=== PATIENT | male | born 2000 | race Two or more races ===

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

== ENCOUNTER 2021-06-29 07:10 | Outpatient (REF) | payer MEDICAID, SELFPAY ==
--- NOTE | 2021-06-29 | ECG_ITS ---
Test Reason : HIGH RISK MEDICATION Blood Pressure : / mmHG Vent. Rate : 093 BPM Atrial Rate : 093 BPM P-R Int : 152 ms QRS Dur : 072 ms QT Int : 348 ms P-R-T Axes : 058 029 003 degrees QTc Int : 432 ms Normal sinus rhythm Normal ECG No previous ECGs available Referred By: Dannie Blas Electronically Signed By:JOY TALAMANTES
[2021-06-29 07:55] LABS: MANUAL DIFF FLAG NO
[2021-06-29 08:35] LABS: Basophils Percent Auto 0.3 % (0-2); Eosinophils Percent Auto 0.5 % (0-4); Hematocrit 44.2 % (42.0-52.0); Hemoglobin 14.6 g/dl (14.0-18.0); Imm Gran Abs Auto 0.01 X10*3/uL (0.00-0.03); Imm Gran Pct Auto 0.3 % (0.0-0.4); Lymphocytes Absolute Auto 1.2 X10*3/uL (1.2-4.9); Lymphocytes Percent Auto 30.6 % (20-40); Mean Corpuscular Hemoglobin 30.6 pg (27.0-33.0); Mean Corpuscular Volume 92.7 fL (80.0-98.0); Mean Platelet Volume 10.6 fL (9.4-12.4); Monocytes Absolute Auto 0.3 X10*3/uL (0.1-1.2); Monocytes Percent Auto 8.2 % (2-11); Neutrophils Absolute Auto 2.3 x10*3/uL (2.0-8.3); Neutrophils Percent Auto 60.1 % (45-73); Platelet Count 185 X10*3/uL (160-400); Red Blood Count 4.77 X10*6/uL (4.60-5.80); Red Cell Distribution Width 12.4 % (11.0-16.0); White Blood Count 3.9 X10*3/uL (4.8-10.8)
[2021-06-29 08:45] LABS: Estimated Average Glucose 97 mg/dL
[2021-06-29 08:59] LABS: Alanine Aminotransferase 101 U/L (0-40); Albumin Level 4.2 g/dL (3.5-5.0); Alkaline Phosphatase 96 U/L (39-117); Anion Gap 13 (12-20); Aspartate Amino Transferase 42 U/L (5-37); Bilirubin Total 0.8 mg/dL (0.0-1.0); Blood Urea Nitrogen 11 mg/dL (9-16); Carbon Dioxide 26 mmol/L (22-29); Chloride 106 mmol/L (96-108); Cholesterol 164 mg/dL; Estimated Glomerular Filt Rate > 60; Glucose Random 84 mg/dL (60-115); HDL Cholesterol 40 mg/dL; LDL Cholesterol Calculated 109 mg/dl; Potassium 4.5 mmol/L (3.3-5.1); Sodium 140 mmol/L (135-145); Total Protein 7.5 g/dL (6.5-8.0); Triglycerides 75 mg/dL
[2021-07-01 02:51] LABS: Prolactin 52.9 ng/mL (2.0-18.0)
== END 2021-06-29 07:11 | disposition home or self-care (01) ==
LOC: HO.LAB 07:10
PROVIDERS: PCP Pediatrics; Visit Provider Psychiatry & Neurology Child & Adolescent Psychiatry
DX: F84.0 Autistic disorder (principal); F73 Profound intellectual disabilities; Z79.899 Other long term (current) drug therapy
CPT/HCPCS: 36415; 80053; 80061; 83036; 84146; 85025; 93005

== ENCOUNTER 2022-03-10 11:02 | Outpatient (REF) | payer MEDICAID, SELFPAY ==
--- NOTE | ~2022-03-10 | XR_ITS ---
EXAMINATION: XR NASAL BONES CLINICAL INFORMATION: Ankle swelling. COMPARISON: Facial bone CT scan dated 02/13/2016. TECHNIQUE: 3 views of the nasal bones were obtained. FINDINGS: A longitudinal linear lucency is seen along the mid aspect of the nasal bones extending from the anterior margin posteriorly. The superior ridge is intact. The nasal septum is midline without abnormality. The bony orbits are intact. The paranasal sinuses are clear. Mild overlying soft tissue swelling is seen. No radiopaque foreign body. XR/XR nasal bones min 3V IMPRESSION: Nasal bone longitudinal linear lucency appears represent a prominent feature similar to the 2016 CT scan. A definitive acute fracture is not seen.
== END 2022-03-10 11:03 | disposition home or self-care (01) ==
LOC: HO.XRAY 11:02
PROVIDERS: PCP Nurse Practitioner Family; Visit Provider Nurse Practitioner
DX: R22.0 Localized swelling, mass and lump, head (principal); Z91.52 Personal history of nonsuicidal self-harm
CPT/HCPCS: 70160

== ENCOUNTER 2022-03-17 07:52 | Outpatient (REF) | payer MEDICAID, SELFPAY ==
[2022-03-17 09:10] LABS: Alanine Aminotransferase 52 U/L (0-40); Albumin Level 4.2 g/dL (3.5-5.0); Alkaline Phosphatase 95 U/L (39-117); Aspartate Amino Transferase 28 U/L (5-37); Bilirubin Direct 0.2 mg/dL (0.0-0.5); Bilirubin Total 0.6 mg/dL (0.0-1.0); Total Protein 7.3 g/dL (6.5-8.0)
== END 2022-03-17 07:53 | disposition home or self-care (01) ==
LOC: HO.LAB 07:52
PROVIDERS: PCP General Practice; Visit Provider General Practice
DX: Z79.899 Other long term (current) drug therapy (principal)
CPT/HCPCS: 36415; 80076

== ENCOUNTER 2022-07-03 13:28 | Emergency (ER) | payer MEDICAID, SELFPAY ==
--- NOTE | ~2022-07-03 | XR_ITS ---
EXAMINATION: XR HAND, LEFT CLINICAL INFORMATION: Injury. Abrasion. COMPARISON: None available. TECHNIQUE: PA, lateral, and oblique views of the left hand. FINDINGS: Exam is limited due to patient positioning. The bones and soft tissues are normal. No fracture. Alignment is anatomic. Joint spaces are maintained. Soft tissues are normal. XR/XR hand LT 2V IMPRESSION: Limited exam due to patient positioning. No fracture or dislocation.
[2022-07-03 13:36] VITALS: BP 124/71; PULSE 79; RESP 16; O2SAT 96
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
== END 2022-07-03 14:48 | disposition home or self-care (01) ==
PROVIDERS: Emergency Provider Emergency Medicine
DX: S00.81XA Abrasion of other part of head, initial encounter (principal); M79.642 Pain in left hand; R51.9 Headache, unspecified; M54.2 Cervicalgia; X58.XXXA Exposure to other specified factors, initial encounter; Y93.9 Activity, unspecified; Y92.9 Unspecified place or not applicable; Y99.9 Unspecified external cause status; Z79.899 Other long term (current) drug therapy
CPT/HCPCS: 73120; 99283; 99284

== ENCOUNTER 2022-07-27 10:45 | Outpatient (REF) | payer MEDICAID, SELFPAY ==
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
== END 2022-07-27 10:46 | disposition home or self-care (01) ==
LOC: HO.CT 10:45
PROVIDERS: Visit Provider Internal Medicine
DX: S09.90XD Unspecified injury of head, subsequent encounter (principal)
CPT/HCPCS: 70450

== ENCOUNTER 2022-11-02 10:14 | Outpatient (REF) | payer MEDICAID, SELFPAY ==
[2022-11-02 11:22] LABS: MANUAL DIFF FLAG NO
[2022-11-02 11:48] LABS: Basophils Percent Auto 0.5 % (0-2); Eosinophils Percent Auto 0.5 % (0-4); Hematocrit 46.1 % (42.0-52.0); Hemoglobin 15.2 g/dl (14.0-18.0); Imm Gran Abs Auto 0.01 X10*3/uL (0.00-0.03); Imm Gran Pct Auto 0.2 % (0.0-0.4); Lymphocytes Absolute Auto 1.3 X10*3/uL (1.2-4.9); Lymphocytes Percent Auto 29.6 % (20-40); Mean Corpuscular Hemoglobin 30.8 pg (27.0-33.0); Mean Corpuscular Volume 93.5 fL (80.0-98.0); Mean Platelet Volume 11.4 fL (9.4-12.4); Monocytes Absolute Auto 0.3 X10*3/uL (0.1-1.2); Monocytes Percent Auto 7.7 % (2-11); Neutrophils Absolute Auto 2.7 x10*3/uL (2.0-8.3); Neutrophils Percent Auto 61.5 % (45-73); Platelet Count 174 X10*3/uL (160-400); Red Blood Count 4.93 X10*6/uL (4.60-5.80); Red Cell Distribution Width 12.2 % (11.0-16.0); White Blood Count 4.4 X10*3/uL (4.8-10.8)
[2022-11-02 12:30] LABS: Alanine Aminotransferase 50 U/L (0-40); Albumin Level 4.2 g/dL (3.5-5.0); Alkaline Phosphatase 97 U/L (39-117); Anion Gap 16 (12-20); Aspartate Amino Transferase 28 U/L (5-37); Bilirubin Total 0.5 mg/dL (0.0-1.0); Blood Urea Nitrogen 13 mg/dL (9-16); Calcium 9.3 mg/dL (8.4-10.2); Carbon Dioxide 22 mmol/L (22-29); Chloride 107 mmol/L (96-108); Cholesterol 160 mg/dL; Estimated Glomerular Filt Rate > 60; Glucose Random 75 mg/dL (60-115); HDL Cholesterol 39 mg/dL; LDL Cholesterol Calculated 93 mg/dl; Potassium 4.3 mmol/L (3.3-5.1); Sodium 141 mmol/L (135-145); Total Protein 7.9 g/dL (6.5-8.0); Triglycerides 140 mg/dL
[2022-11-02 12:39] LABS: HBS Num1 0.44 mIU/mL (0-7.99); HBc Num1 0.08 S/CO (0.00-0.79); HBsAGNum1 0.41 S/CO (0.00-0.99); HIV AB/AG Nonreactive (Nonreactive); Hepatitis A Antibody IgM 0.26 Index (0-0.79); Hepatitis B Core Antibody Nonreactive (Nonreactive); Hepatitis B Surface Antigen Negative (Negative); ~HepC Num1 0.07 S/CO (0.00-0.79); ~Hepatitis A Antibody IgM Nonreactive (Nonreactive); ~Hepatitis B Surface Antibody NONREACTIVE (Nonreactive); ~Hepatitis C Antibody Nonreactive (Nonreactive)
[2022-11-02 12:40] LABS: Syphilis Screen Nonreactive (Nonreactive)
== END 2022-11-02 10:15 | disposition home or self-care (01) ==
LOC: HO.HHCL 10:14
PROVIDERS: Visit Provider Registered Nurse
DX: Z00.00 Encounter for general adult medical examination without abnormal findings (principal); K59.00 Constipation, unspecified
CPT/HCPCS: 36415; 80053; 80061; 85025; 86704; 86706; 86709; 86780; 86803; 87340; 87389

== ENCOUNTER 2023-01-02 09:55 | Outpatient (REF) | payer MEDICAID, SELFPAY ==
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
[2023-01-02 12:54] LABS: Alanine Aminotransferase 48 U/L (0-40); Albumin Level 4.1 g/dL (3.5-5.0); Alkaline Phosphatase 93 U/L (39-117); Aspartate Amino Transferase 29 U/L (5-37); Bilirubin Direct 0.3 mg/dL (0.0-0.5); Bilirubin Total 0.9 mg/dL (0.0-1.0); Total Protein 7.5 g/dL (6.5-8.0)
== END 2023-01-02 09:56 | disposition home or self-care (01) ==
LOC: HO.HHCL 09:55
PROVIDERS: Visit Provider Registered Nurse
DX: S09.93XA Unspecified injury of face, initial encounter (principal); R74.8 Abnormal levels of other serum enzymes
CPT/HCPCS: 36415; 70150; 80076

== ENCOUNTER 2024-01-08 11:46 | Outpatient (REF) | payer SELFPAY ==
[2024-01-08 13:26] LABS: MANUAL DIFF FLAG NO
[2024-01-08 13:34] LABS: Basophils Percent Auto 0.5 % (0-2); Hematocrit 38.6 % (42.0-52.0); Hemoglobin 13.2 g/dl (14.0-18.0); Imm Gran Abs Auto 0.01 X10*3/uL (0.00-0.03); Imm Gran Pct Auto 0.2 % (0.0-0.4); Lymphocytes Absolute Auto 1.1 X10*3/uL (1.2-4.9); Lymphocytes Percent Auto 27.1 % (20-40); Mean Corpuscular HGB Conc 34.2 g/dl (31.0-36.0); Mean Corpuscular Hemoglobin 31.2 pg (27.0-33.0); Mean Corpuscular Volume 91.3 fL (80.0-98.0); Mean Platelet Volume 10.8 fL (9.4-12.4); Monocytes Absolute Auto 0.4 X10*3/uL (0.1-1.2); Monocytes Percent Auto 9.6 % (2-11); Neutrophils Absolute Auto 2.5 x10*3/uL (2.0-8.3); Neutrophils Percent Auto 61.6 % (45-73); Platelet Count 188 X10*3/uL (160-400); Red Blood Count 4.23 X10*6/uL (4.60-5.80); Red Cell Distribution Width 12.3 % (11.0-16.0); White Blood Count 4.1 X10*3/uL (4.8-10.8)
[2024-01-08 13:55] LABS: Alanine Aminotransferase 41 U/L (0-40); Alkaline Phosphatase 99 U/L (39-117); Anion Gap 9 (12-20); Aspartate Amino Transferase 24 U/L (5-37); Bilirubin Total 0.5 mg/dL (0.0-1.0); Blood Urea Nitrogen 16 mg/dL (9-16); Carbon Dioxide 26 mmol/L (22-29); Chloride 108 mmol/L (96-108); Cholesterol 150 mg/dL (<200); Estimated Glomerular Filt Rate > 60; Glucose Random 108 mg/dL (60-115); HDL Cholesterol 41 mg/dL (>40); LDL Cholesterol Calculated 90 mg/dL (<100); Sodium 139 mmol/L (135-145); Total Protein 7.3 g/dL (6.5-8.0); Triglycerides 98 mg/dL (<150)
== END 2024-01-08 11:47 | disposition home or self-care (01) ==
LOC: HO.HHCL 11:46
PROVIDERS: Visit Provider Registered Nurse
DX: Z00.00 Encounter for general adult medical examination without abnormal findings (principal)
CPT/HCPCS: 36415; 80053; 80061; 85025

== ENCOUNTER 2024-02-09 14:56 | Outpatient (REF) | payer MEDICAID, SELFPAY ==
[2024-02-09 16:07] LABS: Appearance Urine Turbid; Color Urine Yellow; Glucose Urine UA Negative (Negative); Leukocyte Esterase Urine Negative (Negative); Nitrite Urine Negative (Negative); Urine Blood Negative (Negative); Urine Ketones Negative (Negative); Urine Protein Negative (Neg-Trace)
[2024-02-09 16:18] LABS: Bacteria Urine None Seen (None Seen); Hyaline Casts Urine 0-2 /LPF (0-2); Other Crystals Urine Present; RBC Urine 0-2 /HPF (0-2); Squamous Epithelial Cell Urine 0-2 /HPF (0-2); WBC Urine 0-5 /HPF (0-5)
[2024-02-09 16:19] LABS: MANUAL DIFF FLAG NO
[2024-02-09 16:26] LABS: Basophils Percent Auto 0.4 % (0-2); Eosinophils Percent Auto 0.4 % (0-4); Hematocrit 38.8 % (42.0-52.0); Hemoglobin 13.6 g/dl (14.0-18.0); Imm Gran Abs Auto 0.02 X10*3/uL (0.00-0.03); Imm Gran Pct Auto 0.4 % (0.0-0.4); Lymphocytes Absolute Auto 1.2 X10*3/uL (1.2-4.9); Lymphocytes Percent Auto 25.5 % (20-40); Mean Corpuscular HGB Conc 35.1 g/dl (31.0-36.0); Mean Corpuscular Hemoglobin 31.5 pg (27.0-33.0); Mean Corpuscular Volume 89.8 fL (80.0-98.0); Mean Platelet Volume 10.2 fL (9.4-12.4); Monocytes Absolute Auto 0.4 X10*3/uL (0.1-1.2); Monocytes Percent Auto 9.1 % (2-11); Neutrophils Percent Auto 64.2 % (45-73); Platelet Count 212 X10*3/uL (160-400); Red Blood Count 4.32 X10*6/uL (4.60-5.80); White Blood Count 4.7 X10*3/uL (4.8-10.8)
[2024-02-09 17:09] LABS: Iron 60 mcg/dL (45-160); Percent Iron Saturation 26 % (15-50); Total Iron Binding Capacity 232 mcg/dL (228-428); Unsaturated Iron Binding 172 ug/dL
[2024-02-09 17:24] LABS: Ferritin 173 ng/mL (20-250); TSH reflex Free T4 1.01 uIU/mL (0.32-4.0)
[2024-02-09 17:43] LABS: Folate > 20.0 ng/mL (> or = 4.0); Vitamin B12 1208 pg/mL (200-900)
== END 2024-02-09 14:57 | disposition home or self-care (01) ==
LOC: HO.HHCL 14:56
PROVIDERS: Visit Provider Internal Medicine
DX: G47.10 Hypersomnia, unspecified (principal)
CPT/HCPCS: 36415; 81001; 82306; 82607; 82728; 82746; 83540; 84443; 85025

== ENCOUNTER 2024-02-16 12:10 | Outpatient (REF) | payer MEDICAID, SELFPAY | END 2024-02-16 12:11 | disposition home or self-care (01) | LOC: HO.HHCL 12:10 | PROVIDERS: Visit Provider Nurse Practitioner Family | DX: Z13.89 Encounter for screening for other disorder (principal) ==

== ENCOUNTER 2024-03-21 13:52 | Outpatient (REF) | payer MEDICAID, SELFPAY ==
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
== END 2024-03-21 13:53 | disposition home or self-care (01) ==
LOC: HO.HHCX 13:52
PROVIDERS: Visit Provider Family Medicine
DX: R22.31 Localized swelling, mass and lump, right upper limb (principal)
CPT/HCPCS: 73130

== ENCOUNTER 2024-03-25 19:02 | Inpatient (IN) | payer MEDICAID, SELFPAY ==
--- NOTE | ~2024-03-25 | XR_ITS ---
EXAMINATION: XR HAND/WRIST, RIGHT CLINICAL INFORMATION: Right hand osteo? COMPARISON: Hand radiograph March 21, 2024 TECHNIQUE: PA, lateral, and oblique views of the right hand and wrist. FINDINGS: Significant soft tissue swelling along the lateral aspect of the hand, particularly along the first digit, second lesion, and thenar eminence. No radiopaque foreign bodies. No cortical destructive changes to suggest osteomyelitis. No acute fractures or dislocations. XR/XR hand wrist RT IMPRESSION: No cortical erosive changes to suggest osteomyelitis. Hand swelling noted. Electronically signed by: Ivan Bentley DO 03/25/2024 08:43 PM EST
[2024-03-25 19:26] VITALS: BP 100/48; PULSE 91; RESP 16; TEMP 37; O2SAT 99; BMI 25.7
--- NOTE | 2024-03-25 19:30 | ED.GENADULT ---
HPI - General Adult General Chief complaint: Skin/Abscess/Foreign Body Stated complaint: Hand inj Time Seen by Provider: 03/25/24 22:09 Source: other (intermediate caretakers) Mode of arrival: ambulatory Limitations: other (Developmental delay) History of Present Illness ED Provider: Dr. Deandra Prince HPI narrative: Patient comes to the emergency room accompanied by his caretakers from the shelter. According to the caretakers, patient is known to cause self-harm, constant deep punches himself or other things. Patient has chronic calluses in his knuckles due to punching. However, about a week ago patient developed cellulitis in his ride hand on the dorsum. Patient was treated with cephalexin. However, patient hand keeps getting more swollen, red. Patient is unable to give any history. Related Data Home Medications ?Medication ?Instructions ?Recorded ?Confirmed bacitracin 500 unit/gram topical 1 appl topical BID 03/25/24 03/26/24 ointment clonazepam 1 mg tablet 1 mg PO BID PRN Anxiety 03/25/24 03/25/24 clonazepam 1 mg tablet 1 mg PO DAILY 03/25/24 03/25/24 fluoxetine 40 mg capsule 60 mg PO BEDTIME 03/25/24 03/26/24 paliperidone 9 mg tablet,extended 9 mg PO DAILY 03/25/24 03/25/24 release 24 hr risperidone 2 mg tablet 2 mg PO DAILY 03/25/24 03/25/24 risperidone 3 mg tablet 3 mg PO BEDTIME 03/25/24 03/25/24 trazodone 100 mg tablet 50 mg PO BEDTIME 03/25/24 03/25/24 trazodone 100 mg tablet 100 mg PO BEDTIME 03/25/24 03/25/24 acetaminophen 500 mg tablet 1,000 mg PO Q6H PRN Fever>100 03/26/24 03/26/24 cephalexin 250 mg/5 mL oral 250 mg PO DAILY@0800,1600,2000 03/26/24 03/26/24 suspension docusate sodium 100 mg tablet 100 mg PO DAILY 03/26/24 03/26/24 ibuprofen 200 mg tablet 200 mg PO DAILY PRN Body Aches 03/26/24 03/26/24 loratadine 10 mg tablet 10 mg PO Q6H PRN allergies 03/26/24 03/26/24 multivitamin-iron 9 mg-folic acid 1 tab PO DAILY 03/26/24 03/26/24 400 mcg-calcium and minerals tablet polyethylene glycol 3350 17 17 g PO DAILY 03/26/24 03/26/24 gram/dose oral powder (Miralax) Allergies Allergy/AdvReac Type Severity Reaction Status Date / Time lactose [LACTOSE] Allergy Intermediate GI SYMPTOMS Verified 03/25/24 19:29 Review of Systems Review of Systems: Yes Unobtainable due to mental condition [facility] Past Medical History Medical History Autism Social History Social History (System 01/09/24 @ 13:23 by Ivania Pastrana CNA) Household Members: Other Household Members Other:: shelter Housing: Other Housing Other:: shelter Do you presently have visiting nurse or other home services: Yes Alcohol intake: never Patient Tobacco Use Status: Never used Tobacco Use of substances other than those prescribed or required for medical reasons: Unable to respond Advance Directives: No Advance Directives Information Provided: No Do you have a plan to hurt others: Vague Recently lost weight without trying: No Nutrition Risks: No Nutritional Risk Poor oral hygiene: No Physical Exam ED Vital Signs: Vital Signs - 24 hr 03/25/24 19:26 03/25/24 21:53 Temperature 98.6 F 97.4 F Pulse Rate 91 107 H Respiratory Rate 16 16 Blood Pressure 100/48 L 118/71 Pulse Oximetry 99 100 Oxygen Delivery Method Room Air Room Air BMI result Body Mass Index 25.7 Const Other: Appearance: Alert. No acute distress Eyes: Pupils equal, round and reactive to light. ENT: Pharynx normal. Neck: Normal inspection. Neck supple. No lymph nodes noted. No crepitus CVS: Normal heart rate and rhythm. Pulses normal. Normal S1 and S2 Respiratory: No respiratory distress. Breath sounds normal. No Wheezing. No rales Abdomen: Soft and nontender. No rigidity. No distention. Skin: Skin warm and dry. Normal skin color. Normal skin turgor. See extremity below Extremities: No lower extremity edema. No Lacerations. No Rash. On the right hand, patient has an abscess over the distal aspect of the 2nd metacarpal in the dorsum of the hand. See pictures below. Neuro: Oriented X 3. No motor deficit. No sensory deficit. Moving all extremities. No slurred speech. CN 2 through 12 grossly intact Psych: calm, cooperative, normal affect Course Course Course Narrative: RME: 23-year-old male presents to ED right index finger worsening cellulitic infection now swelling, fluctuance, and in flexion position. Patient has been on antibiotics for a week and felt p.o. outpatient antibiotic pain patient states to the ED for referral. Labs x-ray ordered. Medications Administered Generic Name Dose Route Start Last Admin Trade Name Freq PRN Reason Stop Dose Admin Clonazepam 1 mg 03/26/24 09:00 03/26/24 11:13 Clonazepam 1 Mg Tablet PO 1 mg DAILY MONIQUE Administration Piperacillin Sod/Tazobactam 50 mls @ 100 mls/hr 03/26/24 05:00 03/26/24 11:16 Sod 3.375 gm/ Sodium Chloride IV 100 mls/hr Q6H MONIQUE Administration Paliperidone 9 mg 03/26/24 09:00 03/26/24 11:24 Paliperidone Er 9 Mg Tab.Er.24 PO 9 mg DAILY MONIQUE Administration Risperidone 2 mg 03/26/24 10:30 03/26/24 11:13 Risperidone 2 Mg Tablet PO 2 mg DAILY MONIQUE Administration Sodium Chloride 3 ml 03/26/24 00:00 03/26/24 07:57 0.9 % Sodium Chloride Flush 3 Ml Syringe IVFLUSH 3 ml QSHIFT MONIQUE Administration Discontinued Medications Generic Name Dose Route Start Last Admin Trade Name Freq PRN Reason Stop Dose Admin Fluoxetine HCl 60 mg 03/26/24 09:00 03/26/24 10:25 Fluoxetine Hcl 20 Mg Capsule PO Not Given DAILY MONIQUE Sodium Chloride 1,000 mls @ 999 mls/hr 03/25/24 22:17 03/26/24 00:07 Ns IVCONT 03/25/24 23:17 Infused .Q1H1M ONE Infusion Vancomycin HCl 1,500 mg/ 500 mls @ 333.333 mls/hr 03/25/24 22:17 03/26/24 01:41 Sodium Chloride IV 03/25/24 23:46 Infused ONCE ONE Infusion Piperacillin Sod/Tazobactam 50 mls @ 100 mls/hr 03/25/24 22:17 03/26/24 00:08 Sod 3.375 gm/ Sodium Chloride IV 03/25/24 22:46 Infused ONCE ONE Infusion Vancomycin HCl 750 mg/ Sodium 265 mls @ 265 mls/hr 03/26/24 06:00 03/26/24 06:32 Chloride IV 03/26/24 06:59 Infused ONCE ONE Infusion Medical Decision Making Medical Decision Making [facility] Narrative: My interpretation of labs: Patient's white blood cell count within normal limits, lactic normal, CRP and ESR slightly elevated. Patient failed outpatient treatment with antibiotics and keeps getting worse. Patient will need hand surgery consult. X-ray does not show any cortical bone abnormality to suggest osteomyelitis, no fracture visualized We attempted to get a CT scan with IV contrast to rule out tenosynovitis. However, patient is unable to lay still for the imaging. I discussed the patient with Dr. Ramesh from hand surgery, patient to be NPO after midnight, he will need to go to the OR tomorrow. Caretakers have been informed Discussed the patient with Dr. 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 03/26/24 05:31 03/26/24 05:31 Labs: Lab Results 03/25/24 03/25/24 Range/Units 20:24 20:25 WBC 6.4 (4.8-10.8) X10*3/uL RBC 4.06 L (4.60-5.80) X10*6/uL Hgb 12.6 L (14.0-18.0) g/dl Hct 36.2 L (42.0-52.0) % MCV 89.2 (80.0-98.0) fL MCH 31.0 (27.0-33.0) pg MCHC 34.8 (31.0-36.0) g/dl RDW 11.6 (11.0-16.0) % Plt Count 231 (160-400) X10*3/uL MPV 9.8 (9.4-12.4) fL Immature Gran % (Auto) 0.3 (0.0-0.4) % Neut % (Auto) 74.8 H (45-73) % Lymph % (Auto) 15.4 L (20-40) % Cobb % (Auto) 7.4 (2-11) % Eos % (Auto) 1.6 (0-4) % Baso % (Auto) 0.5 (0-2) % Lymph # (Auto) 1.0 L (1.2-4.9) X10*3/uL Cobb # (Auto) 0.5 (0.1-1.2) X10*3/uL Eos # (Auto) 0.1 (0.0-0.4) X10*3/uL Baso # (Auto) 0.0 (0.0-0.2) X10*3/uL Abs Immat Gran (auto) 0.02 (0.00-0.03) X10*3/uL Absolute Neuts (auto) 4.8 (2.0-8.3) x10*3/uL Absolute Nucleated RBC 0.000 (0.0-0.012) X10*3/uL Nucleated RBC % (auto) 0.0 (0.0-0.2) /100WBC ESR 64 H (0-15) MM/HR Sodium 136 (135-145) mmol/L Potassium 3.8 (3.3-5.1) mmol/L Chloride 102 (96-108) mmol/L Carbon Dioxide 27 (22-29) mmol/L Anion Gap 11 L (12-20) BUN 13 (9-16) mg/dL Creatinine 0.66 (0.5-1.4) mg/dL Estim Creat Clear Calc 123.1 Estimated GFR > 60 Random Glucose 100 (60-115) mg/dL Lactic Acid 0.8 (0.5-2.0) mmol/L Calcium 9.0 (8.4-10.2) mg/dL Total Bilirubin 0.4 (0.0-1.0) mg/dL AST 26 (5-37) U/L ALT 43 H (0-40) U/L Alkaline Phosphatase 104 (39-117) U/L C-Reactive Protein 6.11 H (< or = 0.50) mg/dL Total Protein 7.8 (6.5-8.0) g/dL Albumin 3.8 (3.5-5.0) g/dL Independent Interpretation I performed an independent interpretation of an: Plain X-Ray Radiology Impression Discussion of test interpretation with radiology: I have reviewed the radiologist's reading. Radiologist Impression: Significant soft tissue swelling along the lateral aspect of the hand, particularly along the first digit, second lesion, and thenar eminence. No radiopaque foreign bodies. No cortical destructive changes to suggest osteomyelitis. No acute fractures or dislocations. XR/XR hand wrist RT IMPRESSION: No cortical erosive changes to suggest osteomyelitis. Hand swelling noted. Independent Historian Clinical information obtained from an independent historian. History obtained from or confirmed by: Other (intermediate caretakers) Critical Care Time Critical Care Time Critical Care Time: Yes Total Critical Care Time: 60 Attestation: I have personally provided critical care time. Time includes review of lab data, radiology results, discussion with consultants, and monitoring for potential decompensation. Intervention performed as documented. Discharge Plan Discharge Clinical Impression: Abscess of skin or subcutaneous tissue Patient Disposition: Admitted As Inpatient Interventions: Admission Worksheet (ED) Last Done: 03/26/24 07:49 Discharge Date/Time: 03/26/24 08:41
[2024-03-25 20:30] LABS: MANUAL DIFF FLAG NO
[2024-03-25 20:38] LABS: Basophils Percent Auto 0.5 % (0-2); Eosinophils Absolute Auto 0.1 X10*3/uL (0.0-0.4); Eosinophils Percent Auto 1.6 % (0-4); Hematocrit 36.2 % (42.0-52.0); Hemoglobin 12.6 g/dl (14.0-18.0); Imm Gran Abs Auto 0.02 X10*3/uL (0.00-0.03); Imm Gran Pct Auto 0.3 % (0.0-0.4); Lymphocytes Percent Auto 15.4 % (20-40); Mean Corpuscular HGB Conc 34.8 g/dl (31.0-36.0); Mean Corpuscular Volume 89.2 fL (80.0-98.0); Mean Platelet Volume 9.8 fL (9.4-12.4); Monocytes Absolute Auto 0.5 X10*3/uL (0.1-1.2); Monocytes Percent Auto 7.4 % (2-11); Neutrophils Absolute Auto 4.8 x10*3/uL (2.0-8.3); Neutrophils Percent Auto 74.8 % (45-73); Platelet Count 231 X10*3/uL (160-400); Red Blood Count 4.06 X10*6/uL (4.60-5.80); Red Cell Distribution Width 11.6 % (11.0-16.0); White Blood Count 6.4 X10*3/uL (4.8-10.8)
[2024-03-25 21:02] LABS: Alanine Aminotransferase 43 U/L (0-40); Albumin Level 3.8 g/dL (3.5-5.0); Alkaline Phosphatase 104 U/L (39-117); Anion Gap 11 (12-20); Aspartate Amino Transferase 26 U/L (5-37); Bilirubin Total 0.4 mg/dL (0.0-1.0); Blood Urea Nitrogen 13 mg/dL (9-16); C Reactive Protein 6.11 mg/dL (< or = 0.50); Carbon Dioxide 27 mmol/L (22-29); Chloride 102 mmol/L (96-108); Creatinine Clr Calc Pharmacy 123.1; Estimated Glomerular Filt Rate > 60; Glucose Random 100 mg/dL (60-115); Potassium 3.8 mmol/L (3.3-5.1); Sodium 136 mmol/L (135-145); Total Protein 7.8 g/dL (6.5-8.0)
[2024-03-25 21:07] LABS: Lactic Acid 0.8 mmol/L (0.5-2.0)
[2024-03-25 21:40] LABS: Erythrocyte Sedimentation Rate 64 MM/HR (0-15)
[2024-03-25 21:53] VITALS: BP 118/71; PULSE 107; RESP 16; TEMP 36.3; O2SAT 100
[2024-03-25] MEDS: Piperacillin Sodium/Tazobactam 3.375 GM in 0.9 % Sodium Chloride 50 ML IV (22:46)
[2024-03-25] MEDS: 0.9 % Sodium Chloride 1,000 ML 999 ML IVCONT (22:46)
--- NOTE | 2024-03-25 22:59 | PC.NURSE ---
pt has SECURITY INTERN at bedside. calm, redirectable, nonverbal. occasionally yells out loudly, SECURITY INTERN states this is baseline behavior. lying in bed with fluids + IV ABX running. pt unable to tolerate CT of hand. MD aware. plan for MD to determine need for CT. VSS
--- NOTE | 2024-03-25 23:45 | P.HPHOSP_ITS ---
History of Present Illness Date of Service: 03/25/24 Chief Complaint: right index finger cellulitis and absces 24-year-old male with developmental delay and self-injurious behaviors, including hitting himself. He is nonverbal and resides in a shelter, accompanied by two staff members. He was brought in for evaluation of swelling and redness of the right index finger, caused by a self-induced injury approximately one week ago. Despite being started on Keflex four days ago, there has been no improvement?see attached picture. X-ray shows no changes suggestive of osteomyelitis (OM). ESR and CRP are elevated. He has been started on Zosyn and Vancomycin. Orthopedics is planning incision and drainage (I&D) in the OR tomorrow morning. Review of Systems 2 Review of Systems: Yes Unobtainable due to mental status [facility] Medical History Autism Social History Household Members: Other Household Members Other:: alf Housing: Other Housing Other:: shelter Are you a primary animal care supervisor to a significant other at home: No Do you presently have visiting nurse or other home services: No Alcohol intake: never Comment: shelter staff at bedside Patient Tobacco Use Status: Never used Tobacco Meds Allergies Allergy/AdvReac Type Severity Reaction Status Date / Time lactose [LACTOSE] Allergy Intermediate GI SYMPTOMS Verified 03/25/24 19:29 Active Medications: Current Medications Vancomycin HCl 1,500 mg/ (Sodium Chloride) 500 mls @ 333.333 mls/hr IV ONCE ONE Stop: 03/25/24 23:46 Home Medications ?Medication ?Instructions ?Recorded ?Confirmed ?Last Taken ?Type bacitracin 500 unit/gram topical 1 appl topical BID 03/25/24 03/26/24 Unknown History ointment clonazepam 1 mg tablet 1 mg PO BID PRN Anxiety 03/25/24 03/25/24 Unknown History clonazepam 1 mg tablet 1 mg PO DAILY 03/25/24 03/25/24 Unknown History fluoxetine 40 mg capsule 60 mg PO BEDTIME 03/25/24 03/26/24 Unknown History paliperidone 9 mg tablet,extended 9 mg PO DAILY 03/25/24 03/25/24 Unknown History release 24 hr risperidone 2 mg tablet 2 mg PO DAILY 03/25/24 03/25/24 Unknown History risperidone 3 mg tablet 3 mg PO BEDTIME 03/25/24 03/25/24 Unknown History trazodone 100 mg tablet 50 mg PO BEDTIME 03/25/24 03/25/24 Unknown History trazodone 100 mg tablet 100 mg PO BEDTIME 03/25/24 03/25/24 Unknown History acetaminophen 500 mg tablet 1,000 mg PO Q6H PRN Fever>100 03/26/24 03/26/24 Unknown History cephalexin 250 mg/5 mL oral 250 mg PO DAILY@0800,1600,2000 03/26/24 03/26/24 Unknown History suspension docusate sodium 100 mg tablet 100 mg PO DAILY 03/26/24 03/26/24 Unknown History ibuprofen 200 mg tablet 200 mg PO DAILY PRN Body Aches 03/26/24 03/26/24 Unknown History loratadine 10 mg tablet 10 mg PO Q6H PRN allergies 03/26/24 03/26/24 Unknown History multivitamin-iron 9 mg-folic acid 1 tab PO DAILY 03/26/24 03/26/24 Unknown History 400 mcg-calcium and minerals tablet polyethylene glycol 3350 17 17 g PO DAILY 03/26/24 03/26/24 Unknown History gram/dose oral powder (Miralax) Physical Exam 2 Vital Signs and Narrative: Vital Signs: Last Vital Signs Temp 97.4 F 03/25/24 21:53 Pulse 107 H 03/25/24 21:53 Resp 16 03/25/24 21:53 BP 118/71 03/25/24 21:53 Pulse Ox 100 03/25/24 21:53 O2 Del Method Room Air 03/25/24 21:53 BMI result Body Mass Index 25.7 Const: Other: General: No distress, HEENT: he wearing a protective helmet to prevent self injury Resp: CTA bilateral CVS: S1,S2,RRR GI: +BS, NT, no distention Skin: No rash Ext: swollen and redness of right index finger-- Neuro: motor grossly intact Psych: appropriate affect Results Labs 03/27/24 06:13 03/31/24 06:36 Labs: Laboratory Results - last 24 hr 03/25/24 03/25/24 20:24 20:25 MCV 89.2 MCH 31.0 MCHC 34.8 RDW 11.6 Plt Count 231 MPV 9.8 Immature Gran % (Auto) 0.3 Neut % (Auto) 74.8 H Lymph % (Auto) 15.4 L Morris % (Auto) 7.4 Eos % (Auto) 1.6 Baso % (Auto) 0.5 Lymph # (Auto) 1.0 L Morris # (Auto) 0.5 Eos # (Auto) 0.1 Baso # (Auto) 0.0 Abs Immat Gran (auto) 0.02 Absolute Neuts (auto) 4.8 Absolute Nucleated RBC 0.000 Nucleated RBC % (auto) 0.0 ESR 64 H Anion Gap 11 L Estim Creat Clear Calc 123.1 Estimated GFR > 60 Random Glucose 100 Lactic Acid 0.8 Calcium 9.0 Total Bilirubin 0.4 AST 26 ALT 43 H Alkaline Phosphatase 104 C-Reactive Protein 6.11 H Total Protein 7.8 Albumin 3.8 Imaging Radiologist's Impressions: Impressions Hand/Wrist X-Ray 03/25/24 19:43 IMPRESSION: No cortical erosive changes to suggest osteomyelitis. Hand swelling noted. Electronically signed by: Ivan Bentley DO 03/25/2024 08:43 PM EST Assessment and Plan (1) Abscess of skin or subcutaneous tissue: Status: Acute Plan 24-year-old male with developmental delay, non-verbal, and self-injurious behavior (hitting himself) here with right index cellulitis and abscess R index finger abscess/cellulitis Continue Vanco and Zosyn. Oxycodone for pain. Ortho consult for I&D. NPO. Psych/mood disorder Resume meds once verified. DVT prophylaxis Low risk. Encourage early ambulation. At least 2 midnights admit for IV antibiotics for abscess of finger and need for intervention. Quality Stroke Does the patient have a stroke diagnosis?: No VTE Prior VTE?: No VTE Risk Level:: Medical - low VTE Device Contraindication: Treatment Not Indicated VTE Drug Contraindication: Treatment Not Indicated
[2024-03-26] VITALS (11 sets, daily range): BP systolic 102–126; BP diastolic 55–69; PULSE 73–102; RESP 16; TEMP 36.1–37.2; O2SAT 96–100; BMI 26.3
[2024-03-26] MEDS: vancomycin HCL 1,500 MG in 0.9 % Sodium Chloride 500 ML 333.33 MG IV (00:04)
[2024-03-26] MEDS: 0.9 % Sodium Chloride Flush 3 ML SYRINGE IVFLUSH ×3 (00:07→16:55)
--- NOTE | 2024-03-26 02:25 | PC.NURSE ---
pt pulled out #22 IV in left wrist. brief found to be soiled with urine. pt cleaned, new #20 to right antecubital. pt succesfully redirected, now lying back in bed at this time. FORESTRY AID remains at bedside
[2024-03-26] MEDS: Piperacillin Sodium/Tazobactam 3.375 GM in 0.9 % Sodium Chloride 50 ML IV ×4 (05:31→22:52)
[2024-03-26] MEDS: vancomycin HCL 750 MG in 0.9 % Sodium Chloride 250 ML 265 MG IV (05:31)
[2024-03-26 05:35] LABS: Basophils Percent Auto 0.1 % (0-2); Eosinophils Absolute Auto 0.1 X10*3/uL (0.0-0.4); Eosinophils Percent Auto 1.2 % (0-4); Hematocrit 36.8 % (42.0-52.0); Hemoglobin 12.9 g/dl (14.0-18.0); Imm Gran Abs Auto 0.02 X10*3/uL (0.00-0.03); Imm Gran Pct Auto 0.3 % (0.0-0.4); Lymphocytes Absolute Auto 1.2 X10*3/uL (1.2-4.9); Lymphocytes Percent Auto 18.1 % (20-40); MANUAL DIFF FLAG NO; Mean Corpuscular HGB Conc 35.1 g/dl (31.0-36.0); Mean Corpuscular Hemoglobin 31.5 pg (27.0-33.0); Mean Platelet Volume 9.6 fL (9.4-12.4); Monocytes Absolute Auto 0.9 X10*3/uL (0.1-1.2); Monocytes Percent Auto 12.7 % (2-11); Neutrophils Absolute Auto 4.6 x10*3/uL (2.0-8.3); Neutrophils Percent Auto 67.6 % (45-73); Platelet Count 212 X10*3/uL (160-400); Red Blood Count 4.09 X10*6/uL (4.60-5.80); Red Cell Distribution Width 11.6 % (11.0-16.0); White Blood Count 6.8 X10*3/uL (4.8-10.8)
[2024-03-26 05:50] LABS: Alanine Aminotransferase 30 U/L (0-40); Albumin Level 3.2 g/dL (3.5-5.0); Alkaline Phosphatase 90 U/L (39-117); Anion Gap 11 (12-20); Aspartate Amino Transferase 22 U/L (5-37); Bilirubin Total 0.3 mg/dL (0.0-1.0); Blood Urea Nitrogen 9 mg/dL (9-16); Calcium 8.1 mg/dL (8.4-10.2); Carbon Dioxide 25 mmol/L (22-29); Chloride 109 mmol/L (96-108); Estimated Glomerular Filt Rate > 60; Glucose Random 101 mg/dL (60-115); Sodium 141 mmol/L (135-145); Total Protein 6.5 g/dL (6.5-8.0)
--- NOTE | 2024-03-26 09:48 | PHA.MEDREC ---
Addendum entered by James Miranda RPh 03/26/24 10:26: MED REC CHECKED BY [facility] Original Note: Pharmacy Consult ? Medication Reconciliation Pharmacy reviewed med rec done by nursing. Got list from Longterm. Confirmed med rec with that, added PRN meds: Miralax, Docusate, Ibuprofen, Loratadine, Tylenol and a Therems-M tablet to med rec since those were on the list from Home. Spoke with sammie to see when the patient picked up the Cephalexin and they confirmed the paitnet picked up the Cephalexin 250mg/5mL solution and states he is doing 5ml @0800,1600&2000.
[2024-03-26] MEDS: risperiDONE 2 MG TABLET PO (11:13)
[2024-03-26] MEDS: clonazePAM 1 MG TABLET PO (11:13)
[2024-03-26] MEDS: Paliperidone ER 9 MG TAB.ER.24 PO (11:24)
--- NOTE | 2024-03-26 11:48 | MHC.CM.PN ---
CM SPOKE TO THE [facility] STAFF MEMBER AT BEDSIDE HE CONFIRMED PT IS A ONE TO ONE FOR ALL CARE HE AMBULATES WITHOUT A DEVICE PER RECORDS, HIS PCP IS AT [facility] SAI CALLED ALL NUMBERS ON FILE IN AN ATTEMPT TO REACH PTS GUARDIAN, [facility] CALLED BACK AND INFORMED T/W THAT PTS GUARDIAN IS RAHUL ([phone]) A VM MESSAGE WAS LEFT FOR RAHUL REQUESTING A RETURN CALL AND COPY OF GUARDIANSHIP BE FAXED STAFF WILL TRANSPORT AT [place]
--- NOTE | 2024-03-26 12:56 | P.PNIM_ITS ---
Subjective Subjective Date of Service: 03/27/24 Interval History: Seen and evaluated swollen finger and hand non verbal no reported other issues Review of Systems Review of Systems: Yes all other systems are reviewed and are negative Physical Exam 2 Vital Signs: Vital Signs: Last Vital Signs Temp 97 F 03/26/24 08:55 Pulse 86 03/26/24 08:55 Resp 16 03/26/24 08:55 BP 104/58 L 03/26/24 08:55 Pulse Ox 97 03/26/24 08:55 O2 Del Method Room Air 03/26/24 08:55 BMI result Body Mass Index 26.3 Const: Other: General: No distress, HEENT: he wearing a protective helmet to prevent self injury Resp: CTA bilateral CVS: S1,S2,RRR GI: +BS, NT, no distention Skin: No rash Ext: swollen and redness of right index finger-- Neuro: motor grossly intact Psych: appropriate affect Objective Data Active Medications Acetaminophen (Acetaminophen 325 Mg Tablet) 650 mg PO Q6H PRN PRN Reason: Pain, Mild 1-3,fever,headache Calcium Carbonate (Calcium Carbonate 750 Mg Tab.Chew) 750 mg PO Q4H PRN PRN Reason: Heartburn Clonazepam (Clonazepam 1 Mg Tablet) 1 mg PO BID PRN PRN Reason: Anxiety Clonazepam (Clonazepam 1 Mg Tablet) 1 mg PO DAILY [facility] Last Admin: 03/26/24 11:13 Dose: 1 mg Documented By: ALIE Fluoxetine HCl (Fluoxetine Hcl 20 Mg Capsule) 60 mg PO BEDTIME MONIQUE Piperacillin Sod/Tazobactam (Sod 3.375 gm/ Sodium Chloride) 50 mls @ 100 mls/hr IV Q6H [facility] Last Infusion: 03/26/24 12:10 Dose: Infused Documented By: JAZIEL Vancomycin HCl 1,000 mg/ (Sodium Chloride) 270 mls @ 270 mls/hr IV Q8H [facility] Magnesium Hydroxide (Milk Of Magnesia 30 Ml Oral.Susp) 30 ml PO DAILY PRN PRN Reason: Constipation Melatonin (Melatonin 3 Mg Tablet) 6 mg PO BEDTIME PRN PRN Reason: Insomnia Oxycodone HCl (Oxycodone Hcl Immed Release 5 Mg Tablet) 5 mg PO Q6H PRN PRN Reason: Pain, Severe (Pain Scale 7-10) Paliperidone (Paliperidone Er 9 Mg Tab.Er.24) 9 mg PO DAILY [facility] Last Admin: 03/26/24 11:24 Dose: 9 mg Documented By: ALIE Pharmacy Consult (Consult Rx Vancomycin Dosing) 1 each MISCELLANE DAILY PRN PRN Reason: Consult order Risperidone (Risperidone 2 Mg Tablet) 2 mg PO DAILY [facility] Last Admin: 03/26/24 11:13 Dose: 2 mg Documented By: ALIE Risperidone (Risperidone 3 Mg Tablet) 3 mg PO BEDTIME [facility] Sodium Chloride (0.9 % Sodium Chloride Flush 3 Ml Syringe) 3 ml IVFLUSH QSHIFT [facility] Last Admin: 03/26/24 07:57 Dose: 3 ml Documented By: KARON Trazodone HCl (Trazodone Hcl 50 Mg Tablet) 50 mg PO BEDTIME [facility] Trazodone HCl (Trazodone Hcl 100 Mg Tablet) 100 mg PO BEDTIME [facility] Labs 03/27/24 06:13 03/27/24 06:13 Labs: Laboratory Results - last 24 hr 03/25/24 03/25/24 03/26/24 20:24 20:25 05:31 MCV 89.2 90.0 MCH 31.0 31.5 MCHC 34.8 35.1 RDW 11.6 11.6 Plt Count 231 212 MPV 9.8 9.6 Immature Gran % (Auto) 0.3 0.3 Neut % (Auto) 74.8 H 67.6 Lymph % (Auto) 15.4 L 18.1 L [place] % (Auto) 7.4 12.7 H Eos % (Auto) 1.6 1.2 Baso % (Auto) 0.5 0.1 Lymph # (Auto) 1.0 L 1.2 [place] # (Auto) 0.5 0.9 Eos # (Auto) 0.1 0.1 Baso # (Auto) 0.0 0.0 Abs Immat Gran (auto) 0.02 0.02 Absolute Neuts (auto) 4.8 4.6 Absolute Nucleated RBC 0.000 0.000 Nucleated RBC % (auto) 0.0 0.0 ESR 64 H Anion Gap 11 L 11 L Estim Creat Clear Calc 123.1 131.0 Estimated GFR > 60 > 60 Random Glucose 100 101 Lactic Acid 0.8 Calcium 9.0 8.1 L D Total Bilirubin 0.4 0.3 AST 26 22 ALT 43 H 30 Alkaline Phosphatase 104 90 C-Reactive Protein 6.11 H Total Protein 7.8 6.5 Albumin 3.8 3.2 L Assessment and Plan (1) Abscess of skin or subcutaneous tissue: Status: Acute Plan 24-year-old male with developmental delay, non-verbal, and self-injurious behavior (hitting himself) here with right index cellulitis and abscess Rt index finger abscess/cellulitis Continue Vanco and Zosyn. Oxycodone for pain. Ortho consult for I&D today NPO. follow Vancomycin trough Psych/mood disorder Resume meds once verified. DVT prophylaxis Low risk. Encourage early ambulation. will need overnight hospital stay for IV antibiotics for abscess of finger and need for intervention. Quality Stroke Does the patient have a stroke diagnosis?: No VTE Prior VTE?: No VTE Risk Level:: Medical - low VTE Device Contraindication: Treatment Not Indicated VTE Drug Contraindication: Treatment Not Indicated
[2024-03-26] MEDS: Lactated Ringers 1,000 ML 80 ML IVCONT ×2 (13:41→21:05)
--- NOTE | 2024-03-26 14:16 | P.CONAN_ITS ---
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 If so, by whom?: No Are you DNR?: No Advance Directives: No Advance Directives Information Provided: No Do you have a plan to hurt others: Vague Recently lost weight without trying: No Nutrition Risks: No Nutritional Risk Poor oral hygiene: Yes Meds Allergies Allergy/AdvReac Type Severity Reaction Status Date / Time lactose [LACTOSE] Allergy Intermediate GI SYMPTOMS Verified 03/25/24 19:29 Active Medications: Current Medications Acetaminophen (Acetaminophen 325 Mg Tablet) 650 mg PO Q6H PRN PRN Reason: Pain, Mild 1-3,fever,headache Calcium Carbonate (Calcium Carbonate 750 Mg Tab.Chew) 750 mg PO Q4H PRN PRN Reason: Heartburn Clonazepam (Clonazepam 1 Mg Tablet) 1 mg PO BID PRN PRN Reason: Anxiety Clonazepam (Clonazepam 1 Mg Tablet) 1 mg PO DAILY [facility] Last Admin: 03/26/24 11:13 Dose: 1 mg Docusate Sodium (Docusate Sodium 100 Mg Capsule) 100 mg PO DAILY [facility] Fluoxetine HCl (Fluoxetine Hcl 20 Mg Capsule) 60 mg PO BEDTIME [facility] Piperacillin Sod/Tazobactam (Sod 3.375 gm/ Sodium Chloride) 50 mls @ 100 mls/hr IV Q6H [facility] Last Infusion: 03/26/24 12:10 Dose: Infused Vancomycin HCl 1,000 mg/ (Sodium Chloride) 270 mls @ 270 mls/hr IV Q8H [facility] Lactated Ringer's (Lr) 1,000 mls @ 80 mls/hr IVCONT .[id number] [facility] Last Admin: 03/26/24 13:41 Dose: 80 mls/hr Ketorolac Tromethamine (Ketorolac Tromethamine 15 Mg/Ml Vial) 15 mg IVPUSH Q6H PRN PRN Reason: Pain, Moderate(Pain Scale 4-6) Stop: 03/31/24 12:57 Loratadine (Loratadine 10 Mg Tablet) 10 mg PO DAILY PRN PRN Reason: allergies Magnesium Hydroxide (Milk Of Magnesia 30 Ml Oral.Susp) 30 ml PO DAILY PRN PRN Reason: Constipation Melatonin (Melatonin 3 Mg Tablet) 6 mg PO BEDTIME PRN PRN Reason: Insomnia Multivitamins/Vitamin C (Multivitamin Tablet) 1 tab PO DAILY [facility] Oxycodone HCl (Oxycodone Hcl Immed Release 5 Mg Tablet) 5 mg PO Q6H PRN PRN Reason: Pain, Severe (Pain Scale 7-10) Paliperidone (Paliperidone Er 9 Mg Tab.Er.24) 9 mg PO DAILY [facility] Last Admin: 03/26/24 11:24 Dose: 9 mg Pharmacy Consult (Consult Rx Vancomycin Dosing) 1 each MISCELLANE DAILY PRN PRN Reason: Consult order Polyethylene Glycol (Polyethylene Glycol 3350 17 Gm Powd.Pack) 17 gm PO DAILY [facility] Risperidone (Risperidone 2 Mg Tablet) 2 mg PO DAILY [facility] Last Admin: 03/26/24 11:13 Dose: 2 mg Risperidone (Risperidone 3 Mg Tablet) 3 mg PO BEDTIME [facility] Sodium Chloride (0.9 % Sodium Chloride Flush 3 Ml Syringe) 3 ml IVFLUSH QSHIFT [facility] Last Admin: 03/26/24 07:57 Dose: 3 ml Trazodone HCl (Trazodone Hcl 50 Mg Tablet) 50 mg PO BEDTIME [facility] Trazodone HCl (Trazodone Hcl 100 Mg Tablet) 100 mg PO BEDTIME [facility] Home Medications ?Medication ?Instructions ?Recorded ?Confirmed ?Last Taken ?Type bacitracin 500 unit/gram topical 1 appl topical BID 03/25/24 03/26/24 Unknown History ointment clonazepam 1 mg tablet 1 mg PO BID PRN Anxiety 03/25/24 03/25/24 Unknown History clonazepam 1 mg tablet 1 mg PO DAILY 03/25/24 03/25/24 Unknown History fluoxetine 40 mg capsule 60 mg PO BEDTIME 03/25/24 03/26/24 Unknown History paliperidone 9 mg tablet,extended 9 mg PO DAILY 03/25/24 03/25/24 Unknown History release 24 hr risperidone 2 mg tablet 2 mg PO DAILY 03/25/24 03/25/24 Unknown History risperidone 3 mg tablet 3 mg PO BEDTIME 03/25/24 03/25/24 Unknown History trazodone 100 mg tablet 50 mg PO BEDTIME 03/25/24 03/25/24 Unknown History trazodone 100 mg tablet 100 mg PO BEDTIME 03/25/24 03/25/24 Unknown History acetaminophen 500 mg tablet 1,000 mg PO Q6H PRN Fever>100 03/26/24 03/26/24 Unknown History cephalexin 250 mg/5 mL oral 250 mg PO DAILY@0800,1600,2000 03/26/24 03/26/24 Unknown History suspension docusate sodium 100 mg tablet 100 mg PO DAILY 03/26/24 03/26/24 Unknown History ibuprofen 200 mg tablet 200 mg PO DAILY PRN Body Aches 03/26/24 03/26/24 Unknown History loratadine 10 mg tablet 10 mg PO Q6H PRN allergies 03/26/24 03/26/24 Unknown History multivitamin-iron 9 mg-folic acid 1 tab PO DAILY 03/26/24 03/26/24 Unknown History 400 mcg-calcium and minerals tablet polyethylene glycol 3350 17 17 g PO DAILY 03/26/24 03/26/24 Unknown History gram/dose oral powder (Miralax) Exam Height,Weight and Vital Signs: Height 5 ft Weight 61.2 kg Last Vital Signs Temp 98.6 F 03/26/24 13:14 Pulse 80 03/26/24 13:14 Resp 16 03/26/24 13:14 BP 105/61 03/26/24 13:14 Pulse Ox 99 03/26/24 13:14 O2 Del Method Room Air 03/26/24 13:14 Pertinent Lab Results Pertinent Lab Results: Laboratory Tests 03/25/24 03/25/24 03/26/24 20:24 20:25 05:31 WBC 6.4 6.8 RBC 4.06 L 4.09 L Hgb 12.6 L 12.9 L Hct 36.2 L 36.8 L MCV 89.2 90.0 MCH 31.0 31.5 MCHC 34.8 35.1 RDW 11.6 11.6 Plt Count 231 212 MPV 9.8 9.6 Immature Gran % (Auto) 0.3 0.3 Neut % (Auto) 74.8 H 67.6 Lymph % (Auto) 15.4 L 18.1 L [place] % (Auto) 7.4 12.7 H Eos % (Auto) 1.6 1.2 Baso % (Auto) 0.5 0.1 Lymph # (Auto) 1.0 L 1.2 [place] # (Auto) 0.5 0.9 Eos # (Auto) 0.1 0.1 Baso # (Auto) 0.0 0.0 Abs Immat Gran (auto) 0.02 0.02 Absolute Neuts (auto) 4.8 4.6 Absolute Nucleated RBC 0.000 0.000 Nucleated RBC % (auto) 0.0 0.0 ESR 64 H Sodium 136 141 Potassium 3.8 4.0 Chloride 102 109 H Carbon Dioxide 27 25 Anion Gap 11 L 11 L BUN 13 9 Creatinine 0.66 0.62 Estim Creat Clear Calc 123.1 131.0 Estimated GFR > 60 > 60 Random Glucose 100 101 Lactic Acid 0.8 Calcium 9.0 8.1 L D Total Bilirubin 0.4 0.3 AST 26 22 ALT 43 H 30 Alkaline Phosphatase 104 90 C-Reactive Protein 6.11 H Total Protein 7.8 6.5 Albumin 3.8 3.2 L Airway Mallampati Class: II TM Dist: >3cm Neck ROM: Full Assessment and Plan Assessment Anesthesia Assessment: Anesthesia Plan Discussed and Chart Reviewed Final Anesthetic Review Family History of Problems with Anesthesia: No History of Problems with Anesthesia: No NPO: Yes ASA Class: II and Emergency Final Preanesthetic Review: No Changes in Pt Med Stat, Meds/Allgs Chart Reviewed, Consent Obtained/Reviewed, Anes Risks/Benef Reviewed and DNR Form (If Appl.) Patient Risk: Low Procedure Risk: Low Anesthetic Plan Anesthetic Plan: GA Disposition: Standard PACU
--- NOTE | 2024-03-26 14:57 | P.CONOP_ITS ---
History of Present Illness HPI Consult date: 03/26/24 Chief complaint: Cellulitis and abscess of right inedex finger Narrative: Patient is a 24-year-old young man with intellectual disabilities who is nonverbal and in a home. He has a history of self-harming behavior and has had a wound on the dorsal aspect of his right 2nd MCP joint for at least several weeks. His typical caregiver was evidently away for a week and when he came back he noticed that he now had a large abscess or bullae on the dorsal aspect of the 2nd MCP joint. He was brought into the emergency department last night and placed on IV antibiotics. [facility] Past Medical History Medical History Autism Social History Social History (System 01/09/24 @ 13:23 by Ivania Pastrana CNA) Household Members: Other Household Members Other:: senior living Housing: Other Housing Other:: care home Are you a primary daytime caregiver to a significant other at home: No Do you presently have visiting nurse or other home services: No Alcohol intake: never Patient Tobacco Use Status: Never used Tobacco Use of substances other than those prescribed or required for medical reasons: No Have you been hit, kicked, punched, or otherwise hurt by someone within the past year? If so, by whom?: No Are you DNR?: No Advance Directives: No Advance Directives Information Provided: No Do you have a plan to hurt others: Vague Recently lost weight without trying: No Nutrition Risks: No Nutritional Risk Poor oral hygiene: Yes Meds Allergies Allergy/AdvReac Type Severity Reaction Status Date / Time lactose [LACTOSE] Allergy Intermediate GI SYMPTOMS Verified 03/25/24 19:29 Active Medications: Current Medications Acetaminophen (Acetaminophen 325 Mg Tablet) 650 mg PO Q6H PRN PRN Reason: Pain, Mild 1-3,fever,headache Calcium Carbonate (Calcium Carbonate 750 Mg Tab.Chew) 750 mg PO Q4H PRN PRN Reason: Heartburn Clonazepam (Clonazepam 1 Mg Tablet) 1 mg PO BID PRN PRN Reason: Anxiety Clonazepam (Clonazepam 1 Mg Tablet) 1 mg PO DAILY [facility] Last Admin: 03/26/24 11:13 Dose: 1 mg Docusate Sodium (Docusate Sodium 100 Mg Capsule) 100 mg PO DAILY [facility] Fentanyl (Fentanyl Citrate/Pf 100 Mcg/2 Ml Vial) 50 mcg IVPUSH Q5M PRN PRN Reason: Pain, Moderate to Severe (Pain Scale 4-10) Stop: 03/26/24 20:16 Fluoxetine HCl (Fluoxetine Hcl 20 Mg Capsule) 60 mg PO BEDTIME [facility] Piperacillin Sod/Tazobactam (Sod 3.375 gm/ Sodium Chloride) 50 mls @ 100 mls/hr IV Q6H [facility] Last Infusion: 03/26/24 12:10 Dose: Infused Vancomycin HCl 1,000 mg/ (Sodium Chloride) 270 mls @ 270 mls/hr IV Q8H [facility] Lactated Ringer's (Lr) 1,000 mls @ 80 mls/hr IVCONT .[id number] [facility] Last Admin: 03/26/24 13:41 Dose: 80 mls/hr Ketorolac Tromethamine (Ketorolac Tromethamine 15 Mg/Ml Vial) 15 mg IVPUSH Q6H PRN PRN Reason: Pain, Moderate(Pain Scale 4-6) Stop: 03/31/24 12:57 Loratadine (Loratadine 10 Mg Tablet) 10 mg PO DAILY PRN PRN Reason: allergies Magnesium Hydroxide (Milk Of Magnesia 30 Ml Oral.Susp) 30 ml PO DAILY PRN PRN Reason: Constipation Melatonin (Melatonin 3 Mg Tablet) 6 mg PO BEDTIME PRN PRN Reason: Insomnia Multivitamins/Vitamin C (Multivitamin Tablet) 1 tab PO DAILY [facility] Naloxone HCl (Naloxone Hcl 0.4 Mg/Ml Vial) 0.04 mg IVPUSH Q5M PRN PRN Reason: Excessive sedation or RR < 8 Ondansetron HCl (Ondansetron Hcl 4 Mg/2 Ml Vial) 4 mg IVPUSH ONCE PRN PRN Reason: Nausea and Vomiting Stop: 03/26/24 20:17 Oxycodone HCl (Oxycodone Hcl Immed Release 5 Mg Tablet) 5 mg PO Q6H PRN PRN Reason: Pain, Severe (Pain Scale 7-10) Paliperidone (Paliperidone Er 9 Mg Tab.Er.24) 9 mg PO DAILY [facility] Last Admin: 03/26/24 11:24 Dose: 9 mg Pharmacy Consult (Consult Rx Vancomycin Dosing) 1 each MISCELLANE DAILY PRN PRN Reason: Consult order Polyethylene Glycol (Polyethylene Glycol 3350 17 Gm Powd.Pack) 17 gm PO DAILY [facility] Risperidone (Risperidone 2 Mg Tablet) 2 mg PO DAILY [facility] Last Admin: 03/26/24 11:13 Dose: 2 mg Risperidone (Risperidone 3 Mg Tablet) 3 mg PO BEDTIME [facility] Sodium Chloride (0.9 % Sodium Chloride Flush 3 Ml Syringe) 3 ml IVFLUSH QSHIFT [facility] Last Admin: 03/26/24 07:57 Dose: 3 ml Trazodone HCl (Trazodone Hcl 50 Mg Tablet) 50 mg PO BEDTIME [facility] Trazodone HCl (Trazodone Hcl 100 Mg Tablet) 100 mg PO BEDTIME [facility] Home Medications ?Medication ?Instructions ?Recorded ?Confirmed ?Last Taken ?Type bacitracin 500 unit/gram topical 1 appl topical BID 03/25/24 03/26/24 Unknown History ointment clonazepam 1 mg tablet 1 mg PO BID PRN Anxiety 03/25/24 03/25/24 Unknown History clonazepam 1 mg tablet 1 mg PO DAILY 03/25/24 03/25/24 Unknown History fluoxetine 40 mg capsule 60 mg PO BEDTIME 03/25/24 03/26/24 Unknown History paliperidone 9 mg tablet,extended 9 mg PO DAILY 03/25/24 03/25/24 Unknown History release 24 hr risperidone 2 mg tablet 2 mg PO DAILY 03/25/24 03/25/24 Unknown History risperidone 3 mg tablet 3 mg PO BEDTIME 03/25/24 03/25/24 Unknown History trazodone 100 mg tablet 50 mg PO BEDTIME 03/25/24 03/25/24 Unknown History trazodone 100 mg tablet 100 mg PO BEDTIME 03/25/24 03/25/24 Unknown History acetaminophen 500 mg tablet 1,000 mg PO Q6H PRN Fever>100 03/26/24 03/26/24 Unknown History cephalexin 250 mg/5 mL oral 250 mg PO DAILY@0800,1600,2000 03/26/24 03/26/24 Unknown History suspension docusate sodium 100 mg tablet 100 mg PO DAILY 03/26/24 03/26/24 Unknown History ibuprofen 200 mg tablet 200 mg PO DAILY PRN Body Aches 03/26/24 03/26/24 Unknown History loratadine 10 mg tablet 10 mg PO Q6H PRN allergies 03/26/24 03/26/24 Unknown History multivitamin-iron 9 mg-folic acid 1 tab PO DAILY 03/26/24 03/26/24 Unknown History 400 mcg-calcium and minerals tablet polyethylene glycol 3350 17 17 g PO DAILY 03/26/24 03/26/24 Unknown History gram/dose oral powder (Miralax) Physical Exam 2 Vital Signs: Vital Signs: Last Vital Signs Temp 98.6 F 03/26/24 13:14 Pulse 80 03/26/24 13:14 Resp 16 03/26/24 13:14 BP 105/61 03/26/24 13:14 Pulse Ox 99 03/26/24 13:14 O2 Del Method Room Air 03/26/24 13:14 BMI result Body Mass Index 26.3 Extrem: Other: The patient was alert and in his bed. He has head gear in place. His caregiver is at his bedside trying to keep him from pulling out his IV or picking at his wounds. Again he is nonverbal Regarding the right hand he has a large dark purple bulla over the dorsal aspect of his right 2nd MCP joint. It measures approximately 2.5 cm x 3 cm by perhaps 8-10 mm in thickness and is draining creamy blood-tinged purulence. There is an old scab over the center of it, which his caregiver says had been there for several weeks. He has a similar looking scab over the left 2nd MCP joint, but without the abscess. Evidently this is from striking things like the table or other things when he tries to communicate that he does not like food or other things. He also has some mild swelling extending down to the PIP joint. Radiographs: Three views of the right hand from last night were reviewed by me today. They show no fractures or dislocations. I see no evidence of osteomyelitis about the 2nd MCP joint. No evidence of foreign body. Results Labs 03/26/24 05:31 03/26/24 05:31 Labs: Abnormal lab results 03/25/24 03/26/24 Range/Units 20:24 05:31 RBC 4.06 L 4.09 L (4.60-5.80) X10*6/uL Hgb 12.6 L 12.9 L (14.0-18.0) g/dl Hct 36.2 L 36.8 L (42.0-52.0) % Neut % (Auto) 74.8 H (45-73) % Lymph % (Auto) 15.4 L 18.1 L (20-40) % [place] % (Auto) 12.7 H (2-11) % Lymph # (Auto) 1.0 L (1.2-4.9) X10*3/uL ESR 64 H (0-15) MM/HR Chloride 109 H (96-108) mmol/L Anion Gap 11 L 11 L (12-20) Calcium 8.1 L D (8.4-10.2) mg/dL ALT 43 H (0-40) U/L C-Reactive Protein 6.11 H (< or = 0.50) mg/dL Albumin 3.2 L (3.5-5.0) g/dL H & H 03/25/24 03/26/24 Range/Units 20:24 05:31 Hgb 12.6 L 12.9 L (14.0-18.0) g/dl Hct 36.2 L 36.8 L (42.0-52.0) % All other labs normal. Assessment and Plan (1) Infection of right hand: Status: Acute Plan Assessment and plan: 1. 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 Again this patient has intellectual disabilities that a rather severe, he is nonverbal, and has frequent self-harming behaviors including frequently striking the 2nd MCP joints bilaterally. I am recommending an I&D. Permission was obtained from the appropriate person on the phone while in preop hold after risks and benefits were appropriately discussed. The plan is to take him in the operating room for an I&D of his right hand today. He will then be admitted back to [facility]. He will need 24/10 supervision Procedures Date of Service Date of Service: 03/26/24
--- NOTE | 2024-03-26 15:04 | W.PM.OPN ---
Operative Note Operative Note Date of Service: 03/26/24 Narrative: Operative Note Narrative: Preop diagnosis: 1. Right dorsal 2nd MCP joint infection Postop diagnosis: Same Procedure: 1. Right hand I&D Surgeon: Lucia Ramesh MD Professor Of Business Administration: None Anesthesia: General Anesthesia Findings: Bloody purulence in superficial blister with an approximately 1 cm diameter full-thickness defect through the skin leading to an abscess cavity just superficial to the 2nd MCP joint and extensor tendons. I did not find a clear defect into the joint, but it is possible that this infection may have extended down into the joint. Implants: None Tourniquet time: 0 minutes EBL: 5.0 ml Specimen: Cultures taken of purulence Drains: 1 strip of quarter-inch iodoform gauze Complications: None Disposition: Brought to the recovery room in stable condition Plan: Admit to floor for IV antibiotics. Patient will need 24/10 supervision to assure that he does not remove his IV or his bandage. As it is late in the day, we will perform the 1st dressing change and remove the iodoform gauze on the morning of 03/28/2024 Daily dressing changes thereafter Again, care needs to be taken to assure that this patient can not and does not remove the dressing and stick his is dirty fingers in the wound. Check cultures to adjust antibiotics. Note, patient placed in bilateral bulky hand dressings that make it difficult to use his thumbs to either pick at the bandage or try to take his IV out. If they should prove very frustrating to the patient causing more problems, then they can be removed. Please note that on the left hand there is a superficial dressing about the thumb that can be removed, but there is a deeper dressing that is his operative dressing about the 2nd MCP joint that must be left in place until we remove it on 03/28/2022. Thank you I spoke with Dr. Tracy, the hospitalist on-call. Again the dressing about the thumb on the left hand can be removed if it is felt not to be helpful. On the right hand, only the outer dressing around the thumb may be removed if deemed necessary by the hospitalist. The underlying operative dressing will be removed by the orthopedic team on 03/28/2022. Indications: The patient is a 24 year old young man with severe intellectual disabilities and with a right dorsal 2nd MCP joint infection that is related to an underlying chronic wound which is secondary to repetitive self-harming. . The risks and benefits of operative treatment, including but not limited to risk of damage to blood vessels, nerves, tendons, infection, recurrence, persistent pain or numbness, incomplete resolution of preoperative symptoms, or need for further surgery were discussed with his guardian on the phone in preop hold and they wished to proceed with surgery. Procedure: Once consent was obtained patient was brought back to the operating suite and placed in the operating table in a supine position. Antibiotics were already on schedule on the floor. Anesthesia was administered by the anesthesia team. A tourniquet was applied to the proximal aspect of the right upper extremity and the limb was prepped and draped in a standard surgical fashion. The tourniquet was not inflated The patient had a roughly 3 cm diameter thin bulla over the dorsal aspect of his right 2nd MCP joint. Cultures were taken of the fluid, and the bulla was excised. Interestingly, the 1 cm diameter scab came off with this blister revealing a 1 cm diameter full-thickness defect in the skin over the dorsal aspect of the 2nd MCP joint within that is a fairly large abscess cavity that measured 3-4 cm in diameter cultures were then taken of this deeper fluid and tissue. This abscess cavity was then debrided and copiously irrigated. The skin defect was sharply debrided of devitalized tissue using a 15. Blade and iris scissors. I gently explored the depth of this abscess cavity. I do not see an obvious rent in the extensor mechanism or the joint capsule. However, it is hard to know for sure whether this abscess cavity did extend into the MCP joint. I would however, have felt that the patient would likely have been more uncomfortable if he had joint sepsis, and I did see him in preop hold moving the hand and finger around. After again copiously irrigating the wound, hemostasis was obtained with a brief period of local pressure. I did loosely pack the abscess cavity with some quarter-inch iodoform gauze. I also loosely closed the 1 cm full-thickness defect with 2 4-0 Prolene sutures, leaving a tail of the iodoform gauze for easy removal. A sterile dressing was then applied. Out of concern for the patient trying to remove the IV in his left arm, or trying to remove this dressing in manipulate the wound, I placed bulky dressings around both hands including both thumbs. These were done loosely, with an overlying layer of [place] to try to make it difficult for him to remove. The fingers are exposed so that they can be used for pulse ox, etc. The patient appears to have tolerated the procedure well and with no complications. All digits were well vascularized conclusion of the case.
--- NOTE | 2024-03-26 16:59 | HE.PHANOTE ---
RE VANCO DOSING/TROUGH CHANGE. PT WAS IN OR AND MISSED 03/26 1500 DOSE. DOSE WAS RETIMED FOR 1700 AND TROUGH WAS PUT IN FOR 03/27 @1100.
[2024-03-26] MEDS: vancomycin HCL 1,000 MG in 0.9 % Sodium Chloride 250 ML 270 MG IV ×2 (17:28→23:48)
[2024-03-26] MEDS: traZODone HCL 50 MG TABLET PO (21:05)
[2024-03-26] MEDS: FLUoxetine HCl 20 MG CAPSULE 60 MG PO (21:05)
[2024-03-26] MEDS: risperiDONE 3 MG TABLET PO (21:05)
[2024-03-26] MEDS: traZODone HCL 100 MG TABLET PO (21:05)
[2024-03-26] MEDS: oxyCODONE HCl Immed Release 5 MG TABLET PO (23:31)
[2024-03-27] MEDS: Piperacillin Sodium/Tazobactam 3.375 GM in 0.9 % Sodium Chloride 50 ML IV ×4 (06:13→23:29)
[2024-03-27 06:15] VITALS: BP 97/56; PULSE 111; RESP 18; TEMP 36.9; O2SAT 93
[2024-03-27 06:40] LABS: MANUAL DIFF FLAG NO
[2024-03-27 06:44] LABS: Basophils Percent Auto 0.2 % (0-2); Hematocrit 37.2 % (42.0-52.0); Hemoglobin 12.8 g/dl (14.0-18.0); Imm Gran Abs Auto 0.02 X10*3/uL (0.00-0.03); Imm Gran Pct Auto 0.3 % (0.0-0.4); Lymphocytes Absolute Auto 1.1 X10*3/uL (1.2-4.9); Lymphocytes Percent Auto 16.9 % (20-40); Mean Corpuscular HGB Conc 34.4 g/dl (31.0-36.0); Mean Corpuscular Hemoglobin 31.1 pg (27.0-33.0); Mean Corpuscular Volume 90.5 fL (80.0-98.0); Mean Platelet Volume 9.7 fL (9.4-12.4); Monocytes Absolute Auto 0.5 X10*3/uL (0.1-1.2); Monocytes Percent Auto 7.5 % (2-11); Neutrophils Absolute Auto 4.7 x10*3/uL (2.0-8.3); Neutrophils Percent Auto 75.1 % (45-73); Platelet Count 280 X10*3/uL (160-400); Red Blood Count 4.11 X10*6/uL (4.60-5.80); Red Cell Distribution Width 11.9 % (11.0-16.0); White Blood Count 6.3 X10*3/uL (4.8-10.8)
[2024-03-27 07:00] LABS: Anion Gap 12 (12-20); Blood Urea Nitrogen 8 mg/dL (9-16); Calcium 8.8 mg/dL (8.4-10.2); Carbon Dioxide 25 mmol/L (22-29); Chloride 107 mmol/L (96-108); Creatinine Clr Calc Pharmacy 155.3; Estimated Glomerular Filt Rate > 60; Glucose Random 93 mg/dL (60-115); Potassium 3.8 mmol/L (3.3-5.1); Sodium 140 mmol/L (135-145)
--- NOTE | 2024-03-27 07:12 | PM.PNORT ---
Subjective Subjective Date of Service: 03/27/24 Interval history: 24-year-old male postop day 1 status post I and D of right hand Patient resting comfortably in bed this morning No acute events overnight No signs of pain, patient was nonverbal and can not communicate if he is in significant discomfort No other acute concerns at this time Physical Exam Vital Signs: Vital Signs: Last Vital Signs Temp 98.5 F 03/27/24 06:15 Pulse 111 H 03/27/24 06:15 Resp 18 03/27/24 06:15 BP 97/56 L 03/27/24 06:15 Pulse Ox 93 03/27/24 06:15 O2 Del Method Room Air 03/27/24 06:15 BMI result Body Mass Index 26.3 Extrem: Other: Dressing on right hand clean, dry, intact No discomfort with gentle palpation or axial loading of the digits of the right hand Distal sensation intact Capillary refill brisk Procedures Date of Service Date of Service: 03/27/24 Progress Note: A&P Assessment and plan (1) Abscess of skin or subcutaneous tissue: Status: Acute (2) Infection of right hand: Status: Acute Plan 1. Abscess of dorsum of right hand status post I and D DOS 03/26/2024 Patient appears to be recovering well postoperatively Patient is educated about the typical recovery course Dressing remains in place and drain left in today per Dr. Ramesh plan Plan to change dressing and pull drains tomorrow Continue IV antibiotics per Medicine Continue pain management Continue with all other recommendations per Medicine Time Spent With Patient Time: Total time managing care of this patient today ____ minutes. Quality Stroke Does the patient have a stroke diagnosis?: No VTE Prior VTE?: No VTE Risk Level:: Medical - low VTE Device Contraindication: Treatment Not Indicated VTE Drug Contraindication: Treatment Not Indicated
[2024-03-27 07:29] VITALS: BP 134/85; PULSE 68; RESP 16; TEMP 36.3; O2SAT 94
[2024-03-27 09:27] VITALS: BP 118/53; PULSE 90; O2SAT 94
[2024-03-27] MEDS: Docusate Sodium 100 MG CAPSULE PO (09:47)
[2024-03-27] MEDS: Paliperidone ER 9 MG TAB.ER.24 PO (09:47)
[2024-03-27] MEDS: clonazePAM 1 MG TABLET PO (09:47)
[2024-03-27] MEDS: risperiDONE 2 MG TABLET PO (09:47)
[2024-03-27] MEDS: polyethylene glycoL 3350 17 GM POWD.PACK PO (09:47)
[2024-03-27] MEDS: Multivitamin TABLET 1 TAB PO (09:47)
[2024-03-27 11:29] LABS: Vancomycin Random 5.8 mcg/mL (15-20)
--- NOTE | 2024-03-27 11:38 | HE.PHANOTE ---
RE: vanco Trough on 03/27 came back at 5.8; increased to 1500mg Q8H with predicted trough of 13.8mg/L, AUC of 594mg/L. Next level to be drawn 03/28 @1000
--- NOTE | 2024-03-27 12:06 | HO.PM.IMPN ---
Subjective Subjective Date of Service: 03/27/24 Interval History: Seen and evaluated POD1 Hand wrapped and less swollen non verbal, slept well after adjusting the dressing no reported other issues Review of Systems Review of Systems: Yes all other systems are reviewed and are negative Physical Exam Vital Signs: Vital Signs: Last Vital Signs Temp 97.3 F 03/27/24 07:29 Pulse 90 03/27/24 09:27 Resp 16 03/27/24 07:29 BP 118/53 L 03/27/24 09:27 Pulse Ox 94 03/27/24 09:27 O2 Del Method Room Air 03/27/24 09:27 BMI result Body Mass Index 26.3 Const: Other: General: No distress, Resp: CTA bilateral CVS: S1,S2,RRR GI: +BS, NT, no distention Skin: No rash Ext: Right hand wrapped in dressing with no drainage or bleeding noted Neuro: motor grossly intact Psych: appropriate affect Objective Data Active Medications Acetaminophen (Acetaminophen 325 Mg Tablet) 650 mg PO Q6H PRN PRN Reason: Pain, Mild 1-3,fever,headache Calcium Carbonate (Calcium Carbonate 750 Mg Tab.Chew) 750 mg PO Q4H PRN PRN Reason: Heartburn Clonazepam (Clonazepam 1 Mg Tablet) 1 mg PO BID PRN PRN Reason: Anxiety Clonazepam (Clonazepam 1 Mg Tablet) 1 mg PO DAILY [facility] Last Admin: 03/27/24 09:47 Dose: 1 mg Documented By: DEMARCO Docusate Sodium (Docusate Sodium 100 Mg Capsule) 100 mg PO DAILY [facility] Last Admin: 03/27/24 09:47 Dose: 100 mg Documented By: DEMARCO Fluoxetine HCl (Fluoxetine Hcl 20 Mg Capsule) 60 mg PO BEDTIME [facility] Last Admin: 03/26/24 21:05 Dose: 60 mg Documented By: IQRA Piperacillin Sod/Tazobactam (Sod 3.375 gm/ Sodium Chloride) 50 mls @ 100 mls/hr IV Q6H [facility] Last Infusion: 03/27/24 11:04 Dose: Infused Documented By: DEMARCO Vancomycin HCl 1,500 mg/ (Sodium Chloride) 500 mls @ 333.333 mls/hr IV Q8H [facility] Ketorolac Tromethamine (Ketorolac Tromethamine 15 Mg/Ml Vial) 15 mg IVPUSH Q6H PRN PRN Reason: Pain, Moderate(Pain Scale 4-6) Stop: 03/31/24 12:57 Loratadine (Loratadine 10 Mg Tablet) 10 mg PO DAILY PRN PRN Reason: allergies Magnesium Hydroxide (Milk Of Magnesia 30 Ml Oral.Susp) 30 ml PO DAILY PRN PRN Reason: Constipation Melatonin (Melatonin 3 Mg Tablet) 6 mg PO BEDTIME PRN PRN Reason: Insomnia Multivitamins/Vitamin C (Multivitamin Tablet) 1 tab PO DAILY [facility] Last Admin: 03/27/24 09:47 Dose: 1 tab Documented By: DEMARCO Naloxone HCl (Naloxone Hcl 0.4 Mg/Ml Vial) 0.04 mg IVPUSH Q5M PRN PRN Reason: Excessive sedation or RR < 8 Oxycodone HCl (Oxycodone Hcl Immed Release 5 Mg Tablet) 5 mg PO Q6H PRN PRN Reason: Pain, Severe (Pain Scale 7-10) Last Admin: 03/26/24 23:31 Dose: 5 mg Documented By: IQRA Paliperidone (Paliperidone Er 9 Mg Tab.Er.24) 9 mg PO DAILY [facility] Last Admin: 03/27/24 09:47 Dose: 9 mg Documented By: DEMARCO Pharmacy Consult (Consult Rx Vancomycin Dosing) 1 each MISCELLANE DAILY PRN PRN Reason: Consult order Polyethylene Glycol (Polyethylene Glycol 3350 17 Gm Powd.Pack) 17 gm PO DAILY [facility] Last Admin: 03/27/24 09:47 Dose: 17 gm Documented By: DEMARCO Risperidone (Risperidone 2 Mg Tablet) 2 mg PO DAILY [facility] Last Admin: 03/27/24 09:47 Dose: 2 mg Documented By: DEMARCO Risperidone (Risperidone 3 Mg Tablet) 3 mg PO BEDTIME [facility] Last Admin: 03/26/24 21:05 Dose: 3 mg Documented By: IQRA Sodium Chloride (0.9 % Sodium Chloride Flush 3 Ml Syringe) 3 ml IVFLUSH QSHIFT [facility] Last Admin: 03/27/24 09:35 Dose: Not Given Documented By: DEMARCO Non-Admin Reason: Previously Administered Trazodone HCl (Trazodone Hcl 50 Mg Tablet) 50 mg PO BEDTIME [facility] Last Admin: 03/26/24 21:05 Dose: 50 mg Documented By: IQRA Trazodone HCl (Trazodone Hcl 100 Mg Tablet) 100 mg PO BEDTIME [facility] Last Admin: 03/26/24 21:05 Dose: 100 mg Documented By: IQRA Labs 03/27/24 06:13 03/27/24 06:13 Labs: Laboratory Results - last 24 hr 03/27/24 03/27/24 06:13 10:54 MCV 90.5 MCH 31.1 MCHC 34.4 RDW 11.9 Plt Count 280 D MPV 9.7 Immature Gran % (Auto) 0.3 Neut % (Auto) 75.1 H Lymph % (Auto) 16.9 L Major % (Auto) 7.5 Eos % (Auto) 0.0 Baso % (Auto) 0.2 Lymph # (Auto) 1.1 L Major # (Auto) 0.5 Eos # (Auto) 0.0 Baso # (Auto) 0.0 Abs Immat Gran (auto) 0.02 Absolute Neuts (auto) 4.7 Absolute Nucleated RBC 0.000 Nucleated RBC % (auto) 0.0 Anion Gap 12 Estim Creat Clear Calc 155.3 Estimated GFR > 60 Random Glucose 93 Calcium 8.8 D Random Vancomycin 5.8 L Microbiology Microbiology Results: Microbiology 03/25/24 20:30 Blood Culture - Preliminary Blood - Venous No growth after 24 hours. 03/25/24 20:25 Blood Culture - Preliminary Blood - Venous No growth after 24 hours. Assessment and Plan (1) Infection of right hand: Status: Acute (2) Abscess of skin or subcutaneous tissue: Status: Acute Plan 24-year-old male with developmental delay, non-verbal, and self-injurious behavior (hitting himself) here with right index cellulitis and abscess Rt index finger abscess/cellulitis POD1 Ortho rec changing dressing tomorrow Continue Vanco and Zosyn. Oxycodone for pain tolerating diet follow Vancomycin trough Psych/mood disorder Resume meds once verified. DVT prophylaxis Low risk. Encourage early ambulation. will need overnight hospital stay for IV antibiotics for abscess of finger and need for intervention. Quality Stroke Does the patient have a stroke diagnosis?: No VTE Prior VTE?: No VTE Risk Level:: Medical - low VTE Device Contraindication: Treatment Not Indicated VTE Drug Contraindication: Treatment Not Indicated
[2024-03-27] MEDS: vancomycin HCL 1,500 MG in 0.9 % Sodium Chloride 500 ML 333.33 MG IV ×2 (12:08→20:16)
[2024-03-27 14:16] VITALS: O2SAT 96
[2024-03-27 15:17] VITALS: BP 99/58; PULSE 69; RESP 15; TEMP 37; O2SAT 94
[2024-03-27 19:54] VITALS: BP 105/58; PULSE 82; RESP 18; TEMP 37; O2SAT 98
[2024-03-27] MEDS: traZODone HCL 100 MG TABLET PO (20:07)
[2024-03-27] MEDS: FLUoxetine HCl 20 MG CAPSULE 60 MG PO (20:07)
[2024-03-27] MEDS: traZODone HCL 50 MG TABLET PO (20:07)
[2024-03-27] MEDS: risperiDONE 3 MG TABLET PO (20:08)
[2024-03-28] MEDS: oxyCODONE HCl Immed Release 5 MG TABLET PO ×3 (00:03→22:06)
[2024-03-28] MEDS: Melatonin 3 MG TABLET 6 MG PO (00:03)
[2024-03-28 03:00] VITALS: BP 110/53; PULSE 78; RESP 16; TEMP 36.6; O2SAT 94
[2024-03-28] MEDS: vancomycin HCL 1,500 MG in 0.9 % Sodium Chloride 500 ML 333.33 MG IV (04:02)
[2024-03-28] MEDS: Piperacillin Sodium/Tazobactam 3.375 GM in 0.9 % Sodium Chloride 50 ML IV ×4 (05:36→22:09)
[2024-03-28 07:26] VITALS: BP 105/56; PULSE 98; RESP 16; TEMP 36.9; O2SAT 94
--- NOTE | 2024-03-28 07:47 | PM.PNORT ---
Subjective Subjective Date of Service: 03/28/24 Interval history: 24-year-old male postop day 2 status post I and D of right hand Patient resting comfortably in bed this morning No acute events overnight No signs of pain, patient was nonverbal and can not communicate if he is in significant discomfort No other acute concerns at this time Physical Exam Vital Signs: Vital Signs: Last Vital Signs Temp 98.5 F 03/28/24 07:26 Pulse 98 03/28/24 07:26 Resp 16 03/28/24 07:26 BP 105/56 L 03/28/24 07:26 Pulse Ox 94 03/28/24 07:26 O2 Del Method Room Air 03/28/24 07:26 BMI result Body Mass Index 26.3 Extrem: Other: Dressing on right hand clean, dry, intact Once dressing is removed, there is some evidence of mild surrounding cellulitis versus hyperemia, appears improved from prior to surgery Sutures in place No purulent drainage at this time, some mild serosanguineous drainage noted when drains are removed No signs of discomfort with gentle palpation or axial loading of the digits of the right hand Distal sensation intact Capillary refill brisk Procedures Date of Service Date of Service: 03/28/24 Progress Note: A&P Assessment and plan (1) Abscess of skin or subcutaneous tissue: Status: Acute (2) Infection of right hand: Status: Acute Plan 1. Abscess of dorsum of right hand status post I and D DOS 03/26/2024 Patient appears to be recovering well postoperatively Patient is educated about the typical recovery course Dressing changed today, drains pulled Continue IV antibiotics per Medicine Continue pain management Continue with all other recommendations per Medicine Time Spent With Patient Time: Total time managing care of this patient today ____ minutes. Quality Stroke Does the patient have a stroke diagnosis?: No VTE Prior VTE?: No VTE Risk Level:: Medical - low VTE Device Contraindication: Treatment Not Indicated VTE Drug Contraindication: Treatment Not Indicated
[2024-03-28] MEDS: clonazePAM 1 MG TABLET PO ×2 (08:05→15:55)
[2024-03-28] MEDS: polyethylene glycoL 3350 17 GM POWD.PACK PO (08:05)
[2024-03-28] MEDS: risperiDONE 2 MG TABLET PO (08:06)
[2024-03-28] MEDS: Paliperidone ER 9 MG TAB.ER.24 PO (08:06)
[2024-03-28] MEDS: Multivitamin TABLET 1 TAB PO (08:06)
[2024-03-28] MEDS: Docusate Sodium 100 MG CAPSULE PO (08:06)
[2024-03-28] MEDS: 0.9 % Sodium Chloride Flush 3 ML SYRINGE IVFLUSH ×2 (08:06→15:58)
--- NOTE | 2024-03-28 11:41 | HO.POSTANES ---
Post Anesthesia Evaluation Post Anesthesia Evaluation Date of Service: 03/28/24 Vital Signs: Vital Signs Temp Pulse Resp BP Pulse Ox O2 Del Method 03/28/24 07:26 98.5 F 98 16 105/56 L 94 Room Air 03/28/24 03:00 97.9 F 78 16 110/53 L 94 Room Air Anesthesia: General LMA Mental Status: Awake Pain Control: Satisfactory Hydration: Adequate Anesthesia-Related Issues: No Anes. Related Issues Comments: Patient is non-verbal but resting comfortably in bed.
--- NOTE | 2024-03-28 11:48 | MHC.CM.PN ---
SERVICE NET NURSE PRESENTED FOR UPDATES HE IS AWARE PT MAY BE MEDICALLY CLEARED TO DC IN THE NEXT DAY OR SO HE PROVIDED HIS DIRECT CONTACT INFORMATION: AUDREY ISSA [phone] DCP: RETURN TO NURSING HOME VIS STAFF
[2024-03-28 11:56] LABS: Estimated Glomerular Filt Rate > 60
[2024-03-28 12:03] LABS: Vancomycin Random 41.6 mcg/mL (15-20)
--- NOTE | 2024-03-28 12:20 | HE.PHANOTE ---
RE: VANCO DOSING Trough came back as 41.6 mg/L, renal has worsened greatly (sCr 1.34). Dose is held indefinitely, another trough is scheduled for 03/29/24 @0600.
[2024-03-28] MEDS: Lactated Ringers 1,000 ML 100 ML IVCONT ×2 (12:34→22:43)
[2024-03-28 14:00] VITALS: O2SAT 100
--- NOTE | 2024-03-28 15:21 | P.PNIM_ITS ---
Subjective Subjective Date of Service: 03/28/24 Interval History: Seen and examined this morning Follow-up for right hand infection Per caregiver at the bedside no overnight events Patient nonverbal at baseline, unable to obtain review of systems Physical Exam 2 Vital Signs: Vital Signs: Last Vital Signs Temp 98.5 F 03/28/24 07:26 Pulse 98 03/28/24 07:26 Resp 16 03/28/24 07:26 BP 105/56 L 03/28/24 07:26 Pulse Ox 94 03/28/24 07:26 O2 Del Method Room Air 03/28/24 07:26 BMI result Body Mass Index 26.3 Const: Other: lying in bed; appears comfortable Unable to assess orientation-per caregiver at bedside, patient at baseline Resp: Effort & Inspection: normal respiratory effort, no respiratory distress and no use of accessory muscles Auscultation: clear to auscultation bilaterally Cardio: Rate: regular rate GI: Inspection: No distended Extrem: Other: right hand in c/d/i dressing; fingers warm Objective Data Active Medications Acetaminophen (Acetaminophen 325 Mg Tablet) 650 mg PO Q6H PRN PRN Reason: Pain, Mild 1-3,fever,headache Calcium Carbonate (Calcium Carbonate 750 Mg Tab.Chew) 750 mg PO Q4H PRN PRN Reason: Heartburn Clonazepam (Clonazepam 1 Mg Tablet) 1 mg PO BID PRN PRN Reason: Anxiety Clonazepam (Clonazepam 1 Mg Tablet) 1 mg PO DAILY [facility] Last Admin: 03/28/24 08:05 Dose: 1 mg Documented By: NASIR Docusate Sodium (Docusate Sodium 100 Mg Capsule) 100 mg PO DAILY [facility] Last Admin: 03/28/24 08:06 Dose: 100 mg Documented By: NASIR Fluoxetine HCl (Fluoxetine Hcl 20 Mg Capsule) 60 mg PO BEDTIME [facility] Last Admin: 03/27/24 20:07 Dose: 60 mg Documented By: PASTOR Piperacillin Sod/Tazobactam (Sod 3.375 gm/ Sodium Chloride) 50 mls @ 100 mls/hr IV Q6H [facility] Last Infusion: 03/28/24 11:01 Dose: Infused Documented By: NASIR Vancomycin HCl 1,500 mg/ (Sodium Chloride) 500 mls @ 333.333 mls/hr IV Q8H [facility] Last Admin: 03/28/24 12:28 Dose: Not Given Documented By: NASIR Non-Admin Reason: vanco trough crit Lactated Ringer's (Lr) 1,000 mls @ 100 mls/hr IVCONT .Q10H [facility] Last Admin: 03/28/24 12:34 Dose: 100 mls/hr Documented By: NASIR Ketorolac Tromethamine (Ketorolac Tromethamine 15 Mg/Ml Vial) 15 mg IVPUSH Q6H PRN PRN Reason: Pain, Moderate(Pain Scale 4-6) Stop: 03/31/24 12:57 Loratadine (Loratadine 10 Mg Tablet) 10 mg PO DAILY PRN PRN Reason: allergies Magnesium Hydroxide (Milk Of Magnesia 30 Ml Oral.Susp) 30 ml PO DAILY PRN PRN Reason: Constipation Melatonin (Melatonin 3 Mg Tablet) 6 mg PO BEDTIME PRN PRN Reason: Insomnia Last Admin: 03/28/24 00:03 Dose: 6 mg Documented By: PASTOR Multivitamins/Vitamin C (Multivitamin Tablet) 1 tab PO DAILY [facility] Last Admin: 03/28/24 08:06 Dose: 1 tab Documented By: NASIR Naloxone HCl (Naloxone Hcl 0.4 Mg/Ml Vial) 0.04 mg IVPUSH Q5M PRN PRN Reason: Excessive sedation or RR < 8 Oxycodone HCl (Oxycodone Hcl Immed Release 5 Mg Tablet) 5 mg PO Q6H PRN PRN Reason: Pain, Severe (Pain Scale 7-10) Last Admin: 03/28/24 08:05 Dose: 5 mg Documented By: NASIR Paliperidone (Paliperidone Er 9 Mg Tab.Er.24) 9 mg PO DAILY [facility] Last Admin: 03/28/24 08:06 Dose: 9 mg Documented By: NASIR Pharmacy Consult (Consult Rx Vancomycin Dosing) 1 each MISCELLANE DAILY PRN PRN Reason: Consult order Polyethylene Glycol (Polyethylene Glycol 3350 17 Gm Powd.Pack) 17 gm PO DAILY [facility] Last Admin: 03/28/24 08:05 Dose: 17 gm Documented By: NASIR Risperidone (Risperidone 2 Mg Tablet) 2 mg PO DAILY [facility] Last Admin: 03/28/24 08:06 Dose: 2 mg Documented By: NASIR Risperidone (Risperidone 3 Mg Tablet) 3 mg PO BEDTIME [facility] Last Admin: 03/27/24 20:08 Dose: 3 mg Documented By: PASTOR Sodium Chloride (0.9 % Sodium Chloride Flush 3 Ml Syringe) 3 ml IVFLUSH QSHIFT [facility] Last Admin: 03/28/24 08:06 Dose: 3 ml Documented By: NASIR Trazodone HCl (Trazodone Hcl 50 Mg Tablet) 50 mg PO BEDTIME [facility] Last Admin: 03/27/24 20:07 Dose: 50 mg Documented By: PASTOR Trazodone HCl (Trazodone Hcl 100 Mg Tablet) 100 mg PO BEDTIME [facility] Last Admin: 03/27/24 20:07 Dose: 100 mg Documented By: PASTOR Labs 03/27/24 06:13 03/28/24 10:55 Labs: Laboratory Results - last 24 hr 03/28/24 10:55 Estim Creat Clear Calc 66.0 Estimated GFR > 60 Random Vancomycin 41.6 H* Microbiology Microbiology Results: Microbiology 03/26/24 15:37 Direct Acid Fast Bacilli Smear - Final Hand Right 03/26/24 15:37 Direct Acid Fast Bacilli Smear - Final Hand Right 03/25/24 20:30 Blood Culture - Preliminary Blood - Venous No growth after 48 hours. 03/25/24 20:25 Blood Culture - Preliminary Blood - Venous No growth after 48 hours. Assessment and Plan (1) Infection of right hand: Status: Acute Plan This is a 24-year-old male with developmental delay, non-verbal, and self- injurious behavior (hitting himself) here with cellulitis of right index finger with abscess Rt index finger abscess/cellulitis s/p I&D in [place] 03/26 Continue Zosyn, hold vanco (trough high)-pharmacy to monitor ongoing vanco trough and dosing Blood cultures negative to date; wound cultures being added on at outside lab Oxycodone for pain tolerating diet follow Vancomycin trough RICHA Likely ATN due to vancomycin IV fluid Avoid nephrotoxic medications Follow renal function, if renal function worsens consider Nephrology consult Psych/mood disorder Continue home medications DVT prophylaxis Low risk. Encourage early ambulation- has been ambulating in the hallway will need ongoing inpatient hospital stay for IV antibiotics for abscess of finger and need for intervention. Quality Stroke Does the patient have a stroke diagnosis?: No VTE Prior VTE?: No VTE Risk Level:: Medical - low VTE Device Contraindication: Treatment Not Indicated VTE Drug Contraindication: Treatment Not Indicated
[2024-03-28 15:35] VITALS: BP 115/60; PULSE 103; RESP 18; TEMP 36.5; O2SAT 100
[2024-03-28 19:15] VITALS: BP 139/75; PULSE 82; RESP 18; TEMP 36.2; O2SAT 96
[2024-03-28] MEDS: traZODone HCL 100 MG TABLET PO (19:39)
[2024-03-28] MEDS: FLUoxetine HCl 20 MG CAPSULE 60 MG PO (19:39)
[2024-03-28] MEDS: risperiDONE 3 MG TABLET PO (19:39)
[2024-03-28] MEDS: traZODone HCL 50 MG TABLET PO (19:39)
[2024-03-29 04:00] VITALS: BP 114/79; PULSE 88; RESP 16; TEMP 37.4; O2SAT 97
[2024-03-29] MEDS: Acetaminophen 325 MG TABLET 650 MG PO (04:08)
[2024-03-29] MEDS: clonazePAM 1 MG TABLET PO ×2 (04:08→08:44)
[2024-03-29] MEDS: Piperacillin Sodium/Tazobactam 3.375 GM in 0.9 % Sodium Chloride 50 ML IV ×3 (05:04→16:42)
[2024-03-29 06:38] LABS: Anion Gap 12 (12-20); Blood Urea Nitrogen 17 mg/dL (9-16); Calcium 8.3 mg/dL (8.4-10.2); Carbon Dioxide 27 mmol/L (22-29); Chloride 106 mmol/L (96-108); Estimated Glomerular Filt Rate > 60; Glucose Random 106 mg/dL (60-115); Potassium 3.5 mmol/L (3.3-5.1); Sodium 141 mmol/L (135-145); Vancomycin Random 11.3 mcg/mL (15-20)
[2024-03-29 07:34] VITALS: BP 99/55; PULSE 72; RESP 16; TEMP 36.9; O2SAT 96
[2024-03-29] MEDS: vancomycin HCL 750 MG in 0.9 % Sodium Chloride 250 ML 265 MG IV ×2 (07:41→19:51)
[2024-03-29] MEDS: Lactated Ringers 1,000 ML 100 ML IVCONT ×2 (07:46→18:01)
[2024-03-29] MEDS: Multivitamin TABLET 1 TAB PO (08:44)
[2024-03-29] MEDS: Paliperidone ER 9 MG TAB.ER.24 PO (08:44)
[2024-03-29] MEDS: polyethylene glycoL 3350 17 GM POWD.PACK PO (08:44)
[2024-03-29] MEDS: risperiDONE 2 MG TABLET PO (08:45)
[2024-03-29] MEDS: Docusate Sodium 100 MG CAPSULE PO ×2 (08:45→19:53)
[2024-03-29] MEDS: oxyCODONE HCl Immed Release 5 MG TABLET PO (12:06)
[2024-03-29 14:00] VITALS: O2SAT 98
--- NOTE | 2024-03-29 14:38 | HO.PM.IMPN ---
Subjective Subjective Date of Service: 03/29/24 Interval History: Seen and examined this morning Follow-up for right finger infection no overnight events; per staff, pain well controlled nonverbal - unable to obtain ROS Physical Exam Vital Signs: Vital Signs: Last Vital Signs Temp 98.4 F 03/29/24 07:34 Pulse 72 03/29/24 07:34 Resp 16 03/29/24 07:34 BP 99/55 L 03/29/24 07:34 Pulse Ox 98 03/29/24 14:00 O2 Del Method Room Air 03/29/24 14:00 BMI result Body Mass Index 26.3 Const: Other: lying in bed; appears comfortable Unable to assess orientation-per caregiver at bedside, patient at baseline Resp: Effort & Inspection: normal respiratory effort, no respiratory distress and no use of accessory muscles Auscultation: clear to auscultation bilaterally Cardio: Rate: regular rate GI: Inspection: No distended Extrem: Other: right hand in c/d/i dressing; fingers warm Objective Data Active Medications Acetaminophen (Acetaminophen 325 Mg Tablet) 650 mg PO Q6H PRN PRN Reason: Pain, Mild 1-3,fever,headache Last Admin: 03/29/24 04:08 Dose: 650 mg Documented By: PASTOR Calcium Carbonate (Calcium Carbonate 750 Mg Tab.Chew) 750 mg PO Q4H PRN PRN Reason: Heartburn Clonazepam (Clonazepam 1 Mg Tablet) 1 mg PO BID PRN PRN Reason: Anxiety Last Admin: 03/29/24 04:08 Dose: 1 mg Documented By: PASTOR Clonazepam (Clonazepam 1 Mg Tablet) 1 mg PO DAILY [facility] Last Admin: 03/29/24 08:44 Dose: 1 mg Documented By: THERESA Docusate Sodium (Docusate Sodium 100 Mg Capsule) 100 mg PO DAILY [facility] Last Admin: 03/29/24 08:45 Dose: 100 mg Documented By: THERESA Fluoxetine HCl (Fluoxetine Hcl 20 Mg Capsule) 60 mg PO BEDTIME [facility] Last Admin: 03/28/24 19:39 Dose: 60 mg Documented By: PASTOR Piperacillin Sod/Tazobactam (Sod 3.375 gm/ Sodium Chloride) 50 mls @ 100 mls/hr IV Q6H [facility] Last Infusion: 03/29/24 11:41 Dose: Infused Documented By: THERESA Lactated Ringer's (Lr) 1,000 mls @ 100 mls/hr IVCONT .Q10H [facility] Last Admin: 03/29/24 07:46 Dose: 100 mls/hr Documented By: THERESA Vancomycin HCl 750 mg/ Sodium (Chloride) 265 mls @ 265 mls/hr IV Q12H [facility] Last Infusion: 03/29/24 09:02 Dose: Infused Documented By: THERESA Loratadine (Loratadine 10 Mg Tablet) 10 mg PO DAILY PRN PRN Reason: allergies Magnesium Hydroxide (Milk Of Magnesia 30 Ml Oral.Susp) 30 ml PO DAILY PRN PRN Reason: Constipation Melatonin (Melatonin 3 Mg Tablet) 6 mg PO BEDTIME PRN PRN Reason: Insomnia Last Admin: 03/28/24 00:03 Dose: 6 mg Documented By: PASTOR Multivitamins/Vitamin C (Multivitamin Tablet) 1 tab PO DAILY [facility] Last Admin: 03/29/24 08:44 Dose: 1 tab Documented By: THERESA Naloxone HCl (Naloxone Hcl 0.4 Mg/Ml Vial) 0.04 mg IVPUSH Q5M PRN PRN Reason: Excessive sedation or RR < 8 Oxycodone HCl (Oxycodone Hcl Immed Release 5 Mg Tablet) 5 mg PO Q8H PRN PRN Reason: Pain, Severe (Pain Scale 7-10) Last Admin: 03/29/24 12:06 Dose: 5 mg Documented By: NORMA Paliperidone (Paliperidone Er 9 Mg Tab.Er.24) 9 mg PO DAILY [facility] Last Admin: 03/29/24 08:44 Dose: 9 mg Documented By: THERESA Pharmacy Consult (Consult Rx Vancomycin Dosing) 1 each MISCELLANE DAILY PRN PRN Reason: Consult order Polyethylene Glycol (Polyethylene Glycol 3350 17 Gm Powd.Pack) 17 gm PO DAILY [facility] Last Admin: 03/29/24 08:44 Dose: 17 gm Documented By: THERESA Risperidone (Risperidone 2 Mg Tablet) 2 mg PO DAILY [facility] Last Admin: 03/29/24 08:45 Dose: 2 mg Documented By: THERESA Risperidone (Risperidone 3 Mg Tablet) 3 mg PO BEDTIME [facility] Last Admin: 03/28/24 19:39 Dose: 3 mg Documented By: PSATOR Sodium Chloride (0.9 % Sodium Chloride Flush 3 Ml Syringe) 3 ml IVFLUSH QSHIFT [facility] Last Admin: 03/29/24 08:29 Dose: Not Given Documented By: THERESA Non-Admin Reason: IV Running Trazodone HCl (Trazodone Hcl 50 Mg Tablet) 50 mg PO BEDTIME [facility] Last Admin: 03/28/24 19:39 Dose: 50 mg Documented By: PASTOR Trazodone HCl (Trazodone Hcl 100 Mg Tablet) 100 mg PO BEDTIME [facility] Last Admin: 03/28/24 19:39 Dose: 100 mg Documented By: PASTOR Labs 03/27/24 06:13 03/29/24 06:00 Labs: Laboratory Results - last 24 hr 03/29/24 06:00 Anion Gap 12 Estim Creat Clear Calc 61.0 Estimated GFR > 60 Random Glucose 106 Calcium 8.3 L Random Vancomycin 11.3 L Microbiology Microbiology Results: Microbiology 03/26/24 15:37 Direct Acid Fast Bacilli Smear - Final Hand Right 03/26/24 15:37 Direct Acid Fast Bacilli Smear - Final Hand Right Assessment and Plan (1) Infection of right hand: Status: Acute Plan This is a 24-year-old male with developmental delay, non-verbal, and self-injurious behavior (hitting himself) here with cellulitis of right index finger with abscess Rt index finger abscess/cellulitis s/p I&D in [place] 03/26 Continue Zosyn, vanco -pharmacy to monitor ongoing vanco trough and dosing Blood cultures negative to date; wound cultures being added on at outside lab -pending Oxycodone for pain tolerating diet follow Vancomycin trough ortho following -dressing changes per ortho rec RICHA Likely ATN due to vancomycin IV fluid Avoid nephrotoxic medications Follow renal function, if renal function worsens consider Nephrology consult Psych/mood disorder Continue home medications d/w pharmacy - will dose adjust invega per their rec based on current renal function DVT prophylaxis Low risk. Encourage early ambulation- has been ambulating in the hallway jasmin Dockery [phone] will need ongoing inpatient hospital stay for IV antibiotics for abscess of finger and monitoring of renal function Quality Stroke Does the patient have a stroke diagnosis?: No VTE Prior VTE?: No VTE Risk Level:: Medical - low VTE Device Contraindication: Treatment Not Indicated VTE Drug Contraindication: Treatment Not Indicated
[2024-03-29 15:16] VITALS: BP 115/76; PULSE 95; RESP 18; TEMP 37.1; O2SAT 96
[2024-03-29 19:30] VITALS: BP 120/74; PULSE 76; RESP 20; TEMP 37.7; O2SAT 96
[2024-03-29] MEDS: FLUoxetine HCl 20 MG CAPSULE 60 MG PO (19:53)
[2024-03-29] MEDS: traZODone HCL 50 MG TABLET PO (19:55)
[2024-03-29] MEDS: risperiDONE 3 MG TABLET PO (19:55)
[2024-03-29] MEDS: traZODone HCL 100 MG TABLET PO (19:55)
[2024-03-30] MEDS: Piperacillin Sodium/Tazobactam 3.375 GM in 0.9 % Sodium Chloride 50 ML IV ×5 (01:18→21:58)
[2024-03-30 04:00] VITALS: BP 103/59; PULSE 84; RESP 16; TEMP 36.9; O2SAT 96
[2024-03-30] MEDS: Lactated Ringers 1,000 ML 100 ML IVCONT (05:54)
[2024-03-30 06:49] LABS: Anion Gap 10 (12-20); Blood Urea Nitrogen 15 mg/dL (9-16); Calcium 8.7 mg/dL (8.4-10.2); Carbon Dioxide 27 mmol/L (22-29); Chloride 107 mmol/L (96-108); Creatinine Clr Calc Pharmacy 62.7; Estimated Glomerular Filt Rate > 60; Glucose Random 109 mg/dL (60-115); Potassium 4.3 mmol/L (3.3-5.1); Sodium 140 mmol/L (135-145)
[2024-03-30 06:51] LABS: Vancomycin Random 16.3 mcg/mL (15-20)
--- NOTE | 2024-03-30 06:59 | HE.PHANOTE ---
RE VANCO DOSING SCR MOVED SLIGHTLY FROM 1.45 YESTERDAY TO 1.41 TODAY. CRCL TODAY IS 62.7, VANCO TROUGH NOW AT 16.3. INSIGHT SHOWS EXPECTED TROUGH OF 13.2. WILL CONTINUE ON SAME DOSE AND RECHECK LEVELS TOMORROW TO ENSURE SAFETY AND EFFICACY.
[2024-03-30 07:30] VITALS: BP 95/55; PULSE 65; RESP 16; TEMP 36.6; O2SAT 96
[2024-03-30] MEDS: vancomycin HCL 750 MG in 0.9 % Sodium Chloride 250 ML 265 MG IV ×2 (08:53→19:58)
[2024-03-30] MEDS: 0.9 % Sodium Chloride Flush 3 ML SYRINGE IVFLUSH ×3 (08:54→20:01)
[2024-03-30] MEDS: Multivitamin TABLET 1 TAB PO (08:55)
[2024-03-30] MEDS: Paliperidone ER 6 MG TAB.ER.24 PO (08:55)
[2024-03-30] MEDS: Docusate Sodium 100 MG CAPSULE PO ×2 (08:55→19:58)
[2024-03-30] MEDS: polyethylene glycoL 3350 17 GM POWD.PACK PO (08:55)
[2024-03-30] MEDS: risperiDONE 2 MG TABLET PO (08:55)
[2024-03-30] MEDS: clonazePAM 1 MG TABLET PO ×2 (08:55→19:57)
[2024-03-30] MEDS: Loratadine 10 MG TABLET PO (08:55)
[2024-03-30] MEDS: Acetaminophen 325 MG TABLET 650 MG PO (08:55)
--- NOTE | 2024-03-30 13:39 | PC.NURSE ---
telephone directory distributor driver- Mian Bernal [phone]
--- NOTE | 2024-03-30 14:09 | P.PNIM_ITS ---
Subjective Subjective Date of Service: 03/30/24 Interval History: seen and examined this morning follow up for infection of right index finger patient sleepy, at baseline as per caretakers from residential. wakes up to take meds, then goes back to sleep; appears comfortable nonverbal - unable to obtain ROS Physical Exam 2 Vital Signs: Vital Signs: Last Vital Signs Temp 97.9 F 03/30/24 07:30 Pulse 65 03/30/24 07:30 Resp 16 03/30/24 07:30 BP 95/55 L 03/30/24 07:30 Pulse Ox 96 03/30/24 07:30 O2 Del Method Room Air 03/30/24 07:30 BMI result Body Mass Index 26.3 Const: Other: lying in bed; appears comfortable Unable to assess orientation-per caregiver at bedside, patient at baseline Resp: Effort & Inspection: normal respiratory effort, no respiratory distress and no use of accessory muscles Auscultation: clear to auscultation bilaterally Cardio: Rate: regular rate GI: Inspection: No distended Extrem: Other: right hand in c/d/i dressing; fingers warm Objective Data Active Medications Acetaminophen (Acetaminophen 325 Mg Tablet) 650 mg PO Q6H PRN PRN Reason: Pain, Mild 1-3,fever,headache Last Admin: 03/30/24 08:55 Dose: 650 mg Documented By: ANGELINA Calcium Carbonate (Calcium Carbonate 750 Mg Tab.Chew) 750 mg PO Q4H PRN PRN Reason: Heartburn Clonazepam (Clonazepam 1 Mg Tablet) 1 mg PO BID PRN PRN Reason: Anxiety Last Admin: 03/29/24 04:08 Dose: 1 mg Documented By: PASTOR Clonazepam (Clonazepam 1 Mg Tablet) 1 mg PO DAILY [facility] Last Admin: 03/30/24 08:55 Dose: 1 mg Documented By: ANGELINA Docusate Sodium (Docusate Sodium 100 Mg Capsule) 100 mg PO BID [facility] Last Admin: 03/30/24 08:55 Dose: 100 mg Documented By: ANGELINA Fluoxetine HCl (Fluoxetine Hcl 20 Mg Capsule) 60 mg PO BEDTIME [facility] Last Admin: 03/29/24 19:53 Dose: 60 mg Documented By: MARTY Piperacillin Sod/Tazobactam (Sod 3.375 gm/ Sodium Chloride) 50 mls @ 100 mls/hr IV Q6H [facility] Last Infusion: 03/30/24 10:46 Dose: Infused Documented By: ANGELINA Vancomycin HCl 750 mg/ Sodium (Chloride) 265 mls @ 265 mls/hr IV Q12H [facility] Last Infusion: 03/30/24 09:55 Dose: Infused Documented By: ANGELINA Loratadine (Loratadine 10 Mg Tablet) 10 mg PO DAILY PRN PRN Reason: allergies Last Admin: 03/30/24 08:55 Dose: 10 mg Documented By: ANGELINA Magnesium Hydroxide (Milk Of Magnesia 30 Ml Oral.Susp) 30 ml PO DAILY PRN PRN Reason: Constipation Melatonin (Melatonin 3 Mg Tablet) 6 mg PO BEDTIME PRN PRN Reason: Insomnia Last Admin: 03/28/24 00:03 Dose: 6 mg Documented By: PASTOR Multivitamins/Vitamin C (Multivitamin Tablet) 1 tab PO DAILY [facility] Last Admin: 03/30/24 08:55 Dose: 1 tab Documented By: ANGELINA Naloxone HCl (Naloxone Hcl 0.4 Mg/Ml Vial) 0.04 mg IVPUSH Q5M PRN PRN Reason: Excessive sedation or RR < 8 Oxycodone HCl (Oxycodone Hcl Immed Release 5 Mg Tablet) 5 mg PO Q8H PRN PRN Reason: Pain, Severe (Pain Scale 7-10) Last Admin: 03/29/24 12:06 Dose: 5 mg Documented By: NORMA Paliperidone (Paliperidone Er 6 Mg Tab.Er.24) 6 mg PO DAILY [facility] Last Admin: 03/30/24 08:55 Dose: 6 mg Documented By: ANGELINA Pharmacy Consult (Consult Rx Vancomycin Dosing) 1 each MISCELLANE DAILY PRN PRN Reason: Consult order Polyethylene Glycol (Polyethylene Glycol 3350 17 Gm Powd.Pack) 17 gm PO DAILY [facility] Last Admin: 03/30/24 08:55 Dose: 17 gm Documented By: ANGELINA Risperidone (Risperidone 2 Mg Tablet) 2 mg PO DAILY [facility] Last Admin: 03/30/24 08:55 Dose: 2 mg Documented By: ANGELINA Risperidone (Risperidone 3 Mg Tablet) 3 mg PO BEDTIME [facility] Last Admin: 03/29/24 19:55 Dose: 3 mg Documented By: MARTY Sodium Chloride (0.9 % Sodium Chloride Flush 3 Ml Syringe) 3 ml IVFLUSH QSHIFT [facility] Last Admin: 03/30/24 08:54 Dose: 3 ml Documented By: ANGELINA Trazodone HCl (Trazodone Hcl 50 Mg Tablet) 50 mg PO BEDTIME [facility] Last Admin: 03/29/24 19:55 Dose: 50 mg Documented By: MARTY Trazodone HCl (Trazodone Hcl 100 Mg Tablet) 100 mg PO BEDTIME [facility] Last Admin: 03/29/24 19:55 Dose: 100 mg Documented By: MARTY Labs 03/27/24 06:13 03/30/24 05:55 Labs: Laboratory Results - last 24 hr 03/30/24 05:55 Hold Purple Top SEE NOTE Anion Gap 10 L Estim Creat Clear Calc 62.7 Estimated GFR > 60 Random Glucose 109 Calcium 8.7 Random Vancomycin 16.3 Assessment and Plan (1) Infection of right hand: Status: Acute Plan This is a 24-year-old male with developmental delay, non-verbal, and self- injurious behavior (hitting himself) here with cellulitis of right index finger with abscess Rt index finger abscess/cellulitis s/p I&D in [place] 03/26 Continue Zosyn, vanco -pharmacy to monitor ongoing vanco trough and dosing Blood cultures negative to date; wound cultures not obtained Oxycodone for pain tolerating diet follow Vancomycin trough ortho following -dressing changes per ortho rec ID consult for d/c antibiotic recs RICHA Likely ATN due to vancomycin IV fluid Avoid nephrotoxic medications Follow renal function,has plateaued follow BMP Psych/mood disorder Continue home medications d/w pharmacy - will dose adjust invega per their rec based on current renal function DVT prophylaxis Low risk. Encourage early ambulation- has been ambulating in the [facility] jasmin Dockery [phone] will need ongoing inpatient hospital stay for IV antibiotics for abscess of finger and monitoring of renal function Quality Stroke Does the patient have a stroke diagnosis?: No VTE Prior VTE?: No VTE Risk Level:: Medical - low VTE Device Contraindication: Treatment Not Indicated VTE Drug Contraindication: Treatment Not Indicated
[2024-03-30 15:26] VITALS: BP 109/67; PULSE 82; RESP 16; TEMP 36.9; O2SAT 97
[2024-03-30 19:33] VITALS: BP 112/69; PULSE 72; RESP 18; TEMP 37.1; O2SAT 98
[2024-03-30] MEDS: FLUoxetine HCl 20 MG CAPSULE 60 MG PO (19:56)
[2024-03-30] MEDS: risperiDONE 3 MG TABLET PO (19:57)
[2024-03-30] MEDS: traZODone HCL 50 MG TABLET PO (19:57)
[2024-03-30] MEDS: traZODone HCL 100 MG TABLET PO (19:58)
[2024-03-31 04:00] VITALS: BP 95/52; PULSE 110; RESP 18; TEMP 36.5; O2SAT 97
[2024-03-31] MEDS: Piperacillin Sodium/Tazobactam 3.375 GM in 0.9 % Sodium Chloride 50 ML IV ×2 (06:22→11:09)
[2024-03-31 06:57] LABS: Anion Gap 13 (12-20); Blood Urea Nitrogen 11 mg/dL (9-16); Calcium 8.9 mg/dL (8.4-10.2); Carbon Dioxide 24 mmol/L (22-29); Chloride 107 mmol/L (96-108); Creatinine Clr Calc Pharmacy 80.4; Estimated Glomerular Filt Rate > 60; Glucose Random 102 mg/dL (60-115); Potassium 3.9 mmol/L (3.3-5.1); Sodium 140 mmol/L (135-145)
--- NOTE | 2024-03-31 07:05 | HE.PHANOTE ---
RE VANCO DOSING RENAL FUNCTION IMPROVING, TROUGH DECREASING. WILL INCREASE DOSE BUT CONTINUE DAILY MONITORING OF RENAL FUNCTION AND VANCO LEVELS. NEXT LEVEL 04/01 @0600.
[2024-03-31 07:26] VITALS: BP 92/50; PULSE 82; RESP 16; TEMP 36.8; O2SAT 97
[2024-03-31] MEDS: vancomycin HCL 1,000 MG in 0.9 % Sodium Chloride 250 ML 270 MG IV (08:23)
[2024-03-31] MEDS: Multivitamin TABLET 1 TAB PO (08:32)
[2024-03-31] MEDS: Paliperidone ER 6 MG TAB.ER.24 PO (08:32)
[2024-03-31] MEDS: clonazePAM 1 MG TABLET PO ×2 (08:33→22:56)
[2024-03-31] MEDS: risperiDONE 2 MG TABLET PO (08:33)
[2024-03-31] MEDS: 0.9 % Sodium Chloride Flush 3 ML SYRINGE IVFLUSH ×2 (08:33→17:21)
[2024-03-31] MEDS: Docusate Sodium 100 MG CAPSULE PO (08:33)
[2024-03-31] MEDS: polyethylene glycoL 3350 17 GM POWD.PACK PO (08:33)
--- NOTE | 2024-03-31 13:45 | HO.PM.IMPN ---
Subjective Subjective Date of Service: 03/31/24 Interval History: seen and examined this morning Follow-up for finger infection No overnight events Patient awake, alert, sitting up. Nonverbal, unable to obtain full review of systems Physical Exam Vital Signs: Vital Signs: Last Vital Signs Temp 98.3 F 03/31/24 07:26 Pulse 82 03/31/24 07:26 Resp 16 03/31/24 07:26 BP 92/50 L 03/31/24 07:26 Pulse Ox 97 03/31/24 07:26 O2 Del Method Room Air 03/31/24 07:26 BMI result Body Mass Index 26.3 Const: Other: lying in bed; appears comfortable Unable to assess orientation-per caregiver at bedside, patient at baseline Resp: Effort & Inspection: normal respiratory effort, no respiratory distress and no use of accessory muscles Auscultation: clear to auscultation bilaterally Cardio: Rate: regular rate GI: Inspection: No distended Extrem: Other: right hand in c/d/i dressing; fingers warm Objective Data Active Medications Acetaminophen (Acetaminophen 325 Mg Tablet) 650 mg PO Q6H PRN PRN Reason: Pain, Mild 1-3,fever,headache Last Admin: 03/30/24 08:55 Dose: 650 mg Documented By: RIRI-ABIOLA Calcium Carbonate (Calcium Carbonate 750 Mg Tab.Chew) 750 mg PO Q4H PRN PRN Reason: Heartburn Clonazepam (Clonazepam 1 Mg Tablet) 1 mg PO BID PRN PRN Reason: Anxiety Last Admin: 03/30/24 19:57 Dose: 1 mg Documented By: MARTY Clonazepam (Clonazepam 1 Mg Tablet) 1 mg PO DAILY [facility] Last Admin: 03/31/24 08:33 Dose: 1 mg Documented By: JUAN Docusate Sodium (Docusate Sodium 100 Mg Capsule) 100 mg PO BID [facility] Last Admin: 03/31/24 08:33 Dose: 100 mg Documented By: JUAN Fluoxetine HCl (Fluoxetine Hcl 20 Mg Capsule) 60 mg PO BEDTIME [facility] Last Admin: 03/30/24 19:56 Dose: 60 mg Documented By: MARTY Piperacillin Sod/Tazobactam (Sod 3.375 gm/ Sodium Chloride) 50 mls @ 100 mls/hr IV Q6H [facility] Last Infusion: 03/31/24 11:39 Dose: Infused Documented By: JUAN Vancomycin HCl 1,000 mg/ (Sodium Chloride) 270 mls @ 270 mls/hr IV Q12H [facility] Last Infusion: 03/31/24 09:23 Dose: Infused Documented By: JUAN Loratadine (Loratadine 10 Mg Tablet) 10 mg PO DAILY PRN PRN Reason: allergies Last Admin: 03/30/24 08:55 Dose: 10 mg Documented By: RIRI-RIVLA Magnesium Hydroxide (Milk Of Magnesia 30 Ml Oral.Susp) 30 ml PO DAILY PRN PRN Reason: Constipation Melatonin (Melatonin 3 Mg Tablet) 6 mg PO BEDTIME PRN PRN Reason: Insomnia Last Admin: 03/28/24 00:03 Dose: 6 mg Documented By: PASTOR Multivitamins/Vitamin C (Multivitamin Tablet) 1 tab PO DAILY [facility] Last Admin: 03/31/24 08:32 Dose: 1 tab Documented By: JUAN Naloxone HCl (Naloxone Hcl 0.4 Mg/Ml Vial) 0.04 mg IVPUSH Q5M PRN PRN Reason: Excessive sedation or RR < 8 Oxycodone HCl (Oxycodone Hcl Immed Release 5 Mg Tablet) 5 mg PO Q8H PRN PRN Reason: Pain, Severe (Pain Scale 7-10) Last Admin: 03/29/24 12:06 Dose: 5 mg Documented By: NORMA Paliperidone (Paliperidone Er 6 Mg Tab.Er.24) 6 mg PO DAILY [facility] Last Admin: 03/31/24 08:32 Dose: 6 mg Documented By: JUAN Pharmacy Consult (Consult Rx Vancomycin Dosing) 1 each MISCELLANE DAILY PRN PRN Reason: Consult order Polyethylene Glycol (Polyethylene Glycol 3350 17 Gm Powd.Pack) 17 gm PO DAILY [facility] Last Admin: 03/31/24 08:33 Dose: 17 gm Documented By: JUAN Risperidone (Risperidone 2 Mg Tablet) 2 mg PO DAILY [facility] Last Admin: 03/31/24 08:33 Dose: 2 mg Documented By: JUAN Risperidone (Risperidone 3 Mg Tablet) 3 mg PO BEDTIME [facility] Last Admin: 03/30/24 19:57 Dose: 3 mg Documented By: MARTY Sodium Chloride (0.9 % Sodium Chloride Flush 3 Ml Syringe) 3 ml IVFLUSH QSHIFT [facility] Last Admin: 03/31/24 08:33 Dose: 3 ml Documented By: JUAN Trazodone HCl (Trazodone Hcl 50 Mg Tablet) 50 mg PO BEDTIME [facility] Last Admin: 03/30/24 19:57 Dose: 50 mg Documented By: MARTY Trazodone HCl (Trazodone Hcl 100 Mg Tablet) 100 mg PO BEDTIME [facility] Last Admin: 03/30/24 19:58 Dose: 100 mg Documented By: MARTY Labs 03/27/24 06:13 03/31/24 06:36 Labs: Laboratory Results - last 24 hr 03/31/24 06:36 Hold Purple Top SEE NOTE Anion Gap 13 Estim Creat Clear Calc 80.4 Estimated GFR > 60 Random Glucose 102 Calcium 8.9 Random Vancomycin 14.0 L Microbiology Microbiology Results: Microbiology 03/25/24 20:30 Blood Culture - Final Blood - Venous No growth after 5 days. 03/25/24 20:25 Blood Culture - Final Blood - Venous No growth after 5 days. Assessment and Plan (1) Infection of right hand: Status: Acute Plan This is a 24-year-old male with developmental delay, non-verbal, and self-injurious behavior (hitting himself) here with cellulitis of right index finger with abscess Rt index finger abscess/cellulitis s/p I&D in [place] 03/26 initially treated with IV Zosyn, vanco Blood cultures negative to date; wound cultures not obtained seen by ID rec 30 days po doxy on d/c; with transition to doxy Oxycodone for pain tolerating diet ortho following -dressing changes per ortho rec RICHA Likely ATN due to vancomycin renal function improving Psych/mood disorder Continue home medications d/w pharmacy - will dose adjust invega per their rec based on current renal function DVT prophylaxis Low risk. Encourage early ambulation- has been ambulating in the [facility] jasmin Dockery [phone] will need ongoing inpatient hospital stay for IV antibiotics for abscess of finger and monitoring of renal function Quality Stroke Does the patient have a stroke diagnosis?: No VTE Prior VTE?: No VTE Risk Level:: Medical - low VTE Device Contraindication: Treatment Not Indicated VTE Drug Contraindication: Treatment Not Indicated
[2024-03-31 15:08] VITALS: BP 103/63; PULSE 102; RESP 18; TEMP 36.6; O2SAT 96
--- NOTE | 2024-03-31 17:51 | PM.DS ---
DS: Providers Provider Date of Service: 04/01/24 <aDmion Francisco MD - Last Filed: 04/01/24 16:28> Date of admission: 03/25/24 23:54 <RAHEL Hoffman - Last Filed: 04/04/24 12:28> Date of discharge: 04/01/24 <Damion Francisco MD - Last Filed: 04/01/24 16:28> Primary care physician: Lolly Shepherd MD <RAHEL Hoffman - Last Filed: 04/04/24 12:28> Consults: 03/29/24 15:59 Consult to Infectious Diseases Routine Consulting Provider: [facility] [place] [facility] Reason for consultation: R index finger infection possible joint involvement; no cultures available Has provider been notified: No <RAHEL Hoffman - Last Filed: 04/04/24 12:28> DS: Diagnosis Discharge Diagnosis (1) Infection of right hand: Status: Acute <RAHEL Hoffman - Last Filed: 04/04/24 12:28> DS: Summary Hospital Course Hospital Course: From H&P on the day of admission 24-year-old male with developmental delay and self-injurious behaviors, including hitting himself. He is nonverbal and resides in a assisted, accompanied by two staff members. He was brought in for evaluation of swelling and redness of the right index finger, caused by a self-induced injury approximately one week ago. Despite being started on Keflex four days ago, there has been no improvement?see attached picture. X-ray shows no changes suggestive of osteomyelitis (OM). ESR and CRP are elevated. He has been started on Zosyn and Vancomycin. Orthopedics is planning incision and drainage (I&D) in the OR tomorrow morning. Rt index finger abscess/cellulitis seen by orthopedic surgery and underwent I&D in OR 03/26 initially treated with IV Zosyn, vanco. Blood cultures negative to date; wound cultures not obtained. seen by ID rec 30 days po doxy on d/c upon discharge. pain well controlled with Oxycodone. dressing changes per orthopedic surgery, see details on discharge instuctions. We will need outpatient follow-up with Orthopedic surgery in 1 week. RICHA Likely ATN due to vancomycin. renal function improved with IVF. Psych/mood disorder Continue home medications. invega dose adjusted due to RICHA per their rec based on current renal function. Likely resume to baseline dose on discharge with improved renal function. Did not have any behavioral issues during hospital stay. <RAHEL Hoffman - Last Filed: 04/04/24 12:28> Time Attestation Discharge Coordination Time (in mins): 40 <RAHEL Hoffman - Last Filed: 04/04/24 12:28> Quality: Safe Use of Opioids Does Pt have an Active Cancer Diagnosis on the Problem List?: No <RAHEL Hoffman - Last Filed: 04/04/24 12:28> Quality: Stroke Does the patient have a stroke diagnosis?: No <RAHEL Hoffman - Last Filed: 04/04/24 12:28> Physical Exam Vital Signs: Vital Signs: Last Vital Signs Temp 97.8 F 03/31/24 15:08 Pulse 102 H 03/31/24 15:08 Resp 18 03/31/24 15:08 BP 103/63 03/31/24 15:08 Pulse Ox 96 03/31/24 15:08 O2 Del Method Room Air 03/31/24 15:08 BMI result Body Mass Index 26.3 <RAHEL Hoffman - Last Filed: 04/04/24 12:28> Vital Signs: Selected Entries 04/01/24 08:00 04/01/24 09:10 04/01/24 09:10 Pulse Rate 73 Respiratory Rate 17 Blood Pressure 111/72 111/72 Pulse Oximetry 96 Oxygen Delivery Me thod Room Air <Damion Francisco MD - Last Filed: 04/01/24 16:28> DS: Data Data Completed and Pending Labs on day of discharge: Laboratory Results - last 24 hr 03/31/24 06:36 Hold Purple Top SEE NOTE Sodium 140 Potassium 3.9 Chloride 107 Carbon Dioxide 24 Anion Gap 13 BUN 11 Creatinine 1.10 Estim Creat Clear Calc 80.4 Estimated GFR > 60 Random Glucose 102 Calcium 8.9 Random Vancomycin 14.0 L <RAHEL Hoffman - Last Filed: 04/04/24 12:28> Discharge Plan Discharge Anticipated Discharge Date/Time: 04/01/24 13:55 <RAHEL Hoffman - Last Filed: 04/04/24 12:28> Patient Disposition: Home Health Service <RAHEL Hoffman - Last Filed: 04/04/24 12:28> Discharge Diagnosis: infection of right index finger <RAHEL Hoffman - Last Filed: 04/04/24 12:28> infection of right index finger <Damion Francisco MD - Last Filed: 04/01/24 16:28> Referrals: [facility]ns [Other] - 1 Week service net assisted [Other] - 1 Week Willy Landeros PA [Physician Labeling Machine Operator] - 1 Week (04/04/24 [facility] [place] Orthopedics Willy Landeros PA) Physician,Sera Rubin [Physician] - 1 Week <RAHEL Hoffman - Last Filed: 04/04/24 12:28> Discharge Medications: New doxycycline monohydrate 100 mg tablet 100 mg PO BID 30 Days Qty: 60 0RF Continued fluoxetine 40 mg capsule 60 mg PO BEDTIME clonazepam 1 mg tablet 1 mg PO DAILY clonazepam 1 mg tablet 1 mg PO BID PRN (Reason: Anxiety) bacitracin 500 unit/gram ointment 1 appl topical BID risperidone 3 mg tablet 3 mg PO BEDTIME risperidone 2 mg tablet 2 mg PO DAILY trazodone 100 mg tablet 100 mg PO BEDTIME trazodone 100 mg tablet 50 mg PO BEDTIME paliperidone 9 mg tablet extended release 24 hr 9 mg PO DAILY acetaminophen 500 mg Tablet 1,000 mg PO Q6H PRN (Reason: Fever>100) ibuprofen 200 mg Tablet 200 mg PO DAILY PRN (Reason: Body Aches) polyethylene glycol 3350 [Miralax] 17 gram/dose Powder 17 g PO DAILY docusate sodium 100 mg Tablet 100 mg PO DAILY loratadine 10 mg Tablet 10 mg PO Q6H PRN (Reason: allergies) [id number] 9 mg iron-400 mcg Tablet 1 tab PO DAILY Discontinued cephalexin 250 mg/5 mL suspension for reconstitution 250 mg PO DAILY@0800,1600,2000 <RAHEL Hoffman - Last Filed: 04/04/24 12:28> Discharge Orders: Discharge Order (Routine); Ordered 04/01/24 Ordered By: Damion Francisco <RAHEL Hoffman - Last Filed: 04/04/24 12:28> Activity on Discharge: As tolerated <RAHEL Hoffman - Last Filed: 04/04/24 12:28> As tolerated <Damion Francisco MD - Last Filed: 04/01/24 16:28> Stand Alone Forms: Patient Portal Discharge page <RAHEL Hoffman Last Filed: 04/04/24 12:28> Print Language: Other <RAHEL Hoffman - Last Filed: 04/04/24 12:28> Activity Restrictions/Additional Instructions: Every other day dressing changes with abx ointment, gauze, kerlix, Flakito bandage/coban Change daily and as needed due to saturation or displaced dressing <RAHEL Hoffman Last Filed: 04/04/24 12:28> Care Plan Goals: see below <RAHEL Hoffman Last Filed: 04/04/24 12:28> Health Concerns: infection of right index finger <RAHEL Hoffman - Last Filed: 04/04/24 12:28> Plan of Treatment: every other day dressing changes as per instructions above complete 30 days of oral doxycycline outpatient follow up with orthopedic surgery in one week (This ) <RAHEL Hoffman - Last Filed: 04/04/24 12:28> Assessment: see discharge summary <RAHEL Hoffman Last Filed: 04/04/24 12:28> Discharge Date/Time: 04/01/24 19:30 <RAHEL Hoffman - Last Filed: 04/04/24 12:28>
[2024-03-31 19:20] VITALS: BP 106/55; PULSE 74; RESP 18; TEMP 36.6; O2SAT 96
[2024-03-31] MEDS: traZODone HCL 50 MG TABLET PO (20:46)
[2024-03-31] MEDS: traZODone HCL 100 MG TABLET PO (20:46)
[2024-03-31] MEDS: risperiDONE 3 MG TABLET PO (20:46)
[2024-03-31] MEDS: Doxycycline Monohydrate 100 MG CAPSULE PO (20:46)
[2024-03-31] MEDS: FLUoxetine HCl 20 MG CAPSULE 60 MG PO (20:46)
--- NOTE | 2024-04-01 00:18 | W.PM.IDCN ---
History of Present Illness Data of Consult Service Date: 03/31/24 Requesting physician: Lana Arnold Primary Care Provider: Lolly Shepherd MD [facility] Reason for consult: abscess right index finger He presents from [facility] on [facility] with right index finger infection concern with swelling and redness. He normally bangs knuckles as behaviour and has calluses. Under the callus was apparently an abscess. Cultures negative so far. He had been given Keflex for a week. Review of Systems Review of Systems: Yes Unobtainable due to mental status PMFSH Past Medical History Medical History Autism Family History Family history: reviewed and not pertinent Social History Social History Household Members: Other Household Members Other:: [facility] Housing: Other Housing Other:: [facility] Are you a primary rn wound care to a significant other at home: No Do you presently have visiting nurse or other home services: No Alcohol intake: never Comment: [facility] staff at bedside Patient Tobacco Use Status: Never used Tobacco Meds Allergies Allergy/AdvReac Type Severity Reaction Status Date / Time lactose [LACTOSE] Allergy Intermediate GI SYMPTOMS Verified 03/25/24 19:29 Active Medications: Current Medications Acetaminophen (Acetaminophen 325 Mg Tablet) 650 mg PO Q6H PRN PRN Reason: Pain, Mild 1-3,fever,headache Last Admin: 03/30/24 08:55 Dose: 650 mg Calcium Carbonate (Calcium Carbonate 750 Mg Tab.Chew) 750 mg PO Q4H PRN PRN Reason: Heartburn Clonazepam (Clonazepam 1 Mg Tablet) 1 mg PO BID PRN PRN Reason: Anxiety Last Admin: 03/31/24 22:56 Dose: 1 mg Clonazepam (Clonazepam 1 Mg Tablet) 1 mg PO DAILY MONIQUE Last Admin: 03/31/24 08:33 Dose: 1 mg Docusate Sodium (Docusate Sodium 100 Mg Capsule) 100 mg PO BID MONIQUE Last Admin: 03/31/24 20:48 Dose: Not Given Doxycycline Monohydrate (Doxycycline Monohydrate 100 Mg Capsule) 100 mg PO Q12H MONIQUE Last Admin: 03/31/24 20:46 Dose: 100 mg Fluoxetine HCl (Fluoxetine Hcl 20 Mg Capsule) 60 mg PO BEDTIME MONIQUE Last Admin: 03/31/24 20:46 Dose: 60 mg Loratadine (Loratadine 10 Mg Tablet) 10 mg PO DAILY PRN PRN Reason: allergies Last Admin: 03/30/24 08:55 Dose: 10 mg Magnesium Hydroxide (Milk Of Magnesia 30 Ml Oral.Susp) 30 ml PO DAILY PRN PRN Reason: Constipation Melatonin (Melatonin 3 Mg Tablet) 6 mg PO BEDTIME PRN PRN Reason: Insomnia Last Admin: 03/28/24 00:03 Dose: 6 mg Multivitamins/Vitamin C (Multivitamin Tablet) 1 tab PO DAILY [facility] Last Admin: 03/31/24 08:32 Dose: 1 tab Naloxone HCl (Naloxone Hcl 0.4 Mg/Ml Vial) 0.04 mg IVPUSH Q5M PRN PRN Reason: Excessive sedation or RR < 8 Oxycodone HCl (Oxycodone Hcl Immed Release 5 Mg Tablet) 5 mg PO Q8H PRN PRN Reason: Pain, Severe (Pain Scale 7-10) Last Admin: 03/29/24 12:06 Dose: 5 mg Paliperidone (Paliperidone Er 6 Mg Tab.Er.24) 6 mg PO DAILY [facility] Last Admin: 03/31/24 08:32 Dose: 6 mg Polyethylene Glycol (Polyethylene Glycol 3350 17 Gm Powd.Pack) 17 gm PO DAILY [facility] Last Admin: 03/31/24 08:33 Dose: 17 gm Risperidone (Risperidone 2 Mg Tablet) 2 mg PO DAILY [facility] Last Admin: 03/31/24 08:33 Dose: 2 mg Risperidone (Risperidone 3 Mg Tablet) 3 mg PO BEDTIME [facility] Last Admin: 03/31/24 20:46 Dose: 3 mg Sodium Chloride (0.9 % Sodium Chloride Flush 3 Ml Syringe) [facility] Last Admin: 04/01/24 00:12 Dose: Not Given Trazodone HCl (Trazodone Hcl 50 Mg Tablet) 50 mg PO BEDTIME [facility] Last Admin: 03/31/24 20:46 Dose: 50 mg Trazodone HCl (Trazodone Hcl 100 Mg Tablet) 100 mg PO BEDTIME [facility] Last Admin: 03/31/24 20:46 Dose: 100 mg Home Medications ?Medication ?Instructions ?Recorded ?Confirmed ?Last Taken ?Type bacitracin 500 unit/gram topical 1 appl topical BID 03/25/24 03/26/24 Unknown History ointment clonazepam 1 mg tablet 1 mg PO BID PRN Anxiety 03/25/24 03/25/24 Unknown History clonazepam 1 mg tablet 1 mg PO DAILY 03/25/24 03/25/24 Unknown History fluoxetine 40 mg capsule 60 mg PO BEDTIME 03/25/24 03/26/24 Unknown History paliperidone 9 mg tablet,extended 9 mg PO DAILY 03/25/24 03/25/24 Unknown History release 24 hr risperidone 2 mg tablet 2 mg PO DAILY 03/25/24 03/25/24 Unknown History risperidone 3 mg tablet 3 mg PO BEDTIME 03/25/24 03/25/24 Unknown History trazodone 100 mg tablet 50 mg PO BEDTIME 03/25/24 03/25/24 Unknown History trazodone 100 mg tablet 100 mg PO BEDTIME 03/25/24 03/25/24 Unknown History acetaminophen 500 mg tablet 1,000 mg PO Q6H PRN Fever>100 03/26/24 03/26/24 Unknown History cephalexin 250 mg/5 mL oral 250 mg PO DAILY@0800,1600,2000 03/26/24 03/26/24 Unknown History suspension docusate sodium 100 mg tablet 100 mg PO DAILY 03/26/24 03/26/24 Unknown History ibuprofen 200 mg tablet 200 mg PO DAILY PRN Body Aches 03/26/24 03/26/24 Unknown History loratadine 10 mg tablet 10 mg PO Q6H PRN allergies 03/26/24 03/26/24 Unknown History multivitamin-iron 9 mg-folic acid 1 tab PO DAILY 03/26/24 03/26/24 Unknown History 400 mcg-calcium and minerals tablet polyethylene glycol 3350 17 17 g PO DAILY 03/26/24 03/26/24 Unknown History gram/dose oral powder (Miralax) Physical Exam Vital Signs: Vital Signs: Last Vital Signs Temp 97.9 F 03/31/24 19:20 Pulse 74 03/31/24 19:20 Resp 18 03/31/24 19:20 BP 106/55 L 03/31/24 19:20 Pulse Ox 96 03/31/24 19:20 O2 Del Method Room Air 03/31/24 19:20 BMI result Body Mass Index 26.3 Const: General: cooperative HEENT: Head: Yes normal to inspection Face and sinus: Yes normal facial exam Mouth: Normal oral and palatal mucosa present Teeth and gingiva: dentition normal Eyes: General: appearance normal, both eyes and all related structures Pupils: Equal, round and reactive pupils present Resp: Effort & Inspection: normal respiratory effort Cardio: Rate: regular rate Rhythm: regular rhythm GI: Palpation (GI): Soft to palpation and nontender : General: Yes no CVA tenderness Back/Spine/Pelvis: Back: no CVA tenderness Skin: General skin exam: no rashes or lesions noted Neuro: General: moves all extremities Cranial nerves: Yes Equal, round and reactive pupils present Extrem: General: Yes normal to inspection Psych: Other: not verbal Results Labs 03/27/24 06:13 03/31/24 06:36 Labs: BMP 03/31/24 06:36 Sodium 140 Potassium 3.9 Chloride 107 Carbon Dioxide 24 BUN 11 Creatinine 1.10 Calcium 8.9 Microbiology Microbiology Results: Microbiology 03/25/24 20:30 Blood - Venous Blood Culture - Final No growth after 5 days. 03/25/24 20:25 Blood - Venous Blood Culture - Final No growth after 5 days. 03/26/24 15:37 Hand Right Direct Acid Fast Bacilli Smear - Final 03/26/24 15:37 Hand Right Direct Acid Fast Bacilli Smear - Final Assessment and Plan (1) Infection of right hand: Status: Acute Plan Patient not willing candidate for IV antibiotics. Would switch to po Doxycycline for a month help cover possible deep infection (has seen Hand).
[2024-04-01 04:00] VITALS: BP 116/58; PULSE 76; RESP 14; TEMP 36.2; O2SAT 96
--- NOTE | 2024-04-01 06:38 | PC.NURSE ---
Late entry: Pt pulled out IV in the beginning of shift w/ [facility] staff at bedside & camera in room.MD Gómez was notified of the situation. Pt had MONIQUE IV Doxy due but was switch to PO Doxy instead. Pt scheduled to be discharge 04/01 with PO Doxy. MD Gómez okay to not put new IV in pt. Will continue to monitor.
[2024-04-01 08:00] VITALS: BP 87/54; PULSE 73; RESP 17; TEMP 36.7; O2SAT 96
[2024-04-01] MEDS: Docusate Sodium 100 MG CAPSULE PO (08:22)
[2024-04-01] MEDS: Paliperidone ER 6 MG TAB.ER.24 PO (08:22)
[2024-04-01] MEDS: Multivitamin TABLET 1 TAB PO (08:22)
[2024-04-01] MEDS: Doxycycline Monohydrate 100 MG CAPSULE PO (08:22)
[2024-04-01] MEDS: polyethylene glycoL 3350 17 GM POWD.PACK PO (08:22)
[2024-04-01] MEDS: clonazePAM 1 MG TABLET PO ×2 (08:22→16:48)
[2024-04-01] MEDS: risperiDONE 2 MG TABLET PO (08:22)
[2024-04-01 09:10] VITALS: BP 111/72
--- NOTE | 2024-04-01 14:40 | MHC.CM.PN ---
pt to return to service [facility] at 6 today hvns will start / or 04/05 and director manuel reilly [phone] whomis an rn will fill in as needed [facility] nurse asked that extra supplies be sent with pt to last for the weekend,message left for jasmin marti dc
[2024-04-01 15:39] VITALS: BP 113/64; PULSE 83; RESP 16; TEMP 36.4; O2SAT 98
--- NOTE | 2024-04-01 16:26 | W.MHC.F2F ---
Service Date Service Date: 04/01/24 Encounter Date of encounter: 04/01/24 Reasons for Services Signs and symptoms assessed: right hand wound Reason for jail: wound care Homebound: Leaving the home is medically contraindicated at this time without the asist of a device and/or another person due th the listed conditions above and below. Reason homebound: unable to drive and other (developmentally delayed) Homebound supporting statement: homebound due to developmental delay residing in [facility] and needs help with most ADL, he is non-verbal and Certification: Based on the above findings, I certify that this patient is confined to the home and needs intermittent jail care, physical therapy and/or speech therapy, or continues to need occupational therapy. The patient is under my care, and I have initiated the establishment of the plan of care. The patient will be followed by a physician who will periodically review the plan of care. Time Spent With Patient Time: Total time managing care of this patient today ____ minutes.
== END 2024-04-01 19:30 | disposition home health service (06) | DRG 383 ==
LOC: HO.ED 22:57 → HO.EDOVER 03-26 00:57 → HO.S3 03-26 07:43
PROVIDERS: Orthopaedic Surgery; Physician Assistant; Student in an Organized Health Care Education/Training Program; Admitting Provider Internal Medicine; Emergency Provider Emergency Medicine; PCP Internal Medicine; Visit Provider Internal Medicine
PROC: 0HBFXZZ Excision of Right Hand Skin, External Approach (ICD-10-PCS; CPT 26075; principal; 2024-03-26 13:50)
DX: L02.511 Cutaneous abscess of right hand (principal); N17.0 Acute kidney failure with tubular necrosis; T36.8X5A Adverse effect of other systemic antibiotics, initial encounter; F39 Unspecified mood [affective] disorder; F84.0 Autistic disorder; L03.113 Cellulitis of right upper limb; Z91.52 Personal history of nonsuicidal self-harm; Z79.899 Other long term (current) drug therapy
CPT/HCPCS: 26075; 36415; 73110; 73130; 80048; 80053; 80202; 82565; 83605; 85025; 85652; 86140; 87040; 87116; 87206; 99221; 99285; J1100; J2003; J2250; J2405; J2543; J2704; J3010; J3370; J3371; J7120

== ENCOUNTER → 2024-03-25 23:54 | Outpatient (BNV) | payer MEDICAID, SELFPAY | PROVIDERS: Admitting Provider Internal Medicine; Emergency Provider Emergency Medicine; Visit Provider Orthopaedic Surgery | DX: L02.91 Cutaneous abscess, unspecified (principal); L08.9 Local infection of the skin and subcutaneous tissue, unspecified | CPT/HCPCS: 11042; 26075; 99024; 99212; 99222 ==

== ENCOUNTER → 2024-03-25 23:54 | Outpatient (BNV) | payer MEDICAID, SELFPAY | PROVIDERS: Admitting Provider Internal Medicine; Emergency Provider Emergency Medicine; Visit Provider Student in an Organized Health Care Education/Training Program | DX: L08.9 Local infection of the skin and subcutaneous tissue, unspecified (principal) | CPT/HCPCS: 99232; 99233 ==

== ENCOUNTER → 2024-03-25 23:54 | Outpatient (BNV) | payer MEDICAID, SELFPAY | PROVIDERS: Admitting Provider Internal Medicine; Emergency Provider Emergency Medicine; PCP Internal Medicine; Visit Provider Internal Medicine | DX: L08.9 Local infection of the skin and subcutaneous tissue, unspecified (principal) | CPT/HCPCS: 99222 ==

== ENCOUNTER 2024-04-12 10:37 | Outpatient (AMB) | payer MEDICAID, SELFPAY ==
--- NOTE | 2024-04-12 10:46 | MHC.OFFVIS ---
Vital Signs 04/12/24 10:51 Height 5 ft 3 in Weight 113 lb BMI 20.0 Intake Visit Reasons: PO-I and D of right hand, DOS 03/26/2024 AR Intake Note: Robin is a 24 year old male who presents today with staff from the facility he stays at for a post operative visit s/p I&D of right hand DOS: 03/26/2024 w/ Dr Ramesh. Patient is non verbal. Allergies lactose [LACTOSE] Allergy (Intermediate, Verified 04/12/24 10:50) GI SYMPTOMS HPI HPI PO-I and D of right hand, DOS 03/26/2024 AR: Details: Patient is a 24-year-old male who presents postoperative evaluation status post I and D of right hand, DOS 03/26/[address] Ramesh. Patient is nonverbal and unable to give an assessment of how he is feeling, but the staff from the [facility]'s [facility] does state that they feel he is doing well, and they have no concerns. [facility] Medical History Autism Social History Household Members: Other Household Members Other:: retirement Housing: Other Housing Other:: [facility] Are you a primary personal care home administrator to a significant other at home: No Do you presently have visiting nurse or other home services: No Alcohol intake: never Comment: [facility] staff at bedside Patient Tobacco Use Status: Never used Tobacco Review of Systems Const All systems reviewed & are unremarkable except as noted in HPI and below Physical Exam Vital Signs: BMI result Body Mass Index 20.0 Last Vital Signs Temp 98.5 F 03/28/24 07:26 Pulse 98 03/28/24 07:26 Resp 16 03/28/24 07:26 BP 105/56 L 03/28/24 07:26 Pulse Ox 94 03/28/24 07:26 O2 Del Method Room Air 03/28/24 07:26 BMI result Body Mass Index 26.3 Extrem Other: There appears to be some hyperemia surrounding the incision site on the dorsal aspect of the patient's right hand at the level of the 2nd MCP joint Sutures in place Wound appears closed, no active drainage No signs of discomfort with gentle palpation or axial loading of the digits of the right hand Distal sensation intact Capillary refill brisk Assessment & Plan Assessment & Plan (1) Abscess of skin or subcutaneous tissue: Code(s): L02.91 - Cutaneous abscess, unspecified Category: Medical (2) Infection of right hand: Code(s): L08.9 - Local infection of the skin and subcutaneous tissue, unspecified Category: Medical Plan 1. Abscess of right hand status post I and D DOS 03/26/2024 Patient appears to be recovering well postoperatively Patient is educated about the typical recovery course At this time, the patient and the [facility] staff that work with him are informed that he appears to be doing well, and there are minimal concerns for any ongoing infection However, patient and [facility] staff are informed he does need to finish the course of antibiotics prescribed him in the hospital Patient was staff are amenable to this plan Due to the patient's self-injurious nature, is advised that she keeps a light, nonstick dressing over the area Patient will follow-up in 1 week, sooner with any acute concerns Coding Level of Care Code Global (28225) Diagnoses Abscess of skin or subcutaneous tissue L02.91 Infection of right hand L08.9
== END 2024-04-12 11:16 | disposition home or self-care (01) ==
PROVIDERS: PCP Internal Medicine
DX: L02.91 Cutaneous abscess, unspecified (principal); L08.9 Local infection of the skin and subcutaneous tissue, unspecified
CPT/HCPCS: 99024

== ENCOUNTER → 2024-04-12 10:37 | Outpatient (BNVA) | payer MEDICAID, SELFPAY | PROVIDERS: PCP Internal Medicine | DX: Z47.89 Encounter for other orthopedic aftercare (principal); L08.9 Local infection of the skin and subcutaneous tissue, unspecified; Z87.2 Personal history of diseases of the skin and subcutaneous tissue | CPT/HCPCS: 99212 ==

== ENCOUNTER 2024-04-17 10:27 | Outpatient (AMB) | payer MEDICAID, SELFPAY ==
--- NOTE | 2024-04-17 10:30 | A.OFFVIS_ITS ---
Intake Visit Reasons: PO-I and D of right hand, DOS 03/26/2024 AR Intake Note: Robin is a 24 year old male who presents today with staff from the facility for a post operative visit s/p I&D of right hand DOS: 03/26/2024 w/ Dr Ramesh. The staff reports he is doing okay and states that he isn't complaining of any pain. Allergies lactose [LACTOSE] Allergy (Intermediate, Verified 04/17/24 10:32) GI SYMPTOMS HPI HPI PO-I and D of right hand, DOS 03/26/2024 AR: Details: Patient is a 24-year-old male who presents postoperative evaluation status post I and D of right hand, DOS 03/26/[address] Ramesh. Patient is nonverbal and unable to give an assessment of how he is feeling, but the staff from the patient's long-term does state that they feel he is doing well, and they have no concerns. [facility] Medical History Autism Social History Household Members: Other Household Members Other:: custodial Housing: Other Housing Other:: long-term Are you a primary director of medicare to a significant other at home: No Do you presently have visiting nurse or other home services: No Alcohol intake: never Comment: long-term staff at bedside Patient Tobacco Use Status: Never used Tobacco Review of Systems Const All systems reviewed & are unremarkable except as noted in HPI and below Physical Exam Vital Signs: Last Vital Signs Temp 98.5 F 03/28/24 07:26 Pulse 98 03/28/24 07:26 Resp 16 03/28/24 07:26 BP 105/56 L 03/28/24 07:26 Pulse Ox 94 03/28/24 07:26 O2 Del Method Room Air 03/28/24 07:26 BMI result Body Mass Index 26.3 Extrem Other: There appears to be some resolving hyperemia surrounding the incision site on the dorsal aspect of the patient's right hand at the level of the 2nd MCP joint Wound appears closed, no active drainage No signs of discomfort with gentle palpation or axial loading of the digits of the right hand Distal sensation intact Capillary refill brisk Assessment & Plan Assessment & Plan (1) Abscess of skin or subcutaneous tissue: Code(s): L02.91 - Cutaneous abscess, unspecified Category: Medical (2) Infection of right hand: Code(s): L08.9 - Local infection of the skin and subcutaneous tissue, unspecified Category: Medical Plan 1. Abscess of right hand status post I and D DOS 03/26/2024 Patient appears to be recovering well postoperatively Patient is educated about the typical recovery course At this time, the patient and the long-term staff that work with him are informed that he appears to be doing well, and there are minimal concerns for any ongoing infection However, patient and long-term staff are informed he does need to finish the course of antibiotics prescribed him in the hospital Patient was staff are amenable to this plan Due to the patient's self-injurious nature, is advised that she keeps a light, nonstick dressing over the area Patient will follow-up in 2 week, sooner with any acute concerns Coding Level of Care Code Global (78804) Diagnoses Abscess of skin or subcutaneous tissue L02.91 Infection of right hand L08.9
== END 2024-04-17 10:57 | disposition home or self-care (01) ==
PROVIDERS: PCP Internal Medicine
DX: L02.91 Cutaneous abscess, unspecified (principal); L08.9 Local infection of the skin and subcutaneous tissue, unspecified
CPT/HCPCS: 99024

== ENCOUNTER → 2024-04-17 10:27 | Outpatient (BNVA) | payer MEDICAID, SELFPAY | PROVIDERS: PCP Internal Medicine | DX: L08.9 Local infection of the skin and subcutaneous tissue, unspecified; Z48.817 Encounter for surgical aftercare following surgery on the skin and subcutaneous tissue; Z98.890 Other specified postprocedural states | CPT/HCPCS: 99212 ==

== ENCOUNTER 2024-04-29 10:51 | Outpatient (AMB) | payer MEDICAID, SELFPAY ==
--- NOTE | 2024-04-29 10:58 | A.OFFVIS_ITS ---
Vital Signs 04/29/24 10:58 Height 5 ft 3 in Weight 113 lb BMI 20.0 Intake Visit Reasons: PO-I and D of right hand, DOS 03/26/2024 AR Intake Note: Robin is a 24 year old male who presents today with his senior caregiver for a post operative visit s/p I&D of right hand DOS: 03/26/2024 w/ Dr Ramesh wound check. Allergies lactose [LACTOSE] Allergy (Intermediate, Verified 04/29/24 11:01) GI SYMPTOMS HPI HPI PO-I and D of right hand, DOS 03/26/2024 AR: Details: Robin is a 24 year old male who presents today with his senior caregiver for a post operative visit s/p I&D of right hand DOS: 03/26/2024 w/ Dr Ramesh wound check. Patient's caregivers state that he has been taking his antibiotics as prescribed, and then they have no concerns for his wound for for any recurrent infection. No other acute complaints or at this time. [facility] Medical History Autism Social History (Reviewed 04/29/24 @ 11:01 by Pascale Valdez [facility]) Household Members: Other Household Members Other:: alf Housing: Other Housing Other:: halfway Are you a primary senior caregiver to a significant other at home: No Do you presently have visiting nurse or other home services: No Alcohol intake: never Comment: [facility] staff at bedside Patient Tobacco Use Status: Never used Tobacco Review of Systems Const All systems reviewed & are unremarkable except as noted in HPI and below Physical Exam Vital Signs: BMI result Body Mass Index 20.0 Last Vital Signs Temp 98.5 F 03/28/24 07:26 Pulse 98 03/28/24 07:26 Resp 16 03/28/24 07:26 BP 105/56 L 03/28/24 07:26 Pulse Ox 94 03/28/24 07:26 O2 Del Method Room Air 03/28/24 07:26 BMI result Body Mass Index 26.3 Extrem Other: Resolved hyperemia surrounding the incision site on the dorsal aspect of the patient's right hand at the level of the 2nd MCP joint Wound closed, no active drainage No signs of discomfort with gentle palpation or axial loading of the digits of the right hand Distal sensation intact Capillary refill brisk Assessment & Plan Assessment & Plan (1) Abscess of skin or subcutaneous tissue: Code(s): L02.91 - Cutaneous abscess, unspecified Category: Medical (2) Infection of right hand: Code(s): L08.9 - Local infection of the skin and subcutaneous tissue, unspecified Category: Medical Plan 1. Abscess of right hand status post I and D DOS 03/26/2024 Patient appears to be recovering well postoperatively Patient is educated about the typical recovery course At this time, the patient and the halfway staff that work with him are informed that he appears to be doing well, and there are no concerns for any ongoing infection However, patient and halfway staff are informed he does need to finish the course of antibiotics prescribed him in the hospital Patient was staff are amenable to this plan Patient will follow-up as needed with any acute concerns Coding Level of Care Code Global (87930) Diagnoses Abscess of skin or subcutaneous tissue L02.91 Infection of right hand L08.9
--- OUTSIDE RECORDS SUMMARY | 2024-04-29 15:45 | XMS_ITS | Data Portability ---
Author Organization [place] - [facility], FORMER[facility] NAM[facility] Address [address] [place] [address] Care Team Providers Care Fire Marshal Name Role Phone JUDDWHITNEY Primary Care Provider [phone] Assessment Encounter Date Assessment Date Assessment LastModified by Organization Details LastModified Time 02/26/2020 02/26/2020 Overview/History : Pt is a 20yo M with reported PMH sig for Autism, being non-verbal and self injury behavior. [facility] was unable to provid records of PMH to this provider and [facility] staff was not sure of pt's full medical history. They were also unable to provide a clear HPI for why visit was requested. They did report pt has some blisters to his thumbs that his school was concerned were cordero. Exam: Pt is Alert, non-verbal, responsive to provider, VSS, suspect false high reading on temp as infrared thermometer was used and pt was wearing a full padded helmet to protect head from self injury. Resp reg and unlabored on RA, lungs CTA bilat. Pt noted to have several small abrasions to both hands in various stages of healing, also noted to have a friction type burn/blister to the left thumb. Pt noted to wrap hands into his shirt and then violently jerk whole body. No erythema noted, no s/s of infection noted. Scattered abrasions noted to all body mckeon on exam. DDx considered, but not limited to: Abrasions: likely gievn appearance and reports of self injury, with pt being witness to have violent jerking movements during visit. Fiction cordero: likely given presentation of the blisters to the left thumb. Pt observed wrapping his hands tightly into his shirt and then jerking violently. Cellulitis: no erythema, edema or warmth noted, infection unlikely. Work up/Results: no further work up indicated at this time. Plan/Discussion: Pt is currently on oral antibiotics according to medication sheet given to this provider along with topical antibiotic ointment. Advised to continue with these treatements and to follow up with PCP as needed. Patients PCP contacted and updated on patient status. Patient verbalized understanding of discharge instructions and when to follow up with PCP/911/ED as needed. Patient in agreement with current plan and treatment. gloria Not available 02/26/2020 15:29:20 Plan of Treatment Reminders Order Date Submit Date Provider Last Modified By Organization Details Last Modified Time Details Appointments None record ed. Lab None record ed. Referral None record ed. Procedures None record ed. Surgeries None record ed. Imaging None record ed. Medication Orders None record ed. Patient TargetsNo targets recorded. Patient Instructions Encounter Date Encounter Id Patient Instructions Last Modified By Organization Details Last Modified Time 02/26/2020 [id number] Thank you for yo ur visit with [facility] today. You were seen today for treatment of a wound. Please seek immediate medical attention if you develop increased pain, redness, or swelling of your wound. Also, you should be evaluated if the wound becomes warm to the touch, or if there is a cloudy, yellow-brown discharge from the wound. There is always the possibility of a hidden tendon injury or foreign object in the wound. If you have problems moving your arm or leg, or if you see red streaks up the arm or leg, seek immediate medical attention. If you develop any new or worsening symptoms and need after hours care, please go to nearest ER and/or call 911. If you have additional concerns or develop a change in your condition between 8am-10pm, please call [facility] at [phone] to help navigate your care. gloria Not available 02/26/2020 15:02:31 Reason for Referral None Reported. Medical Equipment None Reported. Allergies Allergen ID Allergen Name Allergen Category Reaction Reaction Severity Criticality Documentation Date Start Date Code Code System Note Provider Name and Address Organization Details Recorded Time 608407 lactose food,medi cation Not available Not available Not available 02/26/2020 6211 RxNorm NIK MARES NP [address] [place], [address] , [place] [facility] 0 15:05:24 Medications Name Sig Start Date Stop Date Status Note LastModified by Organization Details LastModified Time bacitracin 500 unit/gram topical ointment APPLY TO THE AFFECTED AREA(S) THREE TIMES DAILY FOR 5 TO 7 DAYS 02/25 completed Not Available Not Available Not Available lorazepam 0.5 mg tablet TAKE 1 TABLET BY MOUTH 30 MINUTES PRIOR TO PROCEDURE , IF STILL ANXIOUS TAKE 1 MORE TAB 02/25 completed Not Available Not Available Not Available cephalexin 500 mg capsule TK ONE C PO BID active Not Available Not Available No t Available ibuprofen 200 mg tablet TAKE 1 TABLET BY MOUTH EVERY 6 HOURS NEEDED FOR FEVER MORE THAN 100F active Not Available Not Available No t Available mupirocin 2 % topical ointment APPLY TOPICALLY TO AFFECTED AREA BID FOR 7 DAYS active Not Available Not Available No t Available risperidone 1 mg tablet TAKE 1 TABLET BY MOUTH EVERY MORNING AND 1/2 TABLET AT NIGHT active Not Available Not Available No t Available risperidone 0.5 mg tablet TAKE 1 TABLET BY MOUTH TWICE DAILY active Not Available Not Available No t Available Siltussin-D M 10 mg-100 mg/5 mL oral syrup GIVE 5ml BY MOUTH EVERY 6 HOURS NEEDED FOR COUGH active Not Available Not Available No t Available Pain Relief Extra Strength (acetaminop hen) 500 mg tablet TAKE 2 TABLETS BY MOUTH EVERY 6 TO 8 HOURS NEEDED FOR PAIN OR FOR FEVER MORE THAN 100F active Not Available Not Available No t Available Tussin DM Cough and Chest 5 mg-100 mg/5 mL oral liquid TAKE 10 ML BY MOUTH EVERY 4 HOURS NEEDED FOR COUGH active Not Available Not Available No t Available Vitals Date Recorded Respiratory rate Heart rate Body temperature Systolic blood pressure Diastolic blood pressure Provider Name and Address Organization Details Last Updated DateTime 0 20 /min 88 /min 100.2 [degF] 104 mm[Hg] 60 mm[Hg] Not Available [facility] 0 14:58:45 Social History Question Answer Notes LastModified by Organizat ion Details LastModified Time Tobacco Smoking Status Never Smoker NIK MARES NP [address], [place], [address], [place] [facility] 02/26/2020 15:06:24 Do You Have An Advance Directive? No Information not available 02/26/2020 What Is Your Code Status? Full Code Information not available 02/26/2020 Excessive Alcohol Or Drug Use No Information not available 02/26/2020 Sex: Unknown Functional Status None recorded. Mental Status None recorded. Family History Nothing Reported Notes:pt resides at [facility] , [facility] Medical History No medical history recorded. Past Encounters Encounter ID Performer Location Encounter Start Date Encounter Closed Date Diagnosis/Indication Diagnosis SNOMED-CT Code Diagnosis ICD10 Code Diagnosis Note [id number] NIK MARES NP [facility] [place] [facility] [address] [place] [address] 02/26/2020 14:51:50 02/26/2020 17:47:50 Abrasion of skin of hand 125918651 S60.511A Abrasion 409568823 T14.8 XXA Health Concerns Section Related Observation LastModified by Organization Detai ls LastModified Time None Recorded Concern Status LastModified by Organization Details LastModified Time None Recorded Advance Directives Directive N: Payers Encounter Date Sequence Insurance Name Policy Number Policy Ybarra Covered Member ID Ybarra Member ID Guarantor Name 02/26/2020 1 [place]: [facility] [id number] [facility] Notes Date Note Type Note Provider Name and Address Organization Details Recorded Time 02/26/2020 text/html Pt is non-verbal and unable to provide history, [facility] did not know pt's PMH and had difficulty providing an HPI to this provide. When provider asked for patient's chart with list of diagiosises provider was told that all of the information was on the paper given, which only listed patient's active medications and allergies. Unknown when blisters on his hand first appeared. Pt's school noticed them yesterday and was concerned that they were cordero. [facility] home states they are r/t to self injuy behavior and would like the areas evaluated. NIK MARES NP [address], [place], [address], [place] - [facility] 02/26/2020 15:29:27
== END 2024-04-29 11:13 | disposition home or self-care (01) ==
PROVIDERS: PCP Internal Medicine
DX: L02.91 Cutaneous abscess, unspecified (principal); L08.9 Local infection of the skin and subcutaneous tissue, unspecified
CPT/HCPCS: 99024

== ENCOUNTER → 2024-04-29 10:51 | Outpatient (BNVA) | payer MEDICAID, SELFPAY | PROVIDERS: PCP Internal Medicine | DX: Z09 Encounter for follow-up examination after completed treatment for conditions other than malignant neoplasm (principal); Z98.890 Other specified postprocedural states | CPT/HCPCS: 99212 ==

== ENCOUNTER 2024-05-07 15:49 | Emergency (ER) | payer MEDICAID, SELFPAY ==
[2024-05-07 16:57] VITALS: BP 126/73; PULSE 105; RESP 16; O2SAT 96; BMI 26.6
--- NOTE | 2024-05-07 17:14 | ED.GENADULT ---
HPI - General Adult General Chief complaint: General Medical Stated complaint: ?fx nose Time Seen by Provider: 05/07/24 20:14 Source: other (taker off) Mode of arrival: ambulatory Limitations: altered mental status History of Present Illness ED Provider: HPI narrative: Patient history of self injury developmental delay was at daycare where staff noticed slight swelling of the nose no nosebleed no fall according to halfway staff patient is behaving normal Related Data Home Medications ?Medication ?Instructions ?Recorded ?Confirmed bacitracin 500 unit/gram topical 1 appl topical BID 03/25/24 03/26/24 ointment clonazepam 1 mg tablet 1 mg PO BID PRN Anxiety 03/25/24 03/25/24 clonazepam 1 mg tablet 1 mg PO DAILY 03/25/24 03/25/24 fluoxetine 40 mg capsule 60 mg PO BEDTIME 03/25/24 03/26/24 paliperidone 9 mg tablet,extended 9 mg PO DAILY 03/25/24 03/25/24 release 24 hr risperidone 2 mg tablet 2 mg PO DAILY 03/25/24 03/25/24 risperidone 3 mg tablet 3 mg PO BEDTIME 03/25/24 03/25/24 trazodone 100 mg tablet 50 mg PO BEDTIME 03/25/24 03/25/24 trazodone 100 mg tablet 100 mg PO BEDTIME 03/25/24 03/25/24 acetaminophen 500 mg tablet 1,000 mg PO Q6H PRN Fever>100 03/26/24 03/26/24 docusate sodium 100 mg tablet 100 mg PO DAILY 03/26/24 03/26/24 ibuprofen 200 mg tablet 200 mg PO DAILY PRN Body Aches 03/26/24 03/26/24 loratadine 10 mg tablet 10 mg PO Q6H PRN allergies 03/26/24 03/26/24 multivitamin-iron 9 mg-folic acid 1 tab PO DAILY 03/26/24 03/26/24 400 mcg-calcium and minerals tablet polyethylene glycol 3350 17 17 g PO DAILY 03/26/24 03/26/24 gram/dose oral powder (Miralax) Previous Rx's ?Medication ?Instructions ?Recorded doxycycline monohydrate 100 mg 100 mg PO BID 30 days #60 tabs 03/31/24 tablet Allergies Allergy/AdvReac Type Severity Reaction Status Date / Time lactose [LACTOSE] Allergy Intermediate GI SYMPTOMS Verified 05/07/24 17:00 Review of Systems Review of Systems: Yes all other systems are reviewed and are negative [facility] Past Medical History Medical History Autism Social History Social History Household Members: Other Household Members Other:: assisted Housing: Other Housing Other:: halfway Are you a primary health care attorney to a significant other at home: No Do you presently have visiting nurse or other home services: No Alcohol intake: never Comment: halfway staff at bedside Patient Tobacco Use Status: Never used Tobacco Advance Directives: No Advance Directives Information Provided: No Physical Exam ED Vital Signs: Vital Signs - 24 hr 05/07/24 16:57 Pulse Rate 105 H Respiratory Rate 16 Blood Pressure 126/73 Pulse Oximetry 96 Oxygen Delivery Method Room Air BMI result Body Mass Index 26.6 Appearance: Alert. Mentally challenged No acute distress. ENT: Pharynx normal. Oral Mucosa moist no ecchymosis no nasal discharge no bleeding from the nose no signs of injury tympanic membrane intact and normal Neck: Normal inspection. Neck supple. CVS: Normal heart rate and rhythm. Pulses normal. Respiratory: No respiratory distress. Equal air entry bilateral, no wheezing/rales/rhonchi Skin: Skin warm and dry. Normal skin color. Normal skin turgor. Extremities: No lower extremity edema. Course Course Course Narrative: This is a Rapid Medical Examination (RME) performed by Nabila De La Paz PA-C in triage. Full HPI, ROS, assessment and treatment plan per primary provider in the Main ED. 24-year-old nonverbal male w/ hx of self injurous behaviours here w/ halfway staff for eval of facial trauma. staff received call from adult daycare center as patient was noted to have a nasal deformity. Unknown injury however patient is known to punch himself in the face. no thinners. + noted nasal deformity. no septal hematoma. Plan: CT head/facial bones Informed by radiology that patient will not sit still for scans - will wait until he is brought back to ED bed. Medical Decision Making Medical Decision Making MDM Narrative: Patient's without any signs of injury to the nose sent here for rule out nasal fracture patient has refused any x-ray or imaging was very irritable no indication for any imaging at this time seems like patient's nose shape is from by according to staff the also agreed it was not new staff at daycare member thought maybe patient has hit his face Discharge Plan Discharge Clinical Impression: Nose abnormality Patient Disposition: Home, Self-Care Instructions: Normal Exam (ED) Additional Instructions: No evidence of nose fracture on clinical exam No evidence of facial injury on clinical exam Patient does not need any imaging Report if any nosebleed or increased swelling Prescriptions: No Action fluoxetine 40 mg capsule 60 mg PO BEDTIME clonazepam 1 mg tablet 1 mg PO DAILY clonazepam 1 mg tablet 1 mg PO BID PRN (Reason: Anxiety) bacitracin 500 unit/gram ointment 1 appl topical BID risperidone 3 mg tablet 3 mg PO BEDTIME risperidone 2 mg tablet 2 mg PO DAILY trazodone 100 mg tablet 100 mg PO BEDTIME trazodone 100 mg tablet 50 mg PO BEDTIME paliperidone 9 mg tablet extended release 24 hr 9 mg PO DAILY acetaminophen 500 mg Tablet 1,000 mg PO Q6H PRN (Reason: Fever>100) ibuprofen 200 mg Tablet 200 mg PO DAILY PRN (Reason: Body Aches) polyethylene glycol 3350 [Miralax] 17 gram/dose Powder 17 g PO DAILY docusate sodium 100 mg Tablet 100 mg PO DAILY loratadine 10 mg Tablet 10 mg PO Q6H PRN (Reason: allergies) gezmnlue-isuu-PR-calcium-mins 9 mg iron-400 mcg Tablet 1 tab PO DAILY doxycycline monohydrate 100 mg tablet 100 mg PO BID 30 Days Qty: 60 0RF Interventions: ED Discharge Assessment Last Done: 05/07/24 20:45 Discharge Date/Time: 05/07/24 20:46 Print Language: Czech
--- NOTE | 2024-05-07 20:11 | MHC.EDTECH ---
Unable to take patient vitals at this time, patient confused/uncooperative
[2024-05-07 20:43] VITALS: BP 00/00; PULSE 80; RESP 16; TEMP -17.7; TEMP 0; O2SAT 99
[2024-05-07 20:45] VITALS: BP 00/00; PULSE 80; RESP 16; TEMP -17.7; TEMP 0; O2SAT 99
== END 2024-05-07 20:46 | disposition home or self-care (01) ==
PROVIDERS: Emergency Provider Internal Medicine; PCP Internal Medicine
DX: J34.89 Other specified disorders of nose and nasal sinuses (principal); R62.50 Unspecified lack of expected normal physiological development in childhood
CPT/HCPCS: 99282; 99284

== ENCOUNTER 2024-05-28 14:39 | Outpatient (REF) | payer MEDICAID, SELFPAY ==
--- NOTE | ~2024-05-28 | XR_ITS ---
EXAMINATION: XR NASAL BONES HISTORY: self-injurious behavior, nasal deformity COMPARISON: Comparison is made with the prior examination dated 03/10/2022. FINDINGS: Four views of the nasal bones are submitted. There is no acute fracture. The anterior maxillary spine is intact. The visualized paranasal sinuses are clear. XR/XR nasal bones min 3V IMPRESSION: No evidence of acute fracture of the nasal bones. Electronically signed by: Tiago Winchester MD 05/28/2024 03:35 PM [facility]
--- OUTSIDE RECORDS SUMMARY | 2024-05-28 18:20 | XMS_ITS | Data Portability ---
Author Organization [place] - [facility], [facility] Address [address] [place] [address] Care Team Providers Care Veterinary Parasitologist Name Role Phone JUDDWHITNEY Primary Care Provider Assessment Encounter Date Assessment Date Assessment LastModified by Organization Details LastModified Time 02/26/2020 02/26/2020 Overview/History : Pt is a 20yo M with reported PMH sig for Autism, being non-verbal and self injury behavior. [facility] was unable to provid records of PMH to this provider and [facility] staff was not sure of pt's full [...] By Organization Details Last Modified Time 02/26/2020 [id number] Thank you for yo ur visit with [facility] today. You were seen today for [...] in your condition between 8am-10pm, please call [facility] at [phone] to help navigate your care. gloria Not available 02/26/2020 15:02:31 Reason for Referral None Reported. Medical Equipment None Reported. Allergies Allergen ID Allergen Name Allergen Category Reaction Reaction Severity Criticality Documentation Date Start Date Code Code System Note Provider Name and Address Organization Details Recorded Time 347331 lactose food,medi cation Not available Not available Not available 02/26/2020 6211 RxNorm NIK MARES NP [address] [place], [address] , [place] [facility] 0 15:05:24 Medications Name Sig Start Date [...] Smoker NIK MARES NP [address], [place], [address], [place] [facility] 02/26/2020 15:06:24 Do You Have An Advance Directive? No Information not available 02/26/2020 What Is Your Code Status? Full Code Information not available 02/26/2020 Excessive Alcohol Or Drug Use No Information not available 02/26/2020 Sex: Unknown Functional Status None recorded. Mental Status None recorded. Family History Nothing Reported Notes:pt resides at [facility] , [facility] Medical History No medical history recorded. Past Encounters Encounter ID Performer Location Encounter Start Date Encounter Closed Date Diagnosis/Indication Diagnosis SNOMED-CT Code Diagnosis ICD10 Code Diagnosis Note [id number] NIK MARES NP [facility] [address] [place] [address] 02/26/2020 14:51:50 02/26/2020 17:47:50 Abrasion of skin of hand 118740973 S60.511A Abrasion 095916131 T14.8 XXA Health Concerns Section Related Observation LastModified by Organization Detai ls LastModified Time None Recorded Concern Status LastModified by Organization Details LastModified Time None Recorded Advance Directives Directive N: Payers Encounter Date Sequence Insurance Name Policy Number Policy Ybarra Covered Member ID Ybarra Member ID Guarantor Name 02/26/2020 1 [place] [facility] [id number] [facility] Notes Date Note Type Note Provider Name and Address Organization Details Recorded Time 02/26/2020 text/html Pt is non-verbal and unable to provide history, [facility] did not know pt's [...] and was concerned that they were cordero. [facility] home states they are r/t to self injuy behavior and would like the areas evaluated. NIK MARES NP [address], [place], [address], [place] [facility] 02/26/2020 15:29:27
== END 2024-05-28 14:40 | disposition home or self-care (01) ==
LOC: HO.HHCX 14:39
PROVIDERS: Visit Provider Nurse Practitioner Primary Care
DX: R22.0 Localized swelling, mass and lump, head (principal)
CPT/HCPCS: 70160

== ENCOUNTER → 2024-05-28 14:40 | Outpatient (BNV) | payer MEDICAID, SELFPAY | PROVIDERS: Visit Provider Radiology Diagnostic Radiology | DX: M95.0 Acquired deformity of nose (principal); R45.88 Nonsuicidal self-harm | CPT/HCPCS: 70160 ==

== ENCOUNTER 2024-06-04 09:47 | Inpatient (IN) | payer MEDICAID, SELFPAY ==
--- NOTE | ~2024-06-04 | XR_ITS ---
EXAMINATION: XR CHEST CLINICAL INFORMATION: preop COMPARISON: None available. TECHNIQUE: Frontal view of the chest was obtained. FINDINGS: No significant abnormality is noted involving the heart, lungs, mediastinum, bony thorax or soft tissues. XR/XR chest 1V IMPRESSION: Unremarkable chest examination. Electronically signed by: Benjy Gillespie MD 06/04/2024 12:48 PM [facility]
--- NOTE | ~2024-06-04 | XR_ITS ---
EXAMINATION: XR KNEE, LEFT CLINICAL INFORMATION: fall COMPARISON: None available. TECHNIQUE: Two views of the left knee. FINDINGS: Limited exam. No acute cortical disruption or malalignment. No suprapatellar bursa joint effusion. No lytic or blastic lesions. No subcutaneous emphysema. XR/XR knee LT 2V IMPRESSION: No acute fracture or dislocation. Electronically signed by: Bryon Garcia MD 06/04/2024 11:49 AM [facility]
--- NOTE | ~2024-06-04 | FL_ITS ---
EXAMINATION: FLUOROSCOPY GUIDANCE FOR NEEDLE PLACEMENT CLINICAL INFORMATION: left IMN COMPARISON: None available. TECHNIQUE: Fluoroscopy guidance was given to referring physician in the OR. No radiologist present. FINDINGS/ FL/FL guidance in OR IMPRESSION: 7 digital images were obtained. There is a intramedullary femoral cricket and 2 screws in the femoral neck stabilizing left proximal femoral/intertrochanteric fracture. There is no dislocation. FLUOROSCOPY TIME: 1.6 minutes DOSE AREA PRODUCT: 0.0523 uGy-m2 (microgray-meter squared) Electronically signed by: Benjy Gillespie MD 06/05/2024 03:29 PM [facility]
--- NOTE | ~2024-06-04 | XR_ITS ---
EXAMINATION: Left tibia and fibula. 2 views. CLINICAL INDICATION: Trauma. COMPARISON: None. FINDINGS: The entire visualized tibia and fibula appears intact. There is no visible fracture or bony abnormality. The soft tissues are normal. XR/XR tibia fibula LT 2V IMPRESSION: Normal tibia and fibula Electronically signed by: Benjy Gillespie MD 06/04/2024 12:45 PM EST
--- NOTE | ~2024-06-04 | XR_ITS ---
EXAMINATION: XR FEMUR, LEFT CLINICAL INFORMATION: trauma COMPARISON: None available. TECHNIQUE: AP and lateral views of the left femur were obtained. FINDINGS: There is a comminuted fracture left proximal femur without dislocation and medial angulation. The oblique fracture traverses the lesser trochanter. The greater trochanter appears intact. There is mild soft tissue swelling. The acetabulum is intact. XR/XR femur LT 2V IMPRESSION: Comminuted fractured left proximal femur involving the lesser trochanter with medial angle examination. No dislocation seen. Electronically signed by: Benjy Gillespie MD 06/04/2024 12:47 PM EST
--- NOTE | ~2024-06-04 | XR_ITS ---
EXAMINATION: XR FOOT, LEFT CLINICAL INFORMATION: trauma COMPARISON: None available. TECHNIQUE: 2 views of the left foot. FINDINGS: The bones and soft tissues are normal. No fracture. Alignment is anatomic. Joint spaces are maintained. XR/XR foot LT min 3V IMPRESSION: Normal left foot. Electronically signed by: Benjy Gillespie MD 06/04/2024 12:49 PM [facility]
[2024-06-04 10:03] VITALS: BP 95/37; PULSE 77; RESP 20; TEMP 36.6; O2SAT 100; BMI 23.2
--- NOTE | 2024-06-04 10:29 | ED.FALL ---
HPI - Fall General Chief Complaint: Fall Stated Complaint: FALL Time Seen by Provider: 06/04/24 10:15 Source: EMS History of Present Illness HPI Narrative: This is 24 years old the patient with autism spectrum disorder, intellectual disability, cerebral palsy presented to the emergency room after a fall and reported knee injury. Patient is unable to give any history. Patient lives in a shelter.I spoke with the director Mian Bernal she tells me that he tripped and fell. The patient wear a helmet because he has history of self-injury. Per breastfeeding program coordinator of the injury was in the left knee MD complaint: fall Onset (ago): hour(s) (2) Fall from: standing Loss of consciousness: none Prolonged down time: no Symptoms prior to fall: none Context: tripped/slipped Location of injury: other (knee) Location of injury - extremities: left: knee Severity: moderate Related Data Home Medications ?Medication ?Instructions ?Recorded ?Confirmed bacitracin 500 unit/gram topical 1 appl topical BID 03/25/24 03/26/24 ointment clonazepam 1 mg tablet 1 mg PO BID PRN Anxiety 03/25/24 03/25/24 clonazepam 1 mg tablet 1 mg PO DAILY 03/25/24 03/25/24 fluoxetine 40 mg capsule 60 mg PO BEDTIME 03/25/24 03/26/24 paliperidone 9 mg tablet,extended 9 mg PO DAILY 03/25/24 03/25/24 release 24 hr risperidone 2 mg tablet 2 mg PO DAILY 03/25/24 03/25/24 risperidone 3 mg tablet 3 mg PO BEDTIME 03/25/24 03/25/24 trazodone 100 mg tablet 50 mg PO BEDTIME 03/25/24 03/25/24 trazodone 100 mg tablet 100 mg PO BEDTIME 03/25/24 03/25/24 acetaminophen 500 mg tablet 1,000 mg PO Q6H PRN Fever>100 03/26/24 03/26/24 docusate sodium 100 mg tablet 100 mg PO DAILY 03/26/24 03/26/24 ibuprofen 200 mg tablet 200 mg PO DAILY PRN Body Aches 03/26/24 03/26/24 loratadine 10 mg tablet 10 mg PO Q6H PRN allergies 03/26/24 03/26/24 multivitamin-iron 9 mg-folic acid 1 tab PO DAILY 03/26/24 03/26/24 400 mcg-calcium and minerals tablet polyethylene glycol 3350 17 17 g PO DAILY 03/26/24 03/26/24 gram/dose oral powder (Miralax) Previous Rx's ?Medication ?Instructions ?Recorded doxycycline monohydrate 100 mg 100 mg PO BID 30 days #60 tabs 03/31/24 tablet Allergies Allergy/AdvReac Type Severity Reaction Status Date / Time lactose [LACTOSE] Allergy Intermediate GI SYMPTOMS Verified 06/04/24 10:04 Review of Systems Review of Systems: Yes Unobtainable due to mental condition and Unobtainable due to mental status [facility] Past Medical History Medical History Autism Social History Social History Household Members: Other Household Members Other:: senior living Housing: Other Housing Other:: shelter Are you a primary foster care worker to a significant other at home: No Do you presently have visiting nurse or other home services: No Alcohol intake: never Comment: shelter staff at bedside Patient Tobacco Use Status: Never used Tobacco Advance Directives: Yes Advance Directives Information Provided: Yes Advance Directives on File: No Physical Exam Vital Signs: Vital Signs: Last Vital Signs Temp 97.9 F 06/04/24 10:03 Pulse 77 06/04/24 10:03 Resp 20 06/04/24 10:03 BP 95/37 L 06/04/24 10:03 Pulse Ox 100 06/04/24 10:03 O2 Del Method Room Air 06/04/24 10:03 BMI result Body Mass Index 23.2 Awake and alert no distress Const: Nutritional Appearance: average body habitus HEENT: Other: Patient has a helmet no sign of head injury Head: Yes normal to inspection Ears: hearing grossly normal bilaterally Face and sinus: Yes normal facial exam Mouth: Normal oral and palatal mucosa present Neck: Neck: Yes normal visual inspection and Yes full ROM Chest: Chest palpation & inspection: normal inspection of the chest Resp: Effort & Inspection: normal respiratory effort Auscultation: clear to auscultation bilaterally Cardio: Rate: regular rate Rhythm: regular rhythm GI: Inspection: Yes normal to inspection Palpation (GI): Soft to palpation, not firm and nontender Skin: General skin exam: no rashes or lesions noted and elasticity normal Course Reevaluation(s) Reevaluation #1: X-ray of the knee was negative however we took x-ray of the hip which showed intertrochanteric fracture Time: 12:37 Reevaluation #2: Case was d/w Ortho and hospitalist Time: 13:45 Medications Administered Discontinued Medications Generic Name Dose Route Start Last Admin Trade Name Freq PRN Reason Stop Dose Admin Acetaminophen 975 mg 06/04/24 12:02 06/04/24 12:18 Acetaminophen 325 Mg Tablet PO 06/04/24 12:03 975 mg ONCE ONE Administration Ibuprofen 600 mg 06/04/24 12:02 06/04/24 12:18 Ibuprofen 600 Mg Tablet PO 06/04/24 12:03 600 mg ONCE ONE Administration Medical Decision Making Medical Decision Making [facility] Narrative: Patient presented after a mechanical fall complaining of left knee pain history was obtained to the breastfeeding program coordinator Mian Bernal [phone] we will obtain imaging of the knee Differential Diagnosis Differential Diagnoses: The differential diagnosis associated with the presentation includes Knee fracture knee dislocation knee contusion Admission/Observation Consideration of admission/observation: Escalation of care including admission/observation considered Consult Healthcare Provider Management of the patient was discussed with: Executive Candidate Developer Independent Interpretation I performed an independent interpretation of an: Plain X-Ray Interpretation: I reviewed interpreted the xray myself as left hip fracture Radiology Impression Discussion of test interpretation with radiology: I have reviewed the radiologist's reading. Radiologist Impression: TECHNIQUE: AP and lateral views of the left femur were obtained. FINDINGS: There is a comminuted fracture left proximal femur without dislocation and medial angulation. The oblique fracture traverses the lesser trochanter. The greater trochanter appears intact. There is mild soft tissue swelling. The acetabulum is intact. XR/XR femur LT 2V IMPRESSION: Comminuted fractured left proximal femur involving the lesser trochanter with medial angle examination. No dislocation seen. Electronically signed by: Benjy Gillespie MD 06/04/2024 12:47 PM [facility] Dictated By: Benjy Gillespie MD Signed By: <Electronically signed by Benjy Gillespie MD in OV> 06/04/24 1247 DD/ 1204 Independent Historian Clinical information obtained from an independent historian. History obtained from or confirmed by: Other shelter staff Chronic Conditions Patient?s care impacted by: Other (intellectual disability) Discharge Plan Discharge Clinical Impression: Hip fracture Qualifiers: Encounter type: initial encounter Fracture type: closed Laterality: left Qualified Code(s): S72.002A - Fracture of unspecified part of neck of left femur, initial encounter for closed fracture Patient Disposition: Admitted As Inpatient Print Language: Azeri
--- NOTE | 2024-06-04 12:01 | PC.NURSE ---
Md at bedside assessing ambulation, [facility] staff at bedside states patient is ambulatory independently. Patient unable to put weight on left leg
[2024-06-04] MEDS: Ibuprofen 600 MG TABLET PO (12:18)
[2024-06-04] MEDS: Acetaminophen 325 MG TABLET 975 MG PO (12:18)
--- NOTE | 2024-06-04 13:21 | P.HPHOSP_ITS ---
History of Present Illness Date of Service: 06/04/24 Attending physician on admission: [facility] Chief Complaint: Witnessed fall Pt is a 24-year-old male with a PMH significant for?development delay, cerebral palsy, self-injurious behaviors, wears protective helmet due to hitting self in head, and nonverbal at baseline who presents to the ED from care home after witnessed mechanical fall without head strike. Staff report pt tripped and fell this morning after eating breakfast, landing on left knee. Staff report pt was in his normal state of health and has not had any acute medical complaints above baseline. Pt is unable to provide any PMH or ROS, and is noted to be lying in the bed on his left side. In the ED pt's BP soft at 9537, vitals otherwise stable and WNL. Labs were significant for leukocytosis 14.5, AST 43, and ALT 63. Imaging was significant for left femur x-ray showing comminuted fractured left proximal femur involving lesser trochanter with medial angulation. Pt was treated with acetaminophen, ibuprofen, morphine, and ondansetron. Pt will be admitted to the hospital for treatment and further evaluation of acute left comminuted left femur fracture. Review of Systems 2 Review of Systems: Yes Unobtainable due to mental status [facility] Medical History Cerebral palsy Autism Social History Household Members: Other Household Members Other:: [facility] Housing: Other Housing Other:: care home Are you a primary critical care unit nurse to a significant other at home: No Do you presently have visiting nurse or other home services: No Unable to assess alcohol history related to: Unknown Alcohol intake: never Comment: care home staff at bedside Patient Tobacco Use Status: Never used Tobacco Advance Directives Date on File: 06/05/24 Meds Allergies Allergy/AdvReac Type Severity Reaction Status Date / Time lactose [LACTOSE] Allergy Intermediate GI SYMPTOMS Verified 06/04/24 10:04 Home Medications ?Medication ?Instructions ?Recorded ?Confirmed ?Last Taken ?Type bacitracin 500 unit/gram topical 1 appl topical Q12H PRN skin wound 03/25/24 06/04/24 Unknown History ointment clonazepam 1 mg tablet 1 mg PO BID PRN Anxiety 03/25/24 06/04/24 Unknown History clonazepam 1 mg tablet 1 mg PO DAILY 03/25/24 06/04/24 Unknown History paliperidone 9 mg tablet,extended 9 mg PO DAILY 03/25/24 06/04/24 Unknown History release 24 hr risperidone 2 mg tablet 2 mg PO DAILY 03/25/24 06/04/24 Unknown History risperidone 3 mg tablet 3 mg PO BEDTIME 03/25/24 06/04/24 Unknown History trazodone 100 mg tablet 150 mg PO BEDTIME 03/25/24 06/04/24 Unknown History acetaminophen 500 mg tablet 1,000 mg PO Q6H PRN Fever or 03/26/24 06/04/24 Unknown History headache docusate sodium 100 mg tablet 100 mg PO DAILY 03/26/24 06/04/24 Unknown History ibuprofen 200 mg tablet 400 mg PO Q6H PRN mild pain/fever 03/26/24 06/04/24 Unknown History loratadine 10 mg tablet 10 mg PO Q6H PRN allergies 03/26/24 06/04/24 Unknown History polyethylene glycol 3350 17 17 g PO DAILY PRN Constipation 03/26/24 06/04/24 Unknown History gram/dose oral powder (Miralax) fluoxetine 20 mg tablet 60 mg PO BEDTIME 06/04/24 06/04/24 Unknown History [id number] 1 tab PO DAILY 06/04/24 06/04/24 Unknown History fumarate 19 mg-folic acid 400 mcg tablet (Thera-M) phenobarbital 30 mg tablet 30 mg PO BEDTIME 06/04/24 06/04/24 Unknown History Physical Exam 2 Vital Signs and Narrative: Vital Signs: Last Vital Signs Temp 97.9 F 06/04/24 10:03 Pulse 77 06/04/24 10:03 Resp 20 06/04/24 10:03 BP 95/37 L 06/04/24 10:03 Pulse Ox 100 06/04/24 10:03 O2 Del Method Room Air 06/04/24 10:03 BMI result Body Mass Index 23.2 General: Alert, nonverbal at baseline. Not following commands. In no acute distress Resp: CTA bilaterally CVS: S1, S2, RRR GI: +BS, NT, no distention Skin: Warm, dry Neuro: Cranial nerves II-XII grossly intact bilaterally. Motor grossly intact bilaterally Muskuloskeletal: Limited due to pt's mentation. Pt lying on left side. Moves right leg, hip, and foot spontaneously. Noted to be moving left toes spontaneously. Extremities: No edema Results Labs 06/05/24 10:28 06/05/24 10:28 Imaging Radiologist's Impressions: Impressions Knee X-Ray 06/04/24 10:50 IMPRESSION: No acute fracture or dislocation. Electronically signed by: Bryon Garcia MD 06/04/2024 11:49 AM EST RP Foot X-Ray 06/04/24 12:03 IMPRESSION: Normal left foot. Electronically signed by: Benjy Gillespie MD 06/04/2024 12:49 PM EST RP Tibia/Fibula X-Ray 06/04/24 12:03 IMPRESSION: Normal tibia and fibula Electronically signed by: Benjy Gillespie MD 06/04/2024 12:45 PM EST RP Femur X-Ray 06/04/24 12:04 IMPRESSION: Comminuted fractured left proximal femur involving the lesser trochanter with medial angle examination. No dislocation seen. Electronically signed by: Benjy Gillespie MD 06/04/2024 12:47 PM EST RP Chest X-Ray 06/04/24 12:38 IMPRESSION: Unremarkable chest examination. Electronically signed by: Benjy Gillespie MD 06/04/2024 12:48 PM EST RP Assessment and Plan (1) Hip fracture: Qualifiers: Encounter type: initial encounter Fracture type: closed Laterality: l eft Qualified Code(s): S72.002A - Fracture of unspecified part of neck of left femur, initial encounter for closed fracture Status: Acute Plan Pt is a 24-year-old male with a PMH significant for?development delay, cerebral palsy, self-injurious behaviors, wears protective helmet due to hitting self in head, and nonverbal at baseline who presents to the ED from care home after witnessed mechanical fall without head strike. Pt will be admitted to the hospital for treatment and further evaluation of acute comminuted left femur fracture. Acute left hip fracture Secondary to mechanical fall at care home Left femur x-ray showed comminuted fractured left proximal femur involving the lesser trochanter with medial angulation Analgesics for pain management Orthopedics consult Clear liquid diet for now, NPO after midnight for surgical procedure in the morning Pneumatic compression for DVT prophylaxis Blood pressure Pt's BP soft at 95/37 Hx of similar readings in the past Will give 1L LR bolus Follow BP Cerebral palsy/developmental delay Continue clonazepam, fluoxetine, paliperidone, phenobarbital, risperidone Psychiatry consult for medication and behavioral agitation Full Code Attending:?Dr. Plaza DVT Prophylaxis: Pneumatic compression due to impending surgery Pt will require a hospitalization of at least two nights for treatment of?acute comminuted left femur fracture requiring emergent surgical correction. Quality Stroke Does the patient have a stroke diagnosis?: No VTE Prior VTE?: No VTE Risk Level:: Medical - moderate - high VTE Device Contraindication: N/A - Device Ordered VTE Drug Contraindication: Treatment Not Indicated
[2024-06-04 13:46] LABS: MANUAL DIFF FLAG NO
[2024-06-04 13:48] LABS: Basophils Percent Auto 0.1 % (0-2); Eosinophils Percent Auto 0.2 % (0-4); Hematocrit 35.2 % (42.0-52.0); Hemoglobin 12.2 g/dl (14.0-18.0); Imm Gran Abs Auto 0.06 X10*3/uL (0.00-0.03); Imm Gran Pct Auto 0.4 % (0.0-0.4); Lymphocytes Absolute Auto 0.5 X10*3/uL (1.2-4.9); Lymphocytes Percent Auto 3.5 % (20-40); Mean Corpuscular HGB Conc 34.7 g/dl (31.0-36.0); Mean Corpuscular Hemoglobin 31.2 pg (27.0-33.0); Mean Platelet Volume 10.2 fL (9.4-12.4); Monocytes Percent Auto 6.6 % (2-11); Neutrophils Absolute Auto 12.9 x10*3/uL (2.0-8.3); Neutrophils Percent Auto 89.2 % (45-73); Platelet Count 200 X10*3/uL (160-400); Red Blood Count 3.91 X10*6/uL (4.60-5.80); White Blood Count 14.5 X10*3/uL (4.8-10.8)
[2024-06-04 14:21] LABS: Alanine Aminotransferase 63 U/L (0-40); Albumin Level 3.8 g/dL (3.5-5.0); Alkaline Phosphatase 93 U/L (39-117); Anion Gap 14 (12-20); Aspartate Amino Transferase 43 U/L (5-37); Bilirubin Total 0.4 mg/dL (0.0-1.0); Blood Urea Nitrogen 19 mg/dL (9-16); Calcium 8.3 mg/dL (8.4-10.2); Carbon Dioxide 21 mmol/L (22-29); Chloride 107 mmol/L (96-108); Estimated Glomerular Filt Rate > 60; Glucose Random 127 mg/dL (60-115); Potassium 4.6 mmol/L (3.3-5.1); Sodium 137 mmol/L (135-145); Total Protein 7.7 g/dL (6.5-8.0)
[2024-06-04] MEDS: Morphine Sulfate 4 MG/ML CARTRIDGE IVPUSH ×2 (14:35→18:17)
[2024-06-04] MEDS: ondansetron HCL 4 MG/2 ML VIAL IVPUSH (14:35)
[2024-06-04] MEDS: Lactated Ringers 1,000 ML 999 ML IV (14:37)
--- NOTE | 2024-06-04 14:47 | PHA.MEDREC ---
Addendum entered by Abhay Griffith [facility] 06/04/24 14:52: Reviewed by [facility] Addendum entered by Kev Stveens 06/04/24 14:49: Guardian at bedside reports patient took morning medications today around 7AM. Original Note: Pharmacy Consult ? Medication Reconciliation Pharmacy has completed the medication reconciliation. Used list from [facility]. Matches claim history.
--- NOTE | 2024-06-04 15:40 | PM.CNOR ---
History of Present Illness HPI Consult date: 06/04/24 Chief complaint: left hip fracture Narrative: Pt is a 24-year-old male with a PMH significant for?development delay, cerebral palsy, self-injurious behaviors, wears protective helmet due to hitting self in head, and nonverbal at baseline who [facility] from prison after witnessed mechanical fall without head strike. Staff report pt tripped and fell this morning after eating breakfast, landing on left knee. Staff report pt was in his normal state of health and has not had any acute medical complaints above baseline. Pt is unable to provide any PMH or ROS, and is noted to be lying in the bed on his left side. Staff from the prison was in the room at bedside , the patient is ambulatory. They denied any PMH significant for cardiopulmonary conditions. Not diabetic. Review of Systems Review of Systems: unable to obtain [facility] Past Medical History Medical History (Updated 06/04/24 @ 16:24 by Angel Alvarado PA-C) Cerebral palsy Autism Social History Social History Household Members: Other Household Members Other:: custodial Housing: Other Housing Other:: prison Are you a primary rn care transition to a significant other at home: No Do you presently have visiting nurse or other home services: No Alcohol intake: never Comment: prison staff at bedside Patient Tobacco Use Status: Never used Tobacco Advance Directives: Yes Advance Directives Information Provided: Yes Advance Directives on File: No Meds Allergies Allergy/AdvReac Type Severity Reaction Status Date / Time lactose [LACTOSE] Allergy Intermediate GI SYMPTOMS Verified 06/04/24 10:04 Active Medications: Current Medications Acetaminophen (Acetaminophen 325 Mg Tablet) 650 mg PO Q6H PRN PRN Reason: Pain, Mild 1-3,fever,headache Calcium Carbonate (Calcium Carbonate 750 Mg Tab.Chew) 750 mg PO Q4H PRN PRN Reason: Heartburn Cefazolin Sodium/Dextrose (Ancef) 2 gm in 50 mls @ 100 mls/hr IV PREOP ONE Stop: 06/05/24 14:57 Magnesium Hydroxide (Milk Of Magnesia 30 Ml Oral.Susp) 30 ml PO DAILY PRN PRN Reason: Constipation Melatonin (Melatonin 3 Mg Tablet) 6 mg PO BEDTIME PRN PRN Reason: Insomnia Morphine Sulfate (Morphine Sulfate 4 Mg/Ml Cartridge) 4 mg IVPUSH Q4H PRN; Protocol PRN Reason: Pain, Severe (Pain Scale 7-10) Ondansetron HCl (Ondansetron Hcl 4 Mg/2 Ml Vial) 4 mg IVPUSH Q8H PRN PRN Reason: Nausea and Vomiting Oxycodone HCl (Oxycodone Hcl Immed Release 5 Mg Tablet) 5 mg PO Q6H PRN PRN Reason: Pain, Moderate(Pain Scale 4-6) Sodium Chloride (0.9 % Sodium Chloride Flush 3 Ml Syringe) 3 ml IVFLUSH [facility] Medications ?Medication ?Instructions ?Recorded ?Confirmed ?Last Taken ?Type bacitracin 500 unit/gram topical 1 appl topical Q12H PRN skin wound 03/25/24 06/04/24 Unknown History ointment clonazepam 1 mg tablet 1 mg PO BID PRN Anxiety 03/25/24 06/04/24 Unknown History clonazepam 1 mg tablet 1 mg PO DAILY 03/25/24 06/04/24 Unknown History paliperidone 9 mg tablet,extended 9 mg PO DAILY 03/25/24 06/04/24 Unknown History release 24 hr risperidone 2 mg tablet 2 mg PO DAILY 03/25/24 06/04/24 Unknown History risperidone 3 mg tablet 3 mg PO BEDTIME 03/25/24 06/04/24 Unknown History trazodone 100 mg tablet 150 mg PO BEDTIME 03/25/24 06/04/24 Unknown History acetaminophen 500 mg tablet 1,000 mg PO Q6H PRN Fever or 03/26/24 06/04/24 Unknown History headache docusate sodium 100 mg tablet 100 mg PO DAILY 03/26/24 06/04/24 Unknown History ibuprofen 200 mg tablet 400 mg PO Q6H PRN mild pain/fever 03/26/24 06/04/24 Unknown History loratadine 10 mg tablet 10 mg PO Q6H PRN allergies 03/26/24 06/04/24 Unknown History polyethylene glycol 3350 17 17 g PO DAILY PRN Constipation 03/26/24 06/04/24 Unknown History gram/dose oral powder (Miralax) fluoxetine 20 mg tablet 60 mg PO BEDTIME 06/04/24 06/04/24 Unknown History [id number]-zznzzslc-zgyy 1 tab PO DAILY 06/04/24 06/04/24 Unknown History fumarate 19 mg-folic acid 400 mcg tablet (Thera-M) phenobarbital 30 mg tablet 30 mg PO BEDTIME 06/04/24 06/04/24 Unknown History Physical Exam Vital Signs: Vital Signs: Last Vital Signs Temp 97.9 F 06/04/24 10:03 Pulse 77 06/04/24 10:03 Resp 20 06/04/24 10:03 BP 95/37 L 06/04/24 10:03 Pulse Ox 100 06/04/24 10:03 O2 Del Method Room Air 06/04/24 10:03 BMI result Body Mass Index 23.2 Const: General: cooperative and no acute distress Orientation/consciousness: patient oriented x3 Resp: Effort & Inspection: normal respiratory effort and able to speak in complete sentences Cardio: Peripheral pulses: Peripheral pulses 2+ throughout Neuro: General: patient oriented x3 Extrem: Other: Patient is asleep resting in the position Results Labs 06/04/24 13:43 06/04/24 13:43 Labs: Abnormal lab results 06/04/24 Range/Units 13:43 WBC 14.5 H (4.8-10.8) X10*3/uL RBC 3.91 L (4.60-5.80) X10*6/uL Hgb 12.2 L (14.0-18.0) g/dl Hct 35.2 L (42.0-52.0) % Neut % (Auto) 89.2 H (45-73) % Lymph % (Auto) 3.5 L (20-40) % Lymph # (Auto) 0.5 L (1.2-4.9) X10*3/uL Abs Immat Gran (auto) 0.06 H (0.00-0.03) X10*3/uL Absolute Neuts (auto) 12.9 H (2.0-8.3) x10*3/uL Carbon Dioxide 21 L (22-29) mmol/L BUN 19 H (9-16) mg/dL Random Glucose 127 H (60-115) mg/dL Calcium 8.3 L D (8.4-10.2) mg/dL AST 43 H (5-37) U/L ALT 63 H (0-40) U/L H & H 06/04/24 Range/Units 13:43 Hgb 12.2 L (14.0-18.0) g/dl Hct 35.2 L (42.0-52.0) % All other labs normal. Diagnostic results Hip x-ray: image reviewed (XR femur LT 2V IMPRESSION: Comminuted fractured left proximal femur involving the lesser trochanter with medial angle examination. No dislocation seen. ) Assessment and Plan (1) Closed left hip fracture: Status: Acute Plan I discussed the case with Dr Price and explained the extent of the injury to the patient's guardian and the staff from the prison. We discussed options available which include surgical intervention. I explained the procedure in detail along with the length of recovery and rehab course. I explained the risk, benefits and alternatives. Risk including, but not limited to infection, blood clots, bleeding, non union or malunion and nerve/tissue damage to surrounding areas. I answered all their questions and with their understanding they have consented to move forward with Operative Fixation of the left hip . The patient will be T&S, med clearance obtained and NPO after midnight. Procedures Date of Service Date of Service: 06/04/24
[2024-06-04 16:33] VITALS: BP 100/41; PULSE 84; RESP 16; TEMP 36.6; O2SAT 98
[2024-06-04 18:35] VITALS: BP 92/65
[2024-06-04] MEDS: FLUoxetine HCl 20 MG CAPSULE 60 MG PO (21:42)
[2024-06-04] MEDS: PHENobarbitaL 30 MG TABLET PO (21:43)
[2024-06-04] MEDS: traZODone HCL 50 MG TABLET 150 MG PO (21:43)
[2024-06-04] MEDS: risperiDONE 3 MG TABLET PO (21:43)
[2024-06-05] VITALS (21 sets, daily range): BP systolic 90–126; BP diastolic 45–76; PULSE 98–136; RESP 14–26; TEMP 36.8–37.5; O2SAT 93–100; BMI 24.5
[2024-06-05] MEDS: Morphine Sulfate 4 MG/ML CARTRIDGE IVPUSH ×2 (03:09→07:48)
--- NOTE | 2024-06-05 03:15 | PC.NURSE ---
Pt was moaning in bed. According to staff that is usually an indicator pain or a need. Pt is non-verbal at baseline. Pt medicated per JUN.
--- NOTE | 2024-06-05 04:34 | PC.NURSE ---
Took report from off-going RN at 2300 hours. Pt is a 24 y/o male, non-verbal from a [facility] who presented to the ED for evaluation after a witnessed fall, no head strike. Pt is arousable to stimuli with eye opening. Staff at bedside reports moaning is usually a sign of a need. Pt is calm and resting in left lateral recumbent position. Plan is admission with bed assignment pending for left femur fracture. Will continue to monitor for any changes.
[2024-06-05] MEDS: ondansetron HCL 4 MG/2 ML VIAL IVPUSH (07:48)
--- NOTE | 2024-06-05 08:22 | PC.NURSE ---
Pt grimacing, restless and crying out in room; pt scores 7/10 on non-verbal pain scale; pt medicated per orders; pt remains NPO at this time pending surgical procedure
--- NOTE | 2024-06-05 09:42 | MHC.CM.PN ---
Pt lives at a shelter that is run by [email or web address]. CM spoke to his guardian: Nahed Navarro [phone] re: his DCP. Pt. has staff with him 24/10 because he exhibits self injurious behaviors, so they are with him and trained to keep him safe and from harming himself. Guardian said he may do best going back to the shelter and having PT come to him there. Contact for DCP is shelter M[facility] hanna: [phone]. PCP confirmed: [facility]. CM to follow and assist with DCP.
--- NOTE | 2024-06-05 10:16 | P.CONAN_ITS ---
HPI - Anesthesia Eval Consult details Narrative: Pt is a 24-year-old male with a PMH significant for?development delay, cerebral palsy, self-injurious behaviors, wears protective helmet due to hitting self in head, and nonverbal at baseline who presents to the ED from senior living after witnessed mechanical fall without head strike. Staff report pt tripped and fell this morning after eating breakfast, landing on left knee. Staff report pt was in his normal state of health and has not had any acute medical complaints above baseline. Pt is unable to provide any PMH or ROS, and is noted to be lying in the bed on his left side. In the ED pt's BP soft at 9537, vitals otherwise stable and WNL. Labs were significant for leukocytosis 14.5, AST 43, and ALT 63. Imaging was significant for left femur x-ray showing comminuted fractured left proximal femur involving lesser trochanter with medial angulation. Pt was treated with acetaminophen, ibuprofen, morphine, and ondansetron. Pt here for surgical fixation acute left comminuted left femur fracture. consented for anesthesia from [facility] Active Problems Active Problems: All Active Problems Closed left hip fracture (Acute) Hip fracture (Acute) Infection of right hand (Acute) Abscess of skin or subcutaneous tissue (Acute) Past Medical History Medical History Cerebral palsy Autism Family History Family history of problems with anesthesia: No Surgical History History of Problems with Anesthesia: No Social History Social History Household Members: Other Household Members Other:: jail Housing: Other Housing Other:: senior living Are you a primary senior care assistant to a significant other at home: No Do you presently have visiting nurse or other home services: No Unable to assess alcohol history related to: Unknown Alcohol intake: never Comment: senior living staff at bedside Patient Tobacco Use Status: Never used Tobacco Meds Allergies Allergy/AdvReac Type Severity Reaction Status Date / Time lactose [LACTOSE] Allergy Intermediate GI SYMPTOMS Verified 06/04/24 10:04 Active Medications: Current Medications Acetaminophen (Acetaminophen 325 Mg Tablet) 650 mg PO Q6H PRN PRN Reason: Pain, Mild 1-3,fever,headache Calcium Carbonate (Calcium Carbonate 750 Mg Tab.Chew) 750 mg PO Q4H PRN PRN Reason: Heartburn Clonazepam (Clonazepam 1 Mg Tablet) 1 mg PO BID PRN PRN Reason: Anxiety Clonazepam (Clonazepam 1 Mg Tablet) 1 mg PO DAILY [facility] Docusate Sodium (Docusate Sodium 100 Mg Capsule) 100 mg PO DAILY [facility] Fluoxetine HCl (Fluoxetine Hcl 20 Mg Capsule) 60 mg PO BEDTIME [facility] Last Admin: 06/04/24 21:42 Dose: 60 mg Cefazolin Sodium/Dextrose (Ancef) 2 gm in 50 mls @ 100 mls/hr IV PREOP ONE Stop: 06/05/24 14:57 Loratadine (Loratadine 10 Mg Tablet) 10 mg PO Q6H PRN PRN Reason: allergies Magnesium Hydroxide (Milk Of Magnesia 30 Ml Oral.Susp) 30 ml PO DAILY PRN PRN Reason: Constipation Melatonin (Melatonin 3 Mg Tablet) 6 mg PO BEDTIME PRN PRN Reason: Insomnia Morphine Sulfate (Morphine Sulfate 4 Mg/Ml Cartridge) 4 mg IVPUSH Q4H PRN; Protocol PRN Reason: Pain, Severe (Pain Scale 7-10) Last Admin: 06/05/24 07:48 Dose: 4 mg Multivitamins/Vitamin C (Multivitamin Tablet) 1 tab PO DAILY [facility] Ondansetron HCl (Ondansetron Hcl 4 Mg/2 Ml Vial) 4 mg IVPUSH Q8H PRN PRN Reason: Nausea and Vomiting Last Admin: 06/05/24 07:48 Dose: 4 mg Oxycodone HCl (Oxycodone Hcl Immed Release 5 Mg Tablet) 5 mg PO Q6H PRN PRN Reason: Pain, Moderate(Pain Scale 4-6) Paliperidone (Paliperidone Er 9 Mg Tab.Er.24) 9 mg PO DAILY [facility] Phenobarbital (Phenobarbital 30 Mg Tablet) 30 mg PO BEDTIME [facility] Last Admin: 06/04/24 21:43 Dose: 30 mg Polyethylene Glycol (Polyethylene Glycol 3350 17 Gm Powd.Pack) 17 gm PO DAILY PRN PRN Reason: Constipation Risperidone (Risperidone 2 Mg Tablet) 2 mg PO DAILY [facility] Risperidone (Risperidone 3 Mg Tablet) 3 mg PO BEDTIME [facility] Last Admin: 06/04/24 21:43 Dose: 3 mg Sodium Chloride (0.9 % Sodium Chloride Flush 3 Ml Syringe) 3 ml IVFLUSH QSHIFT [facility] Last Admin: 06/05/24 01:23 Dose: Not Given Trazodone HCl (Trazodone Hcl 50 Mg Tablet) 150 mg PO BEDTIME [facility] Last Admin: 06/04/24 21:43 Dose: 150 mg Home Medications ?Medication ?Instructions ?Recorded ?Confirmed ?Last Taken ?Type bacitracin 500 unit/gram topical 1 appl topical Q12H PRN skin wound 03/25/24 06/04/24 Unknown History ointment clonazepam 1 mg tablet 1 mg PO BID PRN Anxiety 03/25/24 06/04/24 Unknown History clonazepam 1 mg tablet 1 mg PO DAILY 03/25/24 06/04/24 Unknown History paliperidone 9 mg tablet,extended 9 mg PO DAILY 03/25/24 06/04/24 Unknown History release 24 hr risperidone 2 mg tablet 2 mg PO DAILY 03/25/24 06/04/24 Unknown History risperidone 3 mg tablet 3 mg PO BEDTIME 03/25/24 06/04/24 Unknown History trazodone 100 mg tablet 150 mg PO BEDTIME 03/25/24 06/04/24 Unknown History acetaminophen 500 mg tablet 1,000 mg PO Q6H PRN Fever or 03/26/24 06/04/24 Unknown History headache docusate sodium 100 mg tablet 100 mg PO DAILY 03/26/24 06/04/24 Unknown History ibuprofen 200 mg tablet 400 mg PO Q6H PRN mild pain/fever 03/26/24 06/04/24 Unknown History loratadine 10 mg tablet 10 mg PO Q6H PRN allergies 03/26/24 06/04/24 Unknown History polyethylene glycol 3350 17 17 g PO DAILY PRN Constipation 03/26/24 06/04/24 Unknown History gram/dose oral powder (Miralax) fluoxetine 20 mg tablet 60 mg PO BEDTIME 06/04/24 06/04/24 Unknown History [id number] 1 tab PO DAILY 06/04/24 06/04/24 Unknown History fumarate 19 mg-folic acid 400 mcg tablet (Thera-M) phenobarbital 30 mg tablet 30 mg PO BEDTIME 06/04/24 06/04/24 Unknown History Exam Height,Weight and Vital Signs: Height 5 ft 4 in Weight 61.235 kg Last Vital Signs Temp 97.9 F 06/04/24 16:33 Pulse 110 H 06/05/24 07:08 Resp 26 H 06/05/24 07:48 BP 97/45 L 06/05/24 07:08 Pulse Ox 96 06/05/24 07:08 O2 Del Method Room Air 06/05/24 07:08 Pertinent Lab Results Pertinent Lab Results: Laboratory Tests 06/04/24 13:43 WBC 14.5 H RBC 3.91 L Hgb 12.2 L Hct 35.2 L MCV 90.0 MCH 31.2 MCHC 34.7 RDW 13.0 Plt Count 200 D MPV 10.2 Immature Gran % (Auto) 0.4 Neut % (Auto) 89.2 H Lymph % (Auto) 3.5 L [place] % (Auto) 6.6 Eos % (Auto) 0.2 Baso % (Auto) 0.1 Lymph # (Auto) 0.5 L [place] # (Auto) 1.0 Eos # (Auto) 0.0 Baso # (Auto) 0.0 Abs Immat Gran (auto) 0.06 H Absolute Neuts (auto) 12.9 H Absolute Nucleated RBC 0.000 Nucleated RBC % (auto) 0.0 Sodium 137 Potassium 4.6 Chloride 107 Carbon Dioxide 21 L Anion Gap 14 BUN 19 H Creatinine 0.65 Estim Creat Clear Calc 148.0 Estimated GFR > 60 Random Glucose 127 H Calcium 8.3 L D Total Bilirubin 0.4 AST 43 H ALT 63 H Alkaline Phosphatase 93 Total Protein 7.7 Albumin 3.8 Airway Mallampati Class: Patient Non-Cooperative Heart: rrr Lungs: cta Assessment and Plan Assessment Anesthesia Assessment: Anesthesia Plan Discussed Final Anesthetic Review Family History of Problems with Anesthesia: No History of Problems with Anesthesia: No NPO: Yes ASA Class: III Final Preanesthetic Review: No Changes in Pt Med Stat, Meds/Allgs Chart Reviewed, Consent Obtained/Reviewed and Anes Risks/Benef Reviewed Patient Risk: Intermediate Procedure Risk: Intermediate Anesthetic Plan Anesthetic Plan: GA Disposition: Standard PACU
[2024-06-05 10:43] LABS: Hemoglobin 9.5 g/dl (14.0-18.0); Mean Corpuscular HGB Conc 33.9 g/dl (31.0-36.0); Mean Corpuscular Hemoglobin 31.1 pg (27.0-33.0); Mean Corpuscular Volume 91.8 fL (80.0-98.0); Mean Platelet Volume 10.2 fL (9.4-12.4); Platelet Count 158 X10*3/uL (160-400); Red Blood Count 3.05 X10*6/uL (4.60-5.80); Red Cell Distribution Width 13.2 % (11.0-16.0)
--- NOTE | 2024-06-05 10:44 | PC.NURSE ---
22g left hand. intact. asymptomatic.
[2024-06-05 11:00] LABS: Anion Gap 8 (12-20); Blood Urea Nitrogen 14 mg/dL (9-16); Calcium 8.4 mg/dL (8.4-10.2); Carbon Dioxide 28 mmol/L (22-29); Chloride 105 mmol/L (96-108); Creatinine Clr Calc Pharmacy 178.1; Estimated Glomerular Filt Rate > 60; Glucose Random 95 mg/dL (60-115); Potassium 4.1 mmol/L (3.3-5.1); Sodium 137 mmol/L (135-145)
--- NOTE | 2024-06-05 11:55 | MHC.SHP ---
Pre-Procedural Eval Section A - 24 Hr Update-Section A only Date of Service: 06/05/24 The patient is an INPATIENT: Yes Changes since office visit: No Cold of Flu in the past 2 weeks, No New Medical Problems, No Changes in Medication and No Patient answered all questions The patient has been examined within 24 hours of the surgical procedure. The History & Physical has been completed within 30 days and I have reviewed it.: Yes Section B - Complete if H&P > 30 days Chief Complaint: left hip fracture Allergies: Allergies Allergy/AdvReac Type Severity Reaction Status Date / Time lactose [LACTOSE] Allergy Intermediate GI SYMPTOMS Verified 06/04/24 10:04 Plan I have reviewed the history and physical and performed a pertinent physical examination on my patient. No changes have occurred unless specified. Time Spent With Patient Time: Total time managing care of this patient today ____ minutes.
[2024-06-05] MEDS: ceFAZolin Sodium/Dextrose,Iso 2 GM/50 ML PIGGYBACK IV (11:56)
--- NOTE | 2024-06-05 14:05 | PM.OP ---
Brief Operative Note Date of Service: 06/05/24 Pre-op diagnosis: Left peritrochanteric hip fx Post-op diagnosis: same Procedure: Left femoral IMN Implants: Decker Piriformis 9x340 with 2 6.5 mm screws proximally and 2 distal intelocking screws Surgeon: Anam Price MD Anesthesia: GETA and local Was an [employer] used for this Procedure?: Yes [employer]: Ann Marie Dejesus Estimated blood loss (mL): 100 IV fluids (mL): 1,000 Pathology: none sent Condition: stable Disposition: PACU
[2024-06-05] MEDS: fentaNYL citrate/PF 100 MCG/2 ML VIAL 25 MCG IVPUSH ×3 (14:55→15:24)
[2024-06-05] MEDS: Morphine Sulfate 2 MG/ML CARTRIDGE 4 MG IVPUSH (15:35)
--- NOTE | 2024-06-05 16:15 | PM.EVENT ---
Documented by User: Tessa Calzada NP 06/05/24 16:15 Event Note Date of Service: 06/05/24 Event Note: psychiatry consult ordered for medication management of agitation/combative behaviors s/s to developmental disorder. Pt underwent surgery today, discussed with Dr. Barajas will evaluate pt once more awake. Time Spent With Patient Time: Total time managing care of this patient today ____ minutes. Documented by User: Venkata Cedeno MD 06/06/24 21:12 Event Note Date of Service: 06/06/24
--- NOTE | 2024-06-05 16:21 | HO.PM.IMPN ---
Subjective Subjective Date of Service: 06/05/24 Interval History: hip fracture Review of Systems seems similar still has soarness and pain straing to pass bm Physical Exam Vital Signs: Vital Signs: Last Vital Signs Temp 98.3 F 06/05/24 14:16 Pulse 118 H 06/05/24 16:01 Resp 18 06/05/24 16:01 BP 92/54 L 06/05/24 16:01 Pulse Ox 94 06/05/24 16:01 O2 Del Method Room Air 06/05/24 16:01 O2 Flow Rate 3 06/05/24 14:21 BMI result Body Mass Index 23.2 Appearance:at baseline cvs: rrr, [id number] . res: clear to auscultation. abd:soft ,nt, bs present. ext pulses present , no cyanosis. left hip soarness neuro: axo3 , nonfocal. Objective Data Active Medications Acetaminophen (Acetaminophen 325 Mg Tablet) 650 mg PO Q6H PRN PRN Reason: Pain, Mild 1-3,fever,headache Calcium Carbonate (Calcium Carbonate 750 Mg Tab.Chew) 750 mg PO Q4H PRN PRN Reason: Heartburn Clonazepam (Clonazepam 1 Mg Tablet) 1 mg PO BID PRN PRN Reason: Anxiety Clonazepam (Clonazepam 1 Mg Tablet) 1 mg PO DAILY [facility] Docusate Sodium (Docusate Sodium 100 Mg Capsule) 100 mg PO DAILY [facility] Fluoxetine HCl (Fluoxetine Hcl 20 Mg Capsule) 60 mg PO BEDTIME [facility] Last Admin: 06/04/24 21:42 Dose: 60 mg Documented By: SIRENA Loratadine (Loratadine 10 Mg Tablet) 10 mg PO Q6H PRN PRN Reason: allergies Magnesium Hydroxide (Milk Of Magnesia 30 Ml Oral.Susp) 30 ml PO DAILY PRN PRN Reason: Constipation Melatonin (Melatonin 3 Mg Tablet) 6 mg PO BEDTIME PRN PRN Reason: Insomnia Morphine Sulfate (Morphine Sulfate 2 Mg/Ml Cartridge) 4 mg IVPUSH Q4H PRN; Protocol PRN Reason: Pain, Severe (Pain Scale 7-10) Last Admin: 06/05/24 15:35 Dose: 4 mg Documented By: ASHIA Multivitamins/Vitamin C (Multivitamin Tablet) 1 tab PO DAILY [facility] Naloxone HCl (Naloxone Hcl 0.4 Mg/Ml Vial) 0.04 mg IVPUSH Q5M PRN PRN Reason: Excessive sedation or RR < 8 Ondansetron HCl (Ondansetron Hcl 4 Mg/2 Ml Vial) 4 mg IVPUSH Q8H PRN PRN Reason: Nausea and Vomiting Last Admin: 06/05/24 07:48 Dose: 4 mg Documented By: MONA Oxycodone HCl (Oxycodone Hcl Immed Release 5 Mg Tablet) 5 mg PO Q6H PRN PRN Reason: Pain, Moderate(Pain Scale 4-6) Paliperidone (Paliperidone Er 9 Mg Tab.Er.24) 9 mg PO DAILY [facility] Phenobarbital (Phenobarbital 30 Mg Tablet) 30 mg PO BEDTIME [facility] Last Admin: 06/04/24 21:43 Dose: 30 mg Documented By: SIRENA Polyethylene Glycol (Polyethylene Glycol 3350 17 Gm Powd.Pack) 17 gm PO DAILY PRN PRN Reason: Constipation Risperidone (Risperidone 2 Mg Tablet) 2 mg PO DAILY [facility] Risperidone (Risperidone 3 Mg Tablet) 3 mg PO BEDTIME [facility] Last Admin: 06/04/24 21:43 Dose: 3 mg Documented By: SIRENA Sodium Chloride (0.9 % Sodium Chloride Flush 3 Ml Syringe) 3 ml IVFLUSH QSHIFT [facility] Last Admin: 06/05/24 01:23 Dose: Not Given Documented By: NAHEED Non-Admin Reason: No Access Trazodone HCl (Trazodone Hcl 50 Mg Tablet) 150 mg PO BEDTIME [facility] Last Admin: 06/04/24 21:43 Dose: 150 mg Documented By: SIRENA Labs 06/05/24 10:28 06/05/24 10:28 Labs: Laboratory Results - last 24 hr 06/05/24 10:28 MCV 91.8 MCH 31.1 MCHC 33.9 RDW 13.2 Plt Count 158 L MPV 10.2 Absolute Nucleated RBC 0.000 Nucleated RBC % (auto) 0.0 Anion Gap 8 L Estim Creat Clear Calc 178.1 Estimated GFR > 60 Random Glucose 95 Calcium 8.4 Assessment and Plan (1) Closed left hip fracture: Status: Acute Plan 24-year-old male with a PMH significant for?development delay, cerebral palsy, self-injurious behaviors, wears protective helmet due to hitting self in head, and nonverbal at baseline who presents to the ED from alf after witnessed mechanical fall without head strike. Pt will be admitted to the hospital for treatment and further evaluation of acute comminuted left femur fracture. Acute left hip fracture Secondary to mechanical fall at alf Left femur x-ray showed comminuted fractured left proximal femur involving the lesser trochanter with medial angulation Analgesics for pain management Orthopedics consult-s/p Vielka Piriformis 9x340 with 2 6.5 mm screws proximally and 2 distal intelocking screws tachycardia due to pain/dehydration-otherwise patient seems similar. Pneumatic compression for DVT prophylaxis blood pressure seems improving Hx of similar readings in the past Will give 1L LR bolus Follow BP Cerebral palsy/developmental delay Continue clonazepam, fluoxetine, paliperidone, phenobarbital, risperidone Psychiatry consult for medication and behavioral agitation Full Code DVT Prophylaxis: Pneumatic compression due to impending surgery Quality Stroke Does the patient have a stroke diagnosis?: No VTE Prior VTE?: No VTE Risk Level:: Medical - moderate - high VTE Device Contraindication: N/A - Device Ordered VTE Drug Contraindication: Treatment Not Indicated
[2024-06-05] MEDS: Lactated Ringers 1,000 ML 100 ML IVCONT (18:28)
[2024-06-05] MEDS: Acetaminophen 325 MG TABLET 975 MG PO (18:28)
[2024-06-05] MEDS: FLUoxetine HCl 20 MG CAPSULE 60 MG PO (20:40)
[2024-06-05] MEDS: risperiDONE 3 MG TABLET PO (20:41)
[2024-06-05] MEDS: PHENobarbitaL 30 MG TABLET PO (20:41)
[2024-06-05] MEDS: traZODone HCL 50 MG TABLET 150 MG PO (20:41)
[2024-06-06] VITALS (13 sets, daily range): BP systolic 100–122; BP diastolic 52–69; PULSE 104–124; RESP 14–20; TEMP 36.4–37.8; O2SAT 94–99
[2024-06-06] MEDS: Acetaminophen 325 MG TABLET 975 MG PO ×3 (00:17→11:48)
[2024-06-06] MEDS: Lactated Ringers 1,000 ML 100 ML IVCONT (03:35)
[2024-06-06] MEDS: clonazePAM 1 MG TABLET PO (07:35)
[2024-06-06] MEDS: Docusate Sodium 100 MG CAPSULE PO (07:35)
[2024-06-06] MEDS: Multivitamin TABLET 1 TAB PO (07:35)
[2024-06-06] MEDS: risperiDONE 2 MG TABLET PO (07:35)
[2024-06-06] MEDS: Paliperidone ER 9 MG TAB.ER.24 PO (07:35)
[2024-06-06] MEDS: Morphine Sulfate 2 MG/ML CARTRIDGE 4 MG IVPUSH ×3 (07:36→19:59)
--- NOTE | 2024-06-06 07:37 | PM.PNORT ---
Subjective Subjective Date of Service: 06/06/24 Interval history: Postop day 1 status post left hip IM nail Patient is sleeping comfortably in bed this morning Unable to verbalize any pain or complaints Does not appear to be in any pain No acute events overnight Physical Exam Vital Signs: Vital Signs: Last Vital Signs Temp 97.6 F 06/06/24 07:08 Pulse 104 H 06/06/24 07:08 Resp 16 06/06/24 07:08 BP 106/69 06/06/24 07:08 Pulse Ox 98 06/06/24 07:08 O2 Del Method Room Air 06/06/24 07:08 O2 Flow Rate 3 06/05/24 14:21 BMI result Body Mass Index 24.5 Extrem: Other: Dressing on left hip clean, dry, intact No evidence of surrounding erythema, ecchymosis No evidence of infection Patient is able to flex and extend the digits of the left foot without difficulty Compartments soft, nontender Distal sensation intact Capillary refill brisk Procedures Date of Service Date of Service: 06/06/24 Progress Note: A&P Assessment and plan (1) Closed left hip fracture: Status: Acute Plan 1. Status post left hip IM nail DOS 06/05/2024 Continue pain management Begin Lovenox for DVT prophylaxis PT/OT eval pending Dispo planning-pain management, PT/OT eval, medical clearance Continue with all other recommendations per Medicine Time Spent With Patient Time: Total time managing care of this patient today ____ minutes. Quality Stroke Does the patient have a stroke diagnosis?: No VTE Prior VTE?: No VTE Risk Level:: Medical - moderate - high VTE Device Contraindication: N/A - Device Ordered VTE Drug Contraindication: Treatment Not Indicated
[2024-06-06] MEDS: 0.9 % Sodium Chloride Flush 3 ML SYRINGE IVFLUSH ×3 (07:38→19:59)
--- NOTE | 2024-06-06 07:40 | HO.POSTANES ---
Post Anesthesia Evaluation Post Anesthesia Evaluation Date of Service: 06/06/24 Vital Signs: Vital Signs Temp Pulse Resp BP Pulse Ox O2 Del Method 06/06/24 07:08 97.6 F 104 H 16 106/69 98 Room Air 06/06/24 03:39 97.7 F 117 H 16 122/67 94 Room Air Anesthesia: General Endotracheal-GETA Mental Status: Awake Pain Control: Satisfactory Nausea/Vomiting: None Hydration: Adequate Anesthesia-Related Issues: No Anes. Related Issues
[2024-06-06 10:28] LABS: MANUAL DIFF FLAG NO
[2024-06-06 10:31] LABS: Basophils Percent Auto 0.2 % (0-2); Imm Gran Abs Auto 0.01 X10*3/uL (0.00-0.03); Imm Gran Pct Auto 0.2 % (0.0-0.4); Lymphocytes Percent Auto 20.2 % (20-40); Mean Corpuscular Hemoglobin 30.9 pg (27.0-33.0); Mean Corpuscular Volume 93.6 fL (80.0-98.0); Mean Platelet Volume 10.3 fL (9.4-12.4); Monocytes Absolute Auto 0.5 X10*3/uL (0.1-1.2); Monocytes Percent Auto 10.5 % (2-11); Neutrophils Absolute Auto 3.4 x10*3/uL (2.0-8.3); Neutrophils Percent Auto 68.9 % (45-73); Platelet Count 152 X10*3/uL (160-400); Red Cell Distribution Width 13.2 % (11.0-16.0)
[2024-06-06 10:38] LABS: Hematocrit 20.6 % (42.0-52.0); Hemoglobin 6.8 g/dl (14.0-18.0)
[2024-06-06 10:54] LABS: Anion Gap 9 (12-20); Blood Urea Nitrogen 8 mg/dL (9-16); Calcium 7.8 mg/dL (8.4-10.2); Carbon Dioxide 29 mmol/L (22-29); Chloride 104 mmol/L (96-108); Creatinine Clr Calc Pharmacy 168.7; Estimated Glomerular Filt Rate > 60; Glucose Random 155 mg/dL (60-115); Potassium 3.3 mmol/L (3.3-5.1); Sodium 139 mmol/L (135-145)
--- NOTE | 2024-06-06 13:07 | P.PNIM_ITS ---
Subjective Subjective Date of Service: 06/06/24 Interval History: hip fx postop anemia Review of Systems seems more comfortable h/h dropping Physical Exam 2 Vital Signs: Vital Signs: Last Vital Signs Temp 97.6 F 06/06/24 07:08 Pulse 104 H 06/06/24 07:08 Resp 16 06/06/24 07:08 BP 106/69 06/06/24 07:08 Pulse Ox 98 06/06/24 07:08 O2 Del Method Room Air 06/06/24 07:08 O2 Flow Rate 3 06/05/24 14:21 BMI result Body Mass Index 24.5 Appearance:at baseline cvs: rrr, [id number] . res: clear to auscultation. abd:soft ,nt, bs present. ext pulses present , no cyanosis. left hip soarness neuro: axo3 , nonfocal. Objective Data Active Medications Acetaminophen (Acetaminophen 325 Mg Tablet) 975 mg PO Q6H [facility] Last Admin: 06/06/24 11:48 Dose: 975 mg Documented By: PRITESH Calcium Carbonate (Calcium Carbonate 750 Mg Tab.Chew) 750 mg PO Q4H PRN PRN Reason: Heartburn Clonazepam (Clonazepam 1 Mg Tablet) 1 mg PO BID PRN PRN Reason: Anxiety Clonazepam (Clonazepam 1 Mg Tablet) 1 mg PO DAILY [facility] Last Admin: 06/06/24 07:35 Dose: 1 mg Documented By: PRITESH Docusate Sodium (Docusate Sodium 100 Mg Capsule) 100 mg PO DAILY [facility] Last Admin: 06/06/24 07:35 Dose: 100 mg Documented By: PRITESH Enoxaparin Sodium (Enoxaparin Sodium 40 Mg/0.4 Ml Syringe) 40 mg SUBCUT Q24H [facility] Last Admin: 06/06/24 11:51 Dose: Not Given Documented By: PRITESH Non-Admin Reason: Physician Held Med Fluoxetine HCl (Fluoxetine Hcl 20 Mg Capsule) 60 mg PO BEDTIME [facility] Last Admin: 06/05/24 20:40 Dose: 60 mg Documented By: PASTOR Loratadine (Loratadine 10 Mg Tablet) 10 mg PO Q6H PRN PRN Reason: allergies Magnesium Hydroxide (Milk Of Magnesia 30 Ml Oral.Susp) 30 ml PO DAILY PRN PRN Reason: Constipation Melatonin (Melatonin 3 Mg Tablet) 6 mg PO BEDTIME PRN PRN Reason: Insomnia Morphine Sulfate (Morphine Sulfate 2 Mg/Ml Cartridge) 4 mg IVPUSH Q4H PRN; Protocol PRN Reason: Pain, Severe (Pain Scale 7-10) Last Admin: 06/06/24 07:36 Dose: 4 mg Documented By: PRITESH Multivitamins/Vitamin C (Multivitamin Tablet) 1 tab PO DAILY [facility] Last Admin: 06/06/24 07:35 Dose: 1 tab Documented By: PRITESH Ondansetron HCl (Ondansetron Hcl 4 Mg/2 Ml Vial) 4 mg IVPUSH Q8H PRN PRN Reason: Nausea and Vomiting Last Admin: 06/05/24 07:48 Dose: 4 mg Documented By: MONA Oxycodone HCl (Oxycodone Hcl Immed Release 5 Mg Tablet) 5 mg PO Q6H PRN PRN Reason: Pain, Moderate(Pain Scale 4-6) Paliperidone (Paliperidone Er 9 Mg Tab.Er.24) 9 mg PO DAILY [facility] Last Admin: 06/06/24 07:35 Dose: 9 mg Documented By: PRITESH Phenobarbital (Phenobarbital 30 Mg Tablet) 30 mg PO BEDTIME [facility] Last Admin: 06/05/24 20:41 Dose: 30 mg Documented By: PASTOR Polyethylene Glycol (Polyethylene Glycol 3350 17 Gm Powd.Pack) 17 gm PO DAILY PRN PRN Reason: Constipation Risperidone (Risperidone 2 Mg Tablet) 2 mg PO DAILY [facility] Last Admin: 06/06/24 07:35 Dose: 2 mg Documented By: PRITESH Risperidone (Risperidone 3 Mg Tablet) 3 mg PO BEDTIME [facility] Last Admin: 06/05/24 20:41 Dose: 3 mg Documented By: PASTOR Sodium Chloride (0.9 % Sodium Chloride Flush 3 Ml Syringe) 3 ml IVFLUSH QSHIFT [facility] Last Admin: 06/06/24 07:38 Dose: 3 ml Documented By: PRITESH Trazodone HCl (Trazodone Hcl 50 Mg Tablet) 150 mg PO BEDTIME [facility] Last Admin: 06/05/24 20:41 Dose: 150 mg Documented By: PASTOR Labs 06/06/24 10:10 06/06/24 10:10 Labs: Laboratory Results - last 24 hr 06/06/24 10:10 MCV 93.6 MCH 30.9 MCHC 33.0 RDW 13.2 Plt Count 152 L MPV 10.3 Immature Gran % (Auto) 0.2 Neut % (Auto) 68.9 Lymph % (Auto) 20.2 [place] % (Auto) 10.5 Eos % (Auto) 0.0 Baso % (Auto) 0.2 Lymph # (Auto) 1.0 L [place] # (Auto) 0.5 Eos # (Auto) 0.0 Baso # (Auto) 0.0 Abs Immat Gran (auto) 0.01 Absolute Neuts (auto) 3.4 Absolute Nucleated RBC 0.000 Nucleated RBC % (auto) 0.0 Anion Gap 9 L Estim Creat Clear Calc 168.7 Estimated GFR > 60 Random Glucose 155 H Calcium 7.8 L D Assessment and Plan (1) Closed left hip fracture: Status: Acute Assessment and Plan: 24-year-old male with a PMH significant for?development delay, cerebral palsy, self-injurious behaviors, wears protective helmet due to hitting self in head, and nonverbal at baseline who presents to the ED from retirement after witnessed mechanical fall without head strike. Pt will be admitted to the hospital for treatment and further evaluation of acute comminuted left femur fracture. Acute left hip fracture Secondary to mechanical fall at retirement Left femur x-ray showed comminuted fractured left proximal femur involving the lesser trochanter with medial angulation Analgesics for pain management Orthopedics consult-s/p Vielak Piriformis 9x340 with 2 6.5 mm screws proximally and 2 distal intelocking screws tachycardia due to pain/dehydration-otherwise patient seems similar. acute blood loss anemia (postop anemia) added type and cross 2 prbc added Pneumatic compression for DVT prophylaxis blood pressure flactuating moniter bp added prbc . Cerebral palsy/developmental delay Continue clonazepam, fluoxetine, paliperidone, phenobarbital, risperidone Psychiatry consult for medication and behavioral agitation Full Code DVT Prophylaxis: Pneumatic compression due to impending surgery Quality Stroke Does the patient have a stroke diagnosis?: No VTE Prior VTE?: No VTE Risk Level:: Medical - moderate - high VTE Device Contraindication: N/A - Device Ordered VTE Drug Contraindication: Treatment Not Indicated
--- NOTE | 2024-06-06 14:05 | MHC.CM.PN ---
Addendum entered by Lindsey Snow RN 06/07/24 12:47: Preferred pharmacy: [facility] in [place] Addendum entered by Lindsey Snow RN 06/07/24 12:35: Per josefa FARMER on hold. Anticipate he will be medically ready for dc tomorrow. However, per residential, unable to accept over the weekend as nursing is only scheduled M-F. Requested new order form to be faxed over. Also requested copy of guardianship, as it is not on file. Spoke w/ jasmin Sprague to updated. Darcie (guardian): [phone] Shefali (residential RN): [phone] Danyel (group home counselor): [phone] [facility] fax (for paperwork): [phone] Original Note: RN and warehouse administrator to bedside to observe patient w/ PT/OT. Per PT, patient able to stand & sit at edge of bed independently - at times declines though. Plan remains return to w/ new PT/OT services.
[2024-06-06 14:12] LABS: Hemoglobin 6.2 g/dl (14.0-18.0)
[2024-06-06 14:14] LABS: Hematocrit 18.2 % (42.0-52.0)
[2024-06-06] MEDS: diphenhydrAMINE HCL 25 MG CAPSULE PO (15:29)
--- NOTE | 2024-06-06 15:30 | P.CNPS_ITS ---
History of Present Illness Date of Service: 06/06/2024 Chief Complaint: left hip fracture Requesting physician: Dennis Barajas Discussed with referring provider: Yes Sources of Information: patient interviewed, chart reviewed and crisis/core team assessment reviewed HPI Narrative: Mr. Pickering is a 24 year-old male with hx of ASD non-verbal at baseline who was brought to [facility] ED after mechanical fall, found to have intertrochanteric fracture. He underwent surgical repair yesterday. Psychiatry asked to assist with medical management of behavioral combativeness s/s to ASD. Per nursing, pt has not had any significant outburst. He has yelled at times seems related to physical pain and given pain medications with good effect. He is with staff from his [facility] who knows patient well and can help hospital staff identify his needs as pt is non verbal. Pt is lying in bed, wearing a helmet. He does not appear in acute distress, he is moving in bed, repositioning himself. No facial signs of being in pain at this point. Staff from does think he may be constipated, which was communicated to his attending and will add laxative or stool softer. Past Psychiatric History: Pt lives in [facility] from [facility] OP: psychiatrist, Dr. Carin De Paz Past medication trials: paliperidone, risperidone, clonazepam. Medical Evaluation Reviewed: Yes [facility] Medical History Cerebral palsy Autism Diagnostics Vital Signs (24Hr): Vital Signs - 24 hr 06/05/24 15:31 06/05/24 15:35 06/05/24 15:46 Temperature Pulse Rate 136 H 124 H Respiratory Rate 19 18 18 Blood Pressure 114/57 L 98/59 L Pulse Oximetry 93 94 Oxygen Delivery Method Room Air Room Air 06/05/24 16:01 06/05/24 16:30 06/05/24 17:12 Temperature 99.2 F 98.5 F Pulse Rate 118 H 121 H 125 H Respiratory Rate 18 18 16 Blood Pressure 92/54 L 105/60 108/59 L Pulse Oximetry 94 94 96 Oxygen Delivery Method Room Air Room Air Room Air 06/05/24 19:32 06/06/24 03:39 06/06/24 07:08 Temperature 98.2 F 97.7 F 97.6 F Pulse Rate 135 H 117 H 104 H Respiratory Rate 16 16 16 Blood Pressure 121/56 L 122/67 106/69 Pulse Oximetry 96 94 98 Oxygen Delivery Method Room Air Room Air Room Air 06/06/24 15:07 06/06/24 15:19 Temperature 98.9 F 98.0 F Pulse Rate 124 H 124 H Respiratory Rate 20 20 Blood Pressure 100/55 L 100/55 L Pulse Oximetry Oxygen Delivery Method BMI result Body Mass Index 24.5 Labs 06/06/24 13:56 06/06/24 10:10 Labs: Laboratory Results - last 48 hr 06/05/24 06/06/24 06/06/24 10:28 10:10 13:56 WBC 5.0 5.0 RBC 3.05 L D 2.20 L D Hgb 9.5 L D 6.8 L* D 6.2 L* Hct 28.0 L D 20.6 L* D 18.2 L* MCV 91.8 93.6 MCH 31.1 30.9 MCHC 33.9 33.0 RDW 13.2 13.2 Plt Count 158 L 152 L MPV 10.2 10.3 Immature Gran % (Auto) 0.2 Neut % (Auto) 68.9 Lymph % (Auto) 20.2 Webster % (Auto) 10.5 Eos % (Auto) 0.0 Baso % (Auto) 0.2 Lymph # (Auto) 1.0 L Webster # (Auto) 0.5 Eos # (Auto) 0.0 Baso # (Auto) 0.0 Abs Immat Gran (auto) 0.01 Absolute Neuts (auto) 3.4 Absolute Nucleated RBC 0.000 0.000 Nucleated RBC % (auto) 0.0 0.0 Sodium 137 139 Potassium 4.1 3.3 Chloride 105 104 Carbon Dioxide 28 29 Anion Gap 8 L 9 L BUN 14 8 L Creatinine 0.54 0.57 Estim Creat Clear Calc 178.1 168.7 Estimated GFR > 60 > 60 Random Glucose 95 155 H Calcium 8.4 7.8 L D Blood Type O Positive Antibody Screen NEGATIVE Crossmatch See Detail Imaging Radiology Impressions: ITS Impressions Knee X-Ray 06/04/24 10:50 IMPRESSION: No acute fracture or dislocation. Electronically signed by: Bryon Garcia MD 06/04/2024 11:49 AM EST RP Foot X-Ray 06/04/24 12:03 IMPRESSION: Normal left foot. Electronically signed by: Benjy Gillespie MD 06/04/2024 12:49 PM EST RP Tibia/Fibula X-Ray 06/04/24 12:03 IMPRESSION: Normal tibia and fibula Electronically signed by: Benjy Gillespie MD 06/04/2024 12:45 PM EST RP Femur X-Ray 06/04/24 12:04 IMPRESSION: Comminuted fractured left proximal femur involving the lesser trochanter with medial angle examination. No dislocation seen. Electronically signed by: Benjy Gillespie MD 06/04/2024 12:47 PM EST RP Chest X-Ray 06/04/24 12:38 IMPRESSION: Unremarkable chest examination. Electronically signed by: Benjy Gillespie MD 06/04/2024 12:48 PM EST RP Guidance Fluoroscopy 06/05/24 12:12 IMPRESSION: 7 digital images were obtained. There is a intramedullary femoral cricket and 2 screws in the femoral neck stabilizing left proximal femoral/intertrochanteric fracture. There is no dislocation. FLUOROSCOPY TIME: 1.6 minutes DOSE AREA PRODUCT: 0.0523 uGy-m2 (microgray-meter squared) Electronically signed by: Benjy Gillespie MD 06/05/2024 03:29 PM EST RP Medications Medications Current Medications Acetaminophen (Acetaminophen 325 Mg Tablet) 975 mg PO Q6H ON LICENSE OF [facility] Last Admin: 06/06/24 11:48 Dose: 975 mg Calcium Carbonate (Calcium Carbonate 750 Mg Tab.Chew) 750 mg PO Q4H PRN PRN Reason: Heartburn Clonazepam (Clonazepam 1 Mg Tablet) 1 mg PO BID PRN PRN Reason: Anxiety Clonazepam (Clonazepam 1 Mg Tablet) 1 mg PO DAILY ON LICENSE OF [facility] Last Admin: 06/06/24 07:35 Dose: 1 mg Docusate Sodium (Docusate Sodium 100 Mg Capsule) 100 mg PO DAILY ON LICENSE OF [facility] Last Admin: 06/06/24 07:35 Dose: 100 mg Enoxaparin Sodium (Enoxaparin Sodium 40 Mg/0.4 Ml Syringe) 40 mg SUBCUT Q24H ON LICENSE OF [facility] Last Admin: 06/06/24 11:51 Dose: Not Given Fluoxetine HCl (Fluoxetine Hcl 20 Mg Capsule) 60 mg PO BEDTIME ON LICENSE OF [facility] Last Admin: 06/05/24 20:40 Dose: 60 mg Loratadine (Loratadine 10 Mg Tablet) 10 mg PO Q6H PRN PRN Reason: allergies Magnesium Hydroxide (Milk Of Magnesia 30 Ml Oral.Susp) 30 ml PO DAILY PRN PRN Reason: Constipation Melatonin (Melatonin 3 Mg Tablet) 6 mg PO BEDTIME PRN PRN Reason: Insomnia Morphine Sulfate (Morphine Sulfate 2 Mg/Ml Cartridge) 4 mg IVPUSH Q4H PRN; Protocol PRN Reason: Pain, Severe (Pain Scale 7-10) Last Admin: 06/06/24 14:38 Dose: 4 mg Multivitamins/Vitamin C (Multivitamin Tablet) 1 tab PO DAILY ON LICENSE OF [facility] Last Admin: 06/06/24 07:35 Dose: 1 tab Ondansetron HCl (Ondansetron Hcl 4 Mg/2 Ml Vial) 4 mg IVPUSH Q8H PRN PRN Reason: Nausea and Vomiting Last Admin: 06/05/24 07:48 Dose: 4 mg Oxycodone HCl (Oxycodone Hcl Immed Release 5 Mg Tablet) 5 mg PO Q6H PRN PRN Reason: Pain, Moderate(Pain Scale 4-6) Paliperidone (Paliperidone Er 9 Mg Tab.Er.24) 9 mg PO DAILY ON LICENSE OF [facility] Last Admin: 06/06/24 07:35 Dose: 9 mg Phenobarbital (Phenobarbital 30 Mg Tablet) 30 mg PO BEDTIME ON LICENSE OF [facility] Last Admin: 06/05/24 20:41 Dose: 30 mg Polyethylene Glycol (Polyethylene Glycol 3350 17 Gm Powd.Pack) 17 gm PO DAILY PRN PRN Reason: Constipation Risperidone (Risperidone 2 Mg Tablet) 2 mg PO DAILY ON LICENSE OF [facility] Last Admin: 06/06/24 07:35 Dose: 2 mg Risperidone (Risperidone 3 Mg Tablet) 3 mg PO BEDTIME ON LICENSE OF [facility] Last Admin: 06/05/24 20:41 Dose: 3 mg Sodium Chloride (0.9 % Sodium Chloride Flush 3 Ml Syringe) 3 ml IVFLUSH QSHIFT ON LICENSE OF [facility] Last Admin: 06/06/24 15:30 Dose: 3 ml Trazodone HCl (Trazodone Hcl 50 Mg Tablet) 150 mg PO BEDTIME ON LICENSE OF [facility] Last Admin: 06/05/24 20:41 Dose: 150 mg Allergies Allergies Allergy/AdvReac Type Severity Reaction Status Date / Time lactose [LACTOSE] Allergy Intermediate GI SYMPTOMS Verified 06/04/24 10:04 Assessment & Plan Assessment & Plan (1) Autism spectrum disorder: Status: Acute Code(s): F84.0 - Autistic disorder Plan Mr. Pickering is a 24 year-old male with hx of ASD who resides at [facility]. He had a witnessed mechanical fall, found to have an intertrochanteric fracture, underwent surgical repair. Psychiatry asked to assist with medication management of combative behaviors s/s to ASD. Pt has not displayed any combative behaviors, but given the fact that he is non verbal, yelling out or sounds are his way of communication. So far it appears RN has been on top of assessing his pain. Staff from [facility] raised concern about possible constipation- this was communicated to Dr. Barajas. Pt has at home PRN medications prescribed by his OP psychiatrist, Dr. De Paz including clonazepam 1mg po BID PRN for severe anxiety. For now I recommend to use this as PRN for agitation, but also note that given the fact that pt is non verbal at baseline and unable to communicate needs, to assess for s/s of pain, constipation, hunger, ect. Staff from can assist with this as well as they know him well. Total time managing care of this patient today ____ minutes.
[2024-06-06] MEDS: polyethylene glycoL 3350 17 GM POWD.PACK PO (19:54)
[2024-06-06] MEDS: FLUoxetine HCl 20 MG CAPSULE 60 MG PO (19:55)
[2024-06-06] MEDS: risperiDONE 3 MG TABLET PO (19:55)
[2024-06-06] MEDS: traZODone HCL 50 MG TABLET 150 MG PO (19:55)
[2024-06-06] MEDS: PHENobarbitaL 30 MG TABLET PO (19:56)
[2024-06-07] MEDS: Morphine Sulfate 2 MG/ML CARTRIDGE 4 MG IVPUSH (03:13)
[2024-06-07 03:57] VITALS: BP 123/75; PULSE 123; RESP 18; TEMP 37.2; O2SAT 95
[2024-06-07 06:28] LABS: MANUAL DIFF FLAG NO
[2024-06-07 06:30] LABS: Basophils Percent Auto 0.3 % (0-2); Eosinophils Percent Auto 0.5 % (0-4); Hematocrit 25.5 % (42.0-52.0); Hemoglobin 8.7 g/dl (14.0-18.0); Imm Gran Abs Auto 0.02 X10*3/uL (0.00-0.03); Imm Gran Pct Auto 0.3 % (0.0-0.4); Lymphocytes Absolute Auto 1.4 X10*3/uL (1.2-4.9); Lymphocytes Percent Auto 22.2 % (20-40); Mean Corpuscular HGB Conc 34.1 g/dl (31.0-36.0); Mean Corpuscular Hemoglobin 30.9 pg (27.0-33.0); Mean Corpuscular Volume 90.4 fL (80.0-98.0); Monocytes Absolute Auto 0.8 X10*3/uL (0.1-1.2); Monocytes Percent Auto 12.8 % (2-11); Neutrophils Absolute Auto 4.1 x10*3/uL (2.0-8.3); Neutrophils Percent Auto 63.9 % (45-73); Platelet Count 180 X10*3/uL (160-400); Red Blood Count 2.82 X10*6/uL (4.60-5.80); Red Cell Distribution Width 13.7 % (11.0-16.0); White Blood Count 6.4 X10*3/uL (4.8-10.8)
[2024-06-07] MEDS: Acetaminophen 325 MG TABLET 975 MG PO ×2 (06:30→18:07)
[2024-06-07 06:53] LABS: Anion Gap 10 (12-20); Blood Urea Nitrogen 6 mg/dL (9-16); Carbon Dioxide 27 mmol/L (22-29); Chloride 105 mmol/L (96-108); Estimated Glomerular Filt Rate > 60; Glucose Random 97 mg/dL (60-115); Sodium 138 mmol/L (135-145)
[2024-06-07 07:15] VITALS: BP 101/59; PULSE 109; RESP 15; TEMP 37.4; O2SAT 96
[2024-06-07] MEDS: clonazePAM 1 MG TABLET PO (08:00)
[2024-06-07] MEDS: Multivitamin TABLET 1 TAB PO (08:00)
[2024-06-07] MEDS: oxyCODONE HCl Immed Release 5 MG TABLET PO (08:00)
[2024-06-07] MEDS: Paliperidone ER 9 MG TAB.ER.24 PO (08:00)
[2024-06-07] MEDS: Docusate Sodium 100 MG CAPSULE PO ×2 (08:00→20:39)
[2024-06-07] MEDS: risperiDONE 2 MG TABLET PO (08:00)
[2024-06-07] MEDS: 0.9 % Sodium Chloride Flush 3 ML SYRINGE IVFLUSH ×3 (08:05→20:39)
--- NOTE | 2024-06-07 08:57 | PM.PNORT ---
Subjective Subjective Date of Service: 06/07/24 Interval history: Postop day 2 status post left hip IM nail Patient is sleeping comfortably in bed this morning Unable to verbalize any pain or complaints Does not appear to be in any pain No acute events overnight Physical Exam Vital Signs: Vital Signs: Last Vital Signs Temp 99.3 F 06/07/24 07:15 Pulse 109 H 06/07/24 07:15 Resp 15 06/07/24 07:15 BP 101/59 L 06/07/24 07:15 Pulse Ox 96 06/07/24 07:15 O2 Del Method Room Air 06/07/24 07:15 O2 Flow Rate 3 06/05/24 14:21 BMI result Body Mass Index 24.5 Extrem: Other: Three most distal dressings on the left hip are missing at this time No evidence of surrounding erythema, ecchymosis No evidence of infection Patient is able to flex and extend the digits of the left foot without difficulty Compartments soft, nontender Distal sensation intact Capillary refill brisk Procedures Date of Service Date of Service: 06/07/24 Progress Note: A&P Assessment and plan (1) Closed left hip fracture: Status: Acute Plan 1. Status post left hip IM nail DOS 06/05/2024 Dressings changed, reinforced with tape Continue pain management Begin Lovenox for DVT prophylaxis Dispo planning-pain management, PT/OT eval, medical clearance Continue with all other recommendations per Medicine Time Spent With Patient Time: Total time managing care of this patient today ____ minutes. Quality Stroke Does the patient have a stroke diagnosis?: No VTE Prior VTE?: No VTE Risk Level:: Medical - moderate - high VTE Device Contraindication: N/A - Device Ordered VTE Drug Contraindication: Treatment Not Indicated
[2024-06-07] MEDS: Enoxaparin Sodium 40 MG/0.4 ML SYRINGE SUBCUT (13:03)
--- NOTE | 2024-06-07 13:44 | P.PNIM_ITS ---
Subjective Subjective Date of Service: 06/07/24 Interval History: hip fx constipation Review of Systems seems similar ,awake h/h improving Physical Exam 2 Vital Signs: Vital Signs: Last Vital Signs Temp 99.3 F 06/07/24 07:15 Pulse 109 H 06/07/24 07:15 Resp 15 06/07/24 07:15 BP 101/59 L 06/07/24 07:15 Pulse Ox 96 06/07/24 07:15 O2 Del Method Room Air 06/07/24 07:15 O2 Flow Rate 3 06/05/24 14:21 BMI result Body Mass Index 24.5 Appearance:at baseline cvs: rrr, [id number] . res: clear to auscultation. abd:soft ,nt, bs present. ext pulses present , no cyanosis. left hip soarness neuro: axo3 , nonfocal. Objective Data Active Medications Acetaminophen (Acetaminophen 325 Mg Tablet) 975 mg PO Q6H [facility] Last Admin: 06/07/24 13:02 Dose: Not Given Documented By: PRITESH Non-Admin Reason: Patient Refused Calcium Carbonate (Calcium Carbonate 750 Mg Tab.Chew) 750 mg PO Q4H PRN PRN Reason: Heartburn Clonazepam (Clonazepam 1 Mg Tablet) 1 mg PO BID PRN PRN Reason: Anxiety Clonazepam (Clonazepam 1 Mg Tablet) 1 mg PO DAILY [facility] Last Admin: 06/07/24 08:00 Dose: 1 mg Documented By: PRITESH Docusate Sodium (Docusate Sodium 100 Mg Capsule) 100 mg PO BID [facility] Enoxaparin Sodium (Enoxaparin Sodium 40 Mg/0.4 Ml Syringe) 40 mg SUBCUT Q24H [facility] Last Admin: 06/07/24 13:03 Dose: 40 mg Documented By: PRITESH Fluoxetine HCl (Fluoxetine Hcl 20 Mg Capsule) 60 mg PO BEDTIME [facility] Last Admin: 06/06/24 19:55 Dose: 60 mg Documented By: PASTOR Loratadine (Loratadine 10 Mg Tablet) 10 mg PO Q6H PRN PRN Reason: allergies Magnesium Hydroxide (Milk Of Magnesia 30 Ml Oral.Susp) 30 ml PO DAILY PRN PRN Reason: Constipation Melatonin (Melatonin 3 Mg Tablet) 6 mg PO BEDTIME PRN PRN Reason: Insomnia Morphine Sulfate (Morphine Sulfate 2 Mg/Ml Cartridge) 4 mg IVPUSH Q4H PRN; Protocol PRN Reason: Pain, Severe (Pain Scale 7-10) Last Admin: 06/07/24 03:13 Dose: 4 mg Documented By: MIRLANDE Multivitamins/Vitamin C (Multivitamin Tablet) 1 tab PO DAILY [facility] Last Admin: 06/07/24 08:00 Dose: 1 tab Documented By: PRITESH Ondansetron HCl (Ondansetron Hcl 4 Mg/2 Ml Vial) 4 mg IVPUSH Q8H PRN PRN Reason: Nausea and Vomiting Last Admin: 06/05/24 07:48 Dose: 4 mg Documented By: MONA Oxycodone HCl (Oxycodone Hcl Immed Release 5 Mg Tablet) 5 mg PO Q6H PRN PRN Reason: Pain, Moderate(Pain Scale 4-6) Last Admin: 06/07/24 08:00 Dose: 5 mg Documented By: PRITESH Paliperidone (Paliperidone Er 9 Mg Tab.Er.24) 9 mg PO DAILY [facility] Last Admin: 06/07/24 08:00 Dose: 9 mg Documented By: PRITESH Phenobarbital (Phenobarbital 30 Mg Tablet) 30 mg PO BEDTIME [facility] Last Admin: 06/06/24 19:56 Dose: 30 mg Documented By: PASTOR Polyethylene Glycol (Polyethylene Glycol 3350 17 Gm Powd.Pack) 17 gm PO BID [facility] Risperidone (Risperidone 2 Mg Tablet) 2 mg PO DAILY [facility] Last Admin: 06/07/24 08:00 Dose: 2 mg Documented By: PRITESH Risperidone (Risperidone 3 Mg Tablet) 3 mg PO BEDTIME [facility] Last Admin: 06/06/24 19:55 Dose: 3 mg Documented By: PASTOR Sodium Chloride (0.9 % Sodium Chloride Flush 3 Ml Syringe) [facility] Last Admin: 06/07/24 08:05 Dose: 3 ml Documented By: PRITESH Trazodone HCl (Trazodone Hcl 50 Mg Tablet) 150 mg PO BEDTIME [facility] Last Admin: 06/06/24 19:55 Dose: 150 mg Documented By: PASTOR Labs 06/07/24 06:11 06/07/24 06:11 Labs: Laboratory Results - last 24 hr 03/06/25 03/07/25 13:56 06:11 MCV 90.4 MCH 30.9 MCHC 34.1 RDW 13.7 Plt Count 180 MPV 11.0 Immature Gran % (Auto) 0.3 Neut % (Auto) 63.9 Lymph % (Auto) 22.2 Summers % (Auto) 12.8 H Eos % (Auto) 0.5 Baso % (Auto) 0.3 Lymph # (Auto) 1.4 Summers # (Auto) 0.8 Eos # (Auto) 0.0 Baso # (Auto) 0.0 Abs Immat Gran (auto) 0.02 Absolute Neuts (auto) 4.1 Absolute Nucleated RBC 0.000 Nucleated RBC % (auto) 0.0 Anion Gap 10 L Estim Creat Clear Calc 185.0 Estimated GFR > 60 Random Glucose 97 Calcium 8.0 L Blood Type O Positive Antibody Screen NEGATIVE Crossmatch See Detail Assessment and Plan (1) Closed left hip fracture: Status: Acute Assessment and Plan: 24-year-old male with a PMH significant for?development delay, cerebral palsy, self-injurious behaviors, wears protective helmet due to hitting self in head, and nonverbal at baseline who presents to the ED from nursing home after witnessed mechanical fall without head strike. Pt will be admitted to the hospital for treatment and further evaluation of acute comminuted left femur fracture. Acute left hip fracture Secondary to mechanical fall at nursing home Left femur x-ray showed comminuted fractured left proximal femur involving the lesser trochanter with medial angulation Analgesics for pain management Orthopedics consult-s/p Vielka Piriformis [id number] with 2 6.5 mm screws proximally and 2 distal intelocking screws tachycardia due to pain/dehydration-improving. acute blood loss anemia (postop anemia) s/p2 prbc added h/h improivng to 8.7/25.5 . blood pressure flactuating moniter bp added prbc . Cerebral palsy/developmental delay Continue clonazepam, fluoxetine, paliperidone, phenobarbital, risperidone Psychiatry consult for medication and behavioral agitation Full Code DVT Prophylaxis: Pneumatic compression due to impending surgery Quality Stroke Does the patient have a stroke diagnosis?: No VTE Prior VTE?: No VTE Risk Level:: Medical - moderate - high VTE Device Contraindication: N/A - Device Ordered VTE Drug Contraindication: Treatment Not Indicated
[2024-06-07] MEDS: Milk of Magnesia 30 ML ORAL.SUSP 15 ML PO (14:11)
[2024-06-07 15:11] VITALS: BP 118/72; PULSE 116; RESP 20; TEMP 36.7; O2SAT 98
[2024-06-07 15:59] LABS: Alkaline Phosphatase 76 U/L (39-117); Anion Gap 10 (12-20); Aspartate Amino Transferase 36 U/L (5-37); Bilirubin Direct 0.3 mg/dL (0.0-0.5); Bilirubin Total 0.9 mg/dL (0.0-1.0); Blood Urea Nitrogen 8 mg/dL (9-16); Calcium 8.1 mg/dL (8.4-10.2); Carbon Dioxide 29 mmol/L (22-29); Chloride 103 mmol/L (96-108); Creatinine Clr Calc Pharmacy 178.1; Estimated Glomerular Filt Rate > 60; Glucose Random 119 mg/dL (60-115); Potassium 3.7 mmol/L (3.3-5.1); Sodium 138 mmol/L (135-145); Total Protein 6.2 g/dL (6.5-8.0)
[2024-06-07 16:30] LABS: Alanine Aminotransferase < 30 U/L (0-40)
[2024-06-07 19:21] VITALS: BP 105/54; PULSE 130; RESP 20; TEMP 37; O2SAT 95
[2024-06-07] MEDS: PHENobarbitaL 30 MG TABLET PO (20:38)
[2024-06-07] MEDS: risperiDONE 3 MG TABLET PO (20:38)
[2024-06-07] MEDS: traZODone HCL 50 MG TABLET 150 MG PO (20:38)
[2024-06-07] MEDS: FLUoxetine HCl 20 MG CAPSULE 60 MG PO (20:39)
[2024-06-07] MEDS: polyethylene glycoL 3350 17 GM POWD.PACK PO (20:39)
[2024-06-08 04:00] VITALS: BP 98/53; PULSE 86; RESP 16; TEMP 37.1; O2SAT 96
[2024-06-08] MEDS: Acetaminophen 325 MG TABLET 975 MG PO ×3 (05:19→17:37)
[2024-06-08 05:58] LABS: MANUAL DIFF FLAG NO
[2024-06-08 06:07] LABS: Basophils Percent Auto 0.4 % (0-2); Eosinophils Absolute Auto 0.1 X10*3/uL (0.0-0.4); Eosinophils Percent Auto 2.3 % (0-4); Hematocrit 28.5 % (42.0-52.0); Hemoglobin 9.7 g/dl (14.0-18.0); Imm Gran Abs Auto 0.01 X10*3/uL (0.00-0.03); Imm Gran Pct Auto 0.2 % (0.0-0.4); Lymphocytes Absolute Auto 1.1 X10*3/uL (1.2-4.9); Lymphocytes Percent Auto 19.3 % (20-40); Mean Corpuscular Hemoglobin 30.6 pg (27.0-33.0); Mean Corpuscular Volume 89.9 fL (80.0-98.0); Mean Platelet Volume 9.9 fL (9.4-12.4); Monocytes Absolute Auto 0.6 X10*3/uL (0.1-1.2); Monocytes Percent Auto 11.4 % (2-11); Neutrophils Absolute Auto 3.7 x10*3/uL (2.0-8.3); Neutrophils Percent Auto 66.4 % (45-73); Platelet Count 190 X10*3/uL (160-400); Red Blood Count 3.17 X10*6/uL (4.60-5.80); Red Cell Distribution Width 13.2 % (11.0-16.0); White Blood Count 5.6 X10*3/uL (4.8-10.8)
[2024-06-08 06:16] LABS: Anion Gap 12 (12-20); Blood Urea Nitrogen 10 mg/dL (9-16); Calcium 8.5 mg/dL (8.4-10.2); Carbon Dioxide 27 mmol/L (22-29); Chloride 105 mmol/L (96-108); Creatinine Clr Calc Pharmacy 181.5; Estimated Glomerular Filt Rate > 60; Glucose Random 111 mg/dL (60-115); Potassium 3.7 mmol/L (3.3-5.1); Sodium 140 mmol/L (135-145)
[2024-06-08 07:37] VITALS: BP 99/58; PULSE 84; RESP 16; TEMP 36.8; O2SAT 95
[2024-06-08] MEDS: risperiDONE 2 MG TABLET PO (09:35)
[2024-06-08] MEDS: Multivitamin TABLET 1 TAB PO (09:35)
[2024-06-08] MEDS: clonazePAM 1 MG TABLET PO (09:35)
[2024-06-08] MEDS: 0.9 % Sodium Chloride Flush 3 ML SYRINGE IVFLUSH ×3 (09:35→20:17)
[2024-06-08] MEDS: Paliperidone ER 9 MG TAB.ER.24 PO (09:35)
[2024-06-08] MEDS: Docusate Sodium 100 MG CAPSULE PO ×2 (09:35→20:16)
[2024-06-08] MEDS: polyethylene glycoL 3350 17 GM POWD.PACK PO ×2 (09:35→20:16)
--- NOTE | 2024-06-08 10:27 | PM.PNORT ---
Subjective Subjective Date of Service: 06/08/24 Interval history: Postop day 2 status post left hip IM nail Patient is resting comfortably in bed this morning Unable to verbalize any pain or complaints Does not appear to be in any pain No acute events overnight Physical Exam Vital Signs: Vital Signs: Last Vital Signs Temp 98.2 F 06/08/24 07:37 Pulse 84 06/08/24 07:37 Resp 16 06/08/24 07:37 BP 99/58 L 06/08/24 07:37 Pulse Ox 95 06/08/24 07:37 O2 Del Method Room Air 06/08/24 07:37 O2 Flow Rate 3 06/05/24 14:21 BMI result Body Mass Index 24.5 Extrem: Other: Dressings on left hip clean, dry, intact No evidence of surrounding erythema, ecchymosis No evidence of infection Patient is able to flex and extend the digits of the left foot without difficulty Compartments soft, nontender Distal sensation intact Capillary refill brisk Procedures Date of Service Date of Service: 06/08/24 Progress Note: A&P Assessment and plan (1) Closed left hip fracture: Status: Acute Plan 1. Status post left hip IM nail DOS 06/05/2024 Dressings changed, reinforced with tape Continue pain management Continue Lovenox for DVT prophylaxis Dispo planning-pain management, PT/OT eval, medical clearance Continue with all other recommendations per Medicine Time Spent With Patient Time: Total time managing care of this patient today ____ minutes. Quality Stroke Does the patient have a stroke diagnosis?: No VTE Prior VTE?: No VTE Risk Level:: Medical - moderate - high VTE Device Contraindication: N/A - Device Ordered VTE Drug Contraindication: Treatment Not Indicated
--- NOTE | 2024-06-08 11:50 | HO.PM.IMPN ---
Subjective Subjective Date of Service: 06/08/24 Interval History: hip fx anemia constipation Review of Systems passed bm seems comfortable Physical Exam Vital Signs: Vital Signs: Last Vital Signs Temp 98.2 F 06/08/24 07:37 Pulse 84 06/08/24 07:37 Resp 16 06/08/24 07:37 BP 99/58 L 06/08/24 07:37 Pulse Ox 95 06/08/24 07:37 O2 Del Method Room Air 06/08/24 07:37 O2 Flow Rate 3 06/05/24 14:21 BMI result Body Mass Index 24.5 Appearance:at baseline cvs: rrr, [id number] . res: clear to auscultation. abd:soft ,nt, bs present. ext pulses present , no cyanosis. left hip soarness Objective Data Active Medications Acetaminophen (Acetaminophen 325 Mg Tablet) 975 mg PO Q6H [facility] Last Admin: 06/08/24 11:40 Dose: 975 mg Documented By: JAZIEL Calcium Carbonate (Calcium Carbonate 750 Mg Tab.Chew) 750 mg PO Q4H PRN PRN Reason: Heartburn Clonazepam (Clonazepam 1 Mg Tablet) 1 mg PO BID PRN PRN Reason: Anxiety Clonazepam (Clonazepam 1 Mg Tablet) 1 mg PO DAILY [facility] Last Admin: 06/08/24 09:35 Dose: 1 mg Documented By: JAZIEL Docusate Sodium (Docusate Sodium 100 Mg Capsule) 100 mg PO BID [facility] Last Admin: 06/08/24 09:35 Dose: 100 mg Documented By: JAZIEL Enoxaparin Sodium (Enoxaparin Sodium 40 Mg/0.4 Ml Syringe) 40 mg SUBCUT Q24H [facility] Last Admin: 06/07/24 13:03 Dose: 40 mg Documented By: PRITESH Fluoxetine HCl (Fluoxetine Hcl 20 Mg Capsule) 60 mg PO BEDTIME [facility] Last Admin: 06/07/24 20:39 Dose: 60 mg Documented By: LIA Loratadine (Loratadine 10 Mg Tablet) 10 mg PO Q6H PRN PRN Reason: allergies Magnesium Hydroxide (Milk Of Magnesia 30 Ml Oral.Susp) 30 ml PO DAILY PRN PRN Reason: Constipation Melatonin (Melatonin 3 Mg Tablet) 6 mg PO BEDTIME PRN PRN Reason: Insomnia Multivitamins/Vitamin C (Multivitamin Tablet) 1 tab PO DAILY [facility] Last Admin: 06/08/24 09:35 Dose: 1 tab Documented By: JAZIEL Ondansetron HCl (Ondansetron Hcl 4 Mg/2 Ml Vial) 4 mg IVPUSH Q8H PRN PRN Reason: Nausea and Vomiting Last Admin: 06/05/24 07:48 Dose: 4 mg Documented By: MONA Oxycodone HCl (Oxycodone Hcl Immed Release 5 Mg Tablet) 5 mg PO Q6H PRN PRN Reason: Pain, Moderate(Pain Scale 4-6) Last Admin: 06/07/24 08:00 Dose: 5 mg Documented By: PRITESH Paliperidone (Paliperidone Er 9 Mg Tab.Er.24) 9 mg PO DAILY [facility] Last Admin: 06/08/24 09:35 Dose: 9 mg Documented By: JAZIEL Phenobarbital (Phenobarbital 30 Mg Tablet) 30 mg PO BEDTIME [facility] Last Admin: 06/07/24 20:38 Dose: 30 mg Documented By: LIA Polyethylene Glycol (Polyethylene Glycol 3350 17 Gm Powd.Pack) 17 gm PO BID [facility] Last Admin: 06/08/24 09:35 Dose: 17 gm Documented By: JAZIEL Risperidone (Risperidone 2 Mg Tablet) 2 mg PO DAILY [facility] Last Admin: 06/08/24 09:35 Dose: 2 mg Documented By: JAZIEL Risperidone (Risperidone 3 Mg Tablet) 3 mg PO BEDTIME [facility] Last Admin: 06/07/24 20:38 Dose: 3 mg Documented By: LIA Sodium Chloride (0.9 % Sodium Chloride Flush 3 Ml Syringe) 3 ml IVFLUSH QSHIFT [facility] Last Admin: 06/08/24 09:35 Dose: 3 ml Documented By: JAZIEL Trazodone HCl (Trazodone Hcl 50 Mg Tablet) 150 mg PO BEDTIME [facility] Last Admin: 06/07/24 20:38 Dose: 150 mg Documented By: LIA Labs 06/08/24 05:46 06/08/24 05:46 Labs: Laboratory Results - last 24 hr 06/07/24 06/08/24 15:05 05:46 MCV 89.9 MCH 30.6 MCHC 34.0 RDW 13.2 Plt Count 190 MPV 9.9 Immature Gran % (Auto) 0.2 Neut % (Auto) 66.4 Lymph % (Auto) 19.3 L [place] % (Auto) 11.4 H Eos % (Auto) 2.3 Baso % (Auto) 0.4 Lymph # (Auto) 1.1 L [place] # (Auto) 0.6 Eos # (Auto) 0.1 Baso # (Auto) 0.0 Abs Immat Gran (auto) 0.01 Absolute Neuts (auto) 3.7 Absolute Nucleated RBC 0.000 Nucleated RBC % (auto) 0.0 Anion Gap 10 L 12 Estim Creat Clear Calc 178.1 181.5 Estimated GFR > 60 > 60 Random Glucose 119 H 111 Calcium 8.1 L 8.5 Total Bilirubin 0.9 Direct Bilirubin 0.3 AST 36 ALT < 30 Alkaline Phosphatase 76 Total Protein 6.2 L Albumin 3.0 L Assessment and Plan (1) Closed left hip fracture: Status: Acute Assessment and Plan: 24-year-old male with a PMH significant for?development delay, cerebral palsy, self-injurious behaviors, wears protective helmet due to hitting self in head, and nonverbal at baseline who [facility] mechanical fall without head strike. Pt will be admitted to the hospital for treatment and further evaluation of acute comminuted left femur fracture. Acute left hip fracture Secondary to [facility] at [facility] Left femur x-ray showed comminuted fractured left proximal femur involving the lesser trochanter with medial angulation Analgesics for pain management Orthopedics consult-s/p [place] Piriformis [id number] with 2 6.5 mm screws proximally and 2 distal intelocking screws tachycardia due to pain/dehydration-improving. acute blood loss anemia (postop anemia) s/p2 prbc added h/h improivng to 9.7/28.5 . blood pressure: improving and flactuating moniter bp Cerebral palsy/developmental delay Continue clonazepam, fluoxetine, paliperidone, phenobarbital, risperidone Psychiatry consult for medication and behavioral agitation Full Code DVT Prophylaxis: lovenox. Quality Stroke Does the patient have a stroke diagnosis?: No VTE Prior VTE?: No VTE Risk Level:: Medical - moderate - high VTE Device Contraindication: N/A - Device Ordered VTE Drug Contraindication: Treatment Not Indicated
[2024-06-08] MEDS: Enoxaparin Sodium 40 MG/0.4 ML SYRINGE SUBCUT (13:05)
[2024-06-08 15:05] VITALS: BP 99/56; PULSE 88; RESP 18; TEMP 36.9; O2SAT 97
[2024-06-08] MEDS: oxyCODONE HCl Immed Release 5 MG TABLET PO (17:37)
[2024-06-08 19:42] VITALS: BP 112/57; PULSE 89; RESP 16; TEMP 36.9; O2SAT 96
[2024-06-08] MEDS: traZODone HCL 50 MG TABLET 150 MG PO (20:16)
[2024-06-08] MEDS: PHENobarbitaL 30 MG TABLET PO (20:16)
[2024-06-08] MEDS: risperiDONE 3 MG TABLET PO (20:16)
[2024-06-08] MEDS: FLUoxetine HCl 20 MG CAPSULE 60 MG PO (20:16)
[2024-06-09 03:58] VITALS: BP 104/57; PULSE 98; RESP 18; TEMP 37.2; O2SAT 98
[2024-06-09] MEDS: Acetaminophen 325 MG TABLET 975 MG PO ×3 (04:35→19:01)
[2024-06-09 06:19] LABS: MANUAL DIFF FLAG NO
[2024-06-09 06:23] LABS: Basophils Percent Auto 0.4 % (0-2); Eosinophils Absolute Auto 0.1 X10*3/uL (0.0-0.4); Eosinophils Percent Auto 2.4 % (0-4); Hematocrit 26.5 % (42.0-52.0); Hemoglobin 8.8 g/dl (14.0-18.0); Imm Gran Abs Auto 0.01 X10*3/uL (0.00-0.03); Imm Gran Pct Auto 0.2 % (0.0-0.4); Lymphocytes Absolute Auto 0.7 X10*3/uL (1.2-4.9); Lymphocytes Percent Auto 13.3 % (20-40); Mean Corpuscular HGB Conc 33.2 g/dl (31.0-36.0); Mean Corpuscular Hemoglobin 30.1 pg (27.0-33.0); Mean Corpuscular Volume 90.8 fL (80.0-98.0); Mean Platelet Volume 9.7 fL (9.4-12.4); Monocytes Absolute Auto 0.5 X10*3/uL (0.1-1.2); Monocytes Percent Auto 9.6 % (2-11); Neutrophils Absolute Auto 3.6 x10*3/uL (2.0-8.3); Neutrophils Percent Auto 74.1 % (45-73); Platelet Count 225 X10*3/uL (160-400); Red Blood Count 2.92 X10*6/uL (4.60-5.80); Red Cell Distribution Width 13.2 % (11.0-16.0); White Blood Count 4.9 X10*3/uL (4.8-10.8)
[2024-06-09 06:33] LABS: Anion Gap 10 (12-20); Blood Urea Nitrogen 13 mg/dL (9-16); Calcium 8.7 mg/dL (8.4-10.2); Carbon Dioxide 26 mmol/L (22-29); Chloride 106 mmol/L (96-108); Estimated Glomerular Filt Rate > 60; Glucose Random 135 mg/dL (60-115); Potassium 3.6 mmol/L (3.3-5.1); Sodium 138 mmol/L (135-145)
[2024-06-09 07:20] VITALS: BP 99/56; PULSE 80; RESP 16; TEMP 36.6; O2SAT 97
[2024-06-09] MEDS: polyethylene glycoL 3350 17 GM POWD.PACK PO ×2 (07:45→20:22)
[2024-06-09] MEDS: risperiDONE 2 MG TABLET PO (07:45)
[2024-06-09] MEDS: Multivitamin TABLET 1 TAB PO (07:46)
[2024-06-09] MEDS: Docusate Sodium 100 MG CAPSULE PO ×2 (07:46→20:22)
[2024-06-09] MEDS: Paliperidone ER 9 MG TAB.ER.24 PO (07:46)
[2024-06-09] MEDS: clonazePAM 1 MG TABLET PO ×2 (07:46→15:38)
[2024-06-09] MEDS: Enoxaparin Sodium 40 MG/0.4 ML SYRINGE SUBCUT (12:43)
--- NOTE | 2024-06-09 14:32 | P.PNIM_ITS ---
Subjective Subjective Date of Service: 06/09/24 Interval History: hip fx ,anemia,constipation Review of Systems bm yesterday no new events Physical Exam 2 Vital Signs: Vital Signs: Last Vital Signs Temp 97.9 F 06/09/24 07:20 Pulse 80 06/09/24 07:20 Resp 16 06/09/24 07:20 BP 99/56 L 06/09/24 07:20 Pulse Ox 97 06/09/24 07:20 O2 Del Method Room Air 06/09/24 07:20 O2 Flow Rate 3 06/05/24 14:21 BMI result Body Mass Index 24.5 Appearance:at baseline cvs: rrr, [id number] . res: clear to auscultation. abd:soft ,nt, bs present. ext pulses present , no cyanosis. left hip soarness Objective Data Active Medications Acetaminophen (Acetaminophen 325 Mg Tablet) 975 mg PO Q6H [facility] Last Admin: 06/09/24 12:42 Dose: 975 mg Documented By: SHIRAZ Calcium Carbonate (Calcium Carbonate 750 Mg Tab.Chew) 750 mg PO Q4H PRN PRN Reason: Heartburn Clonazepam (Clonazepam 1 Mg Tablet) 1 mg PO BID PRN PRN Reason: Anxiety Clonazepam (Clonazepam 1 Mg Tablet) 1 mg PO DAILY [facility] Last Admin: 06/09/24 07:46 Dose: 1 mg Documented By: SHIRAZ Docusate Sodium (Docusate Sodium 100 Mg Capsule) 100 mg PO BID [facility] Last Admin: 06/09/24 07:46 Dose: 100 mg Documented By: SHIRAZ Enoxaparin Sodium (Enoxaparin Sodium 40 Mg/0.4 Ml Syringe) 40 mg SUBCUT Q24H [facility] Last Admin: 06/09/24 12:43 Dose: 40 mg Documented By: SHIRAZ Fluoxetine HCl (Fluoxetine Hcl 20 Mg Capsule) 60 mg PO BEDTIME [facility] Last Admin: 06/08/24 20:16 Dose: 60 mg Documented By: LIA Loratadine (Loratadine 10 Mg Tablet) 10 mg PO Q6H PRN PRN Reason: allergies Magnesium Hydroxide (Milk Of Magnesia 30 Ml Oral.Susp) 30 ml PO DAILY PRN PRN Reason: Constipation Melatonin (Melatonin 3 Mg Tablet) 6 mg PO BEDTIME PRN PRN Reason: Insomnia Multivitamins/Vitamin C (Multivitamin Tablet) 1 tab PO DAILY [facility] Last Admin: 06/09/24 07:46 Dose: 1 tab Documented By: SHIRAZ Ondansetron HCl (Ondansetron Hcl 4 Mg/2 Ml Vial) 4 mg IVPUSH Q8H PRN PRN Reason: Nausea and Vomiting Last Admin: 06/05/24 07:48 Dose: 4 mg Documented By: MONA Paliperidone (Paliperidone Er 9 Mg Tab.Er.24) 9 mg PO DAILY [facility] Last Admin: 06/09/24 07:46 Dose: 9 mg Documented By: SHIRAZ Phenobarbital (Phenobarbital 30 Mg Tablet) 30 mg PO BEDTIME [facility] Last Admin: 06/08/24 20:16 Dose: 30 mg Documented By: LIA Polyethylene Glycol (Polyethylene Glycol 3350 17 Gm Powd.Pack) 17 gm PO BID [facility] Last Admin: 06/09/24 07:45 Dose: 17 gm Documented By: SHIRAZ Risperidone (Risperidone 2 Mg Tablet) 2 mg PO DAILY [facility] Last Admin: 06/09/24 07:45 Dose: 2 mg Documented By: SHIRAZ Risperidone (Risperidone 3 Mg Tablet) 3 mg PO BEDTIME [facility] Last Admin: 06/08/24 20:16 Dose: 3 mg Documented By: LIA Sodium Chloride (0.9 % Sodium Chloride Flush 3 Ml Syringe) 3 ml IVFLUSH QSHIFT [facility] Last Admin: 06/09/24 07:46 Dose: Not Given Documented By: SHIRAZ Non-Admin Reason: Patient Refused Trazodone HCl (Trazodone Hcl 50 Mg Tablet) 150 mg PO BEDTIME [facility] Last Admin: 06/08/24 20:16 Dose: 150 mg Documented By: LIA Labs 06/09/24 05:59 06/09/24 05:59 Labs: Laboratory Results - last 24 hr 06/09/24 05:59 MCV 90.8 MCH 30.1 MCHC 33.2 RDW 13.2 Plt Count 225 MPV 9.7 Immature Gran % (Auto) 0.2 Neut % (Auto) 74.1 H Lymph % (Auto) 13.3 L [place] % (Auto) 9.6 Eos % (Auto) 2.4 Baso % (Auto) 0.4 Lymph # (Auto) 0.7 L [place] # (Auto) 0.5 Eos # (Auto) 0.1 Baso # (Auto) 0.0 Abs Immat Gran (auto) 0.01 Absolute Neuts (auto) 3.6 Absolute Nucleated RBC 0.000 Nucleated RBC % (auto) 0.0 Anion Gap 10 L Estim Creat Clear Calc 185.0 Estimated GFR > 60 Random Glucose 135 H Calcium 8.7 Assessment and Plan (1) Hip fracture: Status: Acute Assessment and Plan: 24-year-old male with a PMH significant for?development delay, cerebral palsy, self-injurious behaviors, wears protective helmet due to hitting self in head, and nonverbal at baseline who [facility] after witnessed mechanical fall without head strike. Pt will be admitted to the hospital for treatment and further evaluation of acute comminuted left femur fracture. Acute left hip fracture Secondary to mechanical fall at [facility] Left femur x-ray showed comminuted fractured left proximal femur involving the lesser trochanter with medial angulation Analgesics for pain management Orthopedics consult-s/p [place] Piriformis 9x340 with 2 6.5 mm screws proximally and 2 distal intelocking screws tachycardia due to pain/dehydration-improving. acute blood loss anemia (postop anemia) s/p2 prbc added h/h around 8.8/26.5. blood pressure: improving and flactuating moniter bp Cerebral palsy/developmental delay Continue clonazepam, fluoxetine, paliperidone, phenobarbital, risperidone Psychiatry consult for medication and behavioral agitation Full Code DVT Prophylaxis: lovenox. Quality Stroke Does the patient have a stroke diagnosis?: No VTE Prior VTE?: No VTE Risk Level:: Medical - moderate - high VTE Device Contraindication: N/A - Device Ordered VTE Drug Contraindication: Treatment Not Indicated
[2024-06-09 15:18] VITALS: BP 120/58; PULSE 78; RESP 18; TEMP 37.5; O2SAT 97
[2024-06-09] MEDS: 0.9 % Sodium Chloride Flush 3 ML SYRINGE IVFLUSH (15:22)
[2024-06-09 20:00] VITALS: BP 119/60; PULSE 103; RESP 18; TEMP 37.7; O2SAT 97
[2024-06-09] MEDS: traZODone HCL 50 MG TABLET 150 MG PO (20:21)
[2024-06-09] MEDS: FLUoxetine HCl 20 MG CAPSULE 60 MG PO (20:22)
[2024-06-09] MEDS: PHENobarbitaL 30 MG TABLET PO (20:22)
[2024-06-09] MEDS: risperiDONE 3 MG TABLET PO (20:22)
--- NOTE | 2024-06-09 20:28 | PC.NURSE ---
pt in bed with sitter from alf at bed side found with iv pulled out and dsg pulled off. dr ellis notified, no need to start new iv site. pt cleaned and dsg changed, will cont to monitor
[2024-06-10 02:39] VITALS: BP 120/65; PULSE 82; RESP 16; TEMP 37.1; O2SAT 97
[2024-06-10 05:39] LABS: MANUAL DIFF FLAG NO
[2024-06-10 05:41] LABS: Basophils Percent Auto 0.3 % (0-2); Eosinophils Percent Auto 1.1 % (0-4); Hematocrit 30.1 % (42.0-52.0); Hemoglobin 10.1 g/dl (14.0-18.0); Imm Gran Abs Auto 0.01 X10*3/uL (0.00-0.03); Imm Gran Pct Auto 0.3 % (0.0-0.4); Lymphocytes Absolute Auto 0.7 X10*3/uL (1.2-4.9); Lymphocytes Percent Auto 19.7 % (20-40); Mean Corpuscular HGB Conc 33.6 g/dl (31.0-36.0); Mean Corpuscular Hemoglobin 30.6 pg (27.0-33.0); Mean Corpuscular Volume 91.2 fL (80.0-98.0); Mean Platelet Volume 9.1 fL (9.4-12.4); Monocytes Absolute Auto 0.5 X10*3/uL (0.1-1.2); Monocytes Percent Auto 14.4 % (2-11); Neutrophils Absolute Auto 2.4 x10*3/uL (2.0-8.3); Neutrophils Percent Auto 64.2 % (45-73); Platelet Count 241 X10*3/uL (160-400); Red Cell Distribution Width 13.2 % (11.0-16.0); White Blood Count 3.8 X10*3/uL (4.8-10.8)
[2024-06-10 05:59] LABS: Anion Gap 13 (12-20); Blood Urea Nitrogen 12 mg/dL (9-16); Calcium 9.1 mg/dL (8.4-10.2); Carbon Dioxide 26 mmol/L (22-29); Chloride 105 mmol/L (96-108); Creatinine Clr Calc Pharmacy 165.8; Estimated Glomerular Filt Rate > 60; Glucose Random 108 mg/dL (60-115); Potassium 4.3 mmol/L (3.3-5.1); Sodium 140 mmol/L (135-145)
[2024-06-10] MEDS: Acetaminophen 325 MG TABLET 975 MG PO ×2 (06:02→11:32)
[2024-06-10 07:01] VITALS: BP 98/54; PULSE 78; RESP 15; TEMP 36.6; O2SAT 96
[2024-06-10] MEDS: polyethylene glycoL 3350 17 GM POWD.PACK PO (08:52)
[2024-06-10] MEDS: clonazePAM 1 MG TABLET PO (08:52)
[2024-06-10] MEDS: risperiDONE 2 MG TABLET PO (08:53)
[2024-06-10] MEDS: Paliperidone ER 9 MG TAB.ER.24 PO (08:53)
[2024-06-10] MEDS: Docusate Sodium 100 MG CAPSULE PO (08:53)
[2024-06-10] MEDS: Multivitamin TABLET 1 TAB PO (08:53)
--- NOTE | 2024-06-10 11:04 | PM.DS ---
DS: Providers Provider Date of Service: 06/10/24 Date of admission: 06/04/24 14:20 Date of discharge: 06/10/24 Primary care physician: ROMAN Muro Consults: 06/04/24 13:08 Consult to Orthopedics Stat Consulting Provider: [facility] Reason for consultation: hip fx 06/04/24 14:24 Consult to Orthopedics Routine Consulting Provider: [facility] Reason for consultation: Left hip fracture 06/04/24 14:45 Consult to Psychiatry Routine Consulting Provider: [facility] Psych Covering Reason for consultation: Behavioral agitation, med management Attending physician on discharge: Dennis Barajas Discharging clinician: Dennis Barajas DS: Diagnosis Discharge Diagnosis (1) Hip fracture: Status: Acute DS: Summary Hospital Course Hospital Course: HPI:24-year-old male with a PMH significant for?development delay, cerebral palsy, self-injurious behaviors, wears protective helmet due to hitting self in head, and nonverbal at baseline who presents to the ED from assisted after witnessed mechanical fall without head strike. Staff report pt tripped and fell this morning after eating breakfast, landing on left knee. Staff report pt was in his normal state of health and has not had any acute medical complaints above baseline. Pt is unable to provide any PMH or ROS, and is noted to be lying in the bed on his left side. In the ED pt's BP soft at 9537, vitals otherwise stable and WNL. Labs were significant for leukocytosis 14.5, AST 43, and ALT 63. Imaging was significant for left femur x-ray showing comminuted fractured left proximal femur involving lesser trochanter with medial angulation. Pt was treated with acetaminophen, ibuprofen, morphine, and ondansetron. Pt will be admitted to the hospital for treatment and further evaluation of acute left comminuted left femur fracture. Hospital course: Patient was admitted for hip pain after falling -came with acute left hip fx -imaging showed :Left femur x-ray showed comminuted fractured left proximal femur involving the lesser trochanter with medial angulation:started on pain meds and ortho consulted : s/pStatus post left hip IM nail on 06/05/24:patient seems be feelling better ,checked with his assisted flyer builder at bedside -seems at his baseline ,seems comfortable,for pain continue his home tylenol. passed bm also . patient had postop anemia :received 2 prbc : h/h stable in range 10. moniter cbc in 1 week. left upper leg eccymosis -improving significantly - d/w orthopedics : moniter outpatient. seen by pt/ot- return to w/ new PT/OT services. ortho instruction as below: Physical therapy for IM nail: WBAT, posterior precautions, gait training, range of motion, strength Limit stair climbing No showering, no tub bath-keep dressing clean dry and intact No driving for 6 weeks Continue Lovenox once a day for 6 weeks Follow-up with [facility] in 2 weeks. plan: as above . moniter cbc in 1 week. follow up with pcp and orthopedics outpatient . assessment and plan coordination time spent 40 min. Time Attestation Total time managing care of this patient today: 40 mintues. Discharge Coordination Time (in mins): 40 min Quality: Safe Use of Opioids Does Pt have an Active Cancer Diagnosis on the Problem List?: No Quality: Stroke Does the patient have a stroke diagnosis?: No Physical Exam Vital Signs: Vital Signs: Last Vital Signs Temp 98 F 06/10/24 07:01 Pulse 78 06/10/24 07:01 Resp 15 06/10/24 07:01 BP 98/54 L 06/10/24 07:01 Pulse Ox 96 06/10/24 07:01 O2 Del Method Room Air 06/10/24 07:01 O2 Flow Rate 3 06/05/24 14:21 BMI result Body Mass Index 24.5 Appearance:at baseline cvs: rrr, [id number] . res: clear to auscultation. abd:soft ,nt, bs present. ext pulses present , no cyanosis. left upper leg -has eccymosis -which is improving. DS: Data Data Completed and Pending Completed studies during hospitalization [Text1]: Procedures Excision of Right Hand Skin, External Approach (03/25/24) Labs on day of discharge: Laboratory Results - last 24 hr 06/10/24 05:34 WBC 3.8 L RBC 3.30 L Hgb 10.1 L Hct 30.1 L MCV 91.2 MCH 30.6 MCHC 33.6 RDW 13.2 Plt Count 241 MPV 9.1 L Immature Gran % (Auto) 0.3 Neut % (Auto) 64.2 Lymph % (Auto) 19.7 L [place] % (Auto) 14.4 H Eos % (Auto) 1.1 Baso % (Auto) 0.3 Lymph # (Auto) 0.7 L [place] # (Auto) 0.5 Eos # (Auto) 0.0 Baso # (Auto) 0.0 Abs Immat Gran (auto) 0.01 Absolute Neuts (auto) 2.4 Absolute Nucleated RBC 0.000 Nucleated RBC % (auto) 0.0 Sodium 140 Potassium 4.3 Chloride 105 Carbon Dioxide 26 Anion Gap 13 BUN 12 Creatinine 0.58 Estim Creat Clear Calc 165.8 Estimated GFR > 60 Random Glucose 108 Calcium 9.1 Imaging Chest x-ray: Radiologist's impression: ITS Impressions Knee X-Ray 06/04/24 10:50 IMPRESSION: No acute fracture or dislocation. Electronically signed by: Bryon Garcia MD 06/04/2024 11:49 AM EST RP Foot X-Ray 06/04/24 12:03 IMPRESSION: Normal left foot. Electronically signed by: Benjy Gillespie MD 06/04/2024 12:49 PM EST RP Tibia/Fibula X-Ray 06/04/24 12:03 IMPRESSION: Normal tibia and fibula Electronically signed by: Benjy Gillespie MD 06/04/2024 12:45 PM EST RP Femur X-Ray 06/04/24 12:04 IMPRESSION: Comminuted fractured left proximal femur involving the lesser trochanter with medial angle examination. No dislocation seen. Electronically signed by: Benjy Gillespie MD 06/04/2024 12:47 PM EST RP Chest X-Ray 06/04/24 12:38 IMPRESSION: Unremarkable chest examination. Electronically signed by: Benjy Gillespie MD 06/04/2024 12:48 PM EST RP Guidance Fluoroscopy 06/05/24 12:12 IMPRESSION: 7 digital images were obtained. There is a intramedullary femoral cricket and 2 screws in the femoral neck stabilizing left proximal femoral/intertrochanteric fracture. There is no dislocation. FLUOROSCOPY TIME: 1.6 minutes DOSE AREA PRODUCT: 0.0523 uGy-m2 (microgray-meter squared) Electronically signed by: Benjy Gillespie MD 06/05/2024 03:29 PM EST Discharge Plan Discharge Anticipated Discharge Date/Time: 06/07/24 12:00 Patient Disposition: Home Health Service Discharge Diagnosis: hip fracture Referrals: [facility] [Other] - 1 Week (physical therapy, occupational therapy and intermediate for lovenox injections) Ann Marie Dejesus PA-C [Physician Home Service Demonstrator] - 2 Weeks (06/20/24 13:15 [facility] Ann Marie Dejesus PA-C) Ayana Pelaez FNP [Primary Care Provider] - 1 Week Discharge Medications: New enoxaparin 40 mg/0.4 mL Syringe 40 mg subcut Q24H 42 Days Qty: 16.8 0RF Continued fluoxetine 20 mg tablet 60 mg PO BEDTIME phenobarbital 30 mg tablet 30 mg PO BEDTIME Thera-M 19 mg iron- 400 mcg tablet 1 tab PO DAILY clonazepam 1 mg tablet 1 mg PO DAILY clonazepam 1 mg tablet 1 mg PO BID PRN (Reason: Anxiety) bacitracin 500 unit/gram ointment 1 appl topical Q12H PRN (Reason: skin wound) risperidone 3 mg tablet 3 mg PO BEDTIME risperidone 2 mg tablet 2 mg PO DAILY trazodone 100 mg tablet 150 mg PO BEDTIME Rx Instructions: 1 and 1/2 tabs paliperidone 9 mg tablet extended release 24 hr 9 mg PO DAILY acetaminophen 500 mg Tablet 1,000 mg PO Q6H PRN (Reason: Fever or headache) polyethylene glycol 3350 [Miralax] 17 gram/dose Powder 17 g PO DAILY PRN (Reason: Constipation) docusate sodium 100 mg Tablet 100 mg PO DAILY loratadine 10 mg Tablet 10 mg PO Q6H PRN (Reason: allergies) Discontinued ibuprofen 200 mg Tablet 400 mg PO Q6H PRN (Reason: mild pain/fever) Rx Instructions: take with food Discharge Orders: Discharge Order (Routine); Ordered 06/10/24 Ordered By: Dennis Barajas Diet: Advance to usual diet Activity on Discharge: As tolerated Stand Alone Forms: Patient Portal Discharge page Print Language: Amharic Care Plan Goals: Patient was admitted for hip pain after falling -came with acute left hip fx -imaging showed :Left femur x-ray showed comminuted fractured left proximal femur involving the lesser trochanter with medial angulation:started on pain meds and ortho consulted : s/pStatus post left hip IM nail on 06/05/24:patient seems be feelling better ,checked with his assisted flyer builder at bedside -seems at his baseline ,seems comfortable,for pain continue his home tylenol. passed bm also . patient had postop anemia :received 2 prbc : h/h stable in range 10. moniter cbc in 1 week. seen by pt/ot- return to w/ new PT/OT services. Health Concerns: as above. Plan of Treatment: Physical therapy for IM nail: WBAT, posterior precautions, gait training, range of motion, strength Limit stair climbing No showering, no tub bath-keep dressing clean dry and intact No driving for 6 weeks Continue Lovenox once a day for 6 weeks Follow-up with [facility] in 2 weeks Assessment: as above.
--- NOTE | 2024-06-10 11:27 | MHC.CM.PN ---
Addendum entered by Lindsey Snow RN 06/10/24 11:30: [facility] paperwork completed by . Faxed to skilled nursing per request. Original Note: Patient medically cleared for dc back to skilled nursing w/ new PT/OT/SN services through [facility]. Will transport via BLS at 12pm. [facility] OUMAR Meehan aware and agreeable. LM for guardian w/ update.
[2024-06-10] MEDS: Enoxaparin Sodium 40 MG/0.4 ML SYRINGE SUBCUT (11:33)
--- NOTE | 2024-06-10 11:49 | P.F2F_ITS ---
Service Date Service Date: 06/10/24 Encounter Date of encounter: 06/10/24 Encounter: hipfx ,anemia Reasons for Services Signs and symptoms assessed: Monitor skin ecchymosis, any signs of bleeding, avoid new falls. Reason for correction: medication management, medication treatment and teach disease management Reason for physical therapy: home safety and mobility, therapeutic exercises, restore joint function, gait/transfer training, assess need for DME, ADL training, energy conservation and other Reason for occupational therapy: home safety and mobility, therapeutic exercises, restore joint function, gait/transfer training, assess need for DME, ADL training, energy conservation and other MD Overseeing Care: [facility] Homebound: Leaving the home is medically contraindicated at this time without the asist of a device and/or another person due th the listed conditions above and below. Reason homebound: weakness related to hospital stay Homebound supporting statement: Patient is hip fx post surgery and need help with going to appointments and labs draws as well as PT/ot Certification: Based on the above findings, I certify that this patient is confined to the home and needs intermittent correction care, physical therapy and/or speech therapy, or continues to need occupational therapy. The patient is under my care, and I have initiated the establishment of the plan of care. The patient will be followed by a physician who will periodically review the plan of care. Time Spent With Patient Time: Total time managing care of this patient today ____ minutes.
--- NOTE | 2024-06-16 16:50 | W.PM.OPN ---
Operative Note Operative Note Date of Service: 06/05/24 Narrative: Date of Service: 06/05/24 Pre-op diagnosis: Left peritrochanteric hip fx Post-op diagnosis: same Procedure: Left femoral IMN Implants: [place] Piriformis 9x340 with 2 6.5 mm screws proximally and 2 distal intelocking screws Surgeon: Anam Price MD Anesthesia: GETA and local Was an Field Underwriter used for this Procedure?: Yes Field Underwriter: Ann Marie Dejesus Estimated blood loss (mL): 100 IV fluids (mL): 1,000 Pathology: none sent Condition: stable Disposition: PACU Procedure in detail: Patient was brought to the operating room and prepped and draped in standard sterile fashion. Time-out was called to identify proper site procedure proper surgeon and IV antibiotics per weight were administered. He was positioned on the fracture table and a traction and slight internal rotation were performed and biplanar fluoroscopy confirmed initial fracture reduction. I then made a stab incision proximal to the greater trochanter in using a guidewire made a entry point in the piriformis fossa and placed a guidewire into the femoral metadiaphysis. I then over-reamed with 15 mm Reamer placed my ball-tip guidewire down distally in the femur and measured my length. I selected a 9x340 mm femoral nail and reamed up to a 10.5. I then inserted a 9x345 mm nail. I then turned my attention to the proximal screws. A 6.5 screw was inserted low along the calcar and the second more proximal into the center of the head. I was satisfied with the alignement on both the AP and lateral projection. Once I was satisfied with the position of the the two recon screws I turned my attention to the distal aspect of the nail. Using perfect [place]ominee technique I placed 2 static distal interlocking screw in standard AO technique. I then removed all instrumentation. Final biplanar radiographs were taken. I was satisfied with the position of the hardware and the fracture reduction. I copiously irrigated, closed with absorbable sutures dada and injected 30 mL of into the area of the incisions. Traction was let down patient was placed in sterile dressing awakened from anesthesia brought to recovery room stable condition there were no known complications.
== END 2024-06-10 12:20 | disposition home health service (06) | DRG 308 ==
LOC: HO.ED 12:34 → HO.EDOVER 14:26 → HO.S3 06-05 14:42
PROVIDERS: Orthopaedic Surgery; Physician Assistant; Admitting Provider Student in an Organized Health Care Education/Training Program; Emergency Provider Emergency Medicine; PCP Registered Nurse; Visit Provider Internal Medicine
PROC: 0QS736Z Reposition Left Upper Femur with Intramedullary Internal Fixation Device, Percutaneous Approach (ICD-10-PCS; principal; 2024-06-05 11:00)
DX: S72.122A Displaced fracture of lesser trochanter of left femur, initial encounter for closed fracture (principal); D62 Acute posthemorrhagic anemia; F84.0 Autistic disorder; R62.50 Unspecified lack of expected normal physiological development in childhood; K59.00 Constipation, unspecified; W19.XXXA Unspecified fall, initial encounter; Z91.52 Personal history of nonsuicidal self-harm; Z79.899 Other long term (current) drug therapy
CPT/HCPCS: 36415; 71045; 73552; 73560; 73590; 73630; 80048; 80053; 80076; 85014; 85018; 85025; 85027; 86850; 86900; 86901; 86923; 97162; 97166; 97530; 99285; C1713; J0131; J0690; J1100; J1171; J1650; J2003; J2250; J2270; J2405; J2704; J2795; J3010; J7120; P9016

== ENCOUNTER → 2024-06-04 10:50 | Outpatient (BNV) | payer MEDICAID, SELFPAY | PROVIDERS: Emergency Provider Emergency Medicine; PCP Registered Nurse; Visit Provider Radiology Diagnostic Radiology | DX: M25.562 Pain in left knee (principal); S72.002A Fracture of unspecified part of neck of left femur, initial encounter for closed fracture; M25.572 Pain in left ankle and joints of left foot; Z01.810 Encounter for preprocedural cardiovascular examination; W01.0XXA Fall on same level from slipping, tripping and stumbling without subsequent striking against object, initial encounter | CPT/HCPCS: 71045; 73552; 73560; 73590; 73630 ==

== ENCOUNTER → 2024-06-04 14:20 | Outpatient (BNV) | payer MEDICAID, SELFPAY | PROVIDERS: Admitting Provider Student in an Organized Health Care Education/Training Program; Emergency Provider Emergency Medicine; PCP Registered Nurse; Visit Provider Physician Assistant | DX: S72.002A Fracture of unspecified part of neck of left femur, initial encounter for closed fracture (principal) | CPT/HCPCS: 99223 ==

== ENCOUNTER → 2024-06-04 14:20 | Outpatient (BNV) | payer MEDICAID, SELFPAY | PROVIDERS: Admitting Provider Student in an Organized Health Care Education/Training Program; Emergency Provider Emergency Medicine; PCP Registered Nurse; Visit Provider Student in an Organized Health Care Education/Training Program | DX: S72.002A Fracture of unspecified part of neck of left femur, initial encounter for closed fracture (principal) | CPT/HCPCS: 99222; 99231; 99232 ==

== ENCOUNTER → 2024-06-04 14:20 | Outpatient (BNV) | payer OTHER, SELFPAY | PROVIDERS: Admitting Provider Student in an Organized Health Care Education/Training Program; Emergency Provider Emergency Medicine; PCP Registered Nurse; Visit Provider Social Worker | DX: F84.0 Autistic disorder (principal) | CPT/HCPCS: 99232; 99499 ==

== ENCOUNTER 2024-06-18 10:02 | Outpatient (REF) | payer MEDICAID, SELFPAY ==
[2024-06-18 11:14] LABS: MANUAL DIFF FLAG NO
--- OUTSIDE RECORDS SUMMARY | 2024-06-18 11:25 | XMS_ITS | Data Portability ---
Author Organization [place] - [facility], [facility] Address [address] [place], [place] [address] [address] Care Team Providers Care Electrical Maintenance Supervisor Name Role Phone JUDDWHITNEY Primary Care Provider [phone] Assessment Encounter Date Assessment Date Assessment LastModified by Organization Details LastModified Time 02/26/2020 02/26/2020 Overview/History : Pt is a 20yo M with reported PMH sig for Autism, being non-verbal and self injury behavior. [facility] was unable to provid records of PMH to this provider and [facility] staff was not sure of pt's [...] By Organization Details Last Modified Time 02/26/2020 [id number] Thank you for yo ur visit with [facility] today. You were seen today for treatment [...] in your condition between 8am-10pm, please call [facility] at [phone] to help navigate your care. glorai Not available 02/26/2020 15:02:31 Reason for Referral None Reported. Medical Equipment None Reported. Allergies Allergen ID Allergen Name Allergen Category Reaction Reaction Severity Criticality Documentation Date Start Date Code Code System Note Provider Name and Address Organization Details Recorded Time 542226 lactose food,medi cation Not available Not available Not available 02/26/2020 6211 RxNorm NIK MARES NP [address] [place], [address] , [place] [facility] 0 15:05:24 Medications Name Sig Start [...] Smoker NIK MARES NP [address], [place], [address], [place] [facility] 02/26/2020 15:06:24 Do You Have An Advance Directive? No Information not available 02/26/2020 What Is Your Code Status? Full Code Information not available 02/26/2020 Excessive Alcohol Or Drug Use No Information not available 02/26/2020 Sex: Unknown Functional Status None recorded. Mental Status None recorded. Family History Nothing Reported Notes:pt resides at [facility] , [facility] Medical History No medical history recorded. Past Encounters Encounter ID Performer Location Encounter Start Date Encounter Closed Date Diagnosis/Indication Diagnosis SNOMED-CT Code Diagnosis ICD10 Code Diagnosis Note [id number] NIK MARES NP [facility] - HOME [address] [place] [address] 02/26/2020 14:51:50 02/26/2020 17:47:50 Abrasion of skin of hand 827172958 S60.511A Abrasion 507291314 T14.8 XXA Health Concerns Section Related Observation LastModified by Organization Detai ls LastModified Time None Recorded Concern Status LastModified by Organization Details LastModified Time None Recorded Advance Directives Directive N: Payers Encounter Date Sequence Insurance Name Policy Number Policy Ybarra Covered Member ID Ybarra Member ID Guarantor Name 02/26/2020 1 [place] [facility] [id number] [facility] Notes Date Note Type Note Provider Name and Address Organization Details Recorded Time 02/26/2020 text/html Pt is non-verbal and unable to provide history, [facility] did not know pt's PMH and [...] and was concerned that they were cordero. [facility] home states they are r/t to self injuy behavior and would like the areas evaluated. NIK MARES NP [address], [place], [address], [place] [facility] 02/26/2020 15:29:27
[2024-06-18 11:30] LABS: Basophils Percent Auto 0.4 % (0-2); Eosinophils Absolute Auto 0.1 X10*3/uL (0.0-0.4); Eosinophils Percent Auto 1.1 % (0-4); Hematocrit 34.3 % (42.0-52.0); Hemoglobin 11.5 g/dl (14.0-18.0); Imm Gran Abs Auto 0.01 X10*3/uL (0.00-0.03); Imm Gran Pct Auto 0.2 % (0.0-0.4); Immature Retic Fraction 23.1 % (2.3-13.4); Lymphocytes Absolute Auto 1.1 X10*3/uL (1.2-4.9); Lymphocytes Percent Auto 24.9 % (20-40); Mean Corpuscular HGB Conc 33.5 g/dl (31.0-36.0); Mean Corpuscular Volume 92.5 fL (80.0-98.0); Mean Platelet Volume 9.5 fL (9.4-12.4); Monocytes Absolute Auto 0.4 X10*3/uL (0.1-1.2); Monocytes Percent Auto 8.8 % (2-11); Neutrophils Percent Auto 64.6 % (45-73); Platelet Count 484 X10*3/uL (160-400); Red Blood Count 3.71 X10*6/uL (4.60-5.80); Red Cell Distribution Width 14.5 % (11.0-16.0); Retic HGB Equivalent 33.3 pg (30.0-35.0); Reticulocyte Percent 3.4 % (0.5-1.8); Reticulocytes Absolute 0.127 X10*6/uL (0.026-0.095); White Blood Count 4.6 X10*3/uL (4.8-10.8)
[2024-06-18 11:42] LABS: Iron 70 mcg/dL (45-160); Percent Iron Saturation 31 % (15-50); Total Iron Binding Capacity 226 mcg/dL (228-428); Unsaturated Iron Binding 156 ug/dL
[2024-06-18 11:59] LABS: Ferritin 343 ng/mL (20-250)
[2024-06-18 12:15] LABS: Folate > 20.0 ng/mL (> or = 4.0); Vitamin B12 1010 pg/mL (200-900)
== END 2024-06-18 10:03 | disposition home or self-care (01) ==
LOC: HO.HHCL 10:02
PROVIDERS: Visit Provider Family Medicine
DX: D64.9 Anemia, unspecified (principal)
CPT/HCPCS: 36415; 82607; 82728; 82746; 83540; 85025; 85045

== ENCOUNTER 2024-06-20 08:22 | Outpatient (REF) | payer MEDICAID, SELFPAY | END 2024-06-20 08:23 | disposition home or self-care (01) | LOC: HO.HOSX 08:22 | PROVIDERS: Visit Provider Physician Assistant | DX: S72.002A Fracture of unspecified part of neck of left femur, initial encounter for closed fracture (principal); X58.XXXA Exposure to other specified factors, initial encounter; Y93.9 Activity, unspecified; Y92.9 Unspecified place or not applicable; Y99.9 Unspecified external cause status; G80.9 Cerebral palsy, unspecified | CPT/HCPCS: 99212 ==

== ENCOUNTER 2024-06-20 13:10 | Outpatient (AMB) | payer MEDICAID, SELFPAY ==
--- NOTE | 2024-06-20 13:11 | MHC.OFFVIS ---
Intake Visit Reasons: PO-left hip IM nail, DOS 06/05/24 Intake Note: Robin is a 24 year old male who presents today for a post op appointment s/p left hip IM nail, DOS 06/05/24. Patient hasn't been complaining about pain. Allergies lactose [LACTOSE] Allergy (Intermediate, Verified 06/20/24 13:16) GI SYMPTOMS HPI HPI PO-left hip IM nail, DOS 06/05/24: Details: Mr. Raheel Olivera is a 24-year-old male who presents to the office today status post left hip IM nail performed on 06/05/[address] Price. He has a past medical history significant for cerebral palsy and autism. He is accompanied by 2 members of the [facility]iary all the office today. He reports that he has been getting up and walking with the assistance of staff members or walker. [facility] Medical History Cerebral palsy Autism Social History Household Members: Other Household Members Other:: penitentiary Housing: House Housing Other:: pt lives in penitentiary Are you a primary healthcare account manager to a significant other at home: No Unable to assess alcohol history related to: Unknown Alcohol intake: never Comment: sitter from group in room Patient Tobacco Use Status: Never used Tobacco Advance Directives Date on File: 06/05/24 Review of Systems Const All systems reviewed & are unremarkable except as noted in HPI and below Physical Exam Const General: cooperative, healthy appearing and no acute distress Resp Effort & Inspection: normal respiratory effort and able to speak in complete sentences Cardio Rate: regular rate Peripheral pulses: Peripheral pulses 2+ throughout Skin Lesions: no lesions Rashes: no rashes Extrem Other: Left hip incision sites are clean dry and intact. [place] intact. Calf is supple and nontender. NVI. Assessment & Plan Assessment & Plan (1) Closed left hip fracture: Code(s): S72.002A - Fracture of unspecified part of neck of left femur, initial encounter for closed fracture Category: Medical Plan While in the office today, dada were removed and Steri-Strips are applied. Can continue to weightbear as tolerated. Physical therapy and Occupational therapy may work on glute core and quad strengthening as well as gait training with a walker. He will continue anticoagulation for 6 weeks. He will follow up in 4 weeks with x-rays, sooner if needed. Coding Level of Care Code Global (71750) Diagnoses Closed left hip fracture S72.002A
--- OUTSIDE RECORDS SUMMARY | 2024-06-20 15:40 | XMS_ITS | Data Portability ---
Author Organization [place] - [facility], [facility] Address [address] [place] [address] Care Team Providers Care Tableau Developer Name Role Phone JUDDWHITNEY Primary Care Provider Assessment Encounter Date Assessment Date Assessment LastModified by Organization Details LastModified Time 02/26/2020 02/26/2020 Overview/History : Pt is a 20yo M with reported PMH sig for Autism, being non-verbal and self injury behavior. [facility] was unable to provid records of PMH to this provider and [facility] staff was not sure of pt's [...] By Organization Details Last Modified Time 02/26/2020 [id number] Thank you for yo ur visit with [facility] today. You were seen today for treatment [...] condition between 8am-10pm, please call [facility] at [phone] to help navigate your care. gloria Not available 02/26/2020 15:02:31 Reason for Referral None Reported. Medical Equipment None Reported. Allergies Allergen ID Allergen Name Allergen Category Reaction Reaction Severity Criticality Documentation Date Start Date Code Code System Note Provider Name and Address Organization Details Recorded Time 679920 lactose food,medi cation Not available Not available Not available 02/26/2020 6211 RxNorm NIK MARES NP [address] [place], [address] , [place] [facility] 0 15:05:24 Medications Name Sig [...] Smoker NIK MARES NP [address], [place], [address], [place] [facility] 02/26/2020 15:06:24 Do You Have An Advance Directive? No Information not available 02/26/2020 What Is Your Code Status? Full Code Information not available 02/26/2020 Excessive Alcohol Or Drug Use No Information not available 02/26/2020 Sex: Unknown Functional Status None recorded. Mental Status None recorded. Family History Nothing Reported Notes:pt resides at [facility] , [facility] Medical History No medical history recorded. Past Encounters Encounter ID Performer Location Encounter Start Date Encounter Closed Date Diagnosis/Indication Diagnosis SNOMED-CT Code Diagnosis ICD10 Code Diagnosis Note [id number] NIK MARES NP [facility] - [facility] [address] [place] [address] 02/26/2020 14:51:50 02/26/2020 17:47:50 Abrasion of skin of hand 710158491 S60.511A Abrasion 885851735 T14.8 XXA Health Concerns Section Related Observation LastModified by Organization Detai ls LastModified Time None Recorded Concern Status LastModified by Organization Details LastModified Time None Recorded Advance Directives Directive N: Payers Encounter Date Sequence Insurance Name Policy Number Policy Ybarra Covered Member ID Ybarra Member ID Guarantor Name 02/26/2020 1 [place] [facility] [id number] [facility] Notes Date Note Type Note Provider Name and Address Organization Details Recorded Time 02/26/2020 text/html Pt is non-verbal and unable to provide history, [facility] did not know pt's PMH and [...] and was concerned that they were cordero. [facility] home states they are r/t to self injuy behavior and would like the areas evaluated. NIK MARES NP [address], [place], [address], [place] [facility] 02/26/2020 15:29:27
== END 2024-06-20 13:41 | disposition home or self-care (01) ==
LOC: HO.HOS 13:11
PROVIDERS: PCP Registered Nurse; Visit Provider Physician Assistant
DX: S72.002A Fracture of unspecified part of neck of left femur, initial encounter for closed fracture (principal)
CPT/HCPCS: 99024

== ENCOUNTER 2024-07-12 10:48 | Outpatient (REF) | payer MEDICAID, SELFPAY ==
[2024-07-12 11:32] LABS: MANUAL DIFF FLAG NO
--- OUTSIDE RECORDS SUMMARY | 2024-07-12 11:43 | XMS_ITS | Data Portability ---
Author Organization [place] - [facility], [facility] Address [address] [facility] [facility] [place] [address] Care Team Providers Care Race Steward Name Role Phone JUDDWHITNEY Primary Care Provider Assessment Encounter Date Assessment Date Assessment LastModified by Organization Details LastModified Time 02/26/2020 02/26/2020 Overview/History : Pt is a 20yo M with reported PMH sig for Autism, being non-verbal and self injury behavior. [facility] was unable to provid records of PMH to this provider and [facility] staff was not sure of pt's [...] By Organization Details Last Modified Time 02/26/2020 [id number] Thank you for yo ur visit with [facility] today. You were seen today [...] condition between 8am-10pm, please call [facility] at [phone] to help navigate your care. gloria Not available 02/26/2020 15:02:31 Reason for Referral None Reported. Medical Equipment None Reported. Allergies Allergen ID Allergen Name Allergen Category Reaction Reaction Severity Criticality Documentation Date Start Date Code Code System Note Provider Name and Address Organization Details Recorded Time 812301 lactose food,medi cation Not available Not available Not available 02/26/2020 6211 RxNorm NIK MARES NP [address] [place], [address] , [place] [facility] 0 15:05:24 Medications Name Sig Start [...] Smoker NIK MARES NP [address], [place], [address], [place] [facility] 02/26/2020 15:06:24 Do You Have An Advance Directive? No Information not available 02/26/2020 What Is Your Code Status? Full Code Information not available 02/26/2020 Excessive Alcohol Or Drug Use No Information not available 02/26/2020 Sex: Unknown Functional Status None recorded. Mental Status None recorded. Family History Nothing Reported Notes:pt resides at [facility] , [facility] Medical History No medical history recorded. Past Encounters Encounter ID Performer Location Encounter Start Date Encounter Closed Date Diagnosis/Indication Diagnosis SNOMED-CT Code Diagnosis ICD10 Code Diagnosis Note [id number] NIK MARES NP [facility] - [facility] [address] [place] [address] 02/26/2020 14:51:50 02/26/2020 17:47:50 Abrasion of skin of hand 477939739 S60.511A Abrasion 564217206 T14.8 XXA Health Concerns Section Related Observation LastModified by Organization Detai ls LastModified Time None Recorded Concern Status LastModified by Organization Details LastModified Time None Recorded Advance Directives Directive N: Payers Encounter Date Sequence Insurance Name Policy Number Policy Ybarra Covered Member ID Ybarra Member ID Guarantor Name 02/26/2020 1 [place] [facility] [id number] [facility] Notes Date Note Type Note Provider Name and Address Organization Details Recorded Time 02/26/2020 text/html Pt is non-verbal and unable to provide history, [facility] did not know pt's PMH [...] and was concerned that they were cordero. [facility] home states they are r/t to self injuy behavior and would like the areas evaluated. NIK MARES NP [address], [place], [address], [place] [facility] 02/26/2020 15:29:27
[2024-07-12 11:46] LABS: Basophils Percent Auto 0.3 % (0-2); Eosinophils Absolute Auto 0.1 X10*3/uL (0.0-0.4); Eosinophils Percent Auto 1.6 % (0-4); Hematocrit 38.8 % (42.0-52.0); Hemoglobin 13.3 g/dl (14.0-18.0); Imm Gran Abs Auto 0.01 X10*3/uL (0.00-0.03); Imm Gran Pct Auto 0.3 % (0.0-0.4); Immature Retic Fraction 11.4 % (2.3-13.4); Lymphocytes Absolute Auto 1.4 X10*3/uL (1.2-4.9); Mean Corpuscular HGB Conc 34.3 g/dl (31.0-36.0); Mean Corpuscular Hemoglobin 31.1 pg (27.0-33.0); Mean Corpuscular Volume 90.9 fL (80.0-98.0); Monocytes Absolute Auto 0.4 X10*3/uL (0.1-1.2); Monocytes Percent Auto 9.2 % (2-11); Neutrophils Percent Auto 51.6 % (45-73); Red Blood Count 4.27 X10*6/uL (4.60-5.80); Red Cell Distribution Width 12.7 % (11.0-16.0); Retic HGB Equivalent 35.1 pg (30.0-35.0); Reticulocyte Percent 1.2 % (0.5-1.8); Reticulocytes Absolute 0.053 X10*6/uL (0.026-0.095); White Blood Count 3.8 X10*3/uL (4.8-10.8)
[2024-07-12 12:16] LABS: Alanine Aminotransferase 97 U/L (0-40); Alkaline Phosphatase 175 U/L (39-117); Anion Gap 10 (12-20); Aspartate Amino Transferase 37 U/L (5-37); Bilirubin Total 0.3 mg/dL (0.0-1.0); Blood Urea Nitrogen 13 mg/dL (9-16); Carbon Dioxide 26 mmol/L (22-29); Chloride 106 mmol/L (96-108); Estimated Glomerular Filt Rate > 60; Glucose Random 88 mg/dL (60-115); Potassium 3.9 mmol/L (3.3-5.1); Sodium 138 mmol/L (135-145); Total Protein 7.3 g/dL (6.5-8.0)
[2024-07-12 12:29] LABS: Platelet Count 148 X10*3/uL (160-400)
[2024-07-12 12:34] LABS: TSH reflex Free T4 1.56 uIU/mL (0.32-4.0)
== END 2024-07-12 10:49 | disposition home or self-care (01) ==
LOC: HO.HHCL 10:48
PROVIDERS: Visit Provider Registered Nurse
DX: D64.9 Anemia, unspecified (principal); Z87.311 Personal history of (healed) other pathological fracture
CPT/HCPCS: 36415; 80053; 82306; 84443; 85025; 85045

== ENCOUNTER 2024-08-02 08:57 | Outpatient (REF) | payer MEDICAID, SELFPAY ==
--- NOTE | ~2024-08-02 | XR_ITS ---
EXAMINATION: XR FEMUR 2 VIEWS LEFT HISTORY: S72.002A - Fracture of unspecified part of neck of left femur, initial... COMPARISON: Comparison is made with the prior examination dated 06/04/2024. FINDINGS: AP and lateral views of the left femur are submitted. Osseous mineralization is normal. The patient is status post internal fixation of the previously seen intertrochanteric fracture with cannulated screws and an intramedullary cricket. There is callus formation at the fracture site consistent with healing. The visualized hip and knee joint spaces are preserved. The soft tissues are unremarkable. XR/XR femur LT 2V IMPRESSION: Healing internally fixed comminuted intertrochanteric fracture of the left femur, as described. Electronically signed by: Tiago Winchester MD 08/02/2024 03:25 PM EDT
--- OUTSIDE RECORDS SUMMARY | 2024-08-03 08:59 | XMS_ITS | Data Portability ---
Author Organization [place] - [facility], [facility] Address [address] [facility] [place] [address] Care Team Providers Care Fountain Pen Turner Name Role Phone JUDDWHITNEY Primary Care Provider Assessment Encounter Date Assessment Date Assessment LastModified by Organization Details LastModified Time 02/26/2020 02/26/2020 Overview/History : Pt is a 20yo M with reported PMH sig for Autism, being non-verbal and self injury behavior. [facility] was unable to provid records of PMH to this provider and [facility] staff was not sure of pt's [...] By Organization Details Last Modified Time 02/26/2020 [id number] Thank you for yo ur visit with [facility] today. You were seen today [...] in your condition between 8am-10pm, please call [facility] at [phone] to help navigate your care. gloria Not available 02/26/2020 15:02:31 Reason for Referral None Reported. Medical Equipment None Reported. Allergies Allergen ID Allergen Name Allergen Category Reaction Reaction Severity Criticality Documentation Date Start Date Code Code System Note Provider Name and Address Organization Details Recorded Time 156609 lactose food,medi cation Not available Not available Not available 02/26/2020 6211 RxNorm NIK MARES NP [address] [place], [address] , [place] [facility] 0 15:05:24 Medications Name Sig Start Date [...] Smoker NIK MARES NP [address], [place], [address], [place] [facility] 02/26/2020 15:06:24 Do You Have An Advance Directive? No Information not available 02/26/2020 What Is Your Code Status? Full Code Information not available 02/26/2020 Excessive Alcohol Or Drug Use No Information not available 02/26/2020 Sex: Unknown Functional Status None recorded. Mental Status None recorded. Family History Nothing Reported Notes:pt resides at [facility] , [facility] Medical History No medical history recorded. Past Encounters Encounter ID Performer Location Encounter Start Date Encounter Closed Date Diagnosis/Indication Diagnosis SNOMED-CT Code Diagnosis ICD10 Code Diagnosis Note [id number] NIK MARES NP [facility] - [facility] [address] [place] [address] 02/26/2020 14:51:50 02/26/2020 17:47:50 Abrasion of skin of hand 042851257 S60.511A Abrasion 600190920 T14.8 XXA Health Concerns Section Related Observation LastModified by Organization Detai ls LastModified Time None Recorded Concern Status LastModified by Organization Details LastModified Time None Recorded Advance Directives Directive N: Payers Encounter Date Sequence Insurance Name Policy Number Policy Ybarra Covered Member ID Ybarra Member ID Guarantor Name 02/26/2020 1 [place] [facility] [id number] [facility] Notes Date Note Type Note Provider Name and Address Organization Details Recorded Time 02/26/2020 text/html Pt is non-verbal and unable to provide history, [facility] did not know pt's PMH [...] and was concerned that they were cordero. [facility] home states they are r/t to self injuy behavior and would like the areas evaluated. NIK MARES NP [address], [place], [address], [place] [facility] 02/26/2020 15:29:27
== END 2024-08-02 08:58 | disposition home or self-care (01) ==
LOC: HO.HOSX 08:57
PROVIDERS: Visit Provider Physician Assistant
DX: S72.002A Fracture of unspecified part of neck of left femur, initial encounter for closed fracture (principal)
CPT/HCPCS: 73552; 99212

== ENCOUNTER 2024-08-02 11:04 | Outpatient (AMB) | payer MEDICAID, SELFPAY ==
--- NOTE | 2024-08-02 11:16 | A.OFFVIS_ITS ---
Intake Visit Reasons: PO-left hip IM nail, DOS 06/05/24 Intake Note: Robin is a 24 year old male who presents today for a post op appointment s/p left hip IM nail, DOS 06/05/24. Patient's nurse states that he hasnt complained about pain or discomfort. he is doing well. Allergies lactose [LACTOSE] Allergy (Intermediate, Verified 08/02/24 11:21) GI SYMPTOMS HPI HPI PO-left hip IM nail, DOS 06/05/24: Details: Mr. Raheel Olivera is a 24-year-old male who presents to the office today accompanied by 2 members of the senior living in which she resides at. He is following up for left hip IM nail that was performed on 06/05/[address] Price. The senior living staff members report that patient is doing very well. He does not complain of any pain. He has been working with physical therapy and is ready to be discharged shortly. He is walking without the use of any assistive devices. It appears that the patient has returned back to his normal baseline. [facility] Medical History Cerebral palsy Autism Social History Household Members: Other Household Members Other:: senior living Housing: House Housing Other:: pt lives in senior living Are you a primary care aide to a significant other at home: No Unable to assess alcohol history related to: Unknown Alcohol intake: never Comment: sitter from group in room Patient Tobacco Use Status: Never used Tobacco Advance Directives Date on File: 06/05/24 Review of Systems Const All systems reviewed & are unremarkable except as noted in HPI and below Physical Exam Const General: cooperative, healthy appearing and no acute distress Resp Effort & Inspection: normal respiratory effort and able to speak in complete sentences Cardio Rate: regular rate Peripheral pulses: Peripheral pulses 2+ throughout Skin Lesions: no lesions Rashes: no rashes Extrem Other: Patient is demonstrating motion of the left lower extremity without pain or discomfort. He is currently in a wheelchair for transportation. Assessment & Plan Assessment & Plan (1) Closed left hip fracture: Code(s): S72.002A - Fracture of unspecified part of neck of left femur, initial encounter for closed fracture Category: Medical (2) Hip fracture: Code(s): S72.009A - Fracture of unspecified part of neck of unspecified femur, initial encounter for closed fracture Category: Medical Qualifiers: Encounter type: initial encounter Fracture type: closed Laterality: left Qualified Code(s): S72.002A - Fracture of unspecified part of neck of left femur, initial encounter for closed fracture Plan Mr. Raheel Olivera is a 24-year-old male who presents to the office today accompanied by 2 members of the senior living in which she resides at. He is following up for left hip IM nail that was performed on 06/05/[address] Price. The senior living staff members report that patient is doing very well. He does not complain of any pain. He has been working with physical therapy and is ready to be discharged shortly. He is walking without the use of any assistive devices. It appears that the patient has returned back to his normal baseline. While the office today, I was able to speak with the members from the senior living and which the patient resides at and they state the patient is doing very well. At this point I will see the patient back at his 6 month postoperative sai with repeat x-rays. If the patient should develop any of the following including but not limited to increase in redness swelling drainage warmth or pain the patient should present to the emergency department or the senior living staff should contact our office immediately. He will follow up at the six-month postoperative sai, sooner if needed. X-rays of the left femur which were obtained while in the office today and were reviewed by me, Ann Marie Dejesus PA-C, revealed intact orthopedic hardware with routine healing. Orders: Orders XR femur LT 2V Today S72.002A - Fracture of unspecified part of neck of left femur, initial encounter for closed fracture Coding Level of Care Code Global (53722) Diagnoses Closed left hip fracture S72.002A Hip fracture S72.002A Encounter type: initial encounter Fracture type: closed Laterality: left
== END 2024-08-02 11:32 | disposition home or self-care (01) ==
LOC: HO.HOS 11:04
PROVIDERS: PCP Registered Nurse; Visit Provider Physician Assistant
DX: S72.002A Fracture of unspecified part of neck of left femur, initial encounter for closed fracture (principal)
CPT/HCPCS: 99024

== ENCOUNTER → 2024-08-02 11:06 | Outpatient (BNV) | payer MEDICAID, SELFPAY | PROVIDERS: Visit Provider Radiology Diagnostic Radiology | DX: S72.142D Displaced intertrochanteric fracture of left femur, subsequent encounter for closed fracture with routine healing (principal) | CPT/HCPCS: 73552 ==

== ENCOUNTER 2024-08-09 11:00 | Outpatient (REF) | payer MEDICAID, SELFPAY ==
--- NOTE | ~2024-08-09 | MM_ITS ---
EXAMINATION: DXA BONE DENSITY AXIAL HISTORY: 24 y.o male with hx of fragility fracture TECHNIQUE: Wiper Dual energy absorptiometry (DEXA) of the lumbar spine, total right hip, and femoral neck was performed. COMPARISON: There are no prior studies for comparison. FINDINGS: The bone mineral density of the lumbar spine is 0.846 with a T-score of -3.1, and a Z-score of -2.8. This is indicative of osteoporosis. The bone mineral density of the right total hip is 0.679 with a T-score of -2.9, and a Z-score of -2.7. This is indicative of osteoporosis. The bone mineral density of the right femoral neck is 0.680 with a T-score of -3.0, and a Z-score of -3.0. This is indicative of osteoporosis. MM/XR DEXA axial skeleton IMPRESSION: Based on bone mineral density, and according to World Health Organization (WHO) criteria, the diagnosis is consistent with osteoporosis. All bone density values are in grams per centimeter squared (g/cm2). Statistically, 68% of repeat scans fall within 1 SD (+/- 0.010 g/cm2 for AP spine L1-L4) and 1 SD (+/- 0.012 g/cm2 for femur total) FRAX is a trademark of the [employer]'s [employer] [facility] Metabolic Bone Disease, a World Health Organization (WHO) Collaborating Center. Electronically signed by: Tiago Winchester MD 08/09/2024 12:20 PM EDT
== END 2024-08-09 11:01 | disposition home or self-care (01) ==
LOC: HO.MAMMO 11:00
PROVIDERS: PCP Registered Nurse; Visit Provider Registered Nurse
DX: Z13.820 Encounter for screening for osteoporosis (principal); M81.0 Age-related osteoporosis without current pathological fracture; S72.122D Displaced fracture of lesser trochanter of left femur, subsequent encounter for closed fracture with routine healing; Z87.311 Personal history of (healed) other pathological fracture
CPT/HCPCS: 77080

== ENCOUNTER → 2024-08-09 11:06 | Outpatient (BNV) | payer MEDICAID, SELFPAY | PROVIDERS: PCP Registered Nurse; Visit Provider Radiology Diagnostic Radiology | DX: Z87.310 Personal history of (healed) osteoporosis fracture (principal) | CPT/HCPCS: 77080 ==

== ENCOUNTER 2024-08-15 14:45 | Outpatient (REF) | payer MEDICAID, SELFPAY ==
--- OUTSIDE RECORDS SUMMARY | 2024-08-15 15:32 | XMS_ITS | Data Portability ---
Author Organization [place] - [facility], [facility] Address [address] [place] [address] Care Team Providers Care Senior Benefits Specialist Name Role Phone JUDDWHITNEY Primary Care Provider [phone] Assessment Encounter Date Assessment Date Assessment LastModified by Organization Details LastModified Time 02/26/2020 02/26/2020 Overview/History : Pt is a 20yo M with reported PMH sig for Autism, being non-verbal and self injury behavior. [facility] was unable to provid records of PMH to this provider and [facility] staff was not sure of pt's [...] By Organization Details Last Modified Time 02/26/2020 [id number] Thank you for yo ur visit with [facility] today. You were seen today [...] condition between 8am-10pm, please call [facility] at [phone] to help navigate your care. gloria Not available 02/26/2020 15:02:31 Reason for Referral None Reported. Medical Equipment None Reported. Allergies Allergen ID Allergen Name Allergen Category Reaction Reaction Severity Criticality Documentation Date Start Date Code Code System Note Provider Name and Address Organization Details Recorded Time 094335 lactose food,medi cation Not available Not available Not available 02/26/2020 6211 RxNorm NIK MARES NP [address] [place], [address] , [place] [facility] 0 15:05:24 Medications Name Sig Start Date [...] Smoker NIK MARES NP [address], [place], [address], [place] [facility] 02/26/2020 15:06:24 Do You Have An Advance Directive? No Information not available 02/26/2020 What Is Your Code Status? Full Code Information not available 02/26/2020 Excessive Alcohol Or Drug Use No Information not available 02/26/2020 Sex: Unknown Functional Status None recorded. Mental Status None recorded. Family History Nothing Reported Notes:pt resides at [facility] , [facility] Medical History No medical history recorded. Past Encounters Encounter ID Performer Location Encounter Start Date Encounter Closed Date Diagnosis/Indication Diagnosis SNOMED-CT Code Diagnosis ICD10 Code Diagnosis Note [id number] NIK MARES NP [facility] [address] [place] [address] 02/26/2020 14:51:50 02/26/2020 17:47:50 Abrasion of skin of hand 956126881 S60.511A Abrasion 760944383 T14.8 XXA Health Concerns Section Related Observation LastModified by Organization Detai ls LastModified Time None Recorded Concern Status LastModified by Organization Details LastModified Time None Recorded Advance Directives Directive N: Payers Insurance Date Sequence Insurance Name Policy Number Policy Ybarra Covered Member ID Ybarra Member ID Guarantor Name 02/25/2020 1 *SELF PAY* [facility] [id number] [facility] 02/26/2020 1 MEDICAID-[place]: [facility] [id number] [facility] Notes Date Note Type Note Provider Name and Address Organization Details Recorded Time 02/26/2020 text/html Pt is non-verbal and unable to provide history, [facility] did not know pt's PMH and [...] and was concerned that they were cordero. [facility] home states they are r/t to self injuy behavior and would like the areas evaluated. NIK MARES NP [address], [place], [address], [place] [facility] 02/26/2020 15:29:27
[2024-08-15 17:04] LABS: Parathyroid Hormone Intact 28.4 pg/mL (8.7-77.1)
[2024-08-16 22:19] LABS: Immunoglobulin A 427 mg/dL (47-310); Transglutaminase IgA <1.0 U/mL
[2024-08-19 19:18] LABS: Prot Elec - Albumin 4.2 g/dL (3.8-4.8); Prot Elec - Alpha1 0.3 g/dL (0.2-0.3); Prot Elec - Alpha2 0.6 g/dL (0.5-0.9); Prot Elec - Beta 1 0.4 g/dL (0.4-0.6); Prot Elec - Beta 2 0.6 g/dL (0.2-0.5); Prot Elec - Gamma 1.3 g/dL (0.8-1.7); Prot Elec - Total Protein 7.4 g/dL (6.1-8.1)
[2024-08-20 12:24] LABS: Testosterone, Total 259 ng/dL (250-1100)
== END 2024-08-15 14:46 | disposition home or self-care (01) ==
LOC: HO.HHCL 14:45
PROVIDERS: Visit Provider Registered Nurse
DX: M80.00XA Age-related osteoporosis with current pathological fracture, unspecified site, initial encounter for fracture (principal)
CPT/HCPCS: 36415; 82784; 83970; 84165; 84403; 86364

== ENCOUNTER 2024-08-29 13:08 | Outpatient (REF) | payer MEDICAID, SELFPAY ==
--- OUTSIDE RECORDS SUMMARY | 2024-08-29 13:11 | XMS_ITS | Encounter Summary ---
Author Organization [employer] Address [address] [place] [address] [address] [place] [address] Care Team Providers Care Reference Library Assistant Name Role Phone [facility] Primary Care Provider [phone] Reason for Visit * Reason Onset Date Comments Created In Error 02/01/2024 Encounter Details Date Type Department Care Team ([facility] st Contact Info) Description 02/01/2024 Telephone [facility] MEDICINE [address] [place] [address] [facility] [address] [place] [address] Created In Error Social History Tobacco Use Types Packs/Day Years Used Date Smoking Tobacco: Unknown Alcohol Use Standard Drinks/Week Comments Never 0 (1 standard drink = 0.6 oz pur e alcohol) Alcohol Answer Date Recorded Frequency of Alcohol Consumption Not on file 01/02/2023 Average Number of Drinks Not on file 023 Frequency of Binge Drinking Not on file 05/2022 Score 0 01/02/2023 Depression Answer Date Recorded Patient Health Questionnaire-9 Score 0 01/08/2024 Patient Health Questionnaire-9 Score 0 01/08/2024 Last PHQ-9: Questionnaire Data Not on file 1 Housing Stability Answer Date Recorded What is your housing situation today? I have naun chaudhry 01/01/[address] you li ve. Do you have problems with any of the following? None of the above 01/01/2024 Food Insecurity Answer Date Recorded Within the past 12 months, y ou worried that your food would run out before you got money to buy more: Never True 01/01/2024 Within the past 12 months,th e food you bought just didn't last and you didn't have enough money to get more: Never True Transportation Answer Date Recorded In the past 12 months, has l ack of transportation kept you from medical appts, meetings, work or from getting things needed for daily living? No 01/01/2024 Utilities Answer Date Recorded In the past 12 months, has t he electric, gas, oil or water company threatened to shut off services in your home? No 01/01/2024 Depression Answer Date Recorded Patient Health Questionnaire-2 Score 0 01/08/2024 Internet Access Answer Date Recorded Internet Access Q1 Yes 01/01/2024 Internet Access Q2 Not on file 01/01/2024 Sex and Gender Information Value Date Recorded Sex Assigned at Male 01/31/2022 10:22 AM EDT Legal Sex Male 10:22 AM EDT Gender Identity Male 01/31/2022 10:22 AM EDT Sexual Orientation Straight 01/31/2022 10 :22 AM EDT documented as of this encounter Plan of Treatment Upcoming Encounters Date Type Department Care Team (Late st Contact Info) Description 09/26/2024 10:00 AM EDT Office Visit [facility] OPTOMETRY [address] [place] [address] Queta Iglesias OD [address] [place] [address] documented as of this encounter Visit Diagnoses Not on filedocumented in this encounter Additional Health Concerns Assessment Noted Time PHQ-9 Depression Total Score: 0 01/08/20 10:20 AM EDT documented as of this encounter Care Teams Reference Library Assistant Relationship Specialty Start Date End Date Ayana Pelaez FNP [address] [place] [address] PCP - General Family Medicine 11/28/21 [facility] 04/04/24 07/04/24 [facility] 06/12/24 documented as of this encounter
[2024-09-02 09:29] LABS: IgA 458 mg/dL (47-310); IgG 1530 mg/dL (600-1640); IgM 104 mg/dL (50-300)
== END 2024-08-29 13:09 | disposition home or self-care (01) ==
LOC: HO.HHCL 13:08
PROVIDERS: Visit Provider Registered Nurse
DX: R77.8 Other specified abnormalities of plasma proteins (principal)
CPT/HCPCS: 36415; 82784; 86334

== ENCOUNTER 2024-09-02 10:04 | Outpatient (AMB) | payer MEDICAID, SELFPAY ==
--- NOTE | 2024-09-02 10:09 | A.OFFVIS_ITS ---
Vital Signs 09/02/24 10:14 Height 5 ft 4.49 in Weight 126 lb 1.671 oz BMI 21.3 BP 100/68 Blood Pressure Location Rt brachial Position Sitting Pulse 103 H Pulse Source Pulse Oximeter Pulse Oximetry (%) 98 Oxygen Delivery Method Room Air Intake Visit Reasons: Osteoporosis Intake Note: New patient externally referred by PCP for Osteoporosis. Patient lives in a senior care, beauty shop manager and staff worker are present today. Clinical Account Executive Required: No Accompanied by: Pattern Clerk and Staff worker Allergies lactose [LACTOSE] Allergy (Intermediate, Verified 09/02/24 10:15) GI SYMPTOMS Medication List - Last Reconciled 09/02/24 by Tiago Ortiz MD acetaminophen 1,000 mg PO Q6H PRN bacitracin 1 appl topical Q12H PRN clonazepam 1 mg PO DAILY clonazepam 1 mg PO BID PRN divalproex ER 250 mg PO DAILY docusate sodium 100 mg PO DAILY enoxaparin 40 mg (0.4 mL) subcut Q24H 30 days enoxaparin 40 mg (0.4 mL) subcut Q24H 12 days fluoxetine 60 mg PO BEDTIME loratadine 10 mg PO Q6H PRN zjrgejxq-eqr-tezy fum-folic ac 19 mg iron- 400 mcg (Thera-M) 1 tab PO DAILY paliperidone ER 9 mg PO DAILY phenobarbital 30 mg PO BEDTIME polyethylene glycol 3350 (Miralax) 17 grams PO DAILY PRN risperidone 2 mg PO DAILY risperidone 3 mg PO BEDTIME trazodone 150 mg PO BEDTIME HPI Comments Details: 24 YO male with PMHx autism is seen in consultation at the request of PCP for Osteoporosis. Pt cannot give hx The patient is a 24-year-old male presenting with osteoporosis. A recent bone density test on August 07 showed a hip T-score of negative 3.0, indicating significant low bone mass. There is no known family history of osteoporosis. He has no prior awareness of this condition, which came to light following a hip fracture on June 04. This incident occurred as the patient attempted to rise quickly from a chair, resulting in a loss of balance and a lateral fall. This was the first fracture he experienced. The patient's current physical regimen does not include weight-bearing activities. Previous seizure treatment with Phenobarbital has been discontinued, and there is no use of gastric acid suppressors or steroids. He has a known intolerance to lactose, consuming lactose-free milk. No current calcium supplementation is in place, although the aim is for a calcium intake of approximately 1200 mg per day. First diagnosed in 06/2024 . Not Received treatment in the past history of pathologic fracture 06/04/2024 or ONJ. Has few servings of dietary calcium per day in the form of lacose []. Not Takes Calcium supplement . Takes 2000 IU of Vitamin D daily. The patient resides in a senior care where he follows a standard diet. However, he has lactose intolerance, so he avoids dairy products such as milk and cheese. He does, however, consume lactose-free milk. There is no clear record of calcium intake, but dietary recommendations advocate for an intake of 1200 mg of calcium daily, primarily through diet. The patient also consumes foods like broccoli. Limited additional data regarding exact quantities and frequency of food intake are available. Denies ever using PPI, -anticoagulant,+ antiepileptic phenobarbital or - glucocorticoid medication. Not Does weight bearing exercise Fracture history: slipped and fell and broke hip Height loss: No Denies history of Kidney stones: Denies family history of Osteoporosis or hip fracture. UTD on dental cleanings and sees dentist every 6 months. No planned upcoming dental work or extractions. DXA dated 08/09/24 :XAMINATION: DXA BONE DENSITY AXIAL HISTORY: 24 y.o male with hx of fragility fracture TECHNIQUE: [employer] Dual energy absorptiometry (DEXA) of the lumbar spine, total right hip, and femoral neck was performed. COMPARISON: There are no prior studies for comparison. FINDINGS: The bone mineral density of the lumbar spine is 0.846 with a T-score of -3.1, and a Z-score of -2.8. This is indicative of osteoporosis. The bone mineral density of the right total hip is 0.679 with a T-score of -2.9, and a Z-score of -2.7. This is indicative of osteoporosis. The bone mineral density of the right femoral neck is 0.680 with a T-score of -3.0, and a Z-score of -3.0. This is indicative of osteoporosis. MM/XR DEXA axial skeleton IMPRESSION: Based on bone mineral density, and according to World Health Organization (WHO) criteria, the diagnosis is consistent with osteoporosis. Labs: ON LICENSE OF [facility] Medical History (Updated 09/02/24 @ 10:17 by Tiago Ortiz MD) Osteoporosis Cerebral palsy Autism Surgical History Hx of hand surgery History of hip replacement Social History Household Members: Other Household Members Other:: senior care Housing: House Housing Other:: pt lives in senior care Are you a primary student career development specialist to a significant other at home: No Unable to assess alcohol history related to: Unknown Alcohol intake: never Comment: sitter from group in room Patient Tobacco Use Status: Never used Tobacco Advance Directives Date on File: 06/05/24 Physical Exam Vital Signs: BMI result Body Mass Index 21.3 There are no Cushingoid features. Absence of blue sclera. Absence of kyphosis. Thyroid gland is of nl size and weighs 15 gms. There are no thyroid nodules palpated. Lungs CTA. Heart S1 S2 Reg R/R Abdominal exam benign. Muscle strength 5/5 . Examination of spine reveals absence of tenderness on palpation Assessment & Plan Assessment & Plan (1) Osteoporosis: Code(s): M81.0 - Age-related osteoporosis without current pathological fracture Category: Medical Plan: This is a 24-year-old male with a history of osteoporosis which is severe with hip fracture fragility. He has had partial secondary workup. 1. Osteoporosis The patient presents with osteoporosis, highlighting is need for further evaluation, especially considering his young age. A referral to a tertiary care center in [place] namely [facility] for genetic evaluation is planned. In the interim, the patient is prescribed calcium supplementation 1000 mg ofcalcium citrate and 1000 IU additional Vitamin D3 and advised to increase dietary calcium and vitamin D to aid in bone health. Addressing physical activity shortcomings and, when feasible, introducing weight-bearing exercises is beneficial. 2. Hip fracture Post hip fracture management includes consideration of ways to enhance the patient?s balance and coordination to prevent further incidents. It requires orthopedic follow-up to ensure proper healing and prevention strategies for future fractures, given the present condition. I discussed with the patient the implications of his low bone density at a young age and the potential needs for specialized genetic evaluation at a tertiary care center. The complexity of managing osteoporosis at 24 was emphasized, focusing on the need to understand underlying causes, potentially rare genetic conditions like osteogenesis imperfecta. We reviewed treatment options, including the prescription of calcium citrate and vitamin D supplementation, while considering alternatives for further diagnostic work-up. A referral to a bone specialist in [place] was suggested to facilitate advanced diagnostics and formulate a precise management strategy. I also addressed the need for careful monitoring to prevent future fractures and structural bone improvements. - Increase your dietary calcium intake to reach around 1200 mg daily. - Take the prescribed calcium citrate supplements as directed. - Continue using lactose-free milk if you are lactose intolerant. - Consider incorporating safe, weight-bearing exercises to enhance bone strength. - Follow up with the referred care center in [place] for further evaluation and care. - Attend all scheduled appointments for hip fracture recovery follow-up. - Monitor for any new or worsening symptoms and seek care promptly if concerns arise. - The patient had an opportunity to ask questions regarding treatment plan. The patient expressed understanding and agreement with the above treatment plan. Patient was informed and verbally consented to the use of an ambient scribe for clinic note documentation during this visit. Orders: Orders Phosphorus Today M81.0 - Age-related osteoporosis without current pathological fracture Referrals Endocrinology Referral M81.0 - Age-related osteoporosis without current pathological fracture Coding Level of Care Code New Pt Level 4 (51897) Diagnoses Osteoporosis M81.0
[2024-09-02 10:14] VITALS: BP 100/68; PULSE 103; O2SAT 98; BMI 21.3
== END 2024-09-02 10:53 | disposition home or self-care (01) ==
LOC: HO.ENCR 10:06
PROVIDERS: PCP Registered Nurse; Visit Provider Internal Medicine Endocrinology, Diabetes & Metabolism
DX: M81.0 Age-related osteoporosis without current pathological fracture (principal)
CPT/HCPCS: 99204

== ENCOUNTER 2024-09-02 10:53 | Outpatient (REF) | payer MEDICAID, SELFPAY ==
[2024-09-02 12:45] LABS: Phosphorus 4.1 mg/dL (2.7-4.5)
== END 2024-09-02 10:54 | disposition home or self-care (01) ==
LOC: HO.10HDL 10:53
PROVIDERS: Visit Provider Internal Medicine Endocrinology, Diabetes & Metabolism
DX: M81.0 Age-related osteoporosis without current pathological fracture (principal)
CPT/HCPCS: 36415; 84100; 99202

== ENCOUNTER 2024-09-23 10:58 | Outpatient (AMB) | payer MEDICAID, SELFPAY ==
--- NOTE | 2024-09-23 11:10 | A.OFFVIS_ITS ---
Vital Signs 09/23/24 11:11 Height 5 ft 4.49 in Weight 126 lb BMI 21.3 Intake Visit Reasons: Nirmala Removal Intake Note: Robin is a 24 year old male who presents today for a post op appointment s/p left hip IM nail, DOS 06/05/24. Patient's nurse states that he hasnt complained about pain or discomfort. He is here for sutures removal. Allergies lactose (LACTOSE) Allergy (Intermediate, Verified 09/23/24 11:11) GI SYMPTOMS HPI HPI Nirmala Removal: Details: Robin is a 24 year old male who presents today for a post op appointment s/p left hip IM nail, DOS 06/05/24. Patient's nurse states that he hasnt complained about pain or discomfort. He is here for staple removal. The employee of the detention where the patient lives reports that the nirmala have been in from date of surgery. Also reports that there is a small, superficial wound near 1 of the nirmala. Employing expresses concern that there might be infection around 1 of the nirmala. [facility] Medical History (Updated 09/02/24 @ 10:17 by Tiago Ortiz MD) Osteoporosis Cerebral palsy Autism Surgical History Hx of hand surgery History of hip replacement Social History Household Members: Other Household Members Other:: detention Housing: House Housing Other:: pt lives in detention Are you a primary primary care nurse to a significant other at home: No Unable to assess alcohol history related to: Unknown Alcohol intake: never Comment: sitter from group in room Patient Tobacco Use Status: Never used Tobacco Advance Directives Date on File: 06/05/24 Review of Systems Const All systems reviewed & are unremarkable except as noted in HPI and below Physical Exam Vital Signs: BMI result Body Mass Index 21.3 Const General: cooperative, healthy appearing and no acute distress Resp Effort & Inspection: normal respiratory effort and able to speak in complete sentences Cardio Rate: regular rate Peripheral pulses: Peripheral pulses 2+ throughout Skin Lesions: no lesions Rashes: no rashes Extrem Other: Left hip incision sites are clean dry and intact. Nirmala still in place on most proximal incision site. There is noted to be an approximately 0.25 cm in diameter superficial wound noted around 1 of the nirmala. No evidence of discharge, no erythema, does not demonstrate any pain reaction upon palpation. Calf is supple and nontender. NVI. Patient is able to stand without any difficulty, demonstrating good range of motion. Assessment & Plan Assessment & Plan (1) Closed left hip fracture: Code(s): S72.002A - Fracture of unspecified part of neck of left femur, initial encounter for closed fracture Category: Medical (2) Hip fracture: Code(s): S72.009A - Fracture of unspecified part of neck of unspecified femur, initial encounter for closed fracture Category: Medical Qualifiers: Encounter type: initial encounter Fracture type: closed Laterality: left Qualified Code(s): S72.002A - Fracture of unspecified part of neck of left femur, initial encounter for closed fracture Plan Mr. Raheel Olivera is a 24-year-old male who presents to the office today accompanied by 2 members of the detention in which she resides at. He is following up for left hip IM nail that was performed on 06/05/[address] Price. The detention staff members report that patient is doing very well. He is walking without the use of any assistive devices. It appears that the patient has returned back to his normal baseline. Nirmala are removed in the office today. Due to the small and superficial appear nature of the wound, I do not feel any further intervention is indicated at this time. [facility] fully is educated that if the wound begins to grow larger, demonstrates any discharge, or any new surrounding erythema, they should call us for evaluation sooner, otherwise can follow-up with Ann Marie for previously scheduled appointment in 2 weeks. Coding Level of Care Code Est Pt Level 3 (82039) Diagnoses Closed left hip fracture S72.002A Hip fracture S72.002A Encounter type: initial encounter Fracture type: closed Laterality: left
[2024-09-23 11:11] VITALS: BMI 21.3
--- OUTSIDE RECORDS SUMMARY | 2024-09-23 12:31 | XMS_ITS | Encounter Summary ---
Author Organization [employer] Address [address] [place] [address] [address] [place] [address] Care Team Providers Care In Shop Service Technician Name Role Phone [facility] Primary Care Provider [phone] Reason for Visit * Reason Onset Date Comments Created In Error 02/01/2024 Encounter Details Date Type Department Care Team ([facility] st Contact Info) Description 02/01/2024 Telephone [facility] MEDICINE [address] [place] [address] [facility] [address] [place] [address] Created In Error Social History Tobacco Use [...] Description 09/26/2024 10:00 AM EDT Office Visit [facility] OPTOMETRY [address] [place] [address] Queta Iglesias, JAYME [address] [place] [address] 09/27/2024 11:00 AM EDT Office Visit [facility] MEDICINE [address] [place] [address] Ayana Pelaez FNP [address] [place] [address] documented as of this encounter Visit Diagnoses Not on filedocumented in this encounter Additional Health Concerns Assessment Noted Time PHQ-9 Depression Total Score: 0 01/08/20 24 10:20 AM EDT documented as of this encounter Care Teams In Shop Service Technician Relationship Specialty Start Date End Date Ayana Pelaez FNP [address] [place] [address] PCP - General Family Medicine 11/28/21 Karely COLON 04/04/24 07/04/24 [facility] 06/12/24 documented as of this encounter
== END 2024-09-23 11:25 | disposition home or self-care (01) ==
LOC: HO.HOS 10:59
PROVIDERS: PCP Registered Nurse
DX: S72.002A Fracture of unspecified part of neck of left femur, initial encounter for closed fracture (principal)
CPT/HCPCS: 99213

== ENCOUNTER → 2024-09-23 10:58 | Outpatient (BNVA) | payer MEDICAID, SELFPAY | PROVIDERS: PCP Registered Nurse | DX: S72.002D Fracture of unspecified part of neck of left femur, subsequent encounter for closed fracture with routine healing (principal); W18.30XD Fall on same level, unspecified, subsequent encounter | CPT/HCPCS: 99212 ==

== ENCOUNTER 2024-10-07 10:45 | Outpatient (AMB) | payer MEDICAID, SELFPAY ==
--- NOTE | 2024-10-07 11:34 | MHC.OFFVIS ---
Intake Visit Reasons: 2 month Allergies lactose (LACTOSE) Allergy (Intermediate, Verified 09/23/24 11:11) GI SYMPTOMS Medication List - Last Reconciled 10/07/24 by Robert Alvarenga MD acetaminophen 1,000 mg PO Q6H PRN bacitracin 1 appl topical Q12H PRN clonazepam 1 mg PO DAILY clonazepam 1 mg PO BID PRN divalproex ER 250 mg PO DAILY 90 days docusate sodium 100 mg PO DAILY enoxaparin 40 mg (0.4 mL) subcut Q24H 30 days enoxaparin 40 mg (0.4 mL) subcut Q24H 12 days fluoxetine 60 mg PO BEDTIME loratadine 10 mg PO Q6H PRN vvkyjkvb-eoh-bdon fum-folic ac 19 mg iron- 400 mcg (Thera-M) 1 tab PO DAILY paliperidone ER 9 mg PO DAILY phenobarbital 30 mg PO BEDTIME polyethylene glycol 3350 (Miralax) 17 grams PO DAILY PRN risperidone 2 mg PO DAILY risperidone 3 mg PO BEDTIME trazodone 150 mg PO BEDTIME HPI Comments Details: 24 yo male with diagnosis of cerebral palsy, autism spectrum disorder, and intellectual disability disorder, non-verbal, residing in a half-way and has a court appointed legal guardian, was brought here by staff for self-injuries behavior. Depakote 250 mg 1 at night has been helping in his behavioral was much better with no obvious side effects. [facility] Medical History (Updated 10/07/24 @ 11:35 by Robert Alvarenga MD) Intellectual disability Chronic static encephalopathy Osteoporosis Cerebral palsy Autism Surgical History Hx of hand surgery History of hip replacement Social History Household Members: Other Household Members Other:: half-way Housing: House Housing Other:: pt lives in half-way Are you a primary career services officer to a significant other at home: No Unable to assess alcohol history related to: Unknown Alcohol intake: never Comment: sitter from group in room Patient Tobacco Use Status: Never used Tobacco Advance Directives Date on File: 06/05/24 Physical Exam Neuro Other: He is alert and awake mostly quiet wearing gloves in both hands to prevent him form self inflicting injury. He was walking on his own. He did not make an eye contact and did not speak or follow any commands. Assessment & Plan Assessment & Plan (1) Chronic static encephalopathy: Code(s): G93.49 - Other encephalopathy Category: Medical Plan Addition of 250 mg Depakote at night has made significant difference an improvement in his behavior and self inflicting injury type of behavior has stopped. Medications: Changed From divalproex ER 250 mg PO DAILY To divalproex ER 250 mg PO DAILY 90 tabs 1RF 90 days Coding Level of Care Code Est Pt Level 4 (47655) Diagnoses Chronic static encephalopathy G93.49
--- OUTSIDE RECORDS SUMMARY | 2024-10-07 11:41 | XMS_ITS | Encounter Summary ---
Author Organization [employer] Address [address] [place] [address] 7 [place] [address] Care Team Providers Care Neonatal Icu Coordinator Name Role Phone [facility] Primary Care Provider [phone] Reason for Visit * Reason Onset Date Comments Created In Error 02/01/2024 Encounter Details Date Type Department Care Team ([facility] st Contact Info) Description 02/01/2024 Telephone [facility] MED[facility] [address] [place] [address] [facility] [address] [place] [address] Created In Error Social History Tobacco Use [...] Care Team (Late st Contact Info) Description 10/30/2024 10:30 AM EDT Office Visit [facility] PEDIATRIC DENTAL [address] [place] [address] documented as of this encounter Visit Diagnoses Not on filedocumented in this encounter Additional Health Concerns Assessment Noted Time PHQ-9 Depression Total Score: 0 01/08/20 24 10:20 AM EDT documented as of this encounter Care Teams Neonatal Icu Coordinator Relationship Specialty Start Date End Date Ayana Pelaez FNP [address] [place] [address] PCP - General Family Medicine 11/28/21 Tony [facility] 04/04/24 07/04/24 [facility] 06/12/24 documented as of this encounter
--- OUTSIDE RECORDS SUMMARY | 2024-10-07 11:41 | XMS_ITS | Data Portability ---
Author Organization [place] - [facility], [facility] Address [address] [place] [address] Care Team Providers Care Dental Equipment Installer And Servicer Name Role Phone WHITNEY WHALEY Primary Care Provider Assessment Encounter Date Assessment Date Assessment LastModified by Organization Details LastModified Time 02/26/2020 02/26/2020 Overview/History : Pt is a 20yo M with reported PMH sig for Autism, being non-verbal and self injury behavior. [facility] was unable to provid records of PMH to this provider and [facility] staff was not sure of pt's [...] By Organization Details Last Modified Time 02/26/2020 [id number] Thank you for yo ur visit with [facility] today. You were seen today for [...] in your condition between 8am-10pm, please call [facility] at [phone] to help navigate your care. golria Not available 02/26/2020 15:02:31 Reason for Referral None Reported. Medical Equipment None Reported. Allergies Allergen ID Allergen Name Allergen Category Reaction Reaction Severity Criticality Documentation Date Start Date Code Code System Note Provider Name and Address Organization Details Recorded Time 905722 lactose food,medi cation Not available Not available Not available 02/26/2020 6211 RxNorm NIK MARES NP [address] [place], [address], [place] [facility] 0 15:05:24 Medications Name Sig Start Date [...] Respiratory rate Heart rate Body temperature Systolic And Diastolic Provider Name and Address Organization Details Last Updated DateTime 02/26/2020 20 /min 88 /min 100.2 [degF] 104/60 mm[Hg] Not Available [facility] 0 14:58:45 Social History Question Answer Notes LastModified by Organizat ion Details LastModified Time Tobacco Smoking Status Never Smoker NIK MARES NP [address] [place], [address], [place] [facility] 02/26/2020 15:06:24 Do You Have An Advance Directive? No Information not available 02/26/2020 What Is Your Code Status? Full Code Information not available 02/26/2020 Excessive Alcohol Or Drug Use No Information not available 02/26/2020 Sex: Unknown Functional Status None recorded. Mental Status None recorded. Family History Nothing Reported Notes:pt resides at [facility] , [facility] Medical History No medical history recorded. Past Encounters Encounter ID Performer Location Encounter Start Date Encounter Closed Date Diagnosis/Indication Diagnosis SNOMED-CT Code Diagnosis ICD10 Code Diagnosis Note [id number] NIK MARES NP [facility] [address] [place] [address] 02/26/2020 14:51:50 02/26/2020 17:47:50 Abrasion of skin of hand 533737609 S60.511A Abrasion 826714124 T14.8 XXA Health Concerns Section Related Observation LastModified by Organization Detai ls LastModified Time None Recorded Concern Status LastModified by Organization Details LastModified Time None Recorded Advance Directives Directive N: Payers Insurance Date Sequence Insurance Name Policy Number Policy Ybarra Covered Member ID Ybarra Member ID Guarantor Name 02/25/2020 1 [facility]SELF PA[facility]* [facility] [id number] [facility] 02/26/2020 1 [place] [id number] [facility] Notes Date Note Type Note Provider Name and Address Organization Details Recorded Time 02/26/2020 text/html Pt is non-verbal and unable to provide history, [facility] home did not know pt's [...] and was concerned that they were cordero. [facility] home states they are r/t to self injuy behavior and would like the areas evaluated. NIK MARES NP [address], [place], [address], [place] [facility] 02/26/2020 15:29:27
== END 2024-10-07 11:42 | disposition home or self-care (01) ==
LOC: HO.HSM 10:45
PROVIDERS: PCP Registered Nurse; Visit Provider Psychiatry & Neurology Neurology
DX: G93.49 Other encephalopathy (principal)
CPT/HCPCS: 99213

== ENCOUNTER → 2024-10-07 10:45 | Outpatient (BNVA) | payer MEDICAID, SELFPAY | PROVIDERS: PCP Registered Nurse; Visit Provider Psychiatry & Neurology Neurology | DX: G93.49 Other encephalopathy (principal) | CPT/HCPCS: 99212 ==

== ENCOUNTER 2024-10-08 09:56 | Outpatient (REF) | payer MEDICAID, SELFPAY ==
--- NOTE | ~2024-10-08 | XR_ITS ---
CLINICAL HISTORY: S72.002A - Fracture of unspecified part of neck of left femur, initial e... 2 views left femur Comparison: 08/02/2024 Findings: No fractures or dislocations. No significant arthritic change. Left femoral healed subtrochanteric fracture with lesser trochanter avulsion is in satisfactory position alignment with 2 distal interlocking screws and 2 cannulated partially threaded intertrochanteric femoral neck screws. No radiopaque foreign body. Impression: Healed proximal left femur fracture with no breakage or displacement of hardware. No acute skeletal abnormality. This document has been electronically signed by: Benitez Cooper MD on 10/09/2024 14:12:53
--- OUTSIDE RECORDS SUMMARY | 2024-10-09 10:34 | XMS_ITS | Encounter Summary ---
Author Organization [employer] Address [address] [place] [address] [address] [place] [address] Care Team Providers Care Farm Facility Manager Name Role Phone [facility] Primary Care Provider [phone] Reason for Visit * Reason Onset Date Comments Created In Error 02/01/2024 Encounter Details Date Type Department Care Team ([facility] st Contact Info) Description 02/01/2024 Telephone [facility] [address] [place] [address] [facility] [address] [place] [address] Created In Error Social History Tobacco Use [...] Description 10/30/2024 10:30 AM EDT Office Visit [facility] PEDI[facility]ENTAL [address] [place] [address] documented as of this encounter Visit Diagnoses Not on filedocumented in this encounter Additional Health Concerns Assessment Noted Time PHQ-9 Depression Total Score: 0 01/08/20 24 10:20 AM EDT documented as of this encounter Care Teams Farm Facility Manager Relationship Specialty Start Date End Date Ayana Pelaez FNP [address] [place] [address] PCP - General Family Medicine 11/28/21 [place] [facility] 04/04/24 07/04/24 [facility] 06/12/24 documented as of this encounter
== END 2024-10-08 09:57 | disposition home or self-care (01) ==
LOC: HO.HOSX 09:56
PROVIDERS: Visit Provider Physician Assistant
DX: S72.002A Fracture of unspecified part of neck of left femur, initial encounter for closed fracture (principal)
CPT/HCPCS: 73552; 99212

== ENCOUNTER 2024-10-08 10:56 | Outpatient (AMB) | payer MEDICAID, SELFPAY ==
--- NOTE | 2024-10-08 11:09 | MHC.OFFVIS ---
Intake Visit Reasons: OV-left hip IM nail, DOS 06/05/24 Intake Note: Robin is a 24 year old male who presents today for a post op appointment s/p left hip IM nail, DOS 06/05/24. Patient is doing well. he has finished physical therapy and it gave him relief. Allergies lactose (LACTOSE) Allergy (Intermediate, Verified 10/08/24 11:13) GI SYMPTOMS HPI HPI OV-left hip IM nail, DOS 06/05/24: Details: Mr. Raheel Olivera is a 21-year-old male who presents to the office today status post left hip IM nail performed on 06/05/[address] Price. He presents to the office today accompanied by 2 halfway faculty members. The halfway members report that the patient has returned back to his normal activities. He does not alert of any pain. He has been weight-bearing as tolerated. He does not presents today in his wheelchair and is no longer using it. [facility], [facility] Medical History (Updated 10/07/24 @ 11:35 by Robert Alvarenga MD) Intellectual disability Chronic static encephalopathy Osteoporosis Cerebral palsy Autism Surgical History Hx of hand surgery History of hip replacement Social History Household Members: Other Household Members Other:: halfway Housing: House Housing Other:: pt lives in halfway Are you a primary personal care home administrator to a significant other at home: No Unable to assess alcohol history related to: Unknown Alcohol intake: never Comment: sitter from group in room Patient Tobacco Use Status: Never used Tobacco Advance Directives Date on File: 06/05/24 Review of Systems Const All systems reviewed & are unremarkable except as noted in HPI and below Physical Exam Const General: cooperative, healthy appearing and no acute distress Resp Effort & Inspection: normal respiratory effort and able to speak in complete sentences Extrem Other: Left hip ambulating without any antalgic gait. He does not alert any pain with range of motion. Able to dorsiflex and plantar flex. NVI Assessment & Plan Assessment & Plan (1) Closed left hip fracture: Code(s): S72.002A - Fracture of unspecified part of neck of left femur, initial encounter for closed fracture Category: Medical Plan Mr. Raheel Olivera is a 21-year-old male who presents to the office today status post left hip IM nail performed on 06/05/[address] Price. He presents to the office today accompanied by 2 halfway faculty members. The halfway members report that the patient has returned back to his normal activities. He does not alert of any pain. He has been weight-bearing as tolerated. He does not presents today in his wheelchair and is no longer using it. As the patient has resumed back to normal activities without and he alert to pain and walks without an antalgic gait or any assistive devices the patient can resume back to normal activities. There is no additional orthopedic intervention needed at this time. If the patient begins to alert to pain or there is any concerns regarding the left hip they may contact our office and I am happy to see this patient. Otherwise he can follow up PRN. X-rays of the left femur which were obtained while in the office today and were reviewed by me, Ann Marie Dejesus PA-C, revealed intact orthopedic hardware with routine healing. Orders: Orders XR femur LT 2V Today S72.002A - Fracture of unspecified part of neck of left femur, initial encounter for closed fracture Coding Level of Care Code Est Pt Level 3 (66441) Diagnoses Closed left hip fracture S72.002A
--- OUTSIDE RECORDS SUMMARY | 2024-10-08 12:00 | XMS_ITS | Encounter Summary ---
Author Organization [employer] Address [address] [place] [address] 7 [place] [address] Care Team Providers Care Poultry Vaccinator Name Role Phone [facility] Primary Care Provider [phone] Reason for Visit * Reason Onset Date Comments Created In Error 02/01/2024 Encounter Details Date Type Department Care Team ([facility] st Contact Info) Description 02/01/2024 Telephone [facility] [address] [place] [address] [facility] [address] [place] [address] Created In Error Social History Tobacco Use [...] Description 10/30/2024 10:30 AM EDT Office Visit [facility] [address] [place] [address] documented as of this encounter Visit Diagnoses Not on filedocumented in this encounter Additional Health Concerns Assessment Noted Time PHQ-9 Depression Total Score: 0 01/08/20 24 10:20 AM EDT documented as of this encounter Care Teams Poultry Vaccinator Relationship Specialty Start Date End Date Ayana Pelaez FNP [address] [place] [address] PCP - General Family Medicine 11/28/21 [facility] 04/04/24 07/04/24 [facility] 06/12/24 documented as of this encounter
--- OUTSIDE RECORDS SUMMARY | 2024-10-08 12:00 | XMS_ITS | Data Portability ---
Author Organization [place] - [facility], [facility] Address [address] [place] [address] Care Team Providers Care County Home Demonstrator Name Role Phone WHITNEY WHALEY Primary Care Provider [phone] Assessment Encounter Date Assessment Date Assessment LastModified by Organization Details LastModified Time 02/26/2020 02/26/2020 Overview/History : Pt is a 20yo M with reported PMH sig for Autism, being non-verbal and self injury behavior. [facility] was unable to provid records of PMH to this provider and [facility] staff was not sure of pt's full [...] By Organization Details Last Modified Time 02/26/2020 [id number] Thank you for yo ur visit with [facility] today. You were seen today for treatment [...] in your condition between 8am-10pm, please call [facility] at [phone] to help navigate your care. gloria Not available 02/26/2020 15:02:31 Reason for Referral None Reported. Medical Equipment None Reported. Allergies Allergen ID Allergen Name Allergen Category Reaction Reaction Severity Criticality Documentation Date Start Date Code Code System Note Provider Name and Address Organization Details Recorded Time 970880 lactose food,medi cation Not available Not available Not available 02/26/2020 6211 RxNorm NIK MARES NP [address] [facility] [place], [address], [place] [facility] 0 15:05:24 Medications Name Sig Start Date [...] Status Never Smoker NIK MARES NP [address] [place], [address], [place] [facility] 02/26/2020 15:06:24 Do You Have An Advance Directive? No Information not available 02/26/2020 What Is Your Code Status? Full Code Information not available 02/26/2020 Excessive Alcohol Or Drug Use No Information not available 02/26/2020 Sex: Unknown Functional Status None recorded. Mental Status None recorded. Family History Nothing Reported Notes:pt resides at [facility] , [facility] Medical History No medical history recorded. Past Encounters Encounter ID Performer Location Encounter Start Date Encounter Closed Date Diagnosis/Indication Diagnosis SNOMED-CT Code Diagnosis ICD10 Code Diagnosis Note [id number] NIK MARES NP [facility] [address] [place] [address] 02/26/2020 14:51:50 02/26/2020 17:47:50 Abrasion of skin of hand 722262559 S60.511A Abrasion 845900178 T14.8 XXA Health Concerns Section Related Observation LastModified by Organization Detai ls LastModified Time None Recorded Concern Status LastModified by Organization Details LastModified Time None Recorded Advance Directives Directive N: Payers Insurance Date Sequence Insurance Name Policy Number Policy Ybarra Covered Member ID Ybarra Member ID Guarantor Name 02/25/2020 1 [facility] [id number] 02/26/2020 1 [place] [id number] [facility] Notes Date Note Type Note Provider Name and Address Organization Details Recorded Time 02/26/2020 text/html Pt is non-verbal and unable to provide history, [facility] home did not know pt's [...] and was concerned that they were cordero. [facility] home states they are r/t to self injuy behavior and would like the areas evaluated. NIK MARES NP [address], [place], [address], [place] [facility] 02/26/2020 15:29:27
== END 2024-10-08 11:20 | disposition home or self-care (01) ==
LOC: HO.HOS 10:57
PROVIDERS: PCP Registered Nurse; Visit Provider Physician Assistant
DX: S72.002A Fracture of unspecified part of neck of left femur, initial encounter for closed fracture (principal)
CPT/HCPCS: 99213

== ENCOUNTER → 2024-10-08 11:01 | Outpatient (BNV) | payer MEDICAID, SELFPAY | PROVIDERS: Visit Provider Radiology Diagnostic Radiology | DX: S72.002D Fracture of unspecified part of neck of left femur, subsequent encounter for closed fracture with routine healing (principal) | CPT/HCPCS: 73552 ==

== ENCOUNTER 2025-02-05 11:21 | Outpatient (REF) | payer MEDICAID, SELFPAY ==
--- OUTSIDE RECORDS SUMMARY | 2025-02-04 10:30 | XMS_ITS | Encounter Summary ---
Author Organization [email or web address] Address [address] [place] [address] [place] [address] Care Team Providers Care Squirrel Worker Name Role Phone Benigno [facility] Primary Care Provider [phone] Reason for Visit * Reason Comments Routine Cleaning Dental Exam Encounter Details Date Type Department Care Team (Late st Contact Info) Description 02/04/2025 10:30 AM EST Office Visit [facility] [address] [place] [address] Hansa Sullivan [address] [place] [address] Social History Tobacco Use Types Packs/Day Years [...] housing situation today? I have naun chaudhry 06/18/[address] you li ve. Do you have problems with any of the following? I am not sure 06/18/2024 Food Insecurity Answer Date Recorded Within the [...] AM EDT documented as of this encounter Last Filed Vital Signs Vital Sign Reading Time Taken Comments Blood Pressure - - Pulse - - Temperature - - Respiratory Rate - - Oxygen Saturation - - Inhaled Oxygen Concentration - - Weight 60.6 kg (133 lb 9.6 oz) 02/04/2025 9:00 A M EST Height 166.6 cm (5' 5.59 ) 02/04/2025 9:00 AM ES T Body Mass Index 21.83 02/04/2025 9:00 AM EST documented in this encounter Progress Notes * Hansa Sullivan - 02/04/2025 10:30 AM EST INTAKE Chief complaint: here for desensitization Time out performed verifying patient's name and Lidar Technician needed: No VITALS Height: 5' 5.59 (1.666 m) Weight: 133 lb 9.6 oz (60.6 kg) BMI: Facility age limit for growth %juani is 21 years from contact on 01/23/2025. MEDICAL HISTORY Medical History[1] Current Medications[2] Allergies[3] TREATMENT PROVIDED Desensitization TREATMENT PROVIDED Dental procedures in this visit D9920 - BEHAVIOR MANAGEMENT (Completed) Service provider: Hansa Sullivan Billing provider: Rhona Becerril DMD [id number] - CASE PRESENTATION, DETAILED AND EXTENSIVE TREATMENT PLANNING (Completed) Service provider: Hansa Sullivan Billing provider: Rhona Becerril DMD DENTAL PROVIDERS Dental Biosolids Management Technician: GHASSAN Student Resident: Hansa Sullivan DMD Attending: Rhona Becerril DMD BEHAVIOR Frankl rating: pre-cooperative Behavior description: Pt sat in dental chair and opened his mouth for brief periods of time and notvery wide. Dad standing with patient to hold him and his head while giving encouragement. Pt will allow brushing with a toothbrush and limited use of the mirror. Tried introducing suction but pt began to get upset and kicked provider in the shins and started to get out of the chair. Noticed cervical staining on the teeth in the posterior. Continue with desensitization appointments and discuss poss referral for GA to take care of caries and deep cleaning at next appointment. NEXT VISIT Procedure: desensitization in 1 month Behavior Plan: basic behavior guidance [1] Past Medical History: Diagnosis Date Autism [2] Current Outpatient Medications: acetaminophen (Tylenol Extra Strength) 500 MG tablet, Take 1 tablet (500 mg) by mouth every 6 (six)hours if needed for mild pain, fever or headaches for up to 10 days., Disp: 30 tablet, Rfl: 0 bacitracin 500 UNIT/GM ointment, Apply topically as needed, Disp: 14 g, Rfl: 1 calcium citrate 250 MG tablet, Take 2 tablets (500 mg) by mouth with breakfast and with evening meal., Disp: 360 tablet, Rfl: 3 cholecalciferol (Vitamin D-3) 50 MCG (2000 UT) tablet, TAKE 1 TABLET BY MOUTH ONCE A DAY, Disp: 30 tablet, Rfl: 2 Multiple Vitamins-Minerals (Thera-Tabs M) tablet, TAKE 1 TABLET BY MOUTH DAILY IN THE MORNING A NUTRITIONAL SUPPLEMENT, Disp: 30 tablet, Rfl: 8 risperiDONE (RisperDAL) 3 MG tablet, Take 1 tablet by mouth at bedtime., Disp: , Rfl: traZODone (Desyrel) 100 MG tablet, Take 50 mg by mouth at bedtime., Disp: , Rfl: Acetaminophen Extra Strength 500 MG tablet, 2 TABLETS BY MOUTH EVERY 6 HOURS NEEDED FOR FEVER GREATER THAN 100 F OR PAIN/ROBIN CAN'T SELF REQUEST/FOLLOW PRN ADMIN PLAN IF S/SX PERSIST>48HRS/CALL PCP (Patient not taking: Reported on 02/04/2025), Disp: 30 tablet, Rfl: 1 clonazePAM (KlonoPIN) 1 MG tablet, Take 1 table by mouth every morning and 1 tab twice a day as needed for anxiety, Allow 2 hours between doses., Disp: , Rfl: diazePAM (Valium) 2 MG tablet, TAKE 1 TABLET BY MOUTH 30 MINUTES PRIOR TO ANY APPOINTMENTS OR MEDICAL PROCEDURES, Disp: 5 tablet, Rfl: 0 docusate sodium (Colace) 100 MG capsule, TAKE 1 CAPSULE BY MOUTH DAILY IN THE MORNING, Disp: 30 capsule, Rfl: 11 docusate sodium (Colace) 100 MG capsule, Take 1 capsule (100 mg) by mouth Once per day., Disp: 90 capsule, Rfl: 3 Enoxaparin Sodium 40 MG/0.4ML solution prefilled syringe, Inject 0.4 mL under the skin Once per day., Disp: , Rfl: FLUoxetine (PROzac) 20 MG tablet, Take 3 tablets by mouth Once per day., Disp: , Rfl: hydrocortisone 2.5 % cream, Apply topically 2 times daily., Disp: 3.5 g, Rfl: 1 loratadine (Claritin) 10 MG tablet, Take 1 tablet (10 mg) by mouth if needed each day for allergies., Disp: 90 tablet, Rfl: 0 paliperidone (Invega) 9 MG 24 hr tablet, Take 1 tablet by mouth Once per day., Disp: , Rfl: PHENobarbital (Luminal) 30 MG tablet, Take 1 tablet by mouth at bedtime., Disp: , Rfl: polyethylene glycol, PEG, 3350 (MiraLax) 17 GM/SCOOP powder, Mix one scoop (17g) into 8oz of juice or water and drink daily as needed for constipation, Disp: 527 g, Rfl: 2 risperiDONE (RisperDAL) 2 MG tablet, Take 1 tablet by mouth in the morning., Disp: , Rfl: triamcinolone (Kenalog) 0.025 % cream, MIX ENTIRE TUBE WITH A 16 OUNCE JAR OF CERAVE / APPLY THE MIXTURE TOPICALLY ONCE DAILY FROM THE NECK DOWN, Disp: 80 g, Rfl: 1 [3] Allergies Allergen Reactions Lactose Diarrhea Lactose Intolerance (Gi) Diarrhea * Rhona Becerril DMD - 02/04/2025 10:30 AM EST I discussed the patient's medical history and findings with the resident. I agree with the treatment plan that was presented. I was here on-site and supervised the resident during today's procedure. Rhona Becerril DMD documented in this encounter Plan of Treatment Not on file documented as of this encounter Procedures Procedure Name Priority Date/Time Associated Diagnosis Comments CASE PRESENTATION, DETAILED AND EXTENSIVE TREATMENT PLANNING Routine 02/04/2025 10:30 AM EST BEHAVIOR MANAGEMENT Routine 02/04/2025 1 0:30 AM EST documented in this encounter Visit Diagnoses Not on filedocumented in this encounter Additional Health Concerns Assessment Noted Time PHQ-9 Depression Total Score: 0 01/08/20 24 10:20 AM EDT documented as of this encounter Care Teams Squirrel Worker Relationship Specialty Start Date End Date Ayana Pelaez FNP [address] [place] [address] PCP - General Family Medicine 11/28/21 [facility] 06/12/24 documented as of this encounter
--- OUTSIDE RECORDS SUMMARY | 2025-02-05 10:30 | XMS_ITS | Encounter Summary ---
Author Organization [employer] Address [address] [place] [address] 7 [place] [address] Care Team Providers Care Enterprise Cloud Architect Name Role Phone [facility] Primary Care Provider [phone] Reason for Visit * Reason Comments Annual Exam Yearly exam Encounter Details Date Type Department Care Team ([facility] st Contact Info) Description 02/05/2025 10:30 AM EST Office Visit [facility] [address] [place] [address] [facility] [address] [place] [address] Fever, unspecified fever cause; Encounter for immunization; Encounter for vaccination Social History Tobacco Use Types Packs/Day Years [...] Sign Reading Time Taken Comments Blood Pressure 120/68 02/05/2025 10:41 AM EST Pulse 102 02/05/2025 10:41 AM EST Temperature - - Respiratory Rate 20 02/05/2025 10:41 AM EST Oxygen Saturation 96% 02/05/2025 10:41 AM EST Inhaled Oxygen Concentration - - Weight 59.7 kg (131 lb 9.6 oz) 02/05/2025 10:41 AM EST Height 162.6 cm (5' 4 ) 02/05/2025 10:41 AM EST Body Mass Index 22.59 02/05/2025 10:41 AM EST documented in this encounter Plan of Treatment Not on file documented as of this encounter Visit Diagnoses Diagnosis Fever, unspecified fever cause Encounter for immunization Encounter for vaccination documented in this encounter Additional Health Concerns Assessment Noted Time PHQ-9 Depression Total Score: 0 01/08/20 24 10:20 AM EDT documented as of this encounter Care Teams Enterprise Cloud Architect Relationship Specialty Start Date End Date Ayana Pelaez FNP [address] [place] [address] [id number] PCP - General Family Medicine 11/28/21 [facility] 06/12/24 documented as of this encounter
--- OUTSIDE RECORDS SUMMARY | 2025-02-05 13:56 | XMS_ITS | Encounter Summary ---
Author Organization [employer] Address [address] [place] [address] 7 [place] [address] Care Team Providers Care Laundry Or Dry Cleaners Counter Clerk Name Role Phone [facility] Primary Care Provider [phone] Reason for Visit * Reason Onset Date Comments Medication Question 01/23/2025 Encounter Details Date Type Department Care Team ([facility] st Contact Info) Description 01/23/2025 Telephone [facility] [address] [place] [address] [facility] [address] [place] [address] Medication Question Social History Tobacco Use Types Packs/Day Years [...] AM EDT documented as of this encounter Miscellaneous Notes * Telephone Encounter - Roopa Herbert RN - 01/23/2025 2:28 PM EDT TC from [facility] stating that the medication prescribed today has a potential interaction with Paliperidone (Invega) 9 mg 24-hour tablet. [facility] is requesting a call for clarification. contact [facility] at [phone] TC placed to [facility] after speaking to Dr Patel. If the interaction that the pharmacy isspeaking of is longated QT interval Dr Patel states that nomal EKG on file and ok to fill Rx forZithro * Telephone Encounter - Gay Abreu - 01/23/2025 1:56 PM EDT TC from [facility] stating that the medication prescribed today has a potential interaction with Paliperidone (Invega) 9 mg 24-hour tablet. [facility] is requesting a call for clarification. contact [facility] at [phone] documented in this encounter Plan of Treatment Not on file documented as of this encounter Visit Diagnoses Not on filedocumented in this encounter Additional Health Concerns Assessment Noted Time PHQ-9 Depression Total Score: 0 01/08/20 24 10:20 AM EDT documented as of this encounter Care Teams Laundry Or Dry Cleaners Counter Clerk Relationship Specialty Start Date End Date Ayana Pelaez FNP [address] [place] [id number] PCP - General Family Medicine 11/28/21 [facility] 06/12/24 documented as of this encounter
--- OUTSIDE RECORDS SUMMARY | 2025-02-05 13:56 | XMS_ITS | Encounter Summary ---
Author Organization [employer] Address [address] [place] [address] 7 [place] [address] Care Team Providers Care Line Installer Name Role Phone [facility] Primary Care Provider [phone] Reason for Visit * Reason Onset Date Comments callback 01/31/2024 Encounter Details Date Type Department Care Team ([facility] st Contact Info) Description 01/31/2024 Telephone [facility] [address] [place] [address] [employer] [address] [place] [address] callback Social History Tobacco Use Types Packs/Day Years [...] encounter Miscellaneous Notes * Telephone Encounter - Carmen Hurst RN - 01/31/2024 4:26 PM EDT Triage call regarding acute care physical therapist mian request. Last week Pt was having a secondary behavior of hitting Pt face. Pt incurred some bruising and peeling skin. Mian is asking for PCP to see Pt for documentation purposes. Neg for swelling, or bumps just some reddened bruising evident and no open areas of peeling skin on right side of face. ASK apt with PCP [place] 02/05/24 @ 1130am. Mian agreed with disposition and insurance is verified as active. Protocol Used: Bruises (Adult) Protocol-Based Disposition: Home Care Positive Triage Question: * Minor injury or bruising from direct blow * All higher-acuity triage questions were negative Care Advice Discussed: * Reassurance and Education - Direct Blow (Minor Bruise, Contusion) * Use a Cold Pack for Pain, Swelling, or Bruising * Pain Medicines * Reasons To Call Back - Bruise is not fading by 10 days - Bruise lasts over 3 weeks - You become worse * Telephone Encounter - Aideann Quintin - 01/31/2024 3:57 PM EDT Tc from [facility] () returning triage callback due to pt misbehaving and Mian is worried , Callback number [phone] documented in this encounter Plan of Treatment Not on file documented as of this encounter Visit Diagnoses Not on filedocumented in this encounter Additional Health Concerns Assessment Noted Time PHQ-9 Depression Total Score: 0 01/08/20 24 10:20 AM EDT documented as of this encounter Care Teams Line Installer Relationship Specialty Start Date End Date Ayana Pelaez FNP [address] [place] [id number] PCP - General Family Medicine 11/28/21 Kareyl COLON 04/04/24 07/04/24 [facility] 06/12/24 documented as of this encounter
--- OUTSIDE RECORDS SUMMARY | 2025-02-05 13:56 | XMS_ITS | Data Portability ---
Author Organization [place] [facility], [facility] Address [address] [place] [address] Care Team Providers Care Spa Receptionist Name Role Phone [facility] Primary Care Provider [phone] Assessment Encounter Date Assessment Date Assessment LastModified by Organization Details LastModified Time 02/26/2020 02/26/2020 Overview/History : Pt is a 20yo M with reported PMH sig for Autism, being non-verbal and self injury behavior. [facility] was unable to provid records of PMH to this provider and [facility] staff was not sure of pt's [...] By Organization Details Last Modified Time 02/26/2020 [id number] Thank you for yo ur visit with [facility] today. You were seen today for treatment [...] in your condition between 8am-10pm, please call [facility] at [phone] to help navigate your care. gloria Not available 02/26/2020 15:02:31 Reason for Referral None Reported. Medical Equipment None Reported. Allergies Allergen ID Allergen Name Allergen Category Reaction Reaction Severity Criticality Documentation Date Start Date Code Code System Note Provider Name and Address Organization Details Recorded Time [id number] lactose food,medi cation Not available Not available Not available 02/26/2020 6211 RxNorm NIK MARES NP [address] [place], [address], [place] [facility] 0 15:05:24 Medications Name Sig Start [...] Status Never Smoker NIK MARES NP [address] [place], [address], [place] [facility] 02/26/2020 15:06:24 Do You Have An Advance Directive? No Information not available 02/26/2020 What Is Your Code Status? Full Code Information not available 02/26/2020 Excessive Alcohol Or Drug Use No Information not available 02/26/2020 Sex: Unknown Functional Status None recorded. Mental Status None recorded. Family History Nothing Reported Notes:pt resides at [facility] , [facility] Medical History No medical history recorded. Past Encounters Encounter ID Performer Location Encounter Start Date Encounter Closed Date Diagnosis/Indication Diagnosis SNOMED-CT Code Diagnosis ICD10 Code Diagnosis IMO Codes Diagnosis Note [id number] NIK MARES NP [facility] [address] [place] [address] 02/26/2020 14:51:50 02/26/2020 17:47:50 Abrasion of skin of hand 768302917 S60.511A Abrasion 602267313 T14.8 XXA Health Concerns Section Related Observation LastModified by Organization Detai ls LastModified Time None Recorded Concern Status LastModified by Organization Details LastModified Time None Recorded Advance Directives Directive N: Payers Insurance Date Sequence Insurance Name Policy Number Policy Ybarra Covered Member ID Ybarra Member ID Guarantor Name 02/25/2020 1 *SELF PAY* [facility] [id number] [facility] 02/26/2020 1 [place]: [facility] [id number] [facility] Notes Date Note Type Note Provider Name and Address Organization Details Recorded Time 02/26/2020 text/html Pt is non-verbal and unable to provide history, [facility] did not know pt's [...] and was concerned that they were cordero. [facility] states they are r/t to self injuy behavior and would like the areas evaluated. NIK MARES NP [address], [place], [address], [place] [facility] 02/26/2020 15:29:27
--- OUTSIDE RECORDS SUMMARY | 2025-02-05 13:56 | XMS_ITS | Encounter Summary ---
Author Organization [employer] Address [address] [place] [address] 7 [place] [address] Care Team Providers Care Furniture Sales Consultant Name Role Phone [facility] Primary Care Provider [phone] Reason for Visit * Reason Onset Date Comments triage 04/01/2022 Encounter Details Date Type Department Care Team ([facility] st Contact Info) Description 04/01/2022 Telephone [facility] [address] [place] [address] [facility] [address] [place] [address] triage Social History Tobacco Use Types Packs/Day Years Used Date Smoking Tobacco: Unknown Sex and Gender Information Value Date Recorded Sex Assigned at Male 01/31/2022 10:22 AM EDT Legal Sex Male 10:22 AM EDT Gender Identity Male 01/31/2022 10:22 AM EDT Sexual Orientation Straight 01/31/2022 10 :22 AM EDT COVID-19 Exposure Response Date Recorded In the last 10 days, have yo u been in contact with someone who was confirmed or suspected to have Coronavirus/COVID-19? No / Unsure 03/09/2022 2:47 PM EST documented as of this encounter Miscellaneous Notes * Telephone Encounter - Carmen Hurst RN - 04/01/2022 4:01 PM EST Triage call Ahmed on vacation and pipe joints supervisor of program Anita Saleh took the call. Pt was discovered to have a scrape on the top of the right foot. 4- 5 inches long and 2 inches wide with top layer of skin scraped off. Pt doesn't report pain or discomfort. Pt is given tylenol for discomfort. Request to have provider look at this scrape. No apts available today , advised to bring to [facility] Monday morning to be seen. Home care advice reviewed and agreed with. Pt may need updated tetanusshot will discuss Monday. Plan agreed with. Protocol Used: Cuts and Lacerations (Adult) Care Advice Discussed: * Reassurance and Education - Small Cut or Scrape * Clean the Wound * Antibiotic Ointment * Liquid Skin Bandage * Pain Medicines * Pain Medicines - Extra Notes and Warnings * Reasons To Call Back - Dirt in the wound persists after 15 minutes of scrubbing - Looks infected (pus, redness, increasing tenderness) - Doesn't heal within 14 days - Bleeding does not stop after using direct pressure - You become worse * Telephone Encounter - Bridgette Pratt - 04/01/2022 1:31 PM EST Tc from [facility] (ios programmer) returning call . [phone] documented in this encounter Plan of Treatment Not on file documented as of this encounter Visit Diagnoses Not on filedocumented in this encounter Care Teams Furniture Sales Consultant Relationship Specialty Start Date End Date K[place]Ayana FNP [address] [place] [address] PCP - General Family Medicine 11/28/21 Karely COLON 04/04/24 07/04/24 [facility] 06/12/24 documented as of this encounter
--- OUTSIDE RECORDS SUMMARY | 2025-02-05 13:56 | XMS_ITS | Encounter Summary ---
Author Organization [employer] Address [address] [place] [address] [place] [address] Care Team Providers Care Bioinformatics Developer Name Role Phone [facility] Primary Care Provider [phone] Reason for Visit * Reason Onset Date Comments Med Refill 03/22/2024 Encounter Details Date Type Department Care Team (Late st Contact Info) Description 03/22/2024 Refill [facility] [address] [place] [address] [facility] [address] [place] [address] Fever, unspecified fever cause Social History Tobacco Use Types Packs/Day Years [...] as of this encounter Plan of Treatment Not on file documented as of this encounter Visit Diagnoses Diagnosis Fever, unspecified fever cause documented in this encounter Additional Health Concerns Assessment Noted Time PHQ-9 Depression Total Score: 0 01/08/20 24 10:20 AM EDT documented as of this encounter Care Teams Bioinformatics Developer Relationship Specialty Start Date End Date Ayana Pelaez FNP [address] [place] [address] PCP - General Family Medicine 11/28/21 [facility] 04/[facility] 07/04/24 [facility] 06/12/24 documented as of this encounter
--- OUTSIDE RECORDS SUMMARY | 2025-02-05 13:56 | XMS_ITS | Encounter Summary ---
Author Organization [employer] Address [address] [place] [address] 7 [place] [address] Care Team Providers Care Senior Software Engineer Analytics Name Role Phone [facility] Primary Care Provider [phone] Reason for Visit * Reason Onset Date Comments Chart Prep 02/04/2025 Encounter Details Date Type Department Care Team ([facility] st Contact Info) Description 02/04/[address] [facility] [address] [place] [address] [facility] [address] [place] [address] Chart Prep Social History Tobacco Use Types Packs/Day Years [...] encounter Miscellaneous Notes * Telephone Encounter - Rebeca Bucklye MA - 02/04/2025 7:01 PM EST Chart Prep Labs: not applicable Images: not applicable Referrals: not applicable Vaccines due: Flu Screenings: PISQ Overdue care gaps: SBIRT, PHQ-9, NAHOMI-7, and Oral health screening documented in this encounter Plan of Treatment Not on file documented as of this encounter Visit Diagnoses Not on filedocumented in this encounter Additional Health Concerns Assessment Noted Time PHQ-9 Depression Total Score: 0 01/08/20 24 10:20 AM EDT documented as of this encounter Care Teams Senior Software Engineer Analytics Relationship Specialty Start Date End Date Ayana Pelaez FNP [address] [place] [address] PCP - General Family Medicine 11/28/21 [facility] 06/12/24 documented as of this encounter
--- OUTSIDE RECORDS SUMMARY | 2025-02-05 13:56 | XMS_ITS | Encounter Summary ---
Author Organization [employer] Address [address] [place] [address] 7 [place] [address] Care Team Providers Care Mission Analyst Name Role Phone [facility] Primary Care Provider [phone] Reason for Visit * Reason Comments Med Refill Encounter Details Date Type Department Care Team (Late st Contact Info) Description 03/12/2024 Refill [facility] [address] [place] [address] [facility] [address] [place] [address] Fever, unspecified fever cause Social History Tobacco [...] documented as of this encounter Care Teams Mission Analyst Relationship Specialty Start Date End Date Ayana Pelaez FNP [address] [place] [address] PCP - General Family Medicine 11/28/21 [facility] A 04/04/24 07/04/24 [facility] 06/12/24 documented as of this encounter
--- OUTSIDE RECORDS SUMMARY | 2025-02-05 13:56 | XMS_ITS | Encounter Summary ---
Author Organization [employer] Address [address] [place] [address] [place] [address] Care Team Providers Care Ordnance Handler Name Role Phone Ayana Pelaez CORPORATE OFFICER Primary Care Provider [phone] Encounter Details Date Type Department Care Team ([facility] st Contact Info) Description 03/09/2022 Orders Only [facility] MEDICINE [address] [place] [address] Emmy Nagel MD [address] [place] [address] Laceration of nose with complication, initial encounter (Primary Dx); Swelling of nose Social History Tobacco Use Types Packs/Day Years [...] PM EST documented as of this encounter Plan of Treatment Scheduled Orders Name Type Priority Associated Diagnoses Orde r Schedule XR Nasal Bones Imaging Routine Laceration of nose with complication, initial encounter Swelling of nose Expected: 03/09/2022 (Approximate), Expires: 03/09/2023 documented as of this encounter Visit Diagnoses Diagnosis Laceration of nose with complication, initial encounter- Primary Swelling of nose documented in this encounter Care Teams Ordnance Handler Relationship Specialty Start Date End Date Benigno ROMAN Piña [address] [place] [address] PCP - General Family Medicine 11/28/21 Karely COLON 04/04/24 07/04/24 [facility] 06/12/24 documented as of this encounter
--- OUTSIDE RECORDS SUMMARY | 2025-02-05 13:56 | XMS_ITS | Encounter Summary ---
Author Organization [employer] Address [address] [place] [address] [place] [address] Care Team Providers Care Boilermaker Central Steam Plant Name Role Phone Ayana Pelaez [facility] Primary Care Provider [phone] Encounter Details Date Type Department Care Team ([facility] Contact Info) Description 03/31/2022 Telephone [facility] MEDICINE [address] [place], [place] [id number] Ayana Pelaez [facility] [address] [place] [address] Social History Tobacco Use Types Packs/Day Years [...] on filedocumented in this encounter Care Teams Boilermaker Central Steam Plant Relationship Specialty Start Date End Date Ayana Pelaez FNP [address] [place] [address] PCP - General Family Medicine 11/28/21 [facility] 04/04/24 07/04/24 [facility] 06/12/24 documented as of this encounter
--- OUTSIDE RECORDS SUMMARY | 2025-02-05 13:56 | XMS_ITS | Encounter Summary ---
Author Organization [employer] Address [address] [place] [address] 7 [place] [address] Care Team Providers Care Chemistry Intern Name Role Phone [facility] Primary Care Provider [phone] Reason for Visit * Reason Comments Med Refill Encounter Details Date Type Department Care Team ([facility] st Contact Info) Description 02/22/2024 Refill [facility] MEDICINE [address] [place] [address] [facility] [address] [place] [address] Fever, unspecified fever cause Social History Tobacco [...] documented as of this encounter Care Teams Chemistry Intern Relationship Specialty Start Date End Date Ayana Pelaez FNP [address] [place] [address] PCP - General Family Medicine 11/28/21 Karely A 04/04/24 07/04/24 [facility] 06/12/24 documented as of this encounter
--- OUTSIDE RECORDS SUMMARY | 2025-02-05 13:56 | XMS_ITS | Encounter Summary ---
Author Organization [employer] Address [address] [place] [address] 7 [place] [address] Care Team Providers Care Appellate Court Judge Name Role Phone [facility] Primary Care Provider [phone] Reason for Visit * Reason Onset Date Comments Created In Error 02/01/2024 Encounter Details Date Type Department Care Team ([facility] st Contact Info) Description 02/01/2024 Telephone [facility] MEDICINE [address] [place] [address] [facility] 230 [place] [address] Created In Error Social History Tobacco Use [...] documented as of this encounter Care Teams Appellate Court Judge Relationship Specialty Start Date End Date Ayana Pelaez FNP [address] [place] [address] PCP - General Family Medicine 11/28/21 [place] [facility] 04/04/24 07/04/24 [facility] 06/12/24 documented as of this encounter
--- OUTSIDE RECORDS SUMMARY | 2025-02-05 13:56 | XMS_ITS | Encounter Summary ---
Author Organization [employer] Address [address] [place] [address] 7 [place] [address] Care Team Providers Care Bulb Farmworker Name Role Phone [facility] Primary Care Provider [phone] Encounter Details Date Type Department Care Team (Latest Contact Info) Description 02/05/2025 Travel Social History Tobacco Use Types Packs/Day Years [...] documented as of this encounter Care Teams Bulb Farmworker Relationship Specialty Start Date End Date Ayana Pelaez FNP [address] [place] [address] PCP - General Family Medicine 11/28/21 [facility] 06/12/24 documented as of this encounter
--- OUTSIDE RECORDS SUMMARY | 2025-02-05 13:56 | XMS_ITS | Encounter Summary ---
Author Organization [employer] Address [address] [place] [address] 7 [place] [address] Care Team Providers Care Hydraulic Controls Technician Name Role Phone [facility] Primary Care Provider [phone] Reason for Visit * Reason Onset Date Comments Appointment Request 01/20/2025 Encounter Details Date Type Department Care Team ([facility] st Contact Info) Description 01/20/2025 Telephone [facility] MEDICINE 230 [place] [address] [facility] 230 [place] [address] Appointment Request Social History Tobacco Use Types Packs/Day Years [...] encounter Miscellaneous Notes * Telephone Encounter - Dean Lewis - 01/20/2025 9:44 AM EDT Tc ariadne Pappas at [facility] requesting to schedule f/u apt as pt was seen in walk in on Contact pt at [phone] documented in this encounter Plan of Treatment Not on file documented as of this encounter Visit Diagnoses Not on filedocumented in this encounter Additional Health Concerns Assessment Noted Time PHQ-9 Depression Total Score: 0 01/08/20 10:20 AM EDT documented as of this encounter Care Teams Hydraulic Controls Technician Relationship Specialty Start Date End Date Ayana Pelaez FNP [address] [place] [address] PCP - General Family Medicine 11/28/21 [facility] 06/12/24 documented as of this encounter
--- OUTSIDE RECORDS SUMMARY | 2025-02-05 13:56 | XMS_ITS | Encounter Summary ---
Author Organization [employer] Address [address] [place] [address] 7 [place] [address] Care Team Providers Care Income Tax Advisor Name Role Phone [facility] Primary Care Provider Reason for Visit * Reason Comments Med Refill Encounter Details Date Type Department Care Team (Late st Contact Info) Description 09/20/2024 Refill [facility] MEDICINE [address] [place] [address] [facility] 230 [place] [address] Social History Tobacco Use Types Packs/Day Years [...] documented as of this encounter Care Teams Income Tax Advisor Relationship Specialty Start Date End Date Ayana Pelaez FNP 230 [place] [address] PCP - General Family Medicine 11/28/21 [facility] 06/12/24 documented as of this encounter
--- OUTSIDE RECORDS SUMMARY | 2025-02-05 13:56 | XMS_ITS | Encounter Summary ---
Author Organization [employer] Address [address] [place] [address] 7 [place] [address] Care Team Providers Care Acls Specialist Name Role Phone [facility] Primary Care Provider [phone] Reason for Visit * Reason Comments Med Refill Encounter Details Date Type Department Care Team (Late st Contact Info) Description 01/01/2025 Refill [facility] MEDICINE 230 [place] [address] [facility] 230 [place] [address] Rash Social History Tobacco Use Types Packs/Day Years [...] as of this encounter Visit Diagnoses Diagnosis Rash Rash and other nonspecific skin eruption documented in this encounter Additional Health Concerns Assessment Noted Time PHQ-9 Depression Total Score: 0 01/08/20 24 10:20 AM EDT documented as of this encounter Care Teams Acls Specialist Relationship Specialty Start Date End Date Ayana Pelaez FNP [address] [place] [address] PCP - General Family Medicine 11/28/21 [facility] 06/12/24 documented as of this encounter
--- OUTSIDE RECORDS SUMMARY | 2025-02-05 13:56 | XMS_ITS | Encounter Summary ---
Author Organization [employer] Address [address] [place] [address] 7 [place] [address] Care Team Providers Care Market Research Manager Name Role Phone Ayana Pelaez [employer] Primary Care Provider [phone] Encounter Details Date Type Department Care Team ([facility] st Contact Info) Description 02/23/2022 Abstract [facility] [address] [place] [address] Megan Yu DMD Social History Tobacco Use Types Packs/Day Years Used Date Smoking Tobacco: Never Assessed Sex and Gender Information Value Date Recorded Sex Assigned at Male 01/31/2022 10:22 AM EDT Legal Sex Male 10:22 AM EDT Gender Identity Male 01/31/2022 10:22 AM EDT Sexual Orientation Straight 01/31/2022 10 :22 AM EDT documented as of this encounter Plan of Treatment Not on file documented as of this encounter Procedures Procedure Name Priority Date/Time Associated Diagnosis Comments 18 O COMPOSITE FILLING Routine 12/20/2017 12:00 AM EDT 31 O SEALANT - PER TOOTH Routine 11/16/2015 12:00 AM EDT 29 O SEALANT - PER TOOTH Routine 11/16/2015 12:00 AM EDT 21 O SEALANT - PER TOOTH Routine 11/16/2015 12:00 AM EDT 20 O SEALANT - PER TOOTH Routine 11/16/2015 12:00 AM EDT 19 O SEALANT - PER TOOTH Routine 11/16/2015 12:00 AM EDT 18 O SEALANT - PER TOOTH Routine 11/16/2015 12:00 AM EDT 15 O SEALANT - PER TOOTH Routine 11/16/2015 12:00 AM EDT 14 O SEALANT - PER TOOTH Routine 11/16/2015 12:00 AM EDT 13 O SEALANT - PER TOOTH Routine 11/16/2015 12:00 AM EDT 12 O SEALANT - PER TOOTH Routine 11/16/2015 12:00 AM EDT 11 I SEALANT - PER TOOTH Routine 11/16/2015 12:00 AM EDT 10 I SEALANT - PER TOOTH Routine 11/16/2015 12:00 AM EDT 9 I SEALANT - PER TOOTH Routine 11/16/2015 12:00 AM EDT 8 I SEALANT - PER TOOTH Routine 11/16/2015 12:00 AM EDT 7 I SEALANT - PER TOOTH Routine 11/16/2015 12:00 AM EDT 6 I SEALANT - PER TOOTH Routine 11/16/2015 12:00 AM EDT 5 O SEALANT - PER TOOTH Routine 11/16/2015 12:00 AM EDT 4 O SEALANT - PER TOOTH Routine 11/16/2015 12:00 AM EDT 3 O SEALANT - PER TOOTH Routine 11/16/2015 12:00 AM EDT 2 O SEALANT - PER TOOTH Routine 11/16/2015 12:00 AM EDT 28 O SEALANT - PER TOOTH Routine 11/16/2015 12:00 AM EDT 30 CAROLINE COMPOSITE FILLING Routine 11/16/2015 12:00 AM EDT documented in this encounter Visit Diagnoses Not on filedocumented in this encounter Care Teams Market Research Manager Relationship Specialty Start Date End Date Ayana Pelaez FNP [address] [place] [address] PCP - General Family Medicine 11/28/21 Karely COLON 04/04/24 07/04/24 [facility] 06/12/24 documented as of this encounter
--- OUTSIDE RECORDS SUMMARY | 2025-02-05 13:57 | XMS_ITS | Clinical Summary ---
Author Organization [facility] Address [address] [facility] [address] [place] [address] Phone Care Team Providers Care Transportation Supervisor Name Role Phone Azucena Floyd MD Primary Care Provider [phone] Allergies Active Allergy Reactions Criticality Noted Date Comments Lactose Diarrhea 08/04/2021 Medications traZODone (DESYREL) 100 MG tablet 5 Active clonazePAM (KLONOPIN) 1 MG tablet 5 Active azithromycin (ZITHROMAX) 250 MG tablet 5 Active acetaminophen (TYLENOL) 500 MG tablet TAKE 2 TABLETS (1,000 MG) BY MOUTH EVERY 6-8 HOURS NEEDED FOR FEVER GREATER THAN 100 F OR PAIN 3 Active diazePAM (VALIUM) 2 MG tablet 5 Active divalproex (DEPAKOTE ER) 250 MG ER 24 hr tablet 5 Active docusate sodium (COLACE) 100 MG capsule 5 Active FLUoxetine (PROZAC) 40 MG capsule 3 Active fluticasone propionate (FLONASE) 50 mcg/actuation nasal spray Administer 1-2 sprays into each nostril daily as needed for nasal congestion. Shake gently. Before first use, prime pump. After use, clean tip and replace cap. 3 Active hydrocortisone 2.5 % cream 5 Active ibuprofen (ADVIL,MOTRIN) 200 MG tablet TAKE 1 TABLET BY MOUTH EVERY 6 HOURS NEEDED FOR FEVER GREATER THAN 100 F 3 Active loratadine (CLARITIN) 10 mg tablet Take 10 mg by mouth daily as needed. 3 Active paliperidone (INVEGA) 6 MG 24 hr tablet 3 Active risperiDONE (RISPERDAL) 2 MG tablet 5 Active risperiDONE (RISPERDAL) 3 MG tablet 5 Active triamcinolone acetonide 0.025 % cream MIX ENTIRE TUBE WITH A 16 OUNCE JAR OF CERAVE / APPLY THE MIXTURE TOPICALLY ONCE DAILY FROM THE NECK DOWN 3 Active Encounters Date Type Department Care Team Description 01/29/2025 1:00 PM EDT Office Visit [facility] Endocrine, Diabetes, and Hypertension [address] [place] [address] Cindy Bro NP Vitamin D deficiency, unspecified (Primary Dx); Low bone density for age; History of hip fracture from Last 3 Months Social History Tobacco Use Types Packs/Day Years Used Date Smoking Tobacco: Never Smokeless Tobacco: Never Tobacco Cessation:Counseling Given: Not Answered Education Answer Date Recorded Are you interested in more education? Not on muriel e 07/29/2022 Are you concerned about learning? Not on file 07/29/2022 No 07/29/2022 No 07/29/2022 Digital Access Answer Date Recorded No 08/30/2022 No 08/30/2022 Reliable internet access at home? Not on file 08/30/2022 Device with a working camera? Not on file Sex and Gender Information Value Date Recorded Sex Assigned at Not on file Legal Sex Male 4:26 PM EDT Gender Identity Male 03/19/2024 9:13 PM EST Sexual Orientation Choose not to disclose 2023 9:13 PM EST Last Filed Vital Signs Vital Sign Reading Time Taken Comments Blood Pressure 109/74 01/29/2025 1:06 PM EDT Pulse 99 01/29/2025 1:06 PM EDT Temperature - - Respiratory Rate - - Oxygen Saturation - - Inhaled Oxygen Concentration - - Weight 59.9 kg (132 lb) 01/29/2025 1:06 PM EDT Height 161.3 cm (5' 3.5 ) 01/29/2025 1:06 PM EDT Body Mass Index 23.02 01/29/2025 1:06 PM EDT Plan of Treatment Upcoming Encounters Date Type Department Care Team (Late st Contact Info) Description 01/29/2026 11:00 AM EDT Telemedicine [facility] Endocrine, Diabetes, and Hypertension [address] [address] Cindy Bro NP [address] [place] [address] [email or web address] Health Maintenance Due Date Last Done Comments VALPROIC ACID (DEPAKENE) LEVEL 2001 HEPATITIS C SCREENING 2019 HIV ONE-TIME SCREENING (18-65 YEARS) 2019 INFLUENZA VACCINE (#1) 2024 , 01/02/2023, 04/24/2020, Additional history exists COVID-19 VACCINE ( season) 2024 01/08/2024, 01/02/2023, 08/16/2021, Additional history exists DEPRESSION SCREENING 01/28/2026 01/28/2025 SMOKING Hx and SMOKELESS TOBACCO SCREENING 01/29/2026 01/29/2025 Adult Td,Tdap Booster 01/07/2034 01/08/2024 , 12/17/2013, 01/18/2005, Additional history exists PNEUMOCOCCAL VACCINES (0-49 years) Aged Out 2001, 2001, 2001 No longer eligible based on patient's age to complete this topic HIB VACCINES Aged Out 2001, 10/01, 2001 No longer eligible based on patient's age to complete this topic HEPATITIS A VACCINES Completed 07/09/2015, 06/21/19 12 HPV VACCINES Completed 08/11/2016, 10/2015, 07/09/2015 MENINGOCOCCAL VACCINES (ACWY) Completed 10/26/2017, 12/17/2013 MENINGOCOCCAL VACCINES (B) Aged Out N o longer eligible based on patient's age to complete this topic Medical Devices Not on file Insurance C3 ACO C3 ACO C3 ACO C3 ACO C3 ACO C[address] [place] [address] [address] [place] [address] C3 ACO [facility] C3 ACO C3 ACO [facility] C3 ACO [address] [place] [address] [place] [address] C3 ACO C3 ACO [facility] C3 ACO [facility] C3 ACO [facility] C3 ACO Care Teams Transportation Supervisor Relationship Specialty Start Date End Date Azucena Floyd MD [address] [place] [address] PCP - General Pediatrics 12/06/18 Additional Source Comments The information contained in this document represents components of the legal health record. It is not the complete legal health record.[facility]
--- OUTSIDE RECORDS SUMMARY | 2025-02-05 13:57 | XMS_ITS | Encounter Summary ---
Author Organization [employer] Address [address] [place] [address] Care Team Providers Care Ticket Printer And Tagger Name Role Phone Ayana Pelaez [facility] Primary Care Provider [phone] Reason for Visit * Reason Onset Date Comments Referral 05/17/2022 Encounter Details Date Type Department Care Team ([facility] st Contact Info) Description 05/17/2022 Telephone [facility] MEDICINE [address] [place] [address] Ayana Pelaez [facility] [address] [place] [address] Referral Social History Tobacco Use Types Packs/Day Years Used Date Smoking Tobacco: Unknown Sex and Gender Information Value Date Recorded Sex Assigned at Male 01/31/2022 10:22 AM EDT Legal Sex Male 10:22 AM EDT Gender Identity Male 01/31/2022 10:22 AM EDT Sexual Orientation Straight 01/31/2022 10 :22 AM EDT documented as of this encounter Miscellaneous Notes * Telephone Encounter - Libankelly Jero Quiroz - 05/17/2022 9:55 AM EST Tc from pt mother requesting a status on referral for Occupational Therapy. Please contact mother at [phone] documented in this encounter Plan of Treatment Not on file documented as of this encounter Visit Diagnoses Not on filedocumented in this encounter Care Teams Ticket Printer And Tagger Relationship Specialty Start Date End Date Ayana Pelaez FNP [address] [place] [address] PCP - General Family Medicine 11/28/21 Karely COLON 04/04/24 07/04/24 [facility] healthcare [facility] 06/12/24 documented as of this encounter
--- OUTSIDE RECORDS SUMMARY | 2025-02-05 13:57 | XMS_ITS | Encounter Summary ---
Author Organization [employer] Address [address] [place] [address] 7 [place] [address] Care Team Providers Care Psychological Assistant Name Role Phone [facility] Primary Care Provider [phone] Reason for Visit * Reason Comments Med Refill Encounter Details Date Type Department Care Team (Late st Contact Info) Description 06/20/2024 Refill [facility] MEDICINE [address] [place] [address] [facility] [address] [place] [address] Fever, unspecified fever cause Social History Tobacco [...] documented as of this encounter Care Teams Psychological Assistant Relationship Specialty Start Date End Date Ayana Pelaez FNP [address] [place] [address] PCP - General Family Medicine 11/28/21 Karely A 04/04/24 07/04/24 [facility] 06/12/24 documented as of this encounter
--- OUTSIDE RECORDS SUMMARY | 2025-02-05 13:57 | XMS_ITS | Encounter Summary ---
Author Organization [employer] Address [address] [place] [address] [place] [address] Care Team Providers Care Child Care Teacher Name Role Phone [facility] Primary Care Provider [phone] Reason for Visit * Reason Comments Med Refill Encounter Details Date Type Department Care Team (Late st Contact Info) Description 12/30/2022 Refill [facility] MEDICINE [address] [place] [address] [facility] [address] [place] [address] Social History Tobacco Use Types Packs/Day Years [...] Date Recorded Patient Health Questionnaire-9 Score 0 01/02/2023 Depression Answer Date Recorded Patient Health Questionnaire-2 Score 0 01/02/2023 Sex and Gender Information Value Date Recorded Sex Assigned at Male 01/31/2022 10:22 AM EDT Legal Sex Male 10:22 AM EDT Gender Identity Male 01/31/2022 10:22 AM EDT Sexual Orientation Straight 01/31/2022 10 :22 AM EDT documented as of this encounter Functional Status * Over the past 2 weeks, how often have you been bothered by any of the following problems? Question Answer Date of Assessment Author Patient Health Questionnaire-2 Score 0 01/02/2023 9:14 AM Brii Jovel [place] * Over the past 2 weeks, how often have you been bothered by any of the following problems? Question Answer Date of Assessment Author Little interest or pleasure in doing things Not at all 01/02/2023 9:14 AM Brii Jovel [place] Feeling down, depressed, or hopeless Not at all 01/02/2023 9:14 AM Brii Jovel [place] Trouble falling or staying asleep, or sleeping too much Not at all 01/02/2023 9:14 AM [place] Brii Judd [place] Feeling tired or having little energy Not at all 01/02/2023 9:14 AM Brii Jovel [place] Poor appetite or overeating Not at all 01/02/2023 9: 14 AM Brii Jovel [place] Feeling bad about yourself - or that you are a failure or have let yourself or your family down Not at all 01/02/2023 9:14 AM Brii Jovel [place] Trouble concentrating on things, such as reading the newspaper or watching television Not at all 01/02/2023 9:14 AM Brii Jovel MA Moving or speaking so slowly that other people could have noticed? Or the opposite - being so fidgety or restless that you have been moving around a lot more than usual. Not at all 01/02/2023 9:14 AM Brii Wilcox MA Thoughts that you would be better off or hurting yourself in some way Not at all 01/02/2023 9:14 AM Brii Jovel MA Patient Health Questionnaire-9 Score 0 01/02/2023 9:14 AM Brii Jovel [place] documented as of this encounter Plan of Treatment Not on file documented as of this encounter Visit Diagnoses Not on filedocumented in this encounter Additional Health Concerns Assessment Noted Time PHQ-9 Depression Total Score: 0 10/25/19 23 9:40 AM EDT documented as of this encounter Care Teams Child Care Teacher Relationship Specialty Start Date End Date Ayana Pelaez FNP [address] [place] [address] PCP - General Family Medicine 11/28/21 Karely COLON 04/04/24 07/04/24 [facility] solutions 06/12/24 documented as of this encounter
--- OUTSIDE RECORDS SUMMARY | 2025-02-05 13:57 | XMS_ITS | Encounter Summary ---
Author Organization [facility] Address [address] [place] [address] Phone Care Team Providers Care Cancer Spec Name Role Phone Azucena Floyd MD Primary Care Provider Encounter Details Date Type Department Care Team (Late st Contact Info) Description 08/24/2021 Transcribe Orders Virtual Department [address] [place] [address] Dannie Blas MD [address] [place] [address] [email or web address] High risk medication use (Primary Dx) Social History Tobacco Use Types Packs/Day Years Used Date Smoking Tobacco: Never Assessed Sex and Gender Information Value Date Recorded Sex Assigned at Not on file Legal Sex Male 4:26 PM EDT Gender Identity Male 03/19/2024 9:13 PM EST Sexual Orientation Choose not to disclose 2023 9:13 PM EST documented as of this encounter Plan of Treatment Upcoming Encounters Date Type Department Care Team (Late st Contact Info) Description 01/29/2026 11:00 AM EDT Telemedicine [facility] Endocrine, Diabetes, and Hypertension [address] [address] Cindy Bro NP [address] [place] [address] Scheduled Orders Name Type Priority Associated Diagnoses Orde r Schedule ECG 12-LEAD ECG Routine High risk medication use Expected: 08/24/2021, Expires: 08/24/2022 documented as of this encounter Visit Diagnoses Diagnosis High risk medication use- Primary documented in this encounter Care Teams Cancer Spec Relationship Specialty Start Date End Date Azucena Floyd MD [address] [place] [address] PCP - General Pediatrics 12/06/18 documented as of this encounter Additional Source Comments The information contained in this document represents components of the legal health record. It is not the complete legal health record.[facility]
--- OUTSIDE RECORDS SUMMARY | 2025-02-05 13:57 | XMS_ITS | Encounter Summary ---
Author Organization [employer] Address [address] [place] [address] Care Team Providers Care Ui Application Developer Name Role Phone Ayana Pelaez [facility] Primary Care Provider [phone] Encounter Details Date Type Department Care Team ([facility] Contact Info) Description 04/28/2022 Telephone [facility] [address] [place], [place] [phone] Ayana Pelaez [facility] [address] [place] [address] Social History Tobacco Use Types Packs/Day Years [...] suspected to have Coronavirus/COVID-19? No / Unsure 04/07/2022 11:30 AM EST documented as of this encounter Plan of Treatment Not on file documented as of this encounter Visit Diagnoses Not on filedocumented in this encounter Care Teams Ui Application Developer Relationship Specialty Start Date End Date Ayana Pelaez FNP [address] [place] [address] PCP - General Family Medicine 11/28/21 [facility] 04/04/24 07/04/24 [facility] 06/12/24 documented as of this encounter
--- OUTSIDE RECORDS SUMMARY | 2025-02-05 13:57 | XMS_ITS | Clinical Summary ---
Author Organization [employer] Address [address] [place] [address] 7 [place] [address] Care Team Providers Care Torch Straightener And Heater Name Role Phone [facility] Primary Care Provider [phone] Allergies Active Allergy Reactions Criticality Noted Date Comments Lactose Diarrhea 08/04/2021 Lactose Intolerance (Gi) Diarrhea 02/23/2022 Medications polyethylene glycol, PEG, 3350 (MiraLax) 17 GM/SCOOP powderIndicatio ns:Constipation , unspecified constipation type Mix one scoop (17g) into 8oz of juice or water and drink daily as needed for constipation 527 g 2 Active triamcinolone (Kenalog) 0.025 % creamIndication s:Other eczema MIX ENTIRE TUBE WITH A 16 OUNCE JAR OF CERAVE / APPLY THE MIXTURE TOPICALLY ONCE DAILY FROM THE NECK DOWN 80 g 1 Active paliperidone (Invega) 9 MG 24 hr tablet Take 1 tablet by mouth Once per day. Active risperiDONE (RisperDAL) 3 MG tablet Take 1 tablet by mouth at bedtime. Active traZODone (Desyrel) 100 MG tablet Take 50 mg by mouth at bedtime. Active loratadine (Claritin) 10 MG tabletIndicatio ns:Acute URI Take 1 tablet (10 mg) by mouth if needed each day for allergies. 90 tablet 024 2024 Active risperiDONE (RisperDAL) 2 MG tablet Take 1 tablet by mouth in the morning. 024 Active clonazePAM (KlonoPIN) 1 MG tablet Take 1 table by mouth every morning and 1 tab twice a day as needed for anxiety, Allow 2 hours between doses. 024 Active bacitracin 500 UNIT/GM ointmentIndicat ions:Skin infection Apply topically as needed 14 g 1 025 Active Enoxaparin Sodium 40 MG/0.4ML solution prefilled syringe Inject 0.4 mL under the skin Once per day. 025 Active FLUoxetine (PROzac) 20 MG tablet Take 3 tablets by mouth Once per day. Active PHENobarbital (Luminal) 30 MG tablet Take 1 tablet by mouth at bedtime. 025 Active docusate sodium (Colace) 100 MG capsuleIndicati ons:Constipatio n, unspecified constipation type TAKE 1 CAPSULE BY MOUTH DAILY IN THE MORNING 30 capsule 11 025 Active docusate sodium (Colace) 100 MG capsuleIndicati ons:Constipatio n, unspecified constipation type Take 1 capsule (100 mg) by mouth Once per day. 90 capsule 3 025 Active calcium citrate 250 MG tabletIndicatio ns:Osteoporosis , unspecified osteoporosis type, unspecified pathological fracture presence Take 2 tablets (500 mg) by mouth with breakfast and with evening meal. 360 tablet 3 025 Active hydrocortisone 2.5 % creamIndication s:Rash Apply topically 2 times daily. 3.5 g 1 025 Active Multiple Vitamins-Minera ls (Thera-Tabs M) tabletIndicatio ns:Severe intellectual disability with intelligence quotient 20 to 34 TAKE 1 TABLET BY MOUTH DAILY IN THE MORNING A NUTRITIONAL SUPPLEMENT 30 tablet 8 025 Active diazePAM (Valium) 2 MG tablet TAKE 1 TABLET BY MOUTH 30 MINUTES PRIOR TO ANY APPOINTMENTS OR MEDICAL PROCEDURES 5 tablet 025 Active cholecalciferol (Vitamin D-3) 50 MCG (1999 UT) tabletIndicatio ns:Vitamin D deficiency TAKE 1 TABLET BY MOUTH ONCE A DAY 30 tablet 2 025 Active Acetaminophen Extra Strength 500 MG tabletIndicatio ns:Fever, unspecified fever cause 2 TABLETS BY MOUTH EVERY 6 HOURS NEEDED FOR FEVER GREATER THAN 100 F OR PAIN/ROBIN CAN'T SELF REQUEST/FOLLOW PRN ADMIN PLAN IF S/SX PERSIST>48HRS/C ALL PCP 30 tablet 1 Active ibuprofen 600 MG tablet Take 1 tablet (600 mg) by mouth every 6 (six) hours if needed for fever or mild pain. 30 tablet 1 Active Acetaminophen Extra Strength 500 MG tabletIndicatio ns:Fever, unspecified fever cause 2 TABLETS BY MOUTH EVERY 6 HOURS NEEDED FOR FEVER GREATER THAN 100 F OR PAIN/ROBIN CAN'T SELF REQUEST/FOLLOW PRN ADMIN PLAN IF S/SX PERSIST>48HRS/C ALL PCP 30 tablet 1 025 2024 Discontinued(R eorder (will not trigger notification to Pharmacy)) cholecalciferol (Vitamin D-3) 50 MCG (2000 UT) tabletIndicatio ns:Vitamin D deficiency TAKE 1 TABLET BY MOUTH ONCE A DAY 90 tablet 025 2024 Discontinued ibuprofen 400 MG tabletIndicatio ns:Viral upper respiratory tract infection Take 1 tablet (400 mg) by mouth every 8 (eight) hours if needed for mild pain for up to 10 days. 30 tablet 025 2024 acetaminophen (Tylenol Extra Strength) 500 MG tabletIndicatio ns:Viral upper respiratory tract infection Take 1 tablet (500 mg) by mouth every 6 (six) hours if needed for mild pain, fever or headaches for up to 10 days. 30 tablet 025 2024 Dextromethorpha n-guaiFENesin (Mucinex DM) 30-600 MG tablet sustained-relea se 12 hourIndications :Acute cough,Viral upper respiratory tract infection Take 1 tablet by mouth every 12 (twelve) hours for 10 days. 28 tablet 025 2024 azithromycin (Zithromax) 250 MG tabletIndicatio ns:Acute cough Take 2 tablets (500 mg) by mouth Once per day for 1 day, THEN 1 tablet (250 mg) Once per day for 4 days. 6 tablet 025 2024 Additional Information Patient not taking.Reported on 02/04/2025 Active Problems Problem Noted Date Diagnosed Date Cataract of left eye 10/02/2024 Osteoporosis 10/02/2024 Anemia 06/18/2024 Assessment & Plan (06/18/2024 10:19 AM EDT): - Pt received transfusion post surgically in H/H. Discharge was on 01/31/24 - Ordered CBC auto differential 06/18/24 - Ordered Ferritin 06/18/24 - Ordered Iron And Total Iron Binding Capacity 06/18/24 - Ordered Vitamin B12 (Cobalamin) and Folate Panel, Serum 06/18/24 - Ordered Reticulocyte Count 06/18/24 Closed displaced fracture of lesser trochanter of left femur 06/18/2024 Assessment & Plan (06/18/2024 10:16 AM EDT): - Will check CVC for left femoral fracture. Status Post IMN on 06/05/24. - Pt has follow up with Orthopedist this week on 06/20/24. - Continue following recommendation of Orthopedist. - Will check status of Physical Therapy. - Continue Lovenox for DVTP and Acetaminophen for pain. 06/18/24 Localized swelling of finger of right hand 03/21 Assessment & Plan (03/21/2024 3:59 PM EST): Likely early cellulitis. -check X ray for occult fracture -rx Keflex liquid tid started 03/21/24 for 10 days (stop date 03/31/24) -wound dressed -keep hand gloved for protection -ER precaution discussed -he has appointment with PCP already scheduled for 2 weeks Nonsuicidal self-injury 03/04/2024 Assessment & Plan (03/04/2024 10:50 AM EST): Pt wearing self protective head gear today, staff attentive Referral to neuro as above In care with psychiatric team Confusion 02/16/2024 Assessment & Plan (03/04/2024 10:49 AM EST): Referral to neuro, Normal neuro exam today, however pt has had multiple self injurious episodes, Defer to neurology regarding utility of head imaging in this case Hypersomnia 02/09/2024 Assessment & Plan (02/09/2024 4:20 PM EST): Labs ordered Acute otitis media 02/09/2024 Assessment & Plan (03/04/2024 10:50 AM EST): resolving Skin infection 02/09/2024 Total incontinence 10/14/2022 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 for baseline mental status, will order ct scan of the brain and fu with his PCP There was apparently no change in mental status in the ED. Discussed with the staff to keep pt with protective helmet. Need to bring medicaiton administration log to PCP No change in medications, he needs to FU with pscyhiatry FU with PCP in 3-4 weeks Program staff will check with director of sustainability programs about antibiotics and complete as prescribed. Encounters Date Type Department Care Team Description 02/05/2025 10:30 AM EST Office Visit [facility] [address] [place] [address] Ayana Pelaez FNP Fever, unspecified fever cause; Encounter for immunization; Encounter for vaccination 02/05/2025 Travel 02/04/2025 10:30 AM EST Office Visit [facility] [address] [place] [address] Hansa Sullivan 02/04/2025 Telephone [facility] [address] [place] [address] Ayana Pelaez FNP Chart Prep 01/29/2025 Patient Outreach [facility] [address] [place] [address] Ayana Pelaez FNP Pre-visit Planning (SDOH will need to be completed in office) 01/24/2025 Telephone [facility] [address] [place] [address] Ayana Pelaez FNP fyi 01/23/2025 1:40 PM EDT Office Visit [facility] [address] [place] [address] Lana Patel MD Acute cough (Primary Dx) 01/23/2025 Telephone [facility] [address] [place] [address] Ayana Pelaez FNP Medication Question 01/23/2025 Travel 01/23/2025 Telephone [facility] [address] [place] [phone] Ayana Pelaez FNP Nurse Triage 01/20/[address] [address] Ayana Pelaez FNP Appointment Request 01/18/2025 10:40 AM EDT Office Visit [facility] [address] [address] Radha Leung CNP Acute cough (Primary Dx); Sore throat; Viral upper respiratory tract infection 01/18/2025 Telephone [facility] [address] [place] [address] Tere Oviedo RN 01/18/2025 Travel [address] [address] Ayana Pelaez FNP Nurse Triage 01/10/[address] [address] Ayana Pelaez FNP Vitamin D deficiency 01/02/2025 11:15 AM EDT Office Visit [facility] [address] [place] [address] Stacey Welsh DDS 01/01/2025 Refill [facility] [address] [place] [address] Ayana Pelaez FNP Rash 12/03/2024 Telephone [facility] [address] [place] [address] Ayana Pelaez FNP Nov recall 11/06/2024 Refill [facility] [address] [place] [address] G[place] BendAyana [place] FNP from Last 3 Months Immunizations Immunization Administration Dates Next Due DTaP 01/18/2005, 4,2001,10/12,2001 HPV 9-Valent 08/11/2016,09/08/2015,07/09/2015 Hep A, ped/adol, 2 dose 07/09/2015,06/21/2011 Hep B, Adolescent or Pediatric 2001,2001,2001 Hib (HbOC) 2001,2001,2001 IPV 01/18/2005, 2,2001,04/16 Influenza injectable quadriv alent preservative free 01/02/2023,04/24/2020,12/25/2018,01/25,12/29/2016,03/11/2015 Influenza, IIV3, injectable 05/01/2009, 9 Influenza, live, intranasal 12/27/2012 Influenza, seasonal, injecta ble, preservative free 02/05/2025,01/08/2024 MMR 01/18/2005,04/30/2002 Meningococcal MCV4P ACYW-135 10/26/2017,12/18/19 14 Moderna Covid-19 Vaccine 12+ 05/09/2020,04/18/19 21 Pfizer Covid-19 Vaccine 12+ 02/05/2025,1 ,01/02/2023,05/08,04/17/2020 Pneumococcal Conjugate PCV 7 2001,06/09/19 02,2001 Tdap 01/08/2024, 4,01/18/2005,06/02,2001,2001,2001 Varicella 06/21/2011,06/03/2002 Social History Tobacco Use Types Packs/Day Years Used Date Smoking Tobacco: Unknown Tobacco Cessation:Counseling Given: Not Answered Alcohol Use Standard Drinks/Week Comments Never 0 [...] Orientation Straight 01/31/2022 10 :22 AM EDT Last Filed Vital Signs Vital Sign Reading Time Taken Comments Blood Pressure 120/68 02/05/2025 10:41 AM EST Pulse 102 02/05/2025 10:41 AM EST Temperature 36.6 C (97.8 F) 01/23/2025 12:50 PM EDT Respiratory Rate 20 02/05/2025 10:41 AM EST Oxygen Saturation 96% 02/05/2025 10:41 AM EST Inhaled Oxygen Concentration - - Weight 59.7 kg (131 lb 9.6 oz) 02/05/2025 10:41 AM EST Height 162.6 cm (5' 4 ) 02/05/2025 10:41 AM EST Body Mass Index 22.59 02/05/2025 10:41 AM EST Plan of Treatment Health Maintenance Due Date Last Done Comments Dental X-Ray: Full Mouth 2001 Alcohol/Substance Use Screening 2013 Family Planning (PISQ) 01/18/2016 Dental X-Ray: Bitewings 01/28/2024 01/26/2023 SDOH Screening 12/31/2024 01/01/2024 Depression Screening 01/07/2025 01/08/2024, 01/08/20 24 Dental Oral Exam 01/18/2025 07/18/2024, , 08/10/2023, Additional history exists Dental Prophylaxis 01/18/2025 07/18/2024, 0 04/18/2024, 08/10/2023 Disability Screening 01/23/2026 01/23/2025 Tobacco Screening 02/04/2026 02/04/2025 DTaP/Tdap/Td Vaccines (8 - Td or Tdap) 01/07/2034 01/08/2024, 12/17/2013, 01/18/2005, Additional history exists Zoster Vaccines (1 of 2) 2051 RSV Patients and Patients Aged 60 years or older (1 - 1-dose 75+ series) 01/18/2076 Hepatitis B Vaccines Completed 2001, 2001, 2001 Pneumococcal Vaccine: Pediatrics (0 to 5 Years) and At-Risk Patients (6 to 49) Years Aged Out 2001, 2001, 2001 No longer eligible based on patient's age to complete this topic HIB Vaccines Aged Out 2001, 10/01, 2001 No longer eligible based on patient's age to complete this topic IPV Vaccines Completed 01/18/2005, 10/01, 2001, Additional history exists Hepatitis A Vaccines Completed 07/09/2015, 06/21/19 12 HPV Vaccines Completed 08/11/2016, 06/0 10/2015, 07/09/2015 Meningococcal Vaccine Completed 10/26/2017, 014 HIV Screening Completed 11/02/2022 Hepatitis C Screening Completed 11/02/2022 COVID-19 Vaccine Completed 02/05/2025, 10/2023, 01/02/2023, Additional history exists Influenza Vaccine Completed 02/05/2025, , 01/02/2023, Additional history exists Meningococcal B Vaccine Aged Out No l onger eligible based on patient's age to complete this topic RSV under 20 months Aged Out No longe r eligible based on patient's age to complete this topic Rotavirus Vaccines Aged Out No longer eligible based on patient's age to complete this topic Procedures Procedure Name Priority Date/Time Associated Diagnosis Comments CASE PRESENTATION, DETAILED AND EXTENSIVE TREATMENT PLANNING Routine 02/04/2025 10:30 AM EST BEHAVIOR MANAGEMENT Routine 02/04/2025 1 0:30 AM EST POCT INFLUENZA B (ID NOW RAPID MOLECULAR) Routine 01/18/2025 10:11 AM EDT Sore throat POCT INFLUENZA A (ID NOW RAPID MOLECULAR) Routine 01/18/2025 10:10 AM EDT Sore throat POCT RAPID COVID ANTIGEN Routine 01/18/2025 10:06 AM EDT Sore throat CASE PRESENTATION, DETAILED AND EXTENSIVE TREATMENT PLANNING Routine 01/02/2025 11:15 AM EDT BEHAVIOR MANAGEMENT Routine 01/02/2025 1 1:15 AM EDT Full PROPHYLAXIS - ADULT Routine 07/18/2024 10:30 AM EDT PERIODIC ORAL EVALUATION - ESTABLISHED PATIENT Routine 07/18/2024 10:30 AM EDT BITEWINGS - 4 RADIOGRAPHIC IMAGES Routine 01/26/2023 12:00 PM EDT HEPATITIS PANEL, GENERAL Routine 11/02/2022 10:20 AM EDT Healthcare maintenance HIV ANTIBODY/ANTIGEN ([place] [facility]) Routine 11/02/2022 10:20 AM EDT from Last 3 Months or Most Recently Relevant to Health Maintenance Results * POCT Rapid Influenza B GARZA ID NOW (01/18/2025 10:11 AM EDT) Influenza B Negative Negative, Indeterminate [facility] QC Media Lot # [id number] [facility] Lot# Expiration Date [facility] Swab 01/18/2025 10:1 1 AM EDT [facility] POINT OF CARE TEST ENTER/ EDIT ORDERABLES Final Result Performing Organization Address [facility]/ZIP Co de Phone Number [facility] [address] [place] [phone] * POCT Rapid Influenza A GARZA ID NOW (01/18/2025 10:10 AM EDT) Influenza A Negative Negative, Indeterminate [facility] QC Media Lot # [id number] [facility] Lot# Expiration Date [facility] Swab 01/18/2025 10:1 0 AM EDT Result [facility] POINT OF CARE TEST ENTER/ EDIT ORDERABLES Final Result Performing Organization Address [facility]/ZIP Co de Phone Number [facility] [address] [place] [phone] * POCT Rapid Covid-19 BinaxNOW (01/18/2025 10:06 AM EDT) Rapid COVID Ag Negative QC Media Lot # [id number] Lot# Expiration Date [id number] Swab 01/18/2025 10:0 6 AM EDT [facility] POINT OF CARE TEST ENTER/ EDIT ORDERABLES Final Result * HIV Ab/Ag ([facility]) (11/02/2022 10:20 AM EDT) HIV AB/AG Nonreactive Nonreactive [facility] Comment:HIV-1 p24 Ag and/or HIV-1/HIV-2 Ab not detected.A test result that is nonreactive does not exclude thepossibility of exposure to or infection with HIV-1 and/orHIV-2. Nonreactive results in this assay for individualswith prior exposure to HIV-1 and/or HIV-2 may be due toantigen and antibody levels that are below the limit ofdetection of this assay.The [employer] Lead HIV Ag/Ab Combo assay result andsupplemental assay results should be interpreted inconjunction with the patient's clinical presentation,history and other laboratory results. If the results areinconsistent with clinical evidence, additional testing issuggested to confirm the result. 11/02/2022 10:2 0 AM EDT 11/02/2022 11:19 AM EDT [facility] BLOOD ORDERABLES Final Re sult Performing Organization Address [facility] de Phone Number [facility] [address] [place] [phone] * Hepatitis Panel, General (11/02/2022 10:20 AM EDT) [facility] Hepatitis A IgM Nonreactive Nonreactive [facility] Comment:IgM antibodies to CRISOSTOMO V not detected; does not exclude earlyacute or recovered HAV infection. ~Hepatitis B Surface Antibody NONREACTIVE Nonreactive [facility] Comment:Nonreactive: < 8.00 mIU/mL Hepatitis B Core Antibody Nonreactive Nonreactive [facility] Hepatitis C Antibody Nonreactive Nonreactive [facility] Comment:Antibodies to HCV no t detected; does not exclude early acuteHCV infection. Hepatitis B Surface Ag Negative Negative [facility] Blood 11/02/2022 10:2 0 AM EDT 11/02/2022 11:19 AM EDT [facility] BLOOD ORDERABLES Final Re sult Performing Organization Address [facility] de Phone Number [facility] [address] [place] [address] [phone] from Last 3 Months or Most Recently Relevant to Health Maintenance Insurance [place] [facility] MEDICAID DDS ADULT Care Teams Torch Straightener And Heater Relationship Specialty Start Date End Date Ayana Pelaez FNP [address] [place] [phone] PCP - General Family Medicine 11/28/21 [facility] 06/12/24
--- OUTSIDE RECORDS SUMMARY | 2025-02-05 13:57 | XMS_ITS | Encounter Summary ---
Author Organization [employer] Address [address] [place] [address] Care Team Providers Care Skidder Lever Operator Name Role Phone [facility] Primary Care Provider [phone] Reason for Visit * Reason Onset Date Comments Durable Medical Equipment 09/27/2022 Encounter Details Date Type Department Care Team ([facility] st Contact Info) Description 09/27/2022 Telephone [facility] [address] [place] [address] [facility] [address] [place] [address] Durable Medical Equipment Social History Tobacco Use Types Packs/Day Years Used Date Smoking Tobacco: Unknown Alcohol Use Standard Drinks/Week Comments Never 0 (1 standard drink = 0.6 oz pur e alcohol) Sex and Gender Information Value Date Recorded Sex Assigned at Male 01/31/2022 10:22 AM EDT Legal Sex Male 10:22 AM EDT Gender Identity Male 01/31/2022 10:22 AM EDT Sexual Orientation Straight 01/31/2022 10 :22 AM EDT documented as of this encounter Miscellaneous Notes * Telephone Encounter - Glenys Dsouza - 09/27/2022 11:07 AM EDT Tc from behavioral health care coordinator requesting a new script to [facility] for pull ups size large. States last script was made wrong. Also requesting a medical necessities form for insurance. Any questions, please contact behavioral health care coordinator at [phone] documented in this encounter Plan of Treatment Not on file documented as of this encounter Visit Diagnoses Not on filedocumented in this encounter Care Teams Skidder Lever Operator Relationship Specialty Start Date End Date Ayana Pelaez FNP [address] [place] [phone] PCP - General Family Medicine 11/28/21 Karely COLON 04/04/24 07/04/24 [facility] 06/12/24 documented as of this encounter
--- OUTSIDE RECORDS SUMMARY | 2025-02-05 13:57 | XMS_ITS | Encounter Summary ---
Author Organization [employer] Address [address] [place] [address] [address] [place] [address] Care Team Providers Care Flagger Name Role Phone [facility] Primary Care Provider [phone] Reason for Visit * Reason Onset Date Comments triage 03/31/2022 Encounter Details Date Type Department Care Team ([facility] st Contact Info) Description 03/31/2022 Telephone [facility] [address] [place] [address] [facility] [address] [place] [address] triage Social History Tobacco Use Types Packs/Day [...] Telephone Encounter - Carmen Hurst RN - 03/31/2022 11:28 AM EST Triage call Pt is needing refill of tylenol 500mg 2 tabs q6-8 fever >100 or pain, started 03/30/20 and ibuprofen 200mg 1 tab q6hr fever >100 started 03/30/20 Protocol Used: Medication Refill and Renewal Call (Adult) Protocol-Based Disposition: Discuss with PCP and Callback by Nurse Today Positive Triage Question: * Prescription refill request for NON-ESSENTIAL medicine (i.e., no harm to patient if med not taken) and triager unable to refill per department policy * All higher-acuity triage questions were negative Care Advice Discussed: * Reasons To Call Back - You have more questions * Telephone Encounter - Carmen Hurst RN - 03/31/2022 11:24 AM EST Triage call Pt is in assisted, Director Ammad calling. Pt has vomited once yesterday and hasn't eaten since. Pt has had a fever of 100 and treated with tylenol reduced to 98 today. No further vomiting today. Pt continues to decline food but is taking liquids well. Advised to monitor fever and treat at 101 with tylenol or ibuprofen, requesting refills of these medications, will send to team nurses. Advised to continue to encourage fluids and start with starchy foods, IE crackers , cereal after no further vomiting for 8 hours . Pt has no diarrhea, voiding as per normal. Home care reviewed and Pt director agrees with disposition. Offered WIC if needed to be seen by provider hours given. Protocol Used: Vomiting (Adult) Protocol-Based Disposition: Home Care Positive Triage Question: * Vomiting * All higher-acuity triage questions were negative Care Advice Discussed: * Reassurance and Education - Mild to Moderate Vomiting * Clear Liquids * Solid Food * Contagiousness * Expected Course * Reasons To Call Back - Vomiting lasts for more than 2 days (48 hours) - Signs of dehydration occur - You become worse * Telephone Encounter - Bridgette Pratt - 03/31/2022 8:57 AM EST Symptom: Vomiting and lost of appetite Outcome: Schedule a same-day appointment or talk to a nurse or provider today Reason: No high acuity concerns reported by caller The caller accepted this outcome documented in this encounter Plan of Treatment Not on file documented as of this encounter Visit Diagnoses Diagnosis Nausea and vomiting, unspecified vomiting type Fever, unspecified fever cause documented in this encounter Care Teams Flagger Relationship Specialty Start Date End Date Ayana Pelaez FNP [address] [place] [id number] PCP - General Family Medicine 11/28/21 Karely COLON 04/04/24 07/04/24 [facility] 06/12/24 documented as of this encounter
[2025-02-05 14:06] LABS: Anion Gap 8 (12-20); Blood Urea Nitrogen 20 mg/dL (9-16); Calcium 8.9 mg/dL (8.4-10.2); Carbon Dioxide 25 mmol/L (22-29); Chloride 108 mmol/L (96-108); Estimated Glomerular Filt Rate > 60; Potassium 4.7 mmol/L (3.3-5.1); Sodium 136 mmol/L (135-145)
[2025-02-05 14:18] LABS: Parathyroid Hormone Intact 21.1 pg/mL (8.7-77.1)
[2025-02-11 01:53] LABS: VITAMIN D (1,25 OH) D3 62 pg/mL; Vit D (1,25-Dihydroxy) Total 62 pg/mL (18-72); Vitamin D (1,25 OH) D2 <8 pg/mL
== END 2025-02-05 11:22 | disposition home or self-care (01) ==
LOC: HO.HHCL 11:21
PROVIDERS: PCP Registered Nurse; Visit Provider Nurse Practitioner Adult Health
DX: R41.0 Disorientation, unspecified (principal); M85.9 Disorder of bone density and structure, unspecified; E55.9 Vitamin D deficiency, unspecified
CPT/HCPCS: 36415; 80048; 82652; 83970; 84100; 87086